=== PATIENT | male | born 1940 | race Caucasian/White ===

== ENCOUNTER 2016-07-23 23:52 | Emergency (ER) | payer BC, MEDICARE ==
[2016-07-24] MEDS ORDERED: IPRATROPIUM-ALBUTEROL 3 ML NEB INHALATION STA (00:27)
[2016-07-24] MEDS ORDERED: methylPREDNISolone SOD SUCCI 125 MG/2 ML VIAL IV STA (00:27)
--- NOTE | 2016-07-24 00:29 | ED ---
General Adult HPI - General Chief complaint: Shortness of Breath Stated complaint: cough,anxiety Time Seen by Provider: 07/24/16 00:16 Source: patient, family, RN notes reviewed Mode of arrival: ambulatory Limitations: no limitations - History of Present Illness Initial comments: Patient is a pleasant 75-year-old male presenting to emergency Department with complaints of cough and difficulty in breathing. Symptoms have been present for the past 2-3 days. Cough has occasional no chest pains or fevers. No history of chronic lung problems. No leg pain or leg swelling. No chest pain. - Related Data Home Medications Medication Instructions Recorded Confirmed Atenolol 25 mg PO BID 11/03/15 11/03/15 Cetirizine HCl [Zyrtec] 10 mg PO HS 11/03/15 11/03/15 Clopidogrel [Plavix] 75 mg PO HS 11/03/15 11/03/15 Gemfibrozil [Lopid] 600 mg PO DAILY 11/03/15 11/03/15 Lisinopril [Zestril] 20 mg PO DAILY 11/03/15 11/03/15 Multivitamins, Thera [Multivitamin] 1 tab PO DAILY 11/03/15 11/03/15 Rosuvastatin [Crestor] 10 mg PO HS 11/03/15 11/03/15 metFORMIN HCL [Glucophage] 500 mg PO HS 11/03/15 11/03/15 Previous Rx's Medication Instructions Recorded ALPRAZolam [Xanax] 0.5 mg PO Q8HR PRN #10 tablet 07/24/16 Albuterol Inhaler [Ventolin Hfa 2 puff INHALATION Q4HR PRN #1 07/24/16 Inhaler] inhaler predniSONE 20 mg PO BID #8 tab 07/24/16 Allergies Allergy/AdvReac Type Severity Reaction Status Date / Time No Known Allergies Allergy Verified 07/23/16 23:57 Review of Systems ROS Statement: Those systems with pertinent positive or pertinent negative responses have been documented in the HPI. ROS Other: All systems not noted in ROS Statement are negative. Constitutional: Denies: fever Eyes: Denies: eye pain ENT: Denies: ear pain Respiratory: Reports: cough, dyspnea Cardiovascular: Denies: chest pain Endocrine: Denies: fatigue Gastrointestinal: Denies: abdominal pain Genitourinary: Denies: dysuria Musculoskeletal: Denies: back pain Skin: Denies: rash Neurological: Denies: weakness Past Medical History Past Medical History: Diabetes Mellitus, Hyperlipidemia, Hypertension History of Any Multi-Drug Resistant Organisms: None Reported Additional Past Surgical History / Comment(s): carotid artery Past Psychological History: No Psychological Hx Reported Smoking Status: Former smoker Past Alcohol Use History: None Reported Past Drug Use History: None Reported - Past Family History Father Family Medical History: Cancer Additional Family Medical History / Comment(s): lung cancer Mother Family Medical History: Myocardial Infarction ([place]) Additional Family Medical History / Comment(s): in her 80s General Exam Limitations: no limitations General appearance: alert, in no apparent distress Head exam: Present: atraumatic Eye exam: Present: normal appearance, PERRL ENT exam: Present: normal oropharynx Neck exam: Present: normal inspection Respiratory exam: Present: wheezes Cardiovascular Exam: Present: regular rate, normal rhythm GI/Abdominal exam: Present: soft. Absent: tenderness Extremities exam: Present: normal inspection. Absent: pedal edema, calf tenderness Neurological exam: Present: alert Psychiatric exam: Present: normal affect, normal mood Skin exam: Absent: rash Course Vital Signs 07/23/16 07/24/16 07/24/16 23:56 00:42 00:50 Temperature 98.9 F Pulse Rate 67 60 61 Respiratory 24 Rate Blood Pressure 170/88 O2 Sat by Pulse 93 L Oximetry EKG Findings - EKG Comments: EKG Findings:: Normal sinus rhythm at 62. Normal intervals. Normal axis. Normal QRS. Normal ST-T. Medical Decision Making - Medical Decision Making Patient reevaluated and significantly improved. Lungs are clear. Patient states he feels much better following nebulizer treatment. 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 Patient does see Dr. Hawkins for this and will follow-up with him again. - Lab Data Result diagrams: 07/24/16 00:23 07/24/16 00:23 Lab Results 07/24/16 07/24/16 07/24/16 Range/Units 00:23 00:23 00:23 WBC 8.5 (3.8-10.6) k/uL RBC 4.26 L (4.30-5.90) m/uL Hgb 13.4 (13.0-17.5) gm/dL Hct 39.5 (39.0-53.0) % MCV 92.8 (80.0-100.0) fL MCH 31.5 (25.0-35.0) pg MCHC 33.9 (31.0-37.0) g/dL RDW 12.9 (11.5-15.5) % Plt Count 182 (150-450) k/uL Neutrophils % 74 % Lymphocytes % 15 % Monocytes % 8 % Eosinophils % 2 % Basophils % 0 % Neutrophils # 6.3 (1.3-7.7) k/uL Lymphocytes # 1.2 (1.0-4.8) k/uL Monocytes # 0.7 (0-1.0) k/uL Eosinophils # 0.1 (0-0.7) k/uL Basophils # 0.0 (0-0.2) k/uL PT (9.0-12.0) sec INR (<1.1) APTT (22.0-30.0) sec D-Dimer (<0.60) mg/L FEU Sodium 137 (137-145) mmol/L Potassium 4.7 (3.5-5.1) mmol/L Chloride 107 (98-107) mmol/L Carbon Dioxide 18 L (22-30) mmol/L Anion Gap 12 mmol/L BUN 36 H (9-20) mg/dL Creatinine 1.40 H (0.66-1.25) mg/dL Est GFR (MDRD) Af Amer >60 (>60 ml/min/1.73 sqM) Est GFR (MDRD) Non-Af 50 (>60 ml/min/1.73 sqM) Glucose 104 H (74-99) mg/dL Calcium 9.4 (8.4-10.2) mg/dL Total Bilirubin 0.3 (0.2-1.3) mg/dL AST 30 (17-59) U/L ALT 44 (21-72) U/L Alkaline Phosphatase 63 (38-126) U/L Total Creatine Kinase 306 H (55-170) U/L CK-MB (CK-2) 6.2 H* (0.0-2.4) ng/mL CK-MB (CK-2) Rel Index 2.0 Troponin I <0.012 (0.000-0.034) ng/mL NT-Pro-B Natriuret Pep pg/mL Total Protein 6.4 (6.3-8.2) g/dL Albumin 3.7 (3.5-5.0) g/dL 07/24/16 07/24/16 Range/Units 00:23 00:23 WBC (3.8-10.6) k/uL RBC (4.30-5.90) m/uL Hgb (13.0-17.5) gm/dL Hct (39.0-53.0) % MCV (80.0-100.0) fL MCH (25.0-35.0) pg MCHC (31.0-37.0) g/dL RDW (11.5-15.5) % Plt Count (150-450) k/uL Neutrophils % % Lymphocytes % % Monocytes % % Eosinophils % % Basophils % % Neutrophils # (1.3-7.7) k/uL Lymphocytes # (1.0-4.8) k/uL Monocytes # (0-1.0) k/uL Eosinophils # (0-0.7) k/uL Basophils # (0-0.2) k/uL PT 10.8 (9.0-12.0) sec INR 1.1 (<1.1) APTT 25.1 (22.0-30.0) sec D-Dimer 0.65 H (<0.60) mg/L FEU Sodium (137-145) mmol/L Potassium (3.5-5.1) mmol/L Chloride (98-107) mmol/L Carbon Dioxide (22-30) mmol/L Anion Gap mmol/L BUN (9-20) mg/dL Creatinine (0.66-1.25) mg/dL Est GFR (MDRD) Af Amer (>60 ml/min/1.73 sqM) Est GFR (MDRD) Non-Af (>60 ml/min/1.73 sqM) Glucose (74-99) mg/dL Calcium (8.4-10.2) mg/dL Total Bilirubin (0.2-1.3) mg/dL AST (17-59) U/L ALT (21-72) U/L Alkaline Phosphatase (38-126) U/L Total Creatine Kinase (55-170) U/L CK-MB (CK-2) (0.0-2.4) ng/mL CK-MB (CK-2) Rel Index Troponin I (0.000-0.034) ng/mL NT-Pro-B Natriuret Pep 122 pg/mL Total Protein (6.3-8.2) g/dL Albumin (3.5-5.0) g/dL - Radiology Data Radiology results: report reviewed (Computed tomography scan shows no pulmonary embolism.. Bronchial thickening concerning for bronchitis. 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 Hawkins this week regarding aorta. Please follow-up with Dr. Morris this week. Have both Drs. review portal from today. Have both Drs. review computed tomography scan results. Return for difficulty breathing, fevers, worsening symptoms or other concerns. Prescriptions: ALPRAZolam [Xanax] 0.5 mg PO Q8HR PRN #10 tablet PRN Reason: Anxiety Albuterol Inhaler [Ventolin Hfa Inhaler] 2 puff INHALATION Q4HR PRN #1 inhaler PRN Reason: Dyspnea predniSONE 20 mg PO BID #8 tab Referrals: Hugh Morris MD [Primary Care Provider] - 1-2 days
[2016-07-24 00:54] LABS: Basophils % (A) 0 %; CH 32.5; CHCM 35.2; Eosinophils # (A) 0.1 k/uL (0-0.7); Eosinophils % (A) 2 %; HCT 39.5 % (39.0-53.0); HDW 2.74; HGB 13.4 gm/dL (13.0-17.5); Luc # (Auto) 0.18; Luc % (Auto) 2; Lymphocytes # (A) 1.2 k/uL (1.0-4.8); Lymphocytes % (A) 15 %; MCH 31.5 pg (25.0-35.0); MCHC 33.9 g/dL (31.0-37.0); MCV 92.8 fL (80.0-100.0); Mean Platelet Volume 7.7; Monocytes # (A) 0.7 k/uL (0-1.0); Monocytes % (A) 8 %; Neutrophils # (A) 6.3 k/uL (1.3-7.7); Neutrophils % (A) 74 %; RBC 4.26 m/uL (4.30-5.90); RDW 12.9 % (11.5-15.5); WBC 8.5 k/uL (3.8-10.6); WBC (Perox) 8.13
[2016-07-24 01:01] LABS: ALT 44 U/L (21-72); AST 30 U/L (17-59); Alkaline Phosphatase 63 U/L (38-126); Anion Gap 12 mmol/L; Blood Urea Nitrogen 36 mg/dL (9-20); Calcium 9.4 mg/dL (8.4-10.2); Carbon Dioxide 18 mmol/L (22-30); Chloride 107 mmol/L (98-107); Glucose 104 mg/dL (74-99); Non-African American GFR(MDRD) 50 (>60 ml/min/1.73 sqM); Potassium 4.7 mmol/L (3.5-5.1); Sodium 137 mmol/L (137-145); Total Bilirubin 0.3 mg/dL (0.2-1.3); Total Protein 6.4 g/dL (6.3-8.2)
[2016-07-24 01:05] LABS: INR 1.1 (<1.1); Partial Thromboplastin Time 25.1 sec (22.0-30.0); Prothrombin Time 10.8 sec (9.0-12.0)
[2016-07-24] MEDS ORDERED: RX INFO: IV CONTRAST WAS GIVEN 1 EACH MISC MISCELLANE PRN (01:10)
[2016-07-24] MEDS ORDERED: SODIUM CHLORIDE 0.9% 500 ML IV STA (01:10)
[2016-07-24 01:11] LABS: Creatine Kinase 306 U/L (55-170)
[2016-07-24 01:24] LABS: Troponin I <0.012 ng/mL (0.000-0.034)
[2016-07-24 01:26] LABS: Creatine Kinase MB 6.2 ng/mL (0.0-2.4)
[2016-07-24 02:51] VITALS: BP 156/74; PULSE 73; RESP 18; TEMP 98.8
--- NOTE | 2016-07-24 14:18 | CT ---
EXAM: CT Angiography Chest With Intravenous Contrast. CLINICAL HISTORY: Elevated d-dimer, evaluate for pulmonary embolus TECHNIQUE: Axial computed tomographic angiography images of the chest with intravenous contrast using pulmonary embolism protocol. CTDI is 3.20, 29. 40, 8.40 mGy and DLP is 371.90 mGy-cm MIP reconstructed images were created and reviewed. COMPARISON: CXR 07/24/2016, CT abdomen and pelvis 11/03/2015 FINDINGS: Pulmonary arteries: No pulmonary embolus. 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 Calcification of the thoracic aorta and coronary arteries. No thoracic aortic dissection or aneurysm. Lungs: Bilateral peribronchial thickening is concerning for bronchitis. No mass or consolidation. Pleural space: Unremarkable. No significant effusion. No pneumothorax. Heart: See above. Bones/joints: No acute fracture. No dislocation. Soft tissues: Unremarkable. Lymph nodes: Unremarkable. No enlarged lymph nodes. Gallbladder and bile ducts: The gallbladder surgically absent. Kidneys and ureters: Bilateral fluid attenuating renal lesions likely represent cysts. IMPRESSION: 1. No pulmonary embolus. 2. Bilateral peribronchial thickening is concerning for bronchitis. 3. 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 [employer] 07/24/16 02:15 Verify Receipt Verified receipt with AIDAN Gray who will give to Dr. Gonzales on 07/24 02:15 (-05:00)
--- NOTE | 2016-07-24 14:18 | XR ---
EXAM: XR Chest, 2 Views. CLINICAL HISTORY: Reason: difficulty breathing TECHNIQUE: Frontal and lateral views of the chest. COMPARISON: 05/07/2015 FINDINGS: Lungs: Bilateral pulmonary hyperinflation. No focal consolidation. Pleural space: Unremarkable. No pneumothorax. Heart: Unremarkable. No cardiomegaly. Mediastinum: Unremarkable. Bones/joints: Degenerative changes of the osseous structures. No acute osseous abnormality. IMPRESSION: No acute cardio pulmonary process.
== END 2016-07-24 02:49 | disposition home or self-care (01) ==
LOC: EC 23:52
DX: J20.9 Acute bronchitis, unspecified (principal); I10 Essential (primary) hypertension; E78.5 Hyperlipidemia, unspecified; E11.9 Type 2 diabetes mellitus without complications; Z87.891 Personal history of nicotine dependence; Z79.02 Long term (current) use of antithrombotics/antiplatelets; Z79.84 Long term (current) use of oral hypoglycemic drugs; Z79.899 Other long term (current) drug therapy; Z80.1 Family history of malignant neoplasm of trachea, bronchus and lung
CPT/HCPCS: 99285; 96374; 96361; 36415; 94640; 93005; 85379; 83880; 80053; 82550; 82553; 84484; 85025; 85610; 85730; 71020; 71275; J2930; Q9967

== ENCOUNTER → 2016-09-22 | Outpatient (CLI) | payer MEDICARE ==
[2016-09-22 10:46] LABS: CHCM 33.5; HDW 2.95; HGB 14.2 gm/dL (13.0-17.5); MCH 31.1 pg (25.0-35.0); MCHC 32.4 g/dL (31.0-37.0); MCV 96.2 fL (80.0-100.0); Mean Platelet Volume 6.8; RBC 4.57 m/uL (4.30-5.90)
[2016-09-22 11:10] LABS: ALT 27 U/L (21-72); AST 22 U/L (17-59); Alkaline Phosphatase 79 U/L (38-126); Anion Gap 8 mmol/L; Blood Urea Nitrogen 17 mg/dL (9-20); Carbon Dioxide 26 mmol/L (22-30); Chloride 108 mmol/L (98-107); Cholesterol 157 mg/dL (<200); Glucose 107 mg/dL (74-99); HDL Cholesterol 30 mg/dL (40-60); Non-African American GFR(MDRD) >60 (>60 ml/min/1.73 sqM); Potassium 4.7 mmol/L (3.5-5.1); Sodium 142 mmol/L (137-145); Total Bilirubin 0.7 mg/dL (0.2-1.3); Total Protein 6.6 g/dL (6.3-8.2); Triglycerides 414 mg/dL (<150)
[2016-09-22 20:52] LABS: Hemoglobin A1C 6.1 % (4.2-6.1)
== END ==
LOC: LABWHC1 10:29
PROVIDERS: ATTEND Internal Medicine
DX: E11.9 Type 2 diabetes mellitus without complications (principal); I10 Essential (primary) hypertension; E78.5 Hyperlipidemia, unspecified
CPT/HCPCS: 36415; 80053; 80061; 83036; 84443; 85027

== ENCOUNTER → 2017-01-28 | Outpatient (CLI) | payer MEDICARE ==
[2017-01-28 11:17] LABS: CH 32.3; CHCM 34.2; HCT 44.4 % (39.0-53.0); HDW 2.72; HGB 14.7 gm/dL (13.0-17.5); MCH 31.4 pg (25.0-35.0); MCV 95.1 fL (80.0-100.0); Mean Platelet Volume 7.4; RBC 4.67 m/uL (4.30-5.90); RDW 13.8 % (11.5-15.5); WBC 6.7 k/uL (3.8-10.6)
[2017-01-28 11:49] LABS: ALT 25 U/L (21-72); AST 20 U/L (17-59); Alkaline Phosphatase 69 U/L (38-126); Anion Gap 11 mmol/L; Blood Urea Nitrogen 25 mg/dL (9-20); Calcium 10.1 mg/dL (8.4-10.2); Carbon Dioxide 23 mmol/L (22-30); Chloride 109 mmol/L (98-107); Cholesterol 174 mg/dL (<200); Glucose 114 mg/dL (74-99); HDL Cholesterol 32 mg/dL (40-60); Non-African American GFR(MDRD) >60 (>60 ml/min/1.73 sqM); Potassium 4.7 mmol/L (3.5-5.1); Sodium 143 mmol/L (137-145); Total Bilirubin 0.4 mg/dL (0.2-1.3)
[2017-01-28 12:28] LABS: Total Protein 6.4 g/dL (6.3-8.2)
[2017-01-28 12:50] LABS: Hemoglobin A1C 6.3 % (4.2-6.1)
== END | disposition home or self-care (01) ==
LOC: LABWHC1 10:47
PROVIDERS: ATTEND Internal Medicine
DX: E78.5 Hyperlipidemia, unspecified (principal); I10 Essential (primary) hypertension; E11.9 Type 2 diabetes mellitus without complications; Z12.5 Encounter for screening for malignant neoplasm of prostate
CPT/HCPCS: 80061; 80053; 83036; 84443; 85027; 36415; G0103

== ENCOUNTER 2017-04-30 19:36 | Emergency (ER) | payer MEDICARE ==
--- NOTE | 2017-04-30 20:14 | ED ---
General Adult HPI - General Chief complaint: Extremity Problem,Nontraumatic Stated complaint: Numbness/left arm Time Seen by Provider: 04/30/17 19:49 Source: patient Mode of arrival: ambulatory Limitations: no limitations - History of Present Illness Initial comments: This 76-year-old white male presents with daughter is with a complaint of a left arm abnormality. He states that he has an occasional pinching or tingling type of sensation. He states that it starts in his shoulder and goes down his entire left arm. He adamantly denies any left arm pain. It has been intermittent for the last 1 day. He denies any actual injury. He denies any previous similar incidents. He states that it only lasts several seconds when it does occur. He denies any chest pain, shortness breath, or palpitations. He denies any known previous cardiac problems. He had a stress test approximately one year and 3 months ago and this was negative. 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 There is no leg pain or swelling. There is no abdominal pain. He does relate that he's had increased anxiety recently and this seems to cause him to be anxious. No other complaints or modifying factors. - Related Data Home Medications Medication Instructions Recorded Confirmed Atenolol 25 mg PO BID 11/03/15 04/30/17 Cetirizine HCl [Zyrtec] 10 mg PO HS 11/03/15 04/30/17 Clopidogrel [Plavix] 75 mg PO HS 11/03/15 04/30/17 Gemfibrozil [Lopid] 600 mg PO DAILY 11/03/15 04/30/17 Lisinopril [Zestril] 20 mg PO DAILY 11/03/15 04/30/17 Multivitamins, Thera [Multivitamin 1 tab PO DAILY 11/03/15 04/30/17 (formulary)] Rosuvastatin [Crestor] 10 mg PO HS 11/03/15 04/30/17 metFORMIN HCL [Glucophage] 500 mg PO HS 11/03/15 04/30/17 ALPRAZolam [Xanax] 0.25 mg PO Q8HR PRN 04/30/17 04/30/17 Allergies Allergy/AdvReac Type Severity Reaction Status Date / Time No Known Allergies Allergy Verified 04/30/17 20:09 Review of Systems ROS Statement: Those systems with pertinent positive or pertinent negative responses have been documented in the HPI. ROS Other: All systems not noted in ROS Statement are negative. Past Medical History Past Medical History: Diabetes Mellitus, Hyperlipidemia, Hypertension History of Any Multi-Drug Resistant Organisms: None Reported Past Surgical History: Cholecystectomy Additional Past Surgical History / Comment(s): carotid artery Past Psychological History: No Psychological Hx Reported Smoking Status: Former smoker Past Alcohol Use History: None Reported Past Drug Use History: None Reported - Past Family History Father Family Medical History: Cancer Additional Family Medical History / Comment(s): lung cancer Mother Family Medical History: Myocardial Infarction ([place]) Additional Family Medical History / Comment(s): in her 80s General Exam - General Exam Comments Initial Comments: GENERAL: The patient is well nourished and well hydrated. VITAL SIGNS: Heart rate, blood pressure, respiratory rate reviewed as recorded in nurse's notes. EYES: Pupils are round and reactive. Extraocular movements are intact. No conjunctival / lid redness or swelling. ENT: No external evidence of injury, swelling, or ecchymosis. Airway is patent. Throat is clear. NECK: Nontender. No swelling or evidence of injury. No subcutaneous emphysema. Trachea is midline. No thyroid mass. HEART: Regular rate and rhythm. Good peripheral pulses. LUNGS/CHEST: Breath sounds clear and equal bilaterally. No rales, rhonchi, or wheezes. No ecchymosis, subcutaneous emphysema, or tenderness. ABDOMEN: Abdomen soft without tenderness. No palpable masses or organomegaly. No peritoneal signs. No abdominal wall swelling or ecchymosis. EXTREMITIES: No extremity tenderness. Normal muscle tone and function. No thoracolumbar tenderness. NEUROLOGIC: Sensation is grossly intact. Cranial nerve exam reveals face is symmetrical, tongue is midline, speech is clear. There is no subjective numbness upon evaluation of his left arm. SKIN: No abrasions or ecchymosis is noted. No induration or masses noted. PSYCHIATRIC: Alert and oriented. Appropriate behavior and judgment. Seems slightly anxious at times. Limitations: no limitations Course Vital Signs 04/30/17 04/30/17 19:38 21:00 Temperature 98.5 F Pulse Rate 59 L 54 L Respiratory 20 18 Rate Blood Pressure 185/74 143/64 O2 Sat by Pulse 95 96 Oximetry Medical Decision Making - Medical Decision Making The patient was seen and examined. All diagnostics were reviewed. The patient was placed on the cardiac tech and this does show sinus bradycardia. He receives oxygen. The EKG shows a sinus bradycardia with a heart rate of 53. There is no acute ST-T wave changes identified. The RI interval is 188, QS duration is 96, and the QTc interval is 373. He had a computed tomography scan of the brain which did not show any acute abnormalities. The laboratory is reviewed. He does have a slight elevation of his calcium for an unknown reason. This appears to be gradually trending upwards. His CK-MB is minimally elevated but the CPK and troponin are normal. He is in no distress initially and in no distress on recheck. The exact cause of his current symptoms are not definitively determined but it is felt as though he is stable for discharge and outpatient follow-up closely. He and his daughters understand and agree and he leaves in no distress. - Lab Data Result diagrams: 04/30/17 19:57 04/30/17 19:57 Lab Results 04/30/17 04/30/17 04/30/17 Range/Units 19:57 19:57 19:57 WBC 7.3 (3.8-10.6) k/uL RBC 5.00 (4.30-5.90) m/uL Hgb 15.6 (13.0-17.5) gm/dL Hct 46.2 (39.0-53.0) % MCV 92.4 (80.0-100.0) fL MCH 31.3 (25.0-35.0) pg MCHC 33.9 (31.0-37.0) g/dL RDW 13.9 (11.5-15.5) % Plt Count 242 (150-450) k/uL Neutrophils % 64 % Lymphocytes % 23 % Monocytes % 6 % Eosinophils % 6 % Basophils % 1 % Neutrophils # 4.6 (1.3-7.7) k/uL Lymphocytes # 1.7 (1.0-4.8) k/uL Monocytes # 0.4 (0-1.0) k/uL Eosinophils # 0.5 (0-0.7) k/uL Basophils # 0.1 (0-0.2) k/uL PT (9.0-12.0) sec INR (<1.2) APTT (22.0-30.0) sec Sodium 140 (137-145) mmol/L Potassium 4.6 (3.5-5.1) mmol/L Chloride 104 (98-107) mmol/L Carbon Dioxide 26 (22-30) mmol/L Anion Gap 10 mmol/L BUN 25 H (9-20) mg/dL Creatinine 1.24 (0.66-1.25) mg/dL Est GFR (MDRD) Af Amer >60 (>60 ml/min/1.73 sqM) Est GFR (MDRD) Non-Af 57 (>60 ml/min/1.73 sqM) Glucose 130 H (74-99) mg/dL Calcium 10.8 H (8.4-10.2) mg/dL Magnesium 2.0 (1.6-2.3) mg/dL Total Bilirubin 0.4 (0.2-1.3) mg/dL AST 25 (17-59) U/L ALT 37 (21-72) U/L Alkaline Phosphatase 74 (38-126) U/L Total Creatine Kinase 120 (55-170) U/L CK-MB (CK-2) 3.0 H* (0.0-2.4) ng/mL CK-MB (CK-2) Rel Index 2.5 Troponin I <0.012 (0.000-0.034) ng/mL Total Protein 7.3 (6.3-8.2) g/dL Albumin 4.5 (3.5-5.0) g/dL 04/30/17 Range/Units 19:57 WBC (3.8-10.6) k/uL RBC (4.30-5.90) m/uL Hgb (13.0-17.5) gm/dL Hct (39.0-53.0) % MCV (80.0-100.0) fL MCH (25.0-35.0) pg MCHC (31.0-37.0) g/dL RDW (11.5-15.5) % Plt Count (150-450) k/uL Neutrophils % % Lymphocytes % % Monocytes % % Eosinophils % % Basophils % % Neutrophils # (1.3-7.7) k/uL Lymphocytes # (1.0-4.8) k/uL Monocytes # (0-1.0) k/uL Eosinophils # (0-0.7) k/uL Basophils # (0-0.2) k/uL PT 10.9 (9.0-12.0) sec INR 1.1 (<1.2) APTT 22.0 (22.0-30.0) sec Sodium (137-145) mmol/L Potassium (3.5-5.1) mmol/L Chloride (98-107) mmol/L Carbon Dioxide (22-30) mmol/L Anion Gap mmol/L BUN (9-20) mg/dL Creatinine (0.66-1.25) mg/dL Est GFR (MDRD) Af Amer (>60 ml/min/1.73 sqM) Est GFR (MDRD) Non-Af (>60 ml/min/1.73 sqM) Glucose (74-99) mg/dL Calcium (8.4-10.2) mg/dL Magnesium (1.6-2.3) mg/dL Total Bilirubin (0.2-1.3) mg/dL AST (17-59) U/L ALT (21-72) U/L Alkaline Phosphatase (38-126) U/L Total Creatine Kinase (55-170) U/L CK-MB (CK-2) (0.0-2.4) ng/mL CK-MB (CK-2) Rel Index Troponin I (0.000-0.034) ng/mL Total Protein (6.3-8.2) g/dL Albumin (3.5-5.0) g/dL Disposition Clinical Impression: Paresthesia of arm, Hypertension, Anxiety, Hypercalcemia Disposition: HOME SELF-CARE Condition: Good Instructions: Paresthesia (ED), Hypertension (ED), Hypercalcemia (ED) Referrals: Hugh Morris MD [Primary Care Provider] - 1-2 days Time of Disposition: 21:37
[2017-04-30 20:40] LABS: Basophils # (A) 0.1 k/uL (0-0.2); Basophils % (A) 1 %; CH 30.9; CHCM 33.6; Eosinophils # (A) 0.5 k/uL (0-0.7); Eosinophils % (A) 6 %; HCT 46.2 % (39.0-53.0); HGB 15.6 gm/dL (13.0-17.5); Luc # (Auto) 0.07; Luc % (Auto) 1; Lymphocytes # (A) 1.7 k/uL (1.0-4.8); Lymphocytes % (A) 23 %; MCH 31.3 pg (25.0-35.0); MCHC 33.9 g/dL (31.0-37.0); MCV 92.4 fL (80.0-100.0); Mean Platelet Volume 7.5; Monocytes # (A) 0.4 k/uL (0-1.0); Monocytes % (A) 6 %; Neutrophils # (A) 4.6 k/uL (1.3-7.7); Neutrophils % (A) 64 %; RDW 13.9 % (11.5-15.5); WBC 7.3 k/uL (3.8-10.6)
[2017-04-30 20:52] LABS: INR 1.1 (<1.2); Prothrombin Time 10.9 sec (9.0-12.0)
--- NOTE | 2017-04-30 20:52 | CT ---
EXAMINATION TYPE: CT brain wo con DATE OF EXAM: 04/30/2017 COMPARISON: 05/07/2015 HISTORY: Patient complains of intermittent left shoulder numbness. CT DLP: 799.3 mGycm Automated exposure control for dose reduction was used. FINDINGS: There is mild cerebral cortical atrophy. There is no mass effect nor midline shift. There is no sign of intracranial hemorrhage. The calvarium is intact. IMPRESSION: MILD ATROPHY. OTHERWISE NEGATIVE CT SCAN OF THE BRAIN. NO CHANGE.
[2017-04-30 20:53] LABS: ALT 37 U/L (21-72); AST 25 U/L (17-59); Alkaline Phosphatase 74 U/L (38-126); Anion Gap 10 mmol/L; Blood Urea Nitrogen 25 mg/dL (9-20); Calcium 10.8 mg/dL (8.4-10.2); Carbon Dioxide 26 mmol/L (22-30); Chloride 104 mmol/L (98-107); Glucose 130 mg/dL (74-99); Non-African American GFR(MDRD) 57 (>60 ml/min/1.73 sqM); Potassium 4.6 mmol/L (3.5-5.1); Sodium 140 mmol/L (137-145); Total Bilirubin 0.4 mg/dL (0.2-1.3); Total Protein 7.3 g/dL (6.3-8.2)
[2017-04-30 20:59] LABS: Creatine Kinase 120 U/L (55-170)
[2017-04-30 21:13] LABS: Troponin I <0.012 ng/mL (0.000-0.034)
[2017-04-30 22:08] VITALS: BP 154/67; PULSE 52; RESP 20; TEMP 97.8
== END 2017-04-30 21:50 | disposition home or self-care (01) ==
LOC: EC 19:36
DX: R20.2 Paresthesia of skin (principal); I10 Essential (primary) hypertension; F41.9 Anxiety disorder, unspecified; E83.52 Hypercalcemia; R00.1 Bradycardia, unspecified; E11.9 Type 2 diabetes mellitus without complications; E78.5 Hyperlipidemia, unspecified; Z87.891 Personal history of nicotine dependence; Z79.02 Long term (current) use of antithrombotics/antiplatelets; Z79.84 Long term (current) use of oral hypoglycemic drugs; Z79.899 Other long term (current) drug therapy
CPT/HCPCS: 36415; 70450; 80053; 82550; 82553; 83735; 84484; 85025; 85610; 85730; 93005; 99284

== ENCOUNTER → 2017-09-21 | Outpatient (CLI) | payer MEDICARE ==
[2017-09-21 10:54] LABS: HCT 44.1 % (39.0-53.0); HGB 14.9 gm/dL (13.0-17.5); MCH 30.9 pg (25.0-35.0); MCHC 33.8 g/dL (31.0-37.0); MCV 91.5 fL (80.0-100.0); Platelet Count 221 k/uL (150-450); RBC 4.83 m/uL (4.30-5.90); RDW 12.7 % (11.5-15.5); WBC 10.6 k/uL (3.8-10.6)
[2017-09-21 11:10] LABS: Albumin 4.4 g/dL (3.5-5.0); Calcium 10.5 mg/dL (8.4-10.2); Potassium 5.4 mmol/L (3.5-5.1); Total Bilirubin 0.8 mg/dL (0.2-1.3); Total Protein 6.8 g/dL (6.3-8.2)
[2017-09-21 18:38] LABS: Hemoglobin A1C 6.4 % (4.0-6.0)
== END | disposition home or self-care (01) ==
LOC: LABWHC1 10:01
PROVIDERS: ATTEND Internal Medicine
DX: E78.5 Hyperlipidemia, unspecified (principal); I10 Essential (primary) hypertension; E11.9 Type 2 diabetes mellitus without complications
CPT/HCPCS: 36415; 80053; 80061; 83036; 84443; 85027

== ENCOUNTER → 2018-02-08 | Outpatient (CLI) | payer MEDICARE ==
[2018-02-08 11:34] LABS: HCT 42.2 % (39.0-53.0); HGB 13.8 gm/dL (13.0-17.5); MCH 30.5 pg (25.0-35.0); MCHC 32.7 g/dL (31.0-37.0); MCV 93.1 fL (80.0-100.0); Mean Platelet Volume 7.1; Platelet Count 194 k/uL (150-450); RBC 4.53 m/uL (4.30-5.90); RDW 13.4 % (11.5-15.5); WBC 6.3 k/uL (3.8-10.6)
[2018-02-08 11:39] LABS: Albumin 3.8 g/dL (3.5-5.0); Calcium 9.8 mg/dL (8.4-10.2); Potassium 4.5 mmol/L (3.5-5.1); Total Bilirubin 0.5 mg/dL (0.2-1.3); Total Protein 6.2 g/dL (6.3-8.2)
[2018-02-08 12:09] LABS: PSA Annual Screen 0.79 ng/mL (0.00-4.00)
[2018-02-08 18:36] LABS: Hemoglobin A1C 6.4 % (4.0-6.0)
== END | disposition home or self-care (01) ==
LOC: LABWHC1 10:54
PROVIDERS: ATTEND Internal Medicine
DX: I10 Essential (primary) hypertension (principal); E78.5 Hyperlipidemia, unspecified; E11.9 Type 2 diabetes mellitus without complications
CPT/HCPCS: 80061; 80053; 84443; 85027; 83036; 36415; G0103

== ENCOUNTER → 2018-06-13 | Outpatient (CLI) | payer MEDICARE ==
[2018-06-13 10:33] LABS: HCT 44.3 % (39.0-53.0); HGB 14.8 gm/dL (13.0-17.5); MCH 30.9 pg (25.0-35.0); MCHC 33.4 g/dL (31.0-37.0); MCV 92.6 fL (80.0-100.0); Mean Platelet Volume 6.7; Platelet Count 274 k/uL (150-450); RBC 4.78 m/uL (4.30-5.90); RDW 13.3 % (11.5-15.5); WBC 9.7 k/uL (3.8-10.6)
[2018-06-13 17:42] LABS: Albumin 4.3 g/dL (3.80-4.90); Albumin/Globulin Ratio 2.53 (1.20-2.10); Anion Gap 8.5 mmol/L (4.00-12.00); Calcium 9.6 mg/dL (8.7-10.3); Carbon Dioxide 26.5 mmol/L (21.6-31.8); Globulin 1.7 g/dL (1.6-3.3); Potassium 4.5 mmol/L (3.5-5.5); Total Bilirubin 0.3 mg/dL (0.2-1.2)
[2018-06-13 21:19] LABS: Hemoglobin A1C 6.4 % (4.0-6.0)
== END | disposition home or self-care (01) ==
LOC: LABWHC1 10:11
PROVIDERS: ATTEND Internal Medicine
DX: E78.5 Hyperlipidemia, unspecified (principal); I10 Essential (primary) hypertension; E11.9 Type 2 diabetes mellitus without complications; I25.10 Atherosclerotic heart disease of native coronary artery without angina pectoris
CPT/HCPCS: 36415; 80053; 80061; 83036; 84443; 85027

== ENCOUNTER → 2018-09-13 | Outpatient (CLI) | payer MEDICARE ==
[2018-09-13 11:04] LABS: HGB 13.9 gm/dL (13.0-17.5); MCH 29.9 pg (25.0-35.0); MCHC 31.6 g/dL (31.0-37.0); MCV 94.6 fL (80.0-100.0); Mean Platelet Volume 6.5; Platelet Count 323 k/uL (150-450); RBC 4.65 m/uL (4.30-5.90); WBC 5.4 k/uL (3.8-10.6)
[2018-09-13 16:50] LABS: Albumin 4.3 g/dL (3.80-4.90); Albumin/Globulin Ratio 2.69 (1.60-3.17); Anion Gap 6.5 mmol/L (4.00-12.00); Carbon Dioxide 25.5 mmol/L (21.6-31.8); Globulin 1.6 g/dL (1.6-3.3); LDL Cholesterol,Calculated 81.2 mg/dL (0.0-131.0); Potassium 4.4 mmol/L (3.5-5.5); Total Bilirubin 0.4 mg/dL (0.2-1.2); Total Protein 5.9 g/dL (6.2-8.2); VLDL Calculation 51.8 mg/dL (5.00-40.00)
[2018-09-13 20:45] LABS: Hemoglobin A1C 6.5 % (4.0-6.0)
== END | disposition home or self-care (01) ==
LOC: LABWHC1 10:00
PROVIDERS: ATTEND Internal Medicine
DX: E11.9 Type 2 diabetes mellitus without complications (principal); I10 Essential (primary) hypertension; E78.5 Hyperlipidemia, unspecified
CPT/HCPCS: 36415; 80053; 80061; 83036; 84443; 85027

== ENCOUNTER → 2018-09-29 | Outpatient (CLI) | payer MEDICARE ==
--- NOTE | 2018-09-29 19:56 | ECHOF ---
Referral Reason:I77.71 Dissection of carotid artery MEASUREMENTS -------- HEIGHT: 162.6 cm WEIGHT: 73.5 kg BP: IVSd: 1.4 cm (0.6 - 1.1) LVIDd: 3.7 cm (3.9 - 5.3) LVPWd: 1.5 cm (0.6 - 1.1) IVSs: 1.6 cm LVIDs: 2.8 cm LVPWs: 1.4 cm LA Diam: 0.0 cm (2.7 - 3.8) RVIDd: 2.5 cm (< 3.3) LAESV Index (A-L): 29.29 ml/m Ao Diam: 3.4 cm (2.0 - 3.7) LA Diam: 3.6 cm (2.7 - 3.8) AV Cusp: 1.6 cm (1.5 - 2.6) EPSS: 0.5 cm MV E Francisco: 0.70 m/s MV DecT: 199 ms MV A Francisco: 0.73 m/s MV E/A Ratio: 0.95 RAP: 5.00 mmHg RVSP: 11.25 mmHg MV EF SLOPE: 131.65 mm/s (70 - 150) MV EXCURSION: 19.44 mm (> 18.000) FINDINGS -------- Sinus rhythm. This was a technically good study. The left ventricular size is normal. There is mild concentric left ventricular hypertrophy. Overa ll left ventricular systolic function is normal with, an EF between 55 - 60 %. The right ventricle is normal in size. The left atrium is mildly dilated. LA is midly dilated 29-33ml/m2. The right atrial size is normal. Interatrial and interventricular septum intact. The aortic valve is trileaflet, and appears structurally normal. No aortic stenosis or regurgitation. Mild mitral annular calcification present. Mild mitral regurgitation is present. Mild tricuspid regurgitation present. There is no evidence of pulmonary hypertension. The right v entricular systolic pressure, as measured by Doppler, is 11.25mmHg. There is no pulmonic regurgitation present. The aortic root size is normal. Normal inferior vena cava with normal inspiratory collapse consistent with estimated right atrial pre ssure of 5 mmHg. There is no pericardial effusion. CONCLUSIONS -------- 1. The left ventricular size is normal. 2. There is mild concentric left ventricular hypertrophy. 3. Overall left ventricular systolic function is normal with, an EF between 55 - 60 %. 4. The right ventricle is normal in size. 5. The left atrium is mildly dilated. 6. LA is midly dilated 29-33ml/m2. 7. The right atrial size is normal. 8. Interatrial and interventricular septum intact. 9. The aortic valve is trileaflet, and appears structurally normal. No aortic stenosis or regurgitati on. 10. Mild mitral annular calcification present. 11. Mild mitral regurgitation is present. 12. Mild tricuspid regurgitation present. 13. There is no evidence of pulmonary hypertension. 14. The right ventricular systolic pressure, as measured by Doppler, is 11.25mmHg. 15. There is no pulmonic regurgitation present. 16. The aortic root size is normal. 17. Normal inferior vena cava with normal inspiratory collapse consistent with estimated right atrial pressure of 5 mmHg. 18. There is no pericardial effusion. CURB BUILDER: Sofi Lancaster RDCS
== END ==
LOC: RADECHMAIN 13:41
PROVIDERS: ATTEND Internal Medicine
DX: I08.1 Rheumatic disorders of both mitral and tricuspid valves (principal)
CPT/HCPCS: 93306

== ENCOUNTER 2018-10-11 23:11 | Inpatient (IN) | payer MEDICARE ==
[2018-10-12 00:23] LABS: Basophils % (A) 0 %; Eosinophils # (A) 0.4 k/uL (0-0.7); Eosinophils % (A) 3 %; HCT 41.9 % (39.0-53.0); HGB 13.6 gm/dL (13.0-17.5); Lymphocytes # (A) 1.3 k/uL (1.0-4.8); Lymphocytes % (A) 11 %; MCH 29.9 pg (25.0-35.0); MCHC 32.5 g/dL (31.0-37.0); MCV 92.1 fL (80.0-100.0); Mean Platelet Volume 6.8; Monocytes # (A) 0.7 k/uL (0-1.0); Monocytes % (A) 6 %; Neutrophils # (A) 9.4 k/uL (1.3-7.7); Neutrophils % (A) 78 %; Platelet Count 280 k/uL (150-450); RBC 4.55 m/uL (4.30-5.90); RDW 13.2 % (11.5-15.5)
[2018-10-12 00:33] LABS: Albumin 4.1 g/dL (3.5-5.0); Calcium 10.4 mg/dL (8.4-10.2); Potassium 4.6 mmol/L (3.5-5.1); Total Bilirubin 0.5 mg/dL (0.2-1.3); Total Protein 6.4 g/dL (6.3-8.2)
--- NOTE | 2018-10-12 00:45 | XR ---
EXAM: XR Abdomen, 1 View CLINICAL HISTORY: ITS.REASON XR Reason: abdominal pain TECHNIQUE: Frontal supine view of the abdomen/pelvis. COMPARISON: No relevant prior studies available. FINDINGS: Gastrointestinal tract: Unremarkable. No dilation. Bones/joints: Unremarkable. IMPRESSION: Normal abdominal x-ray.
[2018-10-12] MEDS ORDERED: SODIUM CHLORIDE 0.9% 1,000 ML IV STA (01:21)
[2018-10-12 01:51] LABS: Appearance,Urine Clear (Clear); Bilirubin,Urine Negative (Negative); Blood,Urine Negative (Negative); Color,Urine Light Yellow; Glucose,Urine (UA) Negative (Negative); Ketones,Urine Negative (Negative); Leukocyte Esterase,Urine Negative (Negative); Nitrite,Urine Negative (Negative); Protein,Urine Negative (Negative); Specific Gravity,Urine 1.007 (1.001-1.035); Urobilinogen,Urine <2.0 mg/dL (<2.0)
--- NOTE | 2018-10-12 02:15 | ED ---
General Adult HPI - General Source: patient, RN notes reviewed, old records reviewed Mode of arrival: ambulatory Limitations: no limitations <Micyk Yeung - Last Filed: 10/12/18 04:08> <Chloe Leavitt - Last Filed: 10/13/18 06:17> - General Chief complaint: Abdominal Pain Stated complaint: Lower abd and side pain Time Seen by Provider: 10/12/18 01:00 - History of Present Illness Initial comments: 77-year-old male patient past medical history of type 2 diabetes, hypertension, hyperlipidemia presents to ED with left lower quadrant pain for approximately 16 hours. Patient states that the pain feels a gas that has waxed and waned throughout the day. Patient reports that he did take some Gas-X which mo derately improved the pain. Patient denies any chest pain or shortness of breath. Patient has a nausea vomiting diarrhea. Patient denies any other complaints at this time. Systemic: Pt denies fatigue, myalgia, fever/chills, rash. Pt denies weakness, night sweats, weight loss. Neuro: Pt denies headache, visual disturbances, syncope or pre-syncope. HEENT: Pt denies ocular discharge or irritation, otalgia, rhinorrhea, pharyngitis or notable lymphadenopathy. Cardiopulmonary: Pt denies chest pain, SOB, heart palpitations, dyspnea on exertion. Abdominal/GI: Pt denies n/v/d. : Pt denies dysuria, burning w/ urination, frequency/urgency. Denies new onset urinary or bowel incontinence. MSK: Pt denies myalgia, loss of strength or function in extremities. Neuro: Pt denies new onset weakness, paresthesias. (Micky Yeung) - Related Data Home Medications Medication Instructions Recorded Confirmed Atenolol 25 mg PO BID 11/03/15 10/12/18 Cetirizine HCl [Zyrtec] 10 mg PO HS 11/03/15 10/12/18 Clopidogrel [Plavix] 75 mg PO HS 11/03/15 10/12/18 Lisinopril [Zestril] 20 mg PO DAILY 11/03/15 10/12/18 Multivitamins, Thera [Multivitamin 1 tab PO DAILY 11/03/15 10/12/18 (formulary)] Rosuvastatin [Crestor] 10 mg PO DAILY 11/03/15 10/12/18 metFORMIN HCL [Glucophage] 500 mg PO HS 11/03/15 10/12/18 Fenofibrate Nanocrystallized 145 mg PO HS 10/12/18 10/12/18 [Fenofibrate] Levothyroxine Sodium [Synthroid] 25 mcg PO DAILY 10/12/18 10/12/18 Allergies Allergy/AdvReac Type Severity Reaction Status Date / Time amoxicillin Allergy Rash/Hives Verified 10/12/18 07:59 Penicillins Allergy Rash/Hives Verified 10/12/18 07:59 Review of Systems ROS Other: All systems not noted in ROS Statement are negative. <Micky Yeung - Last Filed: 10/12/18 04:08> ROS Other: All systems not noted in ROS Statement are negative. <Chloe Leavitt - Last Filed: 10/13/18 06:17> ROS Statement: Those systems with pertinent positive or pertinent negative responses have been documented in the HPI. Past Medical History Past Medical History: Diabetes Mellitus, Hyperlipidemia, Hypertension History of Any Multi-Drug Resistant Organisms: None Reported Past Surgical History: Cholecystectomy Additional Past Surgical History / Comment(s): carotid artery Past Psychological History: No Psychological Hx Reported Smoking Status: Former smoker Past Alcohol Use History: None Reported Past Drug Use History: None Reported - Past Family History Father Family Medical History: Cancer Additional Family Medical History / Comment(s): lung cancer Mother Family Medical History: Myocardial Infarction ([place]) Additional Family Medical History / Comment(s): in her 80s <Micky Yeung - Last Filed: 10/12/18 04:08> General Exam Limitations: no limitations <Micky Yeung - Last Filed: 10/12/18 04:08> - General Exam Comments Initial Comments: Constitutional: NAD, AOX3, Pt has pleasant affect. HEENT: NC/AT, trachea midline, neck supple, no lymphadenopathy. Posterior pharynx non erythematous, without exudates. External ears appear normal, without discharge. Mucous membranes moist. Eyes PERRLA, EOM intact. There is no scleral icterus. No pallor noted. Cardiopulmonary: RRR, no murmurs, rubs or gallops, no JVD noted. Lungs CTAB in anterior and posterior [place]. No peripheral edema. Abdominal exam: Abdomen soft and non-distended. Abdomen mildly tender to palpation left lower quadrant. No guarding or rigidity no rebound tenderness. No ecchymoses. Bowel sounds active in LLQ. No hepatosplenomegaly. Neuro: CN II-XII grossly intact. No nuchal rigidity. MSK: No posterior calf tenderness bilaterally, homans sign negative bilaterally. Posterior tibialis and radial pulse +2 bilaterally. Sensation intact in upper and lower extremities. Full active ROM in upper and lower extremities, 5/5 stregnth. (Micky Yeung) Course Vital Signs 10/11/18 10/12/18 10/12/18 23:46 02:48 05:46 Temperature 98.5 F 98.0 F 98.2 F Pulse Rate 58 L 61 61 Respiratory 20 19 19 Rate Blood Pressure 139/54 123/78 122/68 O2 Sat by Pulse 97 98 96 Oximetry 10/12/18 08:15 Temperature Pulse Rate 60 Respiratory 18 Rate Blood Pressure 115/63 O2 Sat by Pulse 96 Oximetry Medical Decision Making - Lab Data Result diagrams: 10/12/18 00:11 10/12/18 00:11 <Micky Yeung - Last Filed: 10/12/18 04:08> - Lab Data Result diagrams: 10/12/18 00:11 10/12/18 00:11 <Chloe Leavitt - Last Filed: 10/13/18 06:17> - Medical Decision Making 77-year-old male patient past medical history of type 2 diabetes, hypertension, hyperlipidemia presents to ED with left lower quadrant pain for approximately 16 hours. Patient states that the pain feels a gas that has waxed and waned throughout the day. Patient reports that he did take some Gas-X which moderately improved the pain. Patient denies any chest pain or shortness of breath. Patient has a nausea vomiting diarrhea. Patient denies any other complaints at this time. Patient vital signs stable, afebrile. Abdomen soft and non-distended. Abdomen mildly tender to palpation left lower quadrant. No guarding or rigidity no rebound tenderness. No ecchymoses. Laboratory investigations revealed mild leukocytosis of 12.0. CMP revealed mildly elevated creatinine 1.37, lactic acid within normal limits. Glucose mildly elevated. U A negative. CT abdomen and pelvis display acute diverticulitis of the descending colon, no evidence for perforation or abscess. Patient admitted with surgery consult. Patient placed on rocephin and flagyl. Case discussed with Dr. Leavitt. (Micky Yeung) I was available for consultation in the emergency department. The history and physical exam were done by the midlevel provider. I was consulted for this patient's care. I reviewed the case with the midlevel provider, I agree with the plan for admission for IV antibiotics and further monitoring. (Chloe Leavitt) - Lab Data Lab Results 10/12/18 10/12/18 10/12/18 Range/Units 00:11 00:11 01:11 WBC 12.0 H (3.8-10.6) k/uL RBC 4.55 (4.30-5.90) m/uL Hgb 13.6 (13.0-17.5) gm/dL Hct 41.9 (39.0-53.0) % MCV 92.1 (80.0-100.0) fL MCH 29.9 (25.0-35.0) pg MCHC 32.5 (31.0-37.0) g/dL RDW 13.2 (11.5-15.5) % Plt Count 280 (150-450) k/uL Neutrophils % 78 % Lymphocytes % 11 % Monocytes % 6 % Eosinophils % 3 % Basophils % 0 % Neutrophils # 9.4 H (1.3-7.7) k/uL Lymphocytes # 1.3 (1.0-4.8) k/uL Monocytes # 0.7 (0-1.0) k/uL Eosinophils # 0.4 (0-0.7) k/uL Basophils # 0.0 (0-0.2) k/uL Sodium 138 (137-145) mmol/L Potassium 4.6 (3.5-5.1) mmol/L Chloride 106 (98-107) mmol/L Carbon Dioxide 27 (22-30) mmol/L Anion Gap 5 mmol/L BUN 20 (9-20) mg/dL Creatinine 1.37 H (0.66-1.25) mg/dL Est GFR (CKD-EPI)AfAm 58 (>60 ml/min/1.73 sqM) Est GFR (CKD-EPI)NonAf 50 (>60 ml/min/1.73 sqM) Glucose 173 H (74-99) mg/dL Plasma Lactic Acid Randy 1.0 (0.7-2.0) mmol/L Calcium 10.4 H (8.4-10.2) mg/dL Total Bilirubin 0.5 (0.2-1.3) mg/dL AST 23 (17-59) U/L ALT 30 (21-72) U/L Alkaline Phosphatase 43 (38-126) U/L Total Protein 6.4 (6.3-8.2) g/dL Albumin 4.1 (3.5-5.0) g/dL Amylase 56 (30-110) U/L Lipase 193 (23-300) U/L Urine Color Urine Appearance (Clear) Urine pH (5.0-8.0) Ur Specific [place] (1.001-1.035) Urine Protein (Negative) Urine Glucose (UA) (Negative) Urine Ketones (Negative) Urine Blood (Negative) Urine Nitrite (Negative) Urine Bilirubin (Negative) Urine Urobilinogen (<2.0) mg/dL Ur Leukocyte Esterase (Negative) 10/12/18 Range/Units 01:40 WBC (3.8-10.6) k/uL RBC (4.30-5.90) m/uL Hgb (13.0-17.5) gm/dL Hct (39.0-53.0) % MCV (80.0-100.0) fL MCH (25.0-35.0) pg MCHC (31.0-37.0) g/dL RDW (11.5-15.5) % Plt Count (150-450) k/uL Neutrophils % % Lymphocytes % % Monocytes % % Eosinophils % % Basophils % % Neutrophils # (1.3-7.7) k/uL Lymphocytes # (1.0-4.8) k/uL Monocytes # (0-1.0) k/uL Eosinophils # (0-0.7) k/uL Basophils # (0-0.2) k/uL Sodium (137-145) mmol/L Potassium (3.5-5.1) mmol/L Chloride (98-107) mmol/L Carbon Dioxide (22-30) mmol/L Anion Gap mmol/L BUN (9-20) mg/dL Creatinine (0.66-1.25) mg/dL Est GFR (CKD-EPI)AfAm (>60 ml/min/1.73 sqM) Est GFR (CKD-EPI)NonAf (>60 ml/min/1.73 sqM) Glucose (74-99) mg/dL Plasma Lactic Acid Randy (0.7-2.0) mmol/L Calcium (8.4-10.2) mg/dL Total Bilirubin (0.2-1.3) mg/dL AST (17-59) U/L ALT (21-72) U/L Alkaline Phosphatase (38-126) U/L Total Protein (6.3-8.2) g/dL Albumin (3.5-5.0) g/dL Amylase (30-110) U/L Lipase (23-300) U/L Urine Color Light Yellow Urine Appearance Clear (Clear) Urine pH 7.0 (5.0-8.0) Ur Specific [place] 1.007 (1.001-1.035) Urine Protein Negative (Negative) Urine Glucose (UA) Negative (Negative) Urine Ketones Negative (Negative) Urine Blood Negative (Negative) Urine Nitrite Negative (Negative) Urine Bilirubin Negative (Negative) Urine Urobilinogen <2.0 (<2.0) mg/dL Ur Leukocyte Esterase Negative (Negative) Disposition Is patient prescribed a controlled substance at d/c from ED?: No <Micky Yeung - Last Filed: 10/12/18 04:08> <Chloe Leavitt - Last Filed: 10/13/18 06:17> Clinical Impression: Acute diverticulitis Disposition: ADMITTED IP TO THIS HOSP Condition: Serious
--- NOTE | 2018-10-12 02:34 | CT ---
EXAM: CT Abdomen and Pelvis With Intravenous Contrast CLINICAL HISTORY: ITS.REASON CT Reason: Pain TECHNIQUE: Axial computed tomography images of the abdomen and pelvis with intravenous contrast. This CT exam was performed using one or more of the following dose reduction techniques: automated exposure control, adjustment of the mA and/or kV according to patient size, and/or use of iterative reconstruction technique. COMPARISON: No relevant prior studies available. FINDINGS: Lung bases: Unremarkable. No mass. No consolidation. ABDOMEN: Liver: Unremarkable. No mass. Gallbladder and bile ducts: No abnormal ductal dilation or stones. Pancreas: Unremarkable. No mass. No ductal dilation. Spleen: Unremarkable. No splenomegaly. Adrenals: Unremarkable. No mass. Kidneys and ureters: Unremarkable. No solid mass. No hydronephrosis. Stomach and bowel: Acute diverticulitis at the descending colon. PELVIS: Appendix: No findings to suggest acute appendicitis. Bladder: Unremarkable. No mass. Reproductive: Unremarkable as visualized. ABDOMEN and PELVIS: Intraperitoneal space: Unremarkable. No free air. No significant fluid collection. Bones/joints: No acute fracture. No dislocation. Soft tissues: Unremarkable. Vasculature: No abdominal aortic aneurysm. Lymph nodes: Unremarkable. No enlarged lymph nodes. IMPRESSION: Acute diverticulitis at the descending colon. No evidence for perforation.
[2018-10-12] MEDS ORDERED: metroNIDAZOLE-NS PMX 500 MG in SALINE 1 100ML.BAG IVPB STA (02:46)
[2018-10-12] MEDS ORDERED: NALOXONE 0.4 MG/ML 1 ML VIAL IV PRN (02:57)
[2018-10-12] MEDS: SODIUM CHLORIDE 0.9% 1,000 ML IV SCH ×2 (03:25→20:12)
[2018-10-12] MEDS: MORPHINE SULFATE 4 MG/ML SYRINGE IV PRN ×3 (03:49→20:13)
[2018-10-12] MEDS: metroNIDAZOLE-NS PMX 500 MG in SALINE 1 100ML.BAG IVPB SCH ×2 (10:34→20:12)
[2018-10-12 12:19] LABS: Glucose,Whole Blood 90 mg/dL (75-99)
--- NOTE | 2018-10-12 12:23 | P.GSCN ---
History of Present Illness Consult date: 10/12/18 Reason for Consult: Abdominal pain History of present illness: The patient is a 77 show man who began having bloating yesterday. He took some Gas-X with no significant relief. He got progressively more distended. He then began having abdominal pain. He was brought into the emergency department and worked up and found to have diverticulitis. Antibiotics were started last night. He's feeling better this morning. No previous history of diverticulitis. No blood in the stool or dark tarry stool. He had some nausea vomiting and diarrhea yesterday. None today. He's thirsty. No family history of GI malignancy or inflammatory bowel disease. The patient has never had a colonoscopy although is done Hemoccult tests. Review of Systems All systems: negative Past Medical History Past Medical History: Diabetes Mellitus, Hyperlipidemia, Hypertension Additional Past Medical History / Comment(s): AAA monitored by Dr. Tipton History of Any Multi-Drug Resistant Organisms: None Reported Past Surgical History: Cholecystectomy Additional Past Surgical History / Comment(s): carotid artery stent, now occluded 100% Past Anesthesia/Blood Transfusion Reactions: No Reported Reaction Past Psychological History: No Psychological Hx Reported Smoking Status: Former smoker Past Alcohol Use History: None Reported Past Drug Use History: None Reported - Past Family History Father Family Medical History: Cancer Additional Family Medical History / Comment(s): lung cancer Mother Family Medical History: Myocardial Infarction ([place]) Additional Family Medical History / Comment(s): in her 80s Medications and Allergies Home Medications Medication Instructions Recorded Confirmed Type Atenolol 25 mg PO BID 11/03/15 10/12/18 History Cetirizine HCl [Zyrtec] 10 mg PO HS 11/03/15 10/12/18 History Clopidogrel [Plavix] 75 mg PO HS 11/03/15 10/12/18 History Lisinopril [Zestril] 20 mg PO DAILY 11/03/15 10/12/18 History Multivitamins, Thera [Multivitamin 1 tab PO DAILY 11/03/15 10/12/18 History (formulary)] Rosuvastatin [Crestor] 10 mg PO DAILY 11/03/15 10/12/18 History metFORMIN HCL [Glucophage] 500 mg PO HS 11/03/15 10/12/18 History Fenofibrate Nanocrystallized 145 mg PO HS 10/12/18 10/12/18 History [Fenofibrate] Levothyroxine Sodium [Synthroid] 25 mcg PO DAILY 10/12/18 10/12/18 History Allergies Allergy/AdvReac Type Severity Reaction Status Date / Time amoxicillin Allergy Rash/Hives Verified 10/12/18 07:59 Penicillins Allergy Rash/Hives Verified 10/12/18 07:59 Surgical - Exam Osteopathic Statement: *. No significant issues noted on an osteopathic structural exam other than those noted in the History and Physical/Consult. Vital Signs Temp Pulse Resp BP Pulse Ox 98.5 F 58 L 20 139/54 97 10/11/18 23:46 10/11/18 23:46 10/11/18 23:46 10/11/18 23:46 10/11/18 23:46 - General well developed, well nourished, no distress - Eyes normal ocular movement - Neck trachea midline - Respiratory normal respiratory effort, clear to auscultation - Cardiovascular Rhythm: regular - Abdomen Abdomen: soft, tender (Mild left lower quadrant tenderness), bowel sounds, guarding, rigid, rebound, distended Results - Labs 10/12/18 00:11 10/12/18 00:11 Abnormal Lab Results - Last 24 Hours (Table) 10/12/18 10/12/18 Range/Units 00:11 00:11 WBC 12.0 H (3.8-10.6) k/uL Neutrophils # 9.4 H (1.3-7.7) k/uL Creatinine 1.37 H (0.66-1.25) mg/dL Glucose 173 H (74-99) mg/dL Calcium 10.4 H (8.4-10.2) mg/dL Diabetes panel 10/12/18 Range/Units 00:11 Sodium 138 (137-145) mmol/L Potassium 4.6 (3.5-5.1) mmol/L Chloride 106 (98-107) mmol/L Carbon Dioxide 27 (22-30) mmol/L BUN 20 (9-20) mg/dL Creatinine 1.37 H (0.66-1.25) mg/dL Glucose 173 H (74-99) mg/dL Calcium 10.4 H (8.4-10.2) mg/dL AST 23 (17-59) U/L ALT 30 (21-72) U/L Alkaline Phosphatase 43 (38-126) U/L Total Protein 6.4 (6.3-8.2) g/dL Albumin 4.1 (3.5-5.0) g/dL Calcium panel 10/12/18 Range/Units 00:11 Calcium 10.4 H (8.4-10.2) mg/dL Albumin 4.1 (3.5-5.0) g/dL Pituitary panel 10/12/18 Range/Units 00:11 Sodium 138 (137-145) mmol/L Potassium 4.6 (3.5-5.1) mmol/L Chloride 106 (98-107) mmol/L Carbon Dioxide 27 (22-30) mmol/L BUN 20 (9-20) mg/dL Creatinine 1.37 H (0.66-1.25) mg/dL Glucose 173 H (74-99) mg/dL Calcium 10.4 H (8.4-10.2) mg/dL Adrenal panel 10/12/18 Range/Units 00:11 Sodium 138 (137-145) mmol/L Potassium 4.6 (3.5-5.1) mmol/L Chloride 106 (98-107) mmol/L Carbon Dioxide 27 (22-30) mmol/L BUN 20 (9-20) mg/dL Creatinine 1.37 H (0.66-1.25) mg/dL Glucose 173 H (74-99) mg/dL Calcium 10.4 H (8.4-10.2) mg/dL Total Bilirubin 0.5 (0.2-1.3) mg/dL AST 23 (17-59) U/L ALT 30 (21-72) U/L Alkaline Phosphatase 43 (38-126) U/L Total Protein 6.4 (6.3-8.2) g/dL Albumin 4.1 (3.5-5.0) g/dL - Imaging CT scan - abdomen: report reviewed, image reviewed Assessment and Plan (1) Acute diverticulitis Current Visit: Yes Status: Acute Code(s): K57.92 - DVTRCLI OF INTEST, PART UNSP, W/O PERF OR ABSCESS W/O BLEED SNOMED Code(s): 639677574 Plan: He's feeling better today so start him on some clear liquids. Continue IV a ntibiotics. Serial exams. Currently nonsurgical. I would recommend outpatient colonoscopy in 6-8 weeks. Further recommendations to follow.
[2018-10-12] MEDS: INSULIN ASPART (NovoLOG) 100 UNIT/ML VIAL SQ SCH ×3 (12:32→21:32)
[2018-10-12] MEDS: ATENOLOL 25 MG TAB PO SCH ×2 (12:33→20:12)
[2018-10-12] MEDS: LEVOTHYROXINE 25 MCG TAB PO SCH (12:33)
--- NOTE | 2018-10-12 13:37 | P.HPIM ---
History of Present Illness H&P Date: 10/12/18 Chief Complaint: Abdominal pain x 1 days HPI: Patient is 77-year-old male presenting to the ER at [facility] yesterday with chief complaints of abdominal pain there be mostly left- sided started in the morning and as the day progressed the pain continued to get worse. Described the pain to be crampy with intensity of almost 10 out of 10 with some relief with burping the patient denies having any nausea no vomiting no diarrhea or any cost patient denies having any fever rigors and chills with these symptoms patient was evaluated by the ER physician on arrival to the ER the patient has been afebrile however he did have elevated white count of 12,000, subsequently a CT of abdominal pelvis was completed we did shows evidenc e of acute diverticulitis at the descending colon without evidence for perforation patient did have penicillin ALLERGY he was started on Rocephin 1 g daily in addition to the IV Flagyl and has been admitted hospital surgical consultation with Dr. Segundo was obtained, as of this morning the patient ab dominal pain is currently controlled patient be complaining of a dry mouth. The patient also have a history of type 2 diabetes mellitus for the patient currently taking metformin denies having any problem with a sugar control of symptoms related to it The patient had did have a history of hyperlipidemia for the patient is currently on a combination of Crestor and fenofibrate, the patient has been tolerating and no symptoms related to it Patient did have history of hypertension for which the patient is a combination of lisinopril and atenolol for blood pressure is currently stable no chest pain headache or shortness of breath. 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 Eyes: No complaint ENT: No complaint Respiratory: No complaint Cardiovascular: No complaint Gastrointestinal: As per history of present illness Genitourinary: No complaint Musculoskeletal: No complaint Integumentary: No complaint Endocrine : No complaint Psycologial : No complaint Neurological: No complaint. Past Medical History Past Medical History: Diabetes Mellitus, Hyperlipidemia, Hypertension Additional Past Medical History / Comment(s): AAA monitored by Dr. Tipton History of Any Multi-Drug Resistant Organisms: None Reported Past Surgical History: Cholecystectomy Additional Past Surgical History / Comment(s): carotid artery stent, now occluded 100% Past Anesthesia/Blood Transfusion Reactions: No Reported Reaction Past Psychological History: No Psychological Hx Reported Smoking Status: Former smoker Past Alcohol Use History: None Reported Past Drug Use History: None Reported - Past Family History Father Family Medical History: Cancer Additional Family Medical History / Comment(s): lung cancer Mother Family Medical History: Myocardial Infarction ([place]) Additional Family Medical History / Comment(s): in her 80s Medications and Allergies Home Medications Medication Instructions Recorded Confirmed Type Atenolol 25 mg PO BID 11/03/15 10/12/18 History Cetirizine HCl [Zyrtec] 10 mg PO HS 11/03/15 10/12/18 History Clopidogrel [Plavix] 75 mg PO HS 11/03/15 10/12/18 History Lisinopril [Zestril] 20 mg PO DAILY 11/03/15 10/12/18 History Multivitamins, Thera [Multivitamin 1 tab PO DAILY 11/03/15 10/12/18 History (formulary)] Rosuvastatin [Crestor] 10 mg PO DAILY 11/03/15 10/12/18 History metFORMIN HCL [Glucophage] 500 mg PO HS 11/03/15 10/12/18 History Fenofibrate Nanocrystallized 145 mg PO HS 10/12/18 10/12/18 History [Fenofibrate] Levothyroxine Sodium [Synthroid] 25 mcg PO DAILY 10/12/18 10/12/18 History Allergies Allergy/AdvReac Type Severity Reaction Status Date / Time amoxicillin Allergy Rash/Hives Verified 10/12/18 07:59 Penicillins Allergy Rash/Hives Verified 10/12/18 07:59 Physical Exam Vitals: Vital Signs Temp Pulse Pulse Resp BP BP Pulse Ox 10/12/18 08:49 98.2 F 61 16 110/63 94 L 10/12/18 08:15 60 18 115/63 96 10/12/18 05:46 98.2 F 61 19 122/68 96 10/12/18 02:48 98.0 F 61 19 123/78 98 10/11/18 23:46 98.5 F 58 L 20 139/54 97 Intake and Output 10/11/18 10/12/18 10/12/18 22:59 06:59 14:59 Other: Weight 72.575 kg General: The patient is awake and alert, in no distress. Skin: no rashes and no masses palpable. Eye: Pupils are equal, round, there is normal conjunctiva bilaterally. Ears, nose, mouth and throat: There are moist mucous membranes and no oral lesions. Neck: The neck is supple, there is no thyromegaly. Cardiovascular: S1-S2 regular rate and rhythm. No murmur. Respiratory: Unlabored breathing clear to auscultation bilaterally Gastrointestinal: Soft, non-distended, mildly tender left lower quadrant area no guarding or rigidity. Neurological: There are no obvious motor or sensory deficits. Coordination appears grossly intact. Speech is normal. Psychiatric: Patient is awake and alert and oriented 3, appropriate mood & affect, normal judgment. Results CBC & Chem 7: 10/12/18 00:11 10/12/18 00:11 Labs: Abnormal Lab Results - Last 24 Hours (Table) 10/12/18 10/12/18 Range/Units 00:11 00:11 WBC 12.0 H (3.8-10.6) k/uL Neutrophils # 9.4 H (1.3-7.7) k/uL Creatinine 1.37 H (0.66-1.25) mg/dL Glucose 173 H (74-99) mg/dL Calcium 10.4 H (8.4-10.2) mg/dL Thrombosis Risk Factor Assmnt - DVT/VTE Prophylaxis DVT/VTE Prophylaxis: Pharmacologic Prophylaxis ordered - Choose All That Apply Each Risk Factor Represents 3 Points: Age 75 years or older Thrombosis Risk Factor Assessment Total Risk Factor Score: 3 Thrombosis Risk Factor Assessment Level: Moderate Risk Assessment and Plan Assessment: 1-patient presented to hospital with acute left-sided abdominal pain in this patient who did have evidence of leukocytosis tenderness on clinical examination with a CT suggestive of uncomplicated descending colon diverticulitis without evidence of any perforation the likely organism that need to cover will be enteric gram-negative both aerobes and anaerobes, patient to have a penicillin ALLERGY that would limit the number of antibiotic that could be safe to use, however seems to have tolerated Rocephin without any problem, will increase the dose of Rocephin at 2 g daily and continue with IV Flagyl 500 mg every 8 hours, bowel rest and ice chips pending surgical evaluation 2-patient with type 2 diabetes mellitus in view the patient being nothing by mouth we will hold on metformin, Accu-Cheks and sliding scale insulin coverage, once the patient is resumed metformin may be restarted 3-hyperlipidemia--- will hold on Crestor and fenofibrate, till his oral activity resumes 4- hypertension the patient will continue on lisinopril 20 mg daily and atenolol 25 mg twice a day AND monitor his blood pressure closely 5- hyperthyroidism the patient to continue on Synthroid at 25 g daily 6-DVT and GI prophylaxis Time with Patient: Greater than 30
[2018-10-12] MEDS: ENOXAPARIN 40 MG/0.4 ML SYRINGE SQ SCH (15:04)
[2018-10-12 17:06] LABS: Glucose,Whole Blood 89 mg/dL (75-99)
[2018-10-12] MEDS: LORATADINE 10 MG TAB PO SCH (20:12)
[2018-10-12] MEDS: FENOFIBRATE 160 MG TAB PO SCH (20:12)
[2018-10-12] MEDS: CLOPIDOGREL 75 MG TAB PO SCH (20:12)
[2018-10-12 21:30] LABS: Glucose,Whole Blood 96 mg/dL (75-99)
[2018-10-13] MEDS: metroNIDAZOLE-NS PMX 500 MG in SALINE 1 100ML.BAG IVPB SCH ×3 (03:28→19:19)
[2018-10-13] MEDS: LEVOTHYROXINE 25 MCG TAB PO SCH (06:00)
[2018-10-13 06:56] LABS: Glucose,Whole Blood 90 mg/dL (75-99)
[2018-10-13] MEDS: INSULIN ASPART (NovoLOG) 100 UNIT/ML VIAL SQ SCH ×4 (07:33→20:47)
[2018-10-13] MEDS: ENOXAPARIN 40 MG/0.4 ML SYRINGE SQ SCH (07:46)
[2018-10-13] MEDS: ATENOLOL 25 MG TAB PO SCH ×2 (07:46→19:19)
[2018-10-13] MEDS: LISINOPRIL 20 MG TAB PO SCH (07:46)
[2018-10-13] MEDS: MULTIVITAMINS, THERA 1 EACH TAB PO SCH (07:46)
[2018-10-13 08:31] LABS: Basophils % (A) 0 %; Eosinophils # (A) 0.3 k/uL (0-0.7); Eosinophils % (A) 6 %; HCT 39.2 % (39.0-53.0); HGB 12.4 gm/dL (13.0-17.5); Lymphocytes # (A) 1.2 k/uL (1.0-4.8); Lymphocytes % (A) 20 %; MCHC 31.7 g/dL (31.0-37.0); MCV 94.6 fL (80.0-100.0); Mean Platelet Volume 6.8; Monocytes # (A) 0.4 k/uL (0-1.0); Monocytes % (A) 7 %; Neutrophils % (A) 65 %; Platelet Count 245 k/uL (150-450); RBC 4.15 m/uL (4.30-5.90); WBC 6.1 k/uL (3.8-10.6)
[2018-10-13] MEDS: MORPHINE SULFATE 4 MG/ML SYRINGE IV PRN (08:44)
[2018-10-13 08:46] LABS: Albumin 3.4 g/dL (3.5-5.0); Calcium 9.2 mg/dL (8.4-10.2); Potassium 4.2 mmol/L (3.5-5.1); Total Bilirubin 0.6 mg/dL (0.2-1.3); Total Protein 5.6 g/dL (6.3-8.2)
[2018-10-13] MEDS: SODIUM CHLORIDE 0.9% 1,000 ML IV SCH (10:13)
--- NOTE | 2018-10-13 10:31 | P.PN ---
Subjective Progress Note Date: 10/13/18 Principal diagnosis: Acute diverticulitis Bassem he'll is a 77-year-old male who was admitted to [facility] on 10/12/2018 due to abdominal pain and computed tomography scan of the abdomen and pelvis showing evidence of acute diverticulitis. H&P dictated yesterday by Dr. Madhuri Walker who was covering for me on 10/12/2018 Patient was seen and examined on 10/13/2018, he is alert and oriented 3 in no apparent distress, he is still complaining of left lower quadrant abdominal pain, otherwise he denies any complaints. There is no fever or chills no headache or dizziness no chest pain no shortness of breath no cough no nausea or vomiting no diarrhea, no burning with urination no frequency or urgency and no hematuria. Patient is maintained on full liquid diet, he has not had a bowel movement since admission, he is passing some gas. Objective - Vital Signs Vital signs: Vital Signs Temp 97.9 F 10/13/18 05:12 Pulse 60 10/13/18 05:12 Resp 18 10/13/18 05:12 BP 116/70 10/13/18 05:12 Pulse Ox 96 10/13/18 05:12 Intake & Output 10/12/18 10/13/18 10/13/18 18:59 06:59 18:59 Intake Total 630 Balance 630 Intake: IV 630 Sodium Chloride 0.9% 1, 480 000 ml @ 60 mls/hr IV . [id number] HUONG Rx#:[id number] cefTRIAXone 1 gm In 50 Sodium Chloride 0.9% 50 ml @ 100 mls/hr IVPB Q24HR HUONG Rx#:[id number] metroNIDAZOLE-NS PMX 500 100 mg In Saline 1 100ml.bag @ 100 mls/hr IVPB Q8H HUONG Rx#:[id number] Other: Voiding Method Toilet - Exam In general patient is alert and oriented 3 in no apparent distress HEENT head normocephalic and atraumatic Neck is supple no JVD no goiter no lymphadenopathy Chest exam reveals a few scattered crackles no wheezing Cardiac exam reveals regular heart sounds no gallops no murmurs Abdomen is soft with mild to moderate tenderness mostly in the left lower quadrant no organomegaly was normal bowel sounds Extremity exam reveals no edema no cyanosis or clubbing Neurological examination reveals no gross focal deficit - Labs CBC & Chem 7: 10/13/18 07:59 10/13/18 07:59 Labs: Abnormal Lab Results - Last 24 Hours (Table) 10/13/18 10/13/18 Range/Units 07:59 07:59 RBC 4.15 L (4.30-5.90) m/uL Hgb 12.4 L (13.0-17.5) gm/dL Chloride 111 H (98-107) mmol/L Total Protein 5.6 L (6.3-8.2) g/dL Albumin 3.4 L (3.5-5.0) g/dL Assessment and Plan Plan: #1 acute diverticulitis, no evidence of abscess or microperforation continue current IV antibiotic Rocephin and Flagyl #2 underlying history of [id number] diabetes mellitus, patient is off his oral diabetic medications, continue was inserted into sliding scale #3 underlying history of hypertension well-controlled continue current medications #4 underlying history of hyperlipidemia continue current management #5 underlying history of hypothyroidism continue Synthroid 25 g daily #6 for DVT prophylaxis patient is maintained on Lovenox for GI prophylaxis Will add proton X Medication and labs were reviewed continue with current management will recheck labs in a.m.
[2018-10-13 11:54] LABS: Glucose,Whole Blood 94 mg/dL (75-99)
--- NOTE | 2018-10-13 13:42 | P.PN ---
Subjective Progress Note Date: 10/13/18 Principal diagnosis: Diverticulitis The patient is seen on rounds. Tolerating a clear liquid diet. Passing some flatus. No bowel movement. Having some occasional left lower quadrant discomfort but it is improving compared to admission Objective - Vital Signs Vital signs: Vital Signs Temp 97.9 F 10/13/18 05:12 Pulse 60 10/13/18 05:12 Resp 18 10/13/18 05:12 BP 116/70 10/13/18 05:12 Pulse Ox 96 10/13/18 05:12 Intake & Output 10/12/18 10/13/18 10/13/18 18:59 06:59 18:59 Intake Total 630 Balance 630 Intake: IV 630 Sodium Chloride 0.9% 1, 480 000 ml @ 60 mls/hr IV . [id number] HUONG Rx#:[id number] cefTRIAXone 1 gm In 50 Sodium Chloride 0.9% 50 ml @ 100 mls/hr IVPB Q24HR HUONG Rx#:[id number] metroNIDAZOLE-NS PMX 500 100 mg In Saline 1 100ml.bag @ 100 mls/hr IVPB Q8H HUONG Rx#:[id number] Other: Voiding Method Toilet # Voids 1 - Constitutional General appearance: Present: cooperative, no acute distress - Gastrointestinal General gastrointestinal: Present: normal bowel sounds, soft, tenderness (Minimal left lower quadrant) - Labs CBC & Chem 7: 10/13/18 07:59 10/13/18 07:59 Labs: Abnormal Lab Results - Last 24 Hours (Table) 10/13/18 10/13/18 Range/Units 07:59 07:59 RBC 4.15 L (4.30-5.90) m/uL Hgb 12.4 L (13.0-17.5) gm/dL Chloride 111 H (98-107) mmol/L Total Protein 5.6 L (6.3-8.2) g/dL Albumin 3.4 L (3.5-5.0) g/dL Assessment and Plan (1) Acute diverticulitis Current Visit: Yes Status: Acute Code(s): K57.92 - DVTRCLI OF INTEST, PART UNSP, W/O PERF OR ABSCESS W/O BLEED SNOMED Code(s): 308768943 Plan: We'll slowly advance his diet. His progressing well. Outpatient colonoscopy in 6-8 weeks
[2018-10-13 16:55] LABS: Glucose,Whole Blood 80 mg/dL (75-99)
[2018-10-13] MEDS: CLOPIDOGREL 75 MG TAB PO SCH (19:19)
[2018-10-13] MEDS: LORATADINE 10 MG TAB PO SCH (19:19)
[2018-10-13] MEDS: FENOFIBRATE 160 MG TAB PO SCH (19:19)
[2018-10-13 20:21] LABS: Glucose,Whole Blood 129 mg/dL (75-99)
[2018-10-14] MEDS: metroNIDAZOLE-NS PMX 500 MG in SALINE 1 100ML.BAG IVPB SCH ×3 (03:41→19:18)
[2018-10-14] MEDS: SODIUM CHLORIDE 0.9% 1,000 ML IV SCH ×2 (04:59→22:33)
[2018-10-14] MEDS: LEVOTHYROXINE 25 MCG TAB PO SCH (06:09)
[2018-10-14] MEDS: MORPHINE SULFATE 4 MG/ML SYRINGE IV PRN ×2 (06:12→19:24)
[2018-10-14 07:05] LABS: Glucose,Whole Blood 92 mg/dL (75-99)
[2018-10-14] MEDS: INSULIN ASPART (NovoLOG) 100 UNIT/ML VIAL SQ SCH ×4 (07:11→21:01)
[2018-10-14] MEDS: ENOXAPARIN 40 MG/0.4 ML SYRINGE SQ SCH (07:13)
[2018-10-14] MEDS: LISINOPRIL 20 MG TAB PO SCH (07:13)
[2018-10-14] MEDS: ATENOLOL 25 MG TAB PO SCH ×2 (07:13→21:01)
[2018-10-14] MEDS: MULTIVITAMINS, THERA 1 EACH TAB PO SCH (07:13)
[2018-10-14 10:19] LABS: Basophils % (A) 1 %; Eosinophils # (A) 0.4 k/uL (0-0.7); Eosinophils % (A) 6 %; HCT 37.5 % (39.0-53.0); HGB 12.6 gm/dL (13.0-17.5); Lymphocytes # (A) 1.4 k/uL (1.0-4.8); Lymphocytes % (A) 21 %; MCH 31.3 pg (25.0-35.0); MCHC 33.6 g/dL (31.0-37.0); Mean Platelet Volume 7.1; Monocytes # (A) 0.5 k/uL (0-1.0); Monocytes % (A) 7 %; Neutrophils # (A) 4.1 k/uL (1.3-7.7); Neutrophils % (A) 64 %; Platelet Count 233 k/uL (150-450); RBC 4.03 m/uL (4.30-5.90); RDW 13.6 % (11.5-15.5); WBC 6.4 k/uL (3.8-10.6)
[2018-10-14 10:37] LABS: Albumin 3.4 g/dL (3.5-5.0); Calcium 9.3 mg/dL (8.4-10.2); Total Bilirubin 0.3 mg/dL (0.2-1.3); Total Protein 5.5 g/dL (6.3-8.2)
--- NOTE | 2018-10-14 10:58 | P.PN ---
Subjective Progress Note Date: 10/14/18 Acute diverticulitis Bassem he'll is a 77-year-old male who was admitted to [facility] on 10/12/2018 due to abdominal pain and computed tomography scan of the abdomen and pelvis showing evidence of acute diverticulitis. H&P dictated yesterday by Dr. Madhuri Walker who was covering for me on 10/12/2018 Patient was seen and examined on 10/13/2018, he is alert and oriented 3 in no apparent distress, he is still complaining of left lower quadrant abdominal pain, otherwise he denies any complaints. There is no fever or chills no headache or dizziness no chest pain no shortness of breath no cough no nausea or vomiting no diarrhea, no burning with urination no frequency or urgency and no hematuria. Patient is maintained on full liquid diet, he has not had a bowel movement since admission, he is passing some gas. On 10/14/2018 patient is alert and oriented 3. Patient does report improvement with abdominal pain. Patient has been having bowel movements slightly loose but with solid material. Diet to be advanced to regular diet with lunch per surgical services. Patient is still having mild discomfort upon palpation. Patient denies chest pain or shortness of breath. Patient denies nausea vomiting or diarrhea. Patient denies any urinary burning or frequency. Objective - Vital Signs Vital signs: Vital Signs Temp 98.3 F 10/14/18 05:15 Pulse 56 L 10/14/18 05:15 Resp 16 10/14/18 07:27 BP 160/75 10/14/18 05:15 Pulse Ox 97 10/14/18 05:15 Intake & Output 10/13/18 10/14/18 10/14/18 18:59 06:59 18:59 Intake Total 500 Balance 500 Intake: Oral 500 Other: Voiding Method Toilet Toilet # Voids 1 1 - Exam In general patient is alert and oriented 3 in no apparent distress HEENT head normocephalic and atraumatic Neck is supple no JVD no goiter no lymphadenopathy Chest exam reveals a few scattered crackles no wheezing Cardiac exam reveals regular heart sounds no gallops no murmurs Abdomen is soft with mild to moderate tenderness mostly in the left lower quadrant no organomegaly was normal bowel sounds Extremity exam reveals no edema no cyanosis or clubbing Neurological examination reveals no gross focal deficit - Labs CBC & Chem 7: 10/14/18 09:35 10/14/18 09:35 Labs: Abnormal Lab Results - Last 24 Hours (Table) 10/13/18 10/14/18 10/14/18 Range/Units 20:15 09:35 09:35 RBC 4.03 L (4.30-5.90) m/uL Hgb 12.6 L (13.0-17.5) gm/dL Hct 37.5 L (39.0-53.0) % Chloride 108 H (98-107) mmol/L Glucose 134 H (74-99) mg/dL POC Glucose (mg/dL) 129 H (75-99) mg/dL Alkaline Phosphatase 36 L (38-126) U/L Total Protein 5.5 L (6.3-8.2) g/dL Albumin 3.4 L (3.5-5.0) g/dL Assessment and Plan Assessment: #1 acute diverticulitis, no evidence of abscess or microperforation continue current IV antibiotic Rocephin and Flagyl. Surgical services are following. Diet to be advanced with lunch to regular diet #2 underlying history of [id number] diabetes mellitus, patient is off his oral diabetic medications, continue was inserted into sliding scale #3 underlying history of hypertension well-controlled continue current medications #4 underlying history of hyperlipidemia continue current management #5 underlying history of hypothyroidism continue Synthroid 25 g daily DVT prophylaxis patient is maintained on Lovenox for GI prophylaxis Protonix I performed an examination of the patient and discussed their management with the Nurse Practitioner. I have reviewed the Nurse Practitioner's notes and agree with the documented findings and plan of care
[2018-10-14 12:39] LABS: Glucose,Whole Blood 95 mg/dL (75-99)
--- NOTE | 2018-10-14 13:09 | P.PN ---
Subjective Progress Note Date: 10/14/18 Principal diagnosis: Diverticulitis The patient is doing well. Tolerating a diet without nausea or vomiting. Pain is improving Objective - Vital Signs Vital signs: Vital Signs Temp 98.3 F 10/14/18 05:15 Pulse 56 L 10/14/18 05:15 Resp 16 10/14/18 07:27 BP 160/75 10/14/18 05:15 Pulse Ox 97 10/14/18 05:15 Intake & Output 10/13/18 10/14/18 10/14/18 18:59 06:59 18:59 Intake Total 500 Balance 500 Intake: Oral 500 Other: Voiding Method Toilet Toilet # Voids 1 1 - Constitutional General appearance: Present: cooperative, no acute distress - Labs CBC & Chem 7: 10/14/18 09:35 10/14/18 09:35 Labs: Abnormal Lab Results - Last 24 Hours (Table) 10/13/18 10/14/18 10/14/18 Range/Units 20:15 09:35 09:35 RBC 4.03 L (4.30-5.90) m/uL Hgb 12.6 L (13.0-17.5) gm/dL Hct 37.5 L (39.0-53.0) % Chloride 108 H (98-107) mmol/L Glucose 134 H (74-99) mg/dL POC Glucose (mg/dL) 129 H (75-99) mg/dL Alkaline Phosphatase 36 L (38-126) U/L Total Protein 5.5 L (6.3-8.2) g/dL Albumin 3.4 L (3.5-5.0) g/dL Assessment and Plan (1) Acute diverticulitis Current Visit: Yes Status: Acute Code(s): K57.92 - DVTRCLI OF INTEST, PART UNSP, W/O PERF OR ABSCESS W/O BLEED SNOMED Code(s): 880507759 Plan: Surgically stable for discharge. Follow-up in the office in 1 month
[2018-10-14 17:18] LABS: Glucose,Whole Blood 112 mg/dL (75-99)
[2018-10-14 20:42] LABS: Glucose,Whole Blood 173 mg/dL (75-99)
[2018-10-14] MEDS: LORATADINE 10 MG TAB PO SCH (21:01)
[2018-10-14] MEDS: FENOFIBRATE 160 MG TAB PO SCH (21:01)
[2018-10-14] MEDS: CLOPIDOGREL 75 MG TAB PO SCH (21:01)
[2018-10-15] MEDS: LEVOTHYROXINE 25 MCG TAB PO SCH (06:08)
[2018-10-15 06:19] VITALS: RESP 20; TEMP 98
[2018-10-15 07:17] LABS: Glucose,Whole Blood 96 mg/dL (75-99)
[2018-10-15] MEDS ORDERED: PANTOPRAZOLE 40 MG TABLET PO SCH (07:30)
[2018-10-15] MEDS: INSULIN ASPART (NovoLOG) 100 UNIT/ML VIAL SQ SCH (08:15)
[2018-10-15] MEDS: metroNIDAZOLE-NS PMX 500 MG in SALINE 1 100ML.BAG IVPB SCH ×2 (08:15→10:51)
[2018-10-15] MEDS: MULTIVITAMINS, THERA 1 EACH TAB PO SCH (08:19)
[2018-10-15] MEDS: LISINOPRIL 20 MG TAB PO SCH (08:19)
[2018-10-15] MEDS: ATENOLOL 25 MG TAB PO SCH (08:19)
[2018-10-15] MEDS: ENOXAPARIN 40 MG/0.4 ML SYRINGE SQ SCH (08:19)
[2018-10-15 09:47] LABS: Basophils % (A) 0 %; Eosinophils # (A) 0.4 k/uL (0-0.7); Eosinophils % (A) 6 %; HCT 37.8 % (39.0-53.0); HGB 12.1 gm/dL (13.0-17.5); Lymphocytes # (A) 0.9 k/uL (1.0-4.8); Lymphocytes % (A) 15 %; MCH 29.7 pg (25.0-35.0); MCV 92.8 fL (80.0-100.0); Mean Platelet Volume 6.8; Monocytes # (A) 0.4 k/uL (0-1.0); Monocytes % (A) 6 %; Neutrophils # (A) 4.1 k/uL (1.3-7.7); Neutrophils % (A) 70 %; Platelet Count 245 k/uL (150-450); RBC 4.07 m/uL (4.30-5.90); RDW 13.1 % (11.5-15.5); WBC 5.9 k/uL (3.8-10.6)
[2018-10-15 09:55] LABS: Albumin 3.2 g/dL (3.5-5.0); Calcium 9.1 mg/dL (8.4-10.2); Potassium 3.7 mmol/L (3.5-5.1); Total Bilirubin 0.2 mg/dL (0.2-1.3); Total Protein 5.3 g/dL (6.3-8.2)
--- NOTE | 2018-10-15 10:54 | P.DS ---
Providers Date of admission: 10/12/18 03:20 Expected date of discharge: 10/15/18 Attending physician: Hugh Morris Consults: 10/12/18 04:07 Consult Physician Stat Consulting Provider: Raissa Segundo Consult Reason/Comments: acute diverticulitis, uncomplicated Do you want consulting provider notified?: Yes Primary care physician: Hugh Morris [facility] Course: Discharge diagnosis #1 acute diverticulitis, no evidence of abscess or microperforation continue current IV antibiotic Rocephin and Flagyl. Surgical services are following. Diet to be advanced with lunch to regular diet. Patient has been tolerating regular diet. Patient will be DC'd on Ceftin and Flagyl for 7 more days. Patient has been cleared for discharge from surgical services #2 underlying history of [id number] diabetes mellitus, patient is off his oral diabetic medications, continue was inserted into sliding scale. Metformin will be resumed #3 underlying history of hypertension well-controlled continue current medications #4 underlying history of hyperlipidemia continue current management #5 underlying history of hypothyroidism continue Synthroid 25 g daily Hospital course Acute diverticulitis Bassem he'll is a 77-year-old male who was admitted to [facility] on 10/12/2018 due to abdominal pain and computed tomography scan of the abdomen and pelvis showing evidence of acute diverticulitis. H&P dictated yesterday by Dr. Madhuri Walker who was covering for me on 10/12/2018 Patient was seen and examined on 10/13/2018, he is alert and oriented 3 in no apparent distress, he is still complaining of left lower quadrant abdominal pain, otherwise he denies any complaints. There is no fever or chills no headache or dizziness no chest pain no shortness of breath no cough no nausea or vomiting no diarrhea, no burning with urination no frequency or urgency and no hematuria. Patient is maintained on full liquid diet, he has not had a bowel movement since admission, he is passing some gas. On 10/14/2018 patient is alert and oriented 3. Patient does report improvement with abdominal pain. Patient has been having bowel movements slightly loose but with solid material. Diet to be advanced to regular diet with lunch per surgical services. Patient is still having mild discomfort upon palpation. Patient denies chest pain or shortness of breath. Patient denies nausea vomiting or diarrhea. Patient denies any urinary burning or frequency. On 10/15/2018 patient is alert and oriented 3. Patient reports improvement with abdominal pain. Patient has been having bowel movements. Denies blood. Patient has been afebrile. white Blood cell remains within normal limits. Patient denies nausea vomiting or diarrhea. Patient states he feels ready to go home. Patient will be DC'd on Ceftin and Flagyl for 7 more days. Patient to follow-up with PCP and surgical services for further evaluation. At this time patient denies chest pain or shortness breath. Patient denies nausea vomiting or diarrhea. Patient denies any urinary burning or frequency. I performed an examination of the patient and discussed their management with the Nurse Practitioner. I have reviewed the Nurse Practitioner's notes and agree with the documented findings and plan of care Patient Condition at Discharge: Stable Plan - Discharge Summary Discharge Rx Participant: No New Discharge Prescriptions: New Cefuroxime Axetil [Ceftin] 500 mg PO BID 7 Days #14 tab metroNIDAZOLE [Flagyl] 500 mg PO Q8HR 7 Days #21 tab Pantoprazole [Protonix] 40 mg PO AC-BRKFST 30 Days #30 tablet.dr Continue metFORMIN HCL [Glucophage] 500 mg PO HS Rosuvastatin [Crestor] 10 mg PO DAILY Multivitamins, Thera [Multivitamin (formulary)] 1 tab PO DAILY Lisinopril [Zestril] 20 mg PO DAILY Clopidogrel [Plavix] 75 mg PO HS Cetirizine HCl [Zyrtec] 10 mg PO HS Atenolol 25 mg PO BID Levothyroxine Sodium [Synthroid] 25 mcg PO DAILY Fenofibrate Nanocrystallized [Fenofibrate] 145 mg PO HS Discharge Medication List Atenolol 25 mg PO BID 11/03/15 [History] Cetirizine HCl [Zyrtec] 10 mg PO HS 11/03/15 [History] Clopidogrel [Plavix] 75 mg PO HS 11/03/15 [History] Lisinopril [Zestril] 20 mg PO DAILY 11/03/15 [History] Multivitamins, Thera [Multivitamin (formulary)] 1 tab PO DAILY 11/03/15 [History] Rosuvastatin [Crestor] 10 mg PO DAILY 11/03/15 [History] metFORMIN HCL [Glucophage] 500 mg PO HS 11/03/15 [History] Fenofibrate Nanocrystallized [Fenofibrate] 145 mg PO HS 10/12/18 [History] Levothyroxine Sodium [Synthroid] 25 mcg PO DAILY 10/12/18 [History] Cefuroxime Axetil [Ceftin] 500 mg PO BID 7 Days #14 tab 10/15/18 [Rx] Pantoprazole [Protonix] 40 mg PO AC-BRKFST 30 Days #30 tablet. 10/15/18 [Rx] metroNIDAZOLE [Flagyl] 500 mg PO Q8HR 7 Days #21 tab 10/15/18 [Rx] Follow up Appointment(s)/Referral(s): Raissa Segundo DO [Doctor of Osteopathic Medicine] - 4 Weeks Hugh Morris MD [Primary Care Provider] - 1-2 days Patient Instructions/Handouts: Diverticulitis (DC), Low Fiber Diet (DC) Activity/Diet/Wound Care/Special Instructions: follow a low fiber diet activity as tolerated Discharge Disposition: HOME SELF-CARE
[2018-10-15 11:52] VITALS: BP 163/83; PULSE 57
[2018-10-15 12:22] LABS: Glucose,Whole Blood 162 mg/dL (75-99)
== END 2018-10-15 12:39 | disposition home or self-care (01) | DRG 392 ==
LOC: EC 23:11 → 4SSUR 10-12 03:20 → 4MS4W 10-12 06:51
PROVIDERS: ADMIT Internal Medicine; ATTEND Internal Medicine
DX: K57.32 Diverticulitis of large intestine without perforation or abscess without bleeding (principal); T82.858A Stenosis of other vascular prosthetic devices, implants and grafts, initial encounter; E03.9 Hypothyroidism, unspecified; E11.9 Type 2 diabetes mellitus without complications; E78.5 Hyperlipidemia, unspecified; I10 Essential (primary) hypertension; Z79.02 Long term (current) use of antithrombotics/antiplatelets; Z79.82 Long term (current) use of aspirin; Z79.84 Long term (current) use of oral hypoglycemic drugs; Z79.890 Hormone replacement therapy; Z79.899 Other long term (current) drug therapy; Z80.1 Family history of malignant neoplasm of trachea, bronchus and lung; Z82.49 Family history of ischemic heart disease and other diseases of the circulatory system; Z87.891 Personal history of nicotine dependence; Z88.0 Allergy status to penicillin; I65.29 Occlusion and stenosis of unspecified carotid artery; Z90.49 Acquired absence of other specified parts of digestive tract; I71.4 Abdominal aortic aneurysm, without rupture
CPT/HCPCS: 36415; 74018; 74177; 80053; 81003; 82150; 83605; 83690; 85025; 96361; 96365; 96366; 96375; 96376; 99285

== ENCOUNTER → 2019-01-17 | Outpatient (CLI) | payer MEDICARE ==
[2019-01-17 11:00] LABS: HGB 14.4 gm/dL (13.0-17.5); MCH 30.9 pg (25.0-35.0); MCHC 32.8 g/dL (31.0-37.0); MCV 94.3 fL (80.0-100.0); Mean Platelet Volume 6.7; Platelet Count 250 k/uL (150-450); RBC 4.67 m/uL (4.30-5.90); RDW 13.2 % (11.5-15.5); WBC 6.7 k/uL (3.8-10.6)
[2019-01-17 16:45] LABS: African American GFR (CKD) 55.8 (60.0-200.0); Albumin 4.3 g/dL (3.80-4.90); Albumin/Globulin Ratio 2.69 (1.60-3.17); Anion Gap 10.4 mmol/L (4.00-12.00); BUN/Creat Ratio 20.71 Ratio (12.00-20.00); Carbon Dioxide 25.6 mmol/L (21.6-31.8); Globulin 1.6 g/dL (1.6-3.3); LDL Cholesterol,Calculated 82.8 mg/dL (0.0-131.0); Potassium 4.6 mmol/L (3.5-5.5); Total Bilirubin 0.4 mg/dL (0.2-1.2); Total Protein 5.9 g/dL (6.2-8.2); VLDL Calculation 44.2 mg/dL (5.00-40.00)
[2019-01-17 18:28] LABS: Hemoglobin A1C 6.2 % (4.0-6.0)
== END | disposition home or self-care (01) ==
LOC: LABWHC1 10:10
PROVIDERS: ATTEND Internal Medicine
DX: I10 Essential (primary) hypertension (principal); E11.9 Type 2 diabetes mellitus without complications; E03.9 Hypothyroidism, unspecified; E78.5 Hyperlipidemia, unspecified
CPT/HCPCS: 36415; 80053; 80061; 83036; 84443; 85027

== ENCOUNTER 2019-02-19 15:38 | Emergency (ER) | payer MEDICARE ==
[2019-02-19 16:19] VITALS: RESP 18
[2019-02-19] MEDS ORDERED: SODIUM CHLORIDE 0.9% 500 ML 500 ML IV STA ×2 (16:23→16:52)
[2019-02-19 16:31] LABS: Basophils % (A) 0 %; Eosinophils # (A) 0.4 k/uL (0-0.7); Eosinophils % (A) 5 %; HCT 40.2 % (39.0-53.0); HGB 13.8 gm/dL (13.0-17.5); Lymphocytes # (A) 1.3 k/uL (1.0-4.8); Lymphocytes % (A) 17 %; MCH 31.1 pg (25.0-35.0); MCHC 34.3 g/dL (31.0-37.0); MCV 90.5 fL (80.0-100.0); Mean Platelet Volume 6.8; Monocytes # (A) 0.4 k/uL (0-1.0); Monocytes % (A) 6 %; Neutrophils # (A) 5.3 k/uL (1.3-7.7); Neutrophils % (A) 69 %; Platelet Count 305 k/uL (150-450); RBC 4.44 m/uL (4.30-5.90); RDW 12.9 % (11.5-15.5); WBC 7.7 k/uL (3.8-10.6)
[2019-02-19 16:39] LABS: Partial Thromboplastin Time 25.7 sec (22.0-30.0); Prothrombin Time 10.4 sec (9.0-12.0)
[2019-02-19 16:41] LABS: Albumin 3.9 g/dL (3.5-5.0); Calcium 9.8 mg/dL (8.4-10.2); Potassium 4.3 mmol/L (3.5-5.1); Total Bilirubin 0.8 mg/dL (0.2-1.3); Total Protein 6.2 g/dL (6.3-8.2)
[2019-02-19 16:43] LABS: Creatine Kinase 85 U/L (55-170)
--- NOTE | 2019-02-19 16:49 | CT ---
EXAMINATION TYPE: CT brain wo con for TPA DATE OF EXAM: 02/19/2019 COMPARISON: 04/30/2017 HISTORY: Facial droop. Weakness. CT DLP: mGycm Automated exposure control for dose reduction was used. FINDINGS: Ventricles have normal size. There is no mass effect nor midline shift. There is no sign of intracran ial hemorrhage. Calvarium is intact. There is mild cerebral atrophy. IMPRESSION: MILD ATROPHY. NO ACUTE INTRACRANIAL ABNORMALITY. NO CHANGE.
--- NOTE | 2019-02-19 16:52 | ED ---
General Adult HPI - General Chief complaint: Neuro Symptoms/Deficit Stated complaint: poss cardiac issue Time Seen by Provider: 02/19/19 15:59 Source: patient, family Mode of arrival: wheelchair Limitations: no limitations - History of Present Illness Initial comments: Dictation was produced using [employer] dictation software. please excuse any grammatical, word or spelling errors. Chief Complaint: 78-year-old male past medical history of transient ischemic attack, diabetes, dyslipidemia hypertension and chronic right carotid occlusion presents with left lower extremity weakness and left facial droop. History of Present Illness: 78-year-old male who presents today with 2 of his daughters. He presents today with acute onset left lower extremity weakness and left facial droop. Patient's symptoms started at approximately 2:30 PM today. Patient was at home when he noticed this. One hour later he called one of his daughters who was concerned enough to bring him to the emergency department. Patient states his symptoms are slightly improving. He does have a history of occlusion to the right carotid artery. Patient has been otherwise feeling ataxic. He has been dragging his feet when he walks.. Denies any other focal neurologic deficits. The ROS documented in this emergency department record has been reviewed and confirmed by me. Those systems with pertinent positive or negative responses have been documented in the HPI. All other systems are other negative and/or noncontributory. PHYSICAL EXAM: General Impression: Alert and oriented x3, not in acute distress HEENT: Normocephalic atraumatic, extra-ocular movements intact, pupils equal and reactive to light bilaterally, mucous membranes moist. Cardiovascular: Heart regular rate and rhythm, S1&S2 audible, no murmurs, rubs or gallops Chest: Lungs clear to auscultation bilaterally, no rhonchi, no wheeze, no rales Abdomen: Bowel sounds present, abdomen soft, non-tender, non-distended, no organomegaly Musculoskeletal: Pulses present and equal in all extremities, no peripheral edema Motor: no focal deficits noted Neurological: Left lower facial droop, no limb weakness or sensory deficits gait ataxic Skin: Intact with no visualized rashes ED course: 78-year-old male with known history of carotid artery occlusion. Vital signs upon arrival shows heart rate of 52, rest of vital signs within acceptable limits. Patient's onset of symptoms was approximately 2:30 PM. Click or presentation is concerning for acute cerebrovascular accident. His initial NIH is 1 to 2. Code stroke was activated. Discussed patient case with Dr. Ch. Patient not a TPA candidate at this time given low NIH score. CT and CT angios was obtained. Dr. Ch reviewed these films and felt like his symptoms were due to occlusion of the right carotid. He recommends patient given aspirin, Plavix and to maintain his blood pressure around 160 mg systolic. So recommends fluid administration.Laboratory evaluation obtained. CBC, coag panel, metabolic panel was obtained. Patient is slight elevation in his renal markers. Troponin negative. Urinalysis negative. Rapid urine drug screen is negative. Patient given aspirin and Plavix and intravenous fluids.. Given patient's case he will be transferred to [facility] per family request and given that we do not have neurology over the weekend. Discussed patient case with Dr. Arriaga from [facility] who accepted the patient. Patient will be given fluids en route to transfer. Family and patient are agreeable to transfer. Patient reevaluated at bedside with no progression of symptoms. EKG interpretation: Ventricular rate 50, sinus bradycardia,. 186, QS 96, QTC 377. No NC prolongation, no QTC prolongation, no ST or T-wave changes noted. EKG compared to 04/22/2017 showing no changes. Overall, this EKG is unremarkable - Related Data Home Medications Medication Instructions Recorded Confirmed Atenolol 25 mg PO BID 11/03/15 02/19/19 Cetirizine HCl [Zyrtec] 10 mg PO DAILY 11/03/15 02/19/19 Clopidogrel [Plavix] 75 mg PO DAILY 11/03/15 02/19/19 Lisinopril [Zestril] 20 mg PO DAILY 11/03/15 02/19/19 Multivitamins, Thera [Multivitamin 1 tab PO DAILY 11/03/15 02/19/19 (formulary)] Rosuvastatin [Crestor] 10 mg PO HS 11/03/15 02/19/19 metFORMIN HCL [Glucophage] 500 mg PO DAILY 11/03/15 02/19/19 Fenofibrate Nanocrystallized 145 mg PO DAILY 10/12/18 02/19/19 [Fenofibrate] Levothyroxine Sodium [Synthroid] 25 mcg PO DAILY 10/12/18 02/19/19 ALPRAZolam [Xanax] 0.5 mg PO Q8H PRN 02/19/19 02/19/19 Aspirin 325 mg PO ONCE PRN 02/19/19 02/19/19 Previous Rx's Medication Instructions Recorded Pantoprazole [Protonix] 40 mg PO AC-[id number] 30 Days #30 10/15/18 tablet. Allergies Allergy/AdvReac Type Severity Reaction Status Date / Time amoxicillin Allergy Rash/Hives Verified 02/19/19 16:10 Penicillins Allergy Rash/Hives Verified 02/19/19 16:10 Review of Systems ROS Statement: Those systems with pertinent positive or pertinent negative responses have been documented in the HPI. ROS Other: All systems not noted in ROS Statement are negative. Past Medical History Past Medical History: CVA/TIA, Diabetes Mellitus, Hyperlipidemia, Hypertension Additional Past Medical History / Comment(s): AAA monitored by Dr. Tipton History of Any Multi-Drug Resistant Organisms: None Reported Past Surgical History: Cholecystectomy Additional Past Surgical History / Comment(s): carotid artery stent, now occluded 100% Past Anesthesia/Blood Transfusion Reactions: No Reported Reaction Past Psychological History: No Psychological Hx Reported Smoking Status: Former smoker Past Alcohol Use History: None Reported Past Drug Use History: None Reported - Past Family History Father Family Medical History: Cancer Additional Family Medical History / Comment(s): lung cancer Mother Family Medical History: Myocardial Infarction (OR) Additional Family Medical History / Comment(s): in her 80s General Exam Limitations: no limitations Course Vital Signs 02/19/19 02/19/19 02/19/19 15:50 16:05 16:20 Temperature 98.6 F Pulse Rate 51 L 48 L 48 L Respiratory 20 18 18 Rate Blood Pressure 168/72 163/73 146/63 O2 Sat by Pulse 97 97 96 Oximetry 02/19/19 02/19/19 02/19/19 16:35 16:50 17:20 Temperature Pulse Rate 52 L 45 L 51 L Respiratory 18 18 18 Rate Blood Pressure 147/64 148/66 150/66 O2 Sat by Pulse 97 99 97 Oximetry 02/19/19 02/19/19 02/19/19 17:50 18:20 18:50 Temperature Pulse Rate 46 L 45 L 47 L Respiratory 18 18 18 Rate Blood Pressure 162/69 171/75 161/73 O2 Sat by Pulse 96 99 98 Oximetry Medical Decision Making - Lab Data Result diagrams: 02/19/19 16:05 02/19/19 16:05 Lab Results 02/19/19 02/19/19 02/19/19 Range/Units 16:05 16:05 16:05 WBC 7.7 (3.8-10.6) k/uL RBC 4.44 (4.30-5.90) m/uL Hgb 13.8 (13.0-17.5) gm/dL Hct 40.2 (39.0-53.0) % MCV 90.5 (80.0-100.0) fL MCH 31.1 (25.0-35.0) pg MCHC 34.3 (31.0-37.0) g/dL RDW 12.9 (11.5-15.5) % Plt Count 305 (150-450) k/uL Neutrophils % 69 % Lymphocytes % 17 % Monocytes % 6 % Eosinophils % 5 % Basophils % 0 % Neutrophils # 5.3 (1.3-7.7) k/uL Lymphocytes # 1.3 (1.0-4.8) k/uL Monocytes # 0.4 (0-1.0) k/uL Eosinophils # 0.4 (0-0.7) k/uL Basophils # 0.0 (0-0.2) k/uL PT (9.0-12.0) sec INR (<1.2) APTT (22.0-30.0) sec Sodium 136 L (137-145) mmol/L Potassium 4.3 (3.5-5.1) mmol/L Chloride 103 (98-107) mmol/L Carbon Dioxide 24 (22-30) mmol/L Anion Gap 9 mmol/L BUN 22 H (9-20) mg/dL Creatinine 1.44 H (0.66-1.25) mg/dL Est GFR (CKD-EPI)AfAm 54 (>60 ml/min/1.73 sqM) Est GFR (CKD-EPI)NonAf 47 (>60 ml/min/1.73 sqM) Glucose 102 H (74-99) mg/dL Calcium 9.8 (8.4-10.2) mg/dL Total Bilirubin 0.8 (0.2-1.3) mg/dL AST 25 (17-59) U/L ALT 19 L (21-72) U/L Alkaline Phosphatase 52 (38-126) U/L Total Creatine Kinase 85 (55-170) U/L CK-MB (CK-2) 1.7 (0.0-2.4) ng/mL CK-MB (CK-2) Rel Index 2.0 Troponin I <0.012 (0.000-0.034) ng/mL Total Protein 6.2 L (6.3-8.2) g/dL Albumin 3.9 (3.5-5.0) g/dL Urine Color Urine Appearance (Clear) Urine pH (5.0-8.0) Ur Specific [place] (1.001-1.035) Urine Protein (Negative) Urine Glucose (UA) (Negative) Urine Ketones (Negative) Urine Blood (Negative) Urine Nitrite (Negative) Urine Bilirubin (Negative) Urine Urobilinogen (<2.0) mg/dL Ur Leukocyte Esterase (Negative) Urine Opiates Screen (NotDetected) Ur Oxycodone Screen (NotDetected) Urine Methadone Screen (NotDetected) Ur Propoxyphene Screen (NotDetected) Ur Barbiturates Screen (NotDetected) U Tricyclic Antidepress (NotDetected) Ur Phencyclidine Scrn (NotDetected) Ur Amphetamines Screen (NotDetected) U Methamphetamines Scrn (NotDetected) U Benzodiazepines Scrn (NotDetected) Urine Cocaine Screen (NotDetected) U Marijuana (THC) Screen (NotDetected) 02/19/19 02/19/19 Range/Units 16:05 18:18 WBC (3.8-10.6) k/uL RBC (4.30-5.90) m/uL Hgb (13.0-17.5) gm/dL Hct (39.0-53.0) % MCV (80.0-100.0) fL MCH (25.0-35.0) pg MCHC (31.0-37.0) g/dL RDW (11.5-15.5) % Plt Count (150-450) k/uL Neutrophils % % Lymphocytes % % Monocytes % % Eosinophils % % Basophils % % Neutrophils # (1.3-7.7) k/uL Lymphocytes # (1.0-4.8) k/uL Monocytes # (0-1.0) k/uL Eosinophils # (0-0.7) k/uL Basophils # (0-0.2) k/uL PT 10.4 (9.0-12.0) sec INR 1.0 (<1.2) APTT 25.7 (22.0-30.0) sec Sodium (137-145) mmol/L Potassium (3.5-5.1) mmol/L Chloride (98-107) mmol/L Carbon Dioxide (22-30) mmol/L Anion Gap mmol/L BUN (9-20) mg/dL Creatinine (0.66-1.25) mg/dL Est GFR (CKD-EPI)AfAm (>60 ml/min/1.73 sqM) Est GFR (CKD-EPI)NonAf (>60 ml/min/1.73 sqM) Glucose (74-99) mg/dL Calcium (8.4-10.2) mg/dL Total Bilirubin (0.2-1.3) mg/dL AST (17-59) U/L ALT (21-72) U/L Alkaline Phosphatase (38-126) U/L Total Creatine Kinase (55-170) U/L CK-MB (CK-2) (0.0-2.4) ng/mL CK-MB (CK-2) Rel Index Troponin I (0.000-0.034) ng/mL Total Protein (6.3-8.2) g/dL Albumin (3.5-5.0) g/dL Urine Color Yellow Urine Appearance Clear (Clear) Urine pH 6.0 (5.0-8.0) Ur Specific [place] 1.015 (1.001-1.035) Urine Protein Negative (Negative) Urine Glucose (UA) Negative (Negative) Urine Ketones Negative (Negative) Urine Blood Negative (Negative) Urine Nitrite Negative (Negative) Urine Bilirubin Negative (Negative) Urine Urobilinogen <2.0 (<2.0) mg/dL Ur Leukocyte Esterase Negative (Negative) Urine Opiates Screen Not Detected (NotDetected) Ur Oxycodone Screen Not Detected (NotDetected) Urine Methadone Screen Not Detected (NotDetected) Ur Propoxyphene Screen Not Detected (NotDetected) Ur Barbiturates Screen Not Detected (NotDetected) U Tricyclic Antidepress Not Detected (NotDetected) Ur Phencyclidine Scrn Not Detected (NotDetected) Ur Amphetamines Screen Not Detected (NotDetected) U Methamphetamines Scrn Not Detected (NotDetected) U Benzodiazepines Scrn Not Detected (NotDetected) Urine Cocaine Screen Not Detected (NotDetected) U Marijuana (THC) Screen Not Detected (NotDetected) Critical Care Time Critical Care Time: Yes Total Critical Care Time: 31 Disposition Clinical Impression: Cerebrovascular accident (CVA) Disposition: OTHER INSTITUTION NOT DEFINED Condition: Fair Referrals: Hugh Morris MD [Primary Care Provider] - 1-2 days Time of Disposition: 19:24 - Out of Hospital Transfer - Req. Specs Out of Hospital Transfer - Requested Specifics: Other Emergency Center ([facility])
--- NOTE | 2019-02-19 16:54 | CT ---
EXAMINATION TYPE: CT angio head neck DATE OF EXAM: 02/19/2019 HISTORY: Facial droop. Weakness. COMPARISON: CT angiogram brain 06/01/2013. CT DLP: mGycm. Automated Exposure Control for Dose Reduction was Utilized. TECHNIQUE: CTA scan of the neck is performed with IV Contrast, patient injected with 65 mL of Isovue 370, axial images are obtained, coronal and sagittal reformatted images are reviewed. Three-D recons tructed images are created on an independent workstation and reviewed. FINDINGS: Thoracic aorta is atheromatous. There is no sign of aneurysm or dissection at the aortic arch. There is normal branching pattern of the great vessels on the aortic arch. There is bilateral arterial flow in the vertebral arteries which are fairly symmetric. There is arterial flow in the left side common internal and external carotid artery. There is mild plaque at the left carotid artery bifurcation wi th lumen narrowing less than 10%. There is thrombosis of the right carotid artery at its origin. There is arterial flow in the anterior middle and posterior cerebral arteries bilaterally. There is d iminutive right middle cerebral artery which appears to fill mostly through the anterior communicatin g artery. There is patency of the vertebrobasilar artery system. I see no evidence of intracranial an eurysm or neovascularity. There is normal contrast opacification of the venous sinuses. IMPRESSION: There is thrombosis of the right carotid artery at its origin. There is diminutive right middle cereb ral artery with decreased flow through the anterior communicating artery. This is also present on old exam. No intracranial aneurysm or dissection.
[2019-02-19 16:55] LABS: Creatine Kinase MB 1.7 ng/mL (0.0-2.4); Troponin I <0.012 ng/mL (0.000-0.034)
--- NOTE | 2019-02-19 17:55 | XR ---
EXAMINATION TYPE: XR chest 1V portable DATE OF EXAM: 02/19/2019 COMPARISON: 07/24/2016 HISTORY: Altered mental status. Chest pain. TECHNIQUE: Single frontal view of the chest is obtained. FINDINGS: There is no heart failure nor confluent pneumonic infiltrate. Costophrenic angles are lanre r. There are chest leads. IMPRESSION: No active cardiopulmonary disease. Normal heart. No change.
[2019-02-19] MEDS ORDERED: ASPIRIN 325 MG TAB PO STA (17:58)
[2019-02-19 18:28] LABS: Appearance,Urine Clear (Clear); Bilirubin,Urine Negative (Negative); Blood,Urine Negative (Negative); Color,Urine Yellow; Glucose,Urine (UA) Negative (Negative); Ketones,Urine Negative (Negative); Leukocyte Esterase,Urine Negative (Negative); Nitrite,Urine Negative (Negative); Protein,Urine Negative (Negative); Specific Gravity,Urine 1.015 (1.001-1.035); Urobilinogen,Urine <2.0 mg/dL (<2.0)
[2019-02-19 18:38] LABS: Amphetamine Screen,Urine Not Detected (NotDetected); Barbiturate Screen,Urine Not Detected (NotDetected); Benzodiazepines Screen,Urine Not Detected (NotDetected); Cocaine Screen,Urine Not Detected (NotDetected); Methadone Screen, Urine Not Detected (NotDetected); Opiate Screen,Urine Not Detected (NotDetected); Oxycodone Screen, Urine Not Detected (NotDetected); Phencyclidine Screen,Urine Not Detected (NotDetected); Tricyclic Antidepressant,Urine Not Detected (NotDetected); Urn Cannabinoid Scrn Not Detected (NotDetected)
[2019-02-19] MEDS ORDERED: CLOPIDOGREL 75 MG TAB PO STA (19:21)
[2019-02-19 21:56] VITALS: BP 123/74; PULSE 46; TEMP 97.9
== END 2019-02-19 21:55 | disposition other institution (70) ==
LOC: EC 15:38
DX: I63.9 Cerebral infarction, unspecified (principal); I65.21 Occlusion and stenosis of right carotid artery; I71.4 Abdominal aortic aneurysm, without rupture; E11.9 Type 2 diabetes mellitus without complications; E78.5 Hyperlipidemia, unspecified; I10 Essential (primary) hypertension; Z79.02 Long term (current) use of antithrombotics/antiplatelets; Z79.84 Long term (current) use of oral hypoglycemic drugs; Z79.890 Hormone replacement therapy; Z79.82 Long term (current) use of aspirin; Z79.899 Other long term (current) drug therapy; Z88.0 Allergy status to penicillin; Z87.891 Personal history of nicotine dependence; Z82.49 Family history of ischemic heart disease and other diseases of the circulatory system; Z86.73 Personal history of transient ischemic attack (TIA), and cerebral infarction without residual deficits
CPT/HCPCS: 36415; 93005; 80053; 82550; 82553; 84484; 85025; 85610; 85730; 81003; 80306; 71045; 70496; 70450; 70498; 99291; 96360; Q9967

== ENCOUNTER → 2019-04-10 | Outpatient (CLI) | payer MEDICARE ==
--- NOTE | 2019-04-10 19:06 | MR ---
EXAMINATION TYPE: MR brain wo con DATE OF EXAM: 04/10/2019 COMPARISON: 02/19/2019 HISTORY: Stroke / Vertigo TECHNIQUE: Multiplanar, multisequence images of the brain and brainstem is performed without. FINDINGS: Diffusion weighted images demonstrate no evidence of a recent infarct or other diffusion ab normality. There is no extra-axial fluid collection. Scattered areas of T2/FLAIR hyperintensity are seen in the subcortical and periventricular white matter, all subcentimeter. More confluent areas in the periatrial white matter are seen bilaterally. Overall mild burden nonspecific white matter change , most commonly on the basis of chronic microangiopathy. The ventricular system and cisternal spaces are medically prominent compatible with age-related volume loss. Midline structures demonstrate normal morphology. The craniocervical junction appears within normal limits. The dural venous sinuses appear patent. The visualized sinuses demonstrate mild mucosal thick ening in the sphenoid sinuses and ethmoid sinuses. Remaining paranasal sinuses and mastoid air cells are well aerated Are clear and the globes are intact. There is known thrombosis of the right internal carotid artery seen in its horizontal and cavernous a s well as supraclinoid portions. IMPRESSION: 1. No acute infarct, midline shift or mass effect. No subacute infarct seen. 2. Redemonstration of known thrombosis of the right internal carotid artery seen in the horizontal, c avernous, and super clinoid portions. 3. Mild burden nonspecific white matter change, most commonly on the basis of chronic microangiopathy and age-related volume loss. 4. Mild paranasal sinus disease.
== END | disposition home or self-care (01) ==
LOC: RADMRIMAIN 16:50
DX: Z09 Encounter for follow-up examination after completed treatment for conditions other than malignant neoplasm (principal); J01.90 Acute sinusitis, unspecified; I73.9 Peripheral vascular disease, unspecified; G31.1 Senile degeneration of brain, not elsewhere classified; Z86.73 Personal history of transient ischemic attack (TIA), and cerebral infarction without residual deficits
CPT/HCPCS: 70551

== ENCOUNTER → 2019-05-18 | Outpatient (CLI) | payer MEDICARE ==
[2019-05-18 11:31] LABS: HCT 42.6 % (39.0-53.0); HGB 13.9 gm/dL (13.0-17.5); MCH 30.4 pg (25.0-35.0); MCHC 32.7 g/dL (31.0-37.0); MCV 92.8 fL (80.0-100.0); Mean Platelet Volume 7.2; Platelet Count 217 k/uL (150-450); RBC 4.59 m/uL (4.30-5.90); RDW 13.2 % (11.5-15.5); WBC 6.1 k/uL (3.8-10.6)
[2019-05-18 17:24] LABS: African American GFR (CKD) 67.2 (60.0-200.0); Albumin 4.2 g/dL (3.80-4.90); Anion Gap 7.2 mmol/L (4.00-12.00); BUN/Creat Ratio 16.67 Ratio (12.00-20.00); Calcium 9.5 mg/dL (8.7-10.3); Carbon Dioxide 25.8 mmol/L (21.6-31.8); Chol/HDL Ratio 2.97; Globulin 1.4 g/dL (1.6-3.3); Potassium 4.2 mmol/L (3.5-5.5); Total Bilirubin 0.4 mg/dL (0.2-1.2); Total Protein 5.6 g/dL (6.2-8.2)
[2019-05-18 21:14] LABS: Hemoglobin A1C 5.7 % (4.0-6.0)
== END | disposition home or self-care (01) ==
LOC: LABWHC1 10:00
PROVIDERS: ATTEND Internal Medicine
DX: E11.22 Type 2 diabetes mellitus with diabetic chronic kidney disease (principal); I13.10 Hypertensive heart and chronic kidney disease without heart failure, with stage 1 through stage 4 chronic kidney disease, or unspecified chronic kidney disease; N18.9 Chronic kidney disease, unspecified; E78.5 Hyperlipidemia, unspecified
CPT/HCPCS: 36415; 80053; 80061; 83036; 84443; 85027

== ENCOUNTER → 2019-11-09 | Outpatient (CLI) | payer MEDICARE ==
[2019-11-09 11:02] LABS: HCT 42.6 % (39.0-53.0); HGB 14.4 gm/dL (13.0-17.5); MCH 32.7 pg (25.0-35.0); MCHC 33.7 g/dL (31.0-37.0); MCV 96.8 fL (80.0-100.0); Mean Platelet Volume 7.5; Platelet Count 242 k/uL (150-450); RBC 4.39 m/uL (4.30-5.90); RDW 12.5 % (11.5-15.5); WBC 6.8 k/uL (3.8-10.6)
[2019-11-09 17:50] LABS: African American GFR (CKD) 60.6 (60.0-200.0); Albumin 4.2 g/dL (3.80-4.90); Albumin/Globulin Ratio 2.47 (1.60-3.17); Anion Gap 6.3 mmol/L (4.00-12.00); BUN/Creat Ratio 18.46 Ratio (12.00-20.00); Calcium 10.1 mg/dL (8.7-10.3); Carbon Dioxide 26.7 mmol/L (21.6-31.8); Chol/HDL Ratio 2.86; Globulin 1.7 g/dL (1.6-3.3); Non-African American GFR(CKD) 52.3 (60.0-200.0); Potassium 4.3 mmol/L (3.5-5.5); Total Bilirubin 0.4 mg/dL (0.3-1.2); Total Protein 5.9 g/dL (6.2-8.2)
[2019-11-09 19:02] LABS: Hemoglobin A1C 5.9 % (4.0-6.0)
== END | disposition home or self-care (01) ==
LOC: LABWHC1 09:35
PROVIDERS: ATTEND Internal Medicine
DX: E11.9 Type 2 diabetes mellitus without complications (principal); I10 Essential (primary) hypertension; E78.5 Hyperlipidemia, unspecified; Z86.73 Personal history of transient ischemic attack (TIA), and cerebral infarction without residual deficits
CPT/HCPCS: 36415; 80053; 80061; 83036; 84443; 85027

== ENCOUNTER → 2020-02-29 | Outpatient (CLI) | payer MEDICARE ==
[2020-02-29 11:45] LABS: HCT 42.1 % (39.0-53.0); HGB 13.6 gm/dL (13.0-17.5); MCH 30.6 pg (25.0-35.0); MCHC 32.2 g/dL (31.0-37.0); MCV 94.9 fL (80.0-100.0); Mean Platelet Volume 7.4; Platelet Count 229 k/uL (150-450); RBC 4.44 m/uL (4.30-5.90); RDW 12.3 % (11.5-15.5); WBC 7.5 k/uL (3.8-10.6)
[2020-02-29 15:33] LABS: African American GFR (CKD) 60.6 (60.0-200.0); Albumin 4.2 g/dL (3.80-4.90); Anion Gap 7.5 mmol/L (4.00-12.00); BUN/Creat Ratio 25.38 Ratio (12.00-20.00); Calcium 10.1 mg/dL (8.7-10.3); Carbon Dioxide 24.5 mmol/L (21.6-31.8); Chol/HDL Ratio 3.15; Globulin 1.4 g/dL (1.6-3.3); LDL Cholesterol,Calculated 47.4 mg/dL (0.0-131.0); Non-African American GFR(CKD) 52.3 (60.0-200.0); Potassium 4.6 mmol/L (3.5-5.5); Total Bilirubin 0.4 mg/dL (0.2-1.2); Total Protein 5.6 g/dL (6.2-8.2); VLDL Calculation 25.6 mg/dL (5.00-40.00)
[2020-02-29 15:40] LABS: Prostate Specific Antigen 0.6 ng/mL (0.0-6.5)
[2020-02-29 17:14] LABS: Hemoglobin A1C 6.3 % (4.0-6.0)
== END | disposition home or self-care (01) ==
LOC: LABWHC1 10:00
PROVIDERS: ATTEND Internal Medicine
DX: I10 Essential (primary) hypertension (principal); E11.9 Type 2 diabetes mellitus without complications; E55.9 Vitamin D deficiency, unspecified; E78.5 Hyperlipidemia, unspecified; Z12.5 Encounter for screening for malignant neoplasm of prostate; Z86.73 Personal history of transient ischemic attack (TIA), and cerebral infarction without residual deficits
CPT/HCPCS: 36415; 80053; 80061; 82306; 83036; 84153; 84443; 85027

== ENCOUNTER → 2020-07-07 | Outpatient (CLI) | payer MEDICARE ==
[2020-07-07 15:21] LABS: HCT 45.5 % (39.6-50.0); HGB 14.9 g/dL (13.0-17.0); MCH 31.4 pg (27.0-32.0); MCHC 32.7 g/dL (32.0-37.0); MCV 95.8 fL (80.0-97.0); Mean Platelet Volume 10.5 fL (9.5-12.2); Platelet Count 203 X 10*3/uL (140-440); RBC 4.75 X 10*6/uL (4.40-5.60); RDW 11.9 % (11.5-14.5); WBC 6.91 X 10*3/uL (4.50-10.00)
[2020-07-07 17:31] LABS: Hemoglobin A1C 6.2 % (4.0-6.0)
[2020-07-07 22:20] LABS: African American GFR (CKD) 66.7 (60.0-200.0); Albumin 4.8 g/dL (3.80-4.90); Albumin/Globulin Ratio 3.43 (1.60-3.17); BUN/Creat Ratio 18.33 Ratio (12.00-20.00); Calcium 10.4 mg/dL (8.7-10.3); Chol/HDL Ratio 3.43; Globulin 1.4 g/dL (1.6-3.3); LDL Cholesterol,Calculated 39.8 mg/dL (0.0-131.0); Non-African American GFR(CKD) 57.6 (60.0-200.0); Potassium 4.5 mmol/L (3.5-5.5); Total Bilirubin 0.7 mg/dL (0.2-1.2); Total Protein 6.2 g/dL (6.2-8.2); VLDL Calculation 45.2 mg/dL (5.00-40.00)
== END | disposition home or self-care (01) ==
LOC: LABWHC1 09:26
PROVIDERS: ATTEND Psychiatry & Neurology Neurology
DX: E78.5 Hyperlipidemia, unspecified (principal); I10 Essential (primary) hypertension; E11.9 Type 2 diabetes mellitus without complications; E03.9 Hypothyroidism, unspecified
CPT/HCPCS: 36415; 80053; 80061; 83036; 84443; 85027

== ENCOUNTER → 2020-11-03 | Outpatient (CLI) | payer MEDICARE ==
[2020-11-03 15:12] LABS: HCT 44.9 % (39.6-50.0); HGB 14.7 g/dL (13.0-17.0); MCH 31.1 pg (27.0-32.0); MCHC 32.7 g/dL (32.0-37.0); MCV 95.1 fL (80.0-97.0); Mean Platelet Volume 10.3 fL (9.5-12.2); Platelet Count 208 X 10*3/uL (140-440); RBC 4.72 X 10*6/uL (4.40-5.60); RDW 12.1 % (11.5-14.5); WBC 7.75 X 10*3/uL (4.50-10.00)
[2020-11-03 17:23] LABS: Hemoglobin A1C 6.7 % (4.0-6.0)
[2020-11-04 06:20] LABS: African American GFR (CKD) 82.6 (60.0-200.0); Albumin/Globulin Ratio 2.35 (1.60-3.17); Anion Gap 12.4 mmol/L (4.00-12.00); Calcium 9.8 mg/dL (8.7-10.3); Carbon Dioxide 23.6 mmol/L (21.6-31.8); Chol/HDL Ratio 3.83; Globulin 1.7 g/dL (1.6-3.3); LDL Cholesterol,Calculated 28.2 mg/dL (0.0-131.0); Non-African American GFR(CKD) 71.3 (60.0-200.0); Potassium 4.3 mmol/L (3.5-5.5); Total Bilirubin 0.5 mg/dL (0.3-1.2); Total Protein 5.7 g/dL (6.2-8.2); VLDL Calculation 53.8 mg/dL (5.00-40.00)
== END | disposition home or self-care (01) ==
LOC: LABWHC1 08:56
PROVIDERS: ATTEND Internal Medicine
DX: E11.9 Type 2 diabetes mellitus without complications (principal); E03.9 Hypothyroidism, unspecified; E78.5 Hyperlipidemia, unspecified
CPT/HCPCS: 36415; 80053; 80061; 83036; 84443; 85027

== ENCOUNTER → 2021-03-09 | Outpatient (CLI) | payer MEDICARE ==
[2021-03-09 15:14] LABS: HGB 15.2 g/dL (13.0-17.0); MCH 31.6 pg (27.0-32.0); MCV 95.6 fL (80.0-97.0); Platelet Count 246 X 10*3/uL (140-440); RBC 4.81 X 10*6/uL (4.40-5.60); WBC 8.12 X 10*3/uL (4.50-10.00)
[2021-03-09 23:04] LABS: Chol/HDL Ratio 3.26 Ratio; LDL Cholesterol,Calculated 30.4 mg/dL (0.0-131.0); VLDL Calculation 46.6 mg/dL (5.00-40.00)
[2021-03-10 00:03] LABS: African American GFR (CKD) 78.8 (60.0-200.0); Albumin 4.2 g/dL (3.8-4.9); Albumin/Globulin Ratio 2.26 (1.60-3.17); Anion Gap 11.9 mmol/L (4.00-12.00); BUN/Creat Ratio 16.15 Ratio (12.00-20.00); Blood Urea Nitrogen 16.8 mg/dL (9.0-27.0); Carbon Dioxide 23.1 mmol/L (21.6-31.8); Globulin 1.9 g/dL (1.6-3.3); PSA Annual Screen 0.7 ng/mL (0.000-4.000); Total Bilirubin 0.4 mg/dL (0.30-1.20)
== END | disposition home or self-care (01) ==
LOC: LABWHC1 09:36
PROVIDERS: ATTEND Internal Medicine
DX: E03.9 Hypothyroidism, unspecified (principal); E11.9 Type 2 diabetes mellitus without complications; I10 Essential (primary) hypertension; E78.5 Hyperlipidemia, unspecified; N40.0 Benign prostatic hyperplasia without lower urinary tract symptoms
CPT/HCPCS: 80061; 80053; 84443; 85027; 83036; 36415; G0103

== ENCOUNTER → 2021-07-14 | Outpatient (CLI) | payer MEDICARE ==
[2021-07-14 14:32] LABS: HCT 44.6 % (39.6-50.0); HGB 14.8 g/dL (13.0-17.0); MCH 31.5 pg (27.0-32.0); MCHC 33.2 g/dL (32.0-37.0); MCV 94.9 fL (80.0-97.0); Mean Platelet Volume 9.7 fL (9.5-12.2); NRBC Per 100 WBC 0 /100 WBCS (0.0-0.0); Platelet Count 254 X 10*3/uL (140-440); WBC 9.17 X 10*3/uL (4.50-10.00)
[2021-07-14 14:49] LABS: ALT 48 U/L (10-49); AST 37 U/L (14-35); African American GFR (CKD) 54.5 (60.0-200.0); Albumin/Globulin Ratio 1.85 (1.60-3.17); Alkaline Phosphatase 68 U/L (41-126); Blood Urea Nitrogen 18.9 mg/dL (9.0-27.0); Calcium 9.8 mg/dL (8.7-10.3); Carbon Dioxide 20.4 mmol/L (20.0-27.5); Chloride 106 mmol/L (96-109); Chol/HDL Ratio 3.04 Ratio; Globulin 2.2 g/dL (1.6-3.3); Glucose 135 mg/dL (70-110); LDL Cholesterol,Calculated 13.4 mg/dL (0.0-131.0); Potassium 4.4 mmol/L (3.5-5.5); Sodium 140 mmol/L (135-145); Total Protein 6.2 g/dL (6.2-8.2)
== END | disposition home or self-care (01) ==
LOC: LABWHC1 09:14
PROVIDERS: ATTEND Internal Medicine
DX: I10 Essential (primary) hypertension (principal); E78.5 Hyperlipidemia, unspecified; E03.9 Hypothyroidism, unspecified; E11.9 Type 2 diabetes mellitus without complications
CPT/HCPCS: 36415; 80053; 80061; 83036; 84443; 85027

== ENCOUNTER → 2021-07-26 | Outpatient (CLI) | payer MEDICARE ==
--- NOTE | 2021-07-26 21:38 | CT ---
EXAMINATION TYPE: CT abdomen pelvis wo con DATE OF EXAM: 07/26/2021 COMPARISON: CT dated 10/12/2018 HISTORY: Generalized abdominal pain CT DLP: 531 mGycm Automated exposure control for dose reduction was used. TECHNIQUE: Helical acquisition of images was performed from the lung bases through the pelvis. No IV contrast administration. FINDINGS: No definite hepatic focal lesion by this unenhanced CT scan. Previous cholecystectomy. Unremarkable u nenhanced CT appearance of the spleen, pancreas and adrenals. Multiple variable sized bilateral renal cysts measuring up to 5.1 cm at the lower pole of the left ki dney. 6 mm hyperdense focus is seen at the midportion of the right kidney, suboptimally assessed by t he CT scan and could represent a hemorrhagic cyst however other lesion can't be excluded, for correla tion with ultrasound results. This was not well appreciated on the previous CT scan. No hydroureter or hydronephrosis. Extensive arterial atherosclerotic calcification with apparent comp lete occlusion of the left common iliac artery. Complete occlusion of the inferior aspect of the abdo erasmo aorta was appreciated on the previous CT scan. Grossly unremarkable urinary bladder, prostate a nd seminal vesicles. Unremarkable stomach, duodenum and small bowel. Colonic diverticulosis most evident involving the sig moid colon. Small bilateral fat-containing inguinal hernias. Small fat-containing umbilical hernia. N o suspicious lymphadenopathy or sizable ascites. Right linear basal pulmonary atelectasis. Degenerati ve changes of the lower thoracic and lumbar spine. IMPRESSION: 1. No definite acute abnormality or suspicious lesion seen in the abdomen or the pelvis by this nonen hanced CT scan. 2. Indeterminate 6 mm hyperdense focus in the right kidney as described above, for correlation with u ltrasound results. 3. Apparent chronic occlusion of the inferior aspect of the abdominal or pelvic and left common iliac artery, suboptimally assessed. Other incidental findings as detailed above.
== END | disposition home or self-care (01) ==
LOC: RADCTMAIN 13:29
PROVIDERS: ATTEND Internal Medicine
DX: R10.84 Generalized abdominal pain (principal)
CPT/HCPCS: 74176

== ENCOUNTER → 2021-11-17 | Outpatient (CLI) | payer MEDICARE ==
[2021-11-17 14:27] LABS: HCT 47.2 % (39.6-50.0); HGB 15.2 g/dL (13.0-17.0); MCH 30.8 pg (27.0-32.0); MCHC 32.2 g/dL (32.0-37.0); MCV 95.5 fL (80.0-97.0); Mean Platelet Volume 10.2 fL (9.5-12.2); NRBC Per 100 WBC 0 /100 WBCS (0.0-0.0); Platelet Count 219 X 10*3/uL (140-440); RBC 4.94 X 10*6/uL (4.40-5.60); RDW 12.1 % (11.5-14.5); WBC 6.85 X 10*3/uL (4.50-10.00)
[2021-11-17 14:45] LABS: ALT 34 U/L (10-49); AST 31 U/L (14-35); Albumin 4.3 g/dL (3.8-4.9); Albumin/Globulin Ratio 1.72 (1.60-3.17); Alkaline Phosphatase 68 U/L (41-126); Blood Urea Nitrogen 17.8 mg/dL (9.0-27.0); Calcium 10.3 mg/dL (8.7-10.3); Carbon Dioxide 22.7 mmol/L (20.0-27.5); Chloride 105 mmol/L (96-109); Chol/HDL Ratio 3.32 Ratio; Globulin 2.5 g/dL (1.6-3.3); Glucose 112 mg/dL (70-110); LDL Cholesterol,Calculated 34.7 mg/dL (0.0-131.0); Non-African American GFR(CKD) 70.8 (60.0-200.0); Potassium 4.6 mmol/L (3.5-5.5); Sodium 140 mmol/L (135-145); Total Protein 6.8 g/dL (6.2-8.2)
== END | disposition home or self-care (01) ==
LOC: LABWHC1 09:18
PROVIDERS: ATTEND Internal Medicine
DX: I10 Essential (primary) hypertension (principal); E03.9 Hypothyroidism, unspecified; E78.5 Hyperlipidemia, unspecified; E11.9 Type 2 diabetes mellitus without complications
CPT/HCPCS: 36415; 80053; 80061; 83036; 84443; 85027

== ENCOUNTER → 2022-05-18 | Outpatient (CLI) | payer MEDICARE ==
[2022-05-18 12:07] LABS: HCT 41.4 % (39.6-50.0); HGB 14.1 g/dL (13.0-17.0); MCH 31.3 pg (27.0-32.0); MCHC 34.1 g/dL (32.0-37.0); MCV 91.8 fL (80.0-97.0); Mean Platelet Volume 9.6 fL (9.5-12.2); NRBC Per 100 WBC 0 /100 WBCS (0.0-0.0); Platelet Count 248 X 10*3/uL (140-440); RBC 4.51 X 10*6/uL (4.40-5.60); RDW 12.3 % (11.5-14.5); WBC 10.82 X 10*3/uL (4.50-10.00)
[2022-05-18 12:31] LABS: ALT 22 U/L (10-49); AST 21 U/L (14-35); African American GFR (CKD) 71.5 (60.0-200.0); Alkaline Phosphatase 85 U/L (41-126); BUN/Creat Ratio 15.71 Ratio (12.00-20.00); Blood Urea Nitrogen 17.6 mg/dL (9.0-27.0); Carbon Dioxide 25.5 mmol/L (20.0-27.5); Chloride 103 mmol/L (96-109); Chol/HDL Ratio 2.83 Ratio; Globulin 2.1 g/dL (1.6-3.3); Glucose 122 mg/dL (70-110); LDL Cholesterol,Calculated 37.7 mg/dL (0.0-131.0); Non-African American GFR(CKD) 61.7 (60.0-200.0); Potassium 4.7 mmol/L (3.5-5.5); Sodium 139 mmol/L (135-145); Total Protein 6.2 g/dL (6.2-8.2)
== END | disposition home or self-care (01) ==
LOC: LABWHC1 08:13
PROVIDERS: ATTEND Internal Medicine
DX: Z12.5 Encounter for screening for malignant neoplasm of prostate (principal); E11.9 Type 2 diabetes mellitus without complications; I10 Essential (primary) hypertension; E78.5 Hyperlipidemia, unspecified; E03.9 Hypothyroidism, unspecified
CPT/HCPCS: 80061; 80053; 84443; 85027; 83036; 36415; G0103

== ENCOUNTER → 2022-08-24 | Outpatient (CLI) | payer MEDICARE ==
[2022-08-24 18:43] LABS: HCT 42.3 % (39.6-50.0); HGB 13.3 g/dL (13.0-17.0); MCH 29.5 pg (27.0-32.0); MCHC 31.4 g/dL (32.0-37.0); MCV 93.8 fL (80.0-97.0); Mean Platelet Volume 9.6 fL (9.5-12.2); NRBC Per 100 WBC 0 /100 WBCS (0.0-0.0); Platelet Count 281 X 10*3/uL (140-440); RBC 4.51 X 10*6/uL (4.40-5.60); RDW 12.8 % (11.5-14.5)
[2022-08-24 19:02] LABS: African American GFR (CKD) 89.5 (60.0-200.0); BUN/Creat Ratio 20.54 Ratio (12.00-20.00); Blood Urea Nitrogen 19.1 mg/dL (9.0-27.0); Calcium 10.1 mg/dL (8.7-10.3); Carbon Dioxide 28.7 mmol/L (20.0-27.5); Chloride 103 mmol/L (96-109); Glucose 135 mg/dL (70-110); Non-African American GFR(CKD) 77.3 (60.0-200.0); Potassium 4.5 mmol/L (3.5-5.5); Sodium 141 mmol/L (135-145); Total Protein 6.3 g/dL (6.2-8.2)
[2022-08-24 19:03] LABS: ALT 26 U/L (10-49); AST 26 U/L (14-35); Albumin/Globulin Ratio 1.69 (1.60-3.17); Alkaline Phosphatase 89 U/L (41-126); Globulin 2.4 g/dL (1.6-3.3); LDL Cholesterol,Calculated 33.2 mg/dL (0.0-131.0)
== END | disposition home or self-care (01) ==
LOC: LABWHC1 08:18
PROVIDERS: ATTEND Internal Medicine
DX: Z12.5 Encounter for screening for malignant neoplasm of prostate (principal); I10 Essential (primary) hypertension; E11.9 Type 2 diabetes mellitus without complications; E78.5 Hyperlipidemia, unspecified; E03.9 Hypothyroidism, unspecified
CPT/HCPCS: 80061; 80053; 84443; 85027; 83036; 36415; G0103

== ENCOUNTER 2022-08-27 01:48 | Observation (INO) | payer MEDICARE ==
[2022-08-27] MEDS ORDERED: SODIUM CHLORIDE 0.9% 1,000 ML IV STA (02:20)
[2022-08-27] MEDS ORDERED: KETOROLAC 15 MG/ML 1 ML VIAL IVP STA (02:20)
--- NOTE | 2022-08-27 02:54 | ED ---
General Adult HPI - General Chief complaint: Abdominal Pain Stated complaint: light headed Time Seen by Provider: 08/27/22 02:10 Source: patient, family, RN notes reviewed, old records reviewed Mode of arrival: ambulatory Limitations: no limitations - History of Present Illness Initial comments: Patient is an 81-year-old male who presents emergency Department complaining of lightheadedness, right groin pain. Patient has a history of carotid stenting, prior CVA with no physical deficits, diabetes, hypertension, a chronically occluded abdominal aorta that has been monitored in an outpatient setting who presents emergency Department complaining of the symptoms. Patient describes lightheadedness as a head heavy feeling that resolves when lying down or sitting down. Worsen standing up. It is intermittent. No known provocative factors other than occasional standing. States he has been doing this for weeks to months. Patient is also coming in with right groin pain which is more acute. Last week was having some lower back pain. States that now it seems to be more affecting his right inguinal crease. States it is worse with movement of his right hip. Denies any nausea, vomiting, constipation, diarrhea. Denies any anterior abdominal pain. Denies any chest pain, shortness of breath, fevers, chills, cough. Denies any urinary complaints. Has progressively began having more debility over the last 6-7 months, walking with a cane and then occasionally a walker. Over the last week with this pain, has been having issues standing up from received a physician. Denies any leg numbness or saddle anesthesias. Denies any urinary or bowel incontinence or retention. Denies any paresthesias or paralysis of the lower extremities. Presents for further evaluation at this time. Denies any testicular pain or swelling. No known history of a hernia. It is not on blood thinners.Currently is asymptomatic in terms of his lightheadedness. - Related Data Home Medications Medication Instructions Recorded Confirmed Cetirizine HCl [Zyrtec] 10 mg PO DAILY 11/03/15 02/19/19 Clopidogrel [Plavix] 75 mg PO DAILY 11/03/15 02/19/19 Multivitamins, Thera [Multivitamin 1 tab PO DAILY 11/03/15 02/19/19 (formulary)] Rosuvastatin [Crestor] 10 mg PO HS 11/03/15 02/19/19 atenoloL 25 mg PO BID 11/03/15 02/19/19 lisinopriL [Zestril] 20 mg PO DAILY 11/03/15 02/19/19 metFORMIN HCL [Glucophage] 500 mg PO DAILY 11/03/15 02/19/19 Fenofibrate Nanocrystallized 145 mg PO DAILY 10/12/18 02/19/19 [Fenofibrate] Levothyroxine Sodium [Synthroid] 25 mcg PO DAILY 10/12/18 02/19/19 ALPRAZolam [Xanax] 0.5 mg PO Q8H PRN 02/19/19 02/19/19 Aspirin 325 mg PO ONCE PRN 02/19/19 02/19/19 Previous Rx's Medication Instructions Recorded Pantoprazole [Protonix] 40 mg PO AC-BRKFST 30 Days #30 10/15/18 tablet. Allergies Allergy/AdvReac Type Severity Reaction Status Date / Time amoxicillin Allergy Rash/Hives Verified 08/27/22 01:58 Penicillins Allergy Rash/Hives Verified 08/27/22 01:58 Review of Systems ROS Statement: Those systems with pertinent positive or pertinent negative responses have been documented in the HPI. Review of Systems: CONST: Denies fever EYES: Denies blurry vision ENT: Denies nasal congestion C/V: Denies Chest pain RESP: Denies shortness of breath GI: Denies abdominal pain : Denies dysuria SKIN: Denies rash. MSK: Endorses right groin pain NEURO: Denies headache ROS Other: All systems not noted in ROS Statement are negative. Past Medical History Past Medical History: CVA/TIA, Diabetes Mellitus, Hyperlipidemia, Hypertension Additional Past Medical History / Comment(s): AAA monitored by Dr. Tipton History of Any Multi-Drug Resistant Organisms: None Reported Past Surgical History: Cholecystectomy Additional Past Surgical History / Comment(s): carotid artery stent, now occluded 100% Past Anesthesia/Blood Transfusion Reactions: No Reported Reaction Past Psychological History: No Psychological Hx Reported Smoking Status: Never smoker Past Alcohol Use History: None Reported Past Drug Use History: None Reported - Past Family History Father Family Medical History: Cancer Additional Family Medical History / Comment(s): lung cancer Mother Family Medical History: Myocardial Infarction ([place]) Additional Family Medical History / Comment(s): in her 80s General Exam - General Exam Comments Initial Comments: General: Appears in no acute distress. HEAD: Normal with no signs of head trauma. EYES: PERRLA, EOMI, conjunctiva normal, no discharge. Pupils 3 mm equal bilaterally. ENT: Hearing grossly intact, normal oropharynx. RESPIRATORY: Clear breath sounds bilaterally. No wheezes, rales, or rhonchi. C/V: Regular rate and rhythm. S1 and S2 auscultated, no edema, peripheral pulses 2+ and intact throughout ABD: Abd is soft, nontender, nondistended. No guarding. No CVA tenderness to percussion. No flank pain. : Normal testicular exam. Normal penile exam. No obvious abnormality. Patient's tenderness appears to be in the right inguinal crease. No obvious deformities or masses appreciated. EXT: Normal range of motion, no obvious deformity. Normal range of motion of all 4 extremities. No midline lumbar, thoracic, cervical spine pain. SKIN: No rashes or lesions observed on exposed skin. NEURO: Alert and oriented x 4. Cranial nerves II-XII intact. No focal sensory or strength deficits. GCS of 15. NIH of 0. Ambulates with a cane/walker at baseline. Limitations: no limitations Course Vital Signs 08/27/22 08/27/22 08/27/22 01:58 02:39 03:07 Temperature 97.7 F Pulse Rate 85 65 66 Respiratory 18 18 16 Rate Blood Pressure 169/64 152/67 164/68 O2 Sat by Pulse 98 96 96 Oximetry 08/27/22 08/27/22 04:16 04:59 Temperature Pulse Rate 57 L 75 Respiratory 16 16 Rate Blood Pressure 141/71 151/71 O2 Sat by Pulse 96 95 Oximetry Medical Decision Making - Medical Decision Making Was pt. sent in by a medical professional or institution (, PA, MOBILE PARAMEDICAL EXAMINER, urgent care, hospital, or shelter...) When possible be specific @ -No Did you speak to anyone other than the patient for history (EMS, parent, family, police, friend...)? What history was obtained from this source @ -Patient's daughter who is at bedside, and provides additional recent hist ory. Including recent laboratory study results. Did you review nursing and triage notes (agree or disagree)? Why? @ -I reviewed and agree with nursing and triage notes Were old charts reviewed (outside hosp., previous admission, EMS record, old EKG, old radiological studies, urgent care reports/EKG's, shelter records)? Report findings @ -Old charts including EKG from February 2019 reviewed. Differential Diagnosis (chest pain, altered mental status, abdominal pain women, abdominal pain men, vaginal bleeding, weakness, fever, dyspnea, syncope, headache, dizziness, GI bleed, back pain, seizure, CVA, palpatations, mental health, musculoskeletal)? @ -Infection, chronic weakness, right hip arthritis, kidney stones, UTI, dehydration, muscle strain, muscle sprain. Worsening debility. This list is not all inclusive. EKG interpreted by me (3pts min.). @ -As above X-rays interpreted by me (1pt min.). @ -Chest x-ray reveals an obvious left-sided pulmonary mass, concern for cancer. Hip and pelvis x-ray shows no obvious acute process. CT interpreted by me (1pt min.). @ -CT lumbar spine revealed degenerative changes but no obvious acute traumatic injury. No significant change from prior imaging per radiology. CT angiogram of the aorta I discussed at length with the radiologist, which shows the chronic thrombosis of his abdominal aorta with what appears to be collateral flow providing blood flow distally. He the radiologist Dr. Graf States it is an incomplete study as the images were chopped early. Recommended repeat study if there is significant concern for any acute process with the abdominal aorta. The CT imaging also redemonstrated the large mass in the left pulmonary hilum with mediastinal and bronchial adenopathy, concerning for primary malignancy. U/S interpreted by me (1pt. min.). @ -None done What testing was considered but not performed or refused? (CT, X-rays, U/S, labs)? Why? @ -None What meds were considered but not given or refused? Why? @ -None Did you discuss the management of the patient with other professionals (professionals i.e. Dr., PA, MOBILE PARAMEDICAL EXAMINER, lab, RT, psych nurse, public health social worker, deck molder, teacher, loss prevention officer, piano case maker)? Give summary @ -No Was smoking cessation discussed for >3mins.? @ -No Was critical care preformed (if so, how long)? @ -No Were there social determinants of health that impacted care today? How? (Homelessness, low income, unemployed, alcoholism, drug addiction, transportation, low edu. Level, literacy, decrease access to med. care, [facility], rehab)? @ -No Was there de-escalation of care discussed even if they declined (Discuss DNR or withdrawal of care, Hospice)? DNR status @ -No What co-morbidities impacted this encounter? (DM, HTN, Smoking, COPD, CAD, Canc er, CVA, ARF, Chemo, Hep., AIDS, mental health diagnosis, sleep apnea, morbid obesity)? @ -None Was patient admitted / discharged? Hospital course, mention meds given and route, prescriptions, significant lab abnormalities, going to OR and other pertinent info. @ -Based on patient's presentation and physical exam, he appears to be experiencing worsening debility, seems to be somewhat of a chronic issue but over the last week has noticed worsening lower back pain that has now progressed into more worse right inguinal crease pain. No trauma. Abdomen lightheadedness. Differential is broad, however we will evaluate the patient for cardiac etiology versus possible infection versus possible musculoskeletal. Patient's family was in agreement this plan. He will receive a 1 L fluid bolus. We will obtain orthostatic vital signs in addition to labs and imaging. Vital signs within acceptable limits. He'll also receive a dose of Toradol for his right groin pain. Patient's laboratory studies are remarkable for a undetectable troponin. Urine is still pending. Negative for covid, flu, RSV. No other acute findings at this time on labs. We'll for redemonstration of the chronic occlusion of the intra-abdominal aorta. Patient has distal collateral flow. No explaination for his groin pain. However, patient does have what appears to be a new mass in the left lung concerning for malignancy. Patient was a previous smoker. Patient is resting comfortably at this time. I discussed the results with him and informed him of the concern for malignancy in his lung. We also discussed the findings and his aorta and he states that that sounds typical for him. Due to his increased ability, the fact that he lives alone, as well as a skin malignancy did recommend that we we admit him for his primary care physician to see him as well as pulmonology for possible biopsy of the mass. He was in agreement with this plan. PT and OT can evaluate him here. Discussed his groin pain is likely related to muscle strain. I spoke with the admitting physician, Dr. Morris who accepted the patient. Pulmonology was consulted. Undiagnosed new problem with uncertain prognosis? @ -No Drug Therapy requiring intensive monitoring for toxicity (Heparin, Nitro, Insulin, Cardizem)? @ -No Were any procedures done? @ -No Diagnosis/symptom? @ -Pulmonary mass, concern for malignancy Acute, or Chronic, or Acute on Chronic? @ -Acute Uncomplicated (without systemic symptoms) or Complicated (systemic symptoms)? @ -Complicated Side effects of treatment? @ -none Exacerbation, Progression, or Severe Exacerbation] @ -no Poses a threat to life or bodily function? @ -yes Diagnosis/symptom? @ -Worsening debility Acute, or Chronic, or Acute on Chronic? @ -Acute on chronic Uncomplicated (without systemic symptoms) or Complicated (systemic symptoms)? @ -Uncomplicated Side effects of treatment? @ -none Exacerbation, Progression, or Severe Exacerbation] @ -no Poses a threat to life or bodily function? @ -no Diagnosis/symptom? @ -Muscle strain Acute, or Chronic, or Acute on Chronic? @ -Acute Uncomplicated (without systemic symptoms) or Complicated (systemic symptoms)? @ -Uncomplicated Side effects of treatment? @ -none Exacerbation, Progression, or Severe Exacerbation] @ -no Poses a threat to life or bodily function? @ -no Diagnosis/symptom? @ -Vascular disease, chronically occluded abdominal aorta Acute, or Chronic, or Acute on Chronic? @ -Chronic Uncomplicated (without systemic symptoms) or Complicated (systemic symptoms)? @ -Uncomplicated Side effects of treatment? @ -none Exacerbation, Progression, or Severe Exacerbation] @ -no Poses a threat to life or bodily function? @ -Potentially - Lab Data Result diagrams: 08/27/22 02:35 08/27/22 02:35 Lab Results 08/27/22 08/27/22 08/27/22 Range/Units 02:35 02:35 02:35 WBC 10.1 (3.8-10.6) k/uL RBC 4.53 (4.30-5.90) m/uL Hgb 14.1 (13.0-17.5) gm/dL Hct 40.8 (39.0-53.0) % MCV 90.0 (80.0-100.0) fL MCH 31.2 (25.0-35.0) pg MCHC 34.7 (31.0-37.0) g/dL RDW 13.6 (11.5-15.5) % Plt Count 325 (150-450) k/uL MPV 7.6 Neutrophils % 62 % Lymphocytes % 21 % Monocytes % 7 % Eosinophils % 6 % Basophils % 1 % Neutrophils # 6.2 (1.3-7.7) k/uL Lymphocytes # 2.1 (1.0-4.8) k/uL Monocytes # 0.7 (0-1.0) k/uL Eosinophils # 0.6 (0-0.7) k/uL Basophils # 0.1 (0-0.2) k/uL PT 10.0 (9.0-12.0) sec INR 0.9 (<1.2) APTT 22.7 (22.0-30.0) sec Sodium 138 (137-145) mmol/L Potassium 4.6 (3.5-5.1) mmol/L Chloride 103 (98-107) mmol/L Carbon Dioxide 26 (22-30) mmol/L Anion Gap 9 mmol/L BUN 28 H (9-20) mg/dL Creatinine 0.92 (0.66-1.25) mg/dL Est GFR (CKD-EPI)AfAm >90 (>60 ml/min/1.73 sqM) Est GFR (CKD-EPI)NonAf 78 (>60 ml/min/1.73 sqM) Glucose 105 H (74-99) mg/dL Calcium 10.2 (8.4-10.2) mg/dL Total Bilirubin 0.3 (0.2-1.3) mg/dL AST 40 (17-59) U/L ALT 37 (4-49) U/L Alkaline Phosphatase 90 (38-126) U/L Troponin I (0.000-0.034) ng/mL Total Protein 6.5 (6.3-8.2) g/dL Albumin 3.8 (3.5-5.0) g/dL Lipase 296 (23-300) U/L Influenza Type A (PCR) (Not Detectd) Influenza Type B (PCR) (Not Detectd) RSV (PCR) (Not Detectd) SARS-CoV-2 (PCR) (Not Detectd) 08/27/22 08/27/22 Range/Units 02:35 02:35 WBC (3.8-10.6) k/uL RBC (4.30-5.90) m/uL Hgb (13.0-17.5) gm/dL Hct (39.0-53.0) % MCV (80.0-100.0) fL MCH (25.0-35.0) pg MCHC (31.0-37.0) g/dL RDW (11.5-15.5) % Plt Count (150-450) k/uL MPV Neutrophils % % Lymphocytes % % Monocytes % % Eosinophils % % Basophils % % Neutrophils # (1.3-7.7) k/uL Lymphocytes # (1.0-4.8) k/uL Monocytes # (0-1.0) k/uL Eosinophils # (0-0.7) k/uL Basophils # (0-0.2) k/uL PT (9.0-12.0) sec INR (<1.2) APTT (22.0-30.0) sec Sodium (137-145) mmol/L Potassium (3.5-5.1) mmol/L Chloride (98-107) mmol/L Carbon Dioxide (22-30) mmol/L Anion Gap mmol/L BUN (9-20) mg/dL Creatinine (0.66-1.25) mg/dL Est GFR (CKD-EPI)AfAm (>60 ml/min/1.73 sqM) Est GFR (CKD-EPI)NonAf (>60 ml/min/1.73 sqM) Glucose (74-99) mg/dL Calcium (8.4-10.2) mg/dL Total Bilirubin (0.2-1.3) mg/dL AST (17-59) U/L ALT (4-49) U/L Alkaline Phosphatase (38-126) U/L Troponin I <0.012 (0.000-0.034) ng/mL Total Protein (6.3-8.2) g/dL Albumin (3.5-5.0) g/dL Lipase (23-300) U/L Influenza Type A (PCR) Not Detected (Not Detectd) Influenza Type B (PCR) Not Detected (Not Detectd) RSV (PCR) Not Detected (Not Detectd) SARS-CoV-2 (PCR) Not Detected (Not Detectd) - EKG Data -: EKG Interpreted by Oh EKG Comments: 12-lead Electrocardiogram Interpretation Note EKG was reviewed and interpreted by myself. 12-lead ECG performed at 0232 is interpreted by me as revealing normal sinus rhythm at a rate of 66 beats per minute. [place] is normal. MT Intervals 200 ms, QRS duration is 97 ms, QTc is 393 ms.. There were no ST or T wave abnormalities to suggest myocardial ischemia or injury. R wave progression across the precordium was satisfactory. By my interpretation this EKG is non-diagnostic for acute ischemia. When compared with EKG from February 2019, no significant change. Disposition Clinical Impression: Muscle strain, Debility, Pulmonary mass, Vascular disease, Abdominal aorta thrombosis Disposition: ADMITTED IP TO THIS HOSP Condition: Stable Referrals: Hugh Morris MD [Primary Care Provider] - 1-2 days Time of Disposition: 04:55
[2022-08-27 03:07] LABS: ALT 37 U/L (4-49); AST 40 U/L (17-59); African American GFR (CKD) >90 (>60 ml/min/1.73 sqM); Albumin 3.8 g/dL (3.5-5.0); Alkaline Phosphatase 90 U/L (38-126); Anion Gap 9 mmol/L; Blood Urea Nitrogen 28 mg/dL (9-20); Calcium 10.2 mg/dL (8.4-10.2); Carbon Dioxide 26 mmol/L (22-30); Chloride 103 mmol/L (98-107); Glucose 105 mg/dL (74-99); INR 0.9 (<1.2); Lipase 296 U/L (23-300); Non-African American GFR(CKD) 78 (>60 ml/min/1.73 sqM); Partial Thromboplastin Time 22.7 sec (22.0-30.0); Potassium 4.6 mmol/L (3.5-5.1); Sodium 138 mmol/L (137-145); Total Bilirubin 0.3 mg/dL (0.2-1.3); Total Protein 6.5 g/dL (6.3-8.2)
[2022-08-27 03:14] LABS: Basophils # (A) 0.1 k/uL (0-0.2); Basophils % (A) 1 %; Eosinophils # (A) 0.6 k/uL (0-0.7); Eosinophils % (A) 6 %; HCT 40.8 % (39.0-53.0); HGB 14.1 gm/dL (13.0-17.5); Lymphocytes # (A) 2.1 k/uL (1.0-4.8); Lymphocytes % (A) 21 %; MCH 31.2 pg (25.0-35.0); MCHC 34.7 g/dL (31.0-37.0); Mean Platelet Volume 7.6; Monocytes # (A) 0.7 k/uL (0-1.0); Monocytes % (A) 7 %; Neutrophils # (A) 6.2 k/uL (1.3-7.7); Neutrophils % (A) 62 %; Platelet Count 325 k/uL (150-450); RBC 4.53 m/uL (4.30-5.90); RDW 13.6 % (11.5-15.5); WBC 10.1 k/uL (3.8-10.6)
--- NOTE | 2022-08-27 03:45 | XR ---
EXAMINATION TYPE: XR chest 2V DATE OF EXAM: 08/27/2022 COMPARISON: 02/19/2019 HISTORY: Right lower quadrant pain TECHNIQUE: 2 views FINDINGS: There is a 5.5 cm masslike density in the left lung above the left perihilum. The other saul g frederick are clear. No pleural effusion. Heart size is normal. There are chest leads. Bony thorax is intact. IMPRESSION: Large left upper lobe mass appears new compared to old exam. Follow-up recommended.
--- NOTE | 2022-08-27 03:46 | XR ---
EXAMINATION TYPE: XR Hip RT and AP Pelvis DATE OF EXAM: 08/27/2022 COMPARISON: 10/12/2018 HISTORY: Right lower quadrant pain TECHNIQUE: 3 views FINDINGS: The pelvic ring is intact. The proximal right femur and hip joints appear intact acetabulum appears intact. There is mild acetabular spurring. Sacroiliac joints are intact IMPRESSION: No acute abnormality of the pelvis and right hip. No significant change
--- NOTE | 2022-08-27 03:52 | CT ---
EXAMINATION TYPE: CT lumbar spine wo con DATE OF EXAM: 08/27/2022 COMPARISON: 07/26/2021 HISTORY: RLQ pain and light headed. CT DLP: 300 mGycm Automated exposure control for dose reduction was used. Images obtained from T12 to S1 vertebra with no contrast. The lumbar vertebra have normal alignment. There is multilevel degenerative spur formation of the end plates. No compression fracture. There is vacuum disc at L4-5. Abdominal aorta is atheromatous. There is mild hypertrophic multilevel facet arthropathy and no compression fracture. There is posterior mi ld disc herniation at L2-3 and L3-4 with mild impingement on the spinal canal. There is disc bulging and facet arthropathy at L4-5 with some relative spinal stenosis. Sacroiliac joints appear intact. IMPRESSION: Spondylotic changes. Mild spinal stenosis at L4-5. No fracture seen. No significant change compared t o old exam.
--- NOTE | 2022-08-27 04:44 | CT ---
EXAMINATION TYPE: CT angio abdomen pelvis DATE OF EXAM: 08/27/2022 COMPARISON: 08/27/2022 HISTORY: 07/26/2021 CT DLP: 970.2 mGycm Automated exposure control for dose reduction was used. CONTRAST: Performed with IV Contrast, patient injected with 100 mL of Isovue 370. Images obtained from the diaphragm to the floor the pelvis with and without the IV contrast. There ar e Three-D postprocessed images. Images through the chest show a large lobulated mass at the left pulmonary hilum which is noncalcifie d measuring 6.7 cm. There is enlarged subcarinal lymph node measuring 3.3 cm and left frontal enlarge d lymph nodes measuring up to 3.6 cm. There is some encasement of the left pulmonary artery. Abdominal aorta is atheromatous. The ascending aorta measures 3.5 cm. There is variable plaque format ion in the abdominal aorta. There is large thrombus in the abdominal aorta below the origin of the re nal arteries. There is essentially complete occlusion. There is 2 cm segment without definite luminal opacification. There is opacification of the lower pelvic aorta with contrast. There is extensive pl aque formation at the aortic bifurcation and thrombosis of the left common iliac artery. There is igor w in the right common and internal and external iliac arteries. There is large inferior mesenteric ar terra. There is arterial fullness celiac artery and superior mesenteric artery and both renal arteries. Exam does not include the anterior abdominal wall and collateral blood flow is not evaluated. IMPRESSION: There is thrombosis of the lower abdominal aorta below the origins of the renal arteries. There is fi lling of the lower abdominal aorta and the right iliac arteries with contrast. There is thrombosis of the [place] left iliac artery. There appears to be some collateral vessels filling the left femoral a rtery at the left groin and the lower aorta may be filling in a retrograde fashion from collaterals. Recommend repeat exam with whole body reconstructed images to include the abdominal wall and evaluate collaterals. 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 Exam was discussed with attending staff at 4:40 AM.
[2022-08-27] MEDS ORDERED: ACETAMINOPHEN TAB 325 MG TAB PO PRN (05:02)
[2022-08-27] MEDS ORDERED: NALOXONE 0.4 MG/ML 1 ML VIAL IV PRN (05:02)
[2022-08-27] MEDS ORDERED: IBUPROFEN 400 MG TAB PO PRN (05:02)
[2022-08-27 07:02] LABS: Appearance,Urine Clear (Clear); Bilirubin,Urine Negative (Negative); Blood,Urine Negative (Negative); Color,Urine Yellow; Glucose,Urine (UA) Negative (Negative); Ketones,Urine Negative (Negative); Leukocyte Esterase,Urine Negative (Negative); Mucus,Urine Rare /hpf; Nitrite,Urine Negative (Negative); PH, Urine 6.5 (5.0-8.0); Protein,Urine 1+ (Negative); RBC,Urine 1 /hpf (0-5); Squamous Epithelial Cell,Urine <1 /hpf (0-4); Urobilinogen,Urine <2.0 mg/dL (<2.0); WBC,Urine <1 /hpf (0-5)
--- NOTE | 2022-08-27 08:11 | P.HPIM ---
History of Present Illness H&P Date: 08/27/22 Bassem Sotelo, is an 81 year old male who presented to [facility] emergency room with a chief complaint of generalized weakness, lightheadedness, and right groin pain. He was evaluated in the emergency room vital examination on presentation revealed a temperature of 97.7 pulse 85 respiration 18 blood pressure 169/64 pulse ox 98% on room air Laboratory data revealed a white blood count of 10.1 hemoglobin 14.1 platelet count 325 sodium 138 potassium 4.6 chloride 103 CO2 26 BUN 28 creatinine 0.92 Testing in the emergency room revealed chest x-ray done in the emergency room revealed large left upper lobe mass, new as compared to old exam, pelvis x-ray and the right hip x-ray revealed no acute abnormality, CT of the lumbar spine without contrast revealed spondylotic changes and mild spinal stenosis at L4-5, no fracture and no significant change compared to old exam. EKG done in the emergency room revealed sinus rhythm no acute ischemic changes. CT angiogram of the abdomen and pelvis revealed thrombosis of the lower abdominal aorta below the origins of the renal arteries, Patient was admitted to medical floor for further evaluation and treatment Past medical history is significant for history of carotid stenosis with history of carotid stenting, history of stroke, history of hypertension, history of chronically occluded abdominal aorta, history of hyperlipidemia, history of [id number]-rwaijknle diabetes mellitus. Past Medical History Past Medical History: CVA/TIA, Diabetes Mellitus, Hyperlipidemia, Hypertension Additional Past Medical History / Comment(s): AAA monitored by Dr. Tipton History of Any Multi-Drug Resistant Organisms: None Reported Past Surgical History: Cholecystectomy Additional Past Surgical History / Comment(s): carotid artery stent, now occluded 100% Past Anesthesia/Blood Transfusion Reactions: No Reported Reaction Smoking Status: Former smoker - Past Family History Father Family Medical History: Cancer Additional Family Medical History / Comment(s): lung cancer Mother Family Medical History: Myocardial Infarction ([place]) Additional Family Medical History / Comment(s): in her 80s Medications and Allergies Home Medications Medication Instructions Recorded Confirmed Type Multivitamins, Thera [Multivitamin 1 tab PO DAILY 11/03/15 08/27/22 History (formulary)] atenoloL 25 mg PO DAILY 11/03/15 08/27/22 History metFORMIN HCL [Glucophage] 500 mg PO DAILY 11/03/15 08/27/22 History Levothyroxine Sodium [Synthroid] 25 mcg PO DAILY 10/12/18 08/27/22 History Ezetimibe [Zetia] 10 mg PO DAILY 08/27/22 08/27/22 History Losartan Potassium [Cozaar] 50 mg PO DAILY 08/27/22 08/27/22 History Rosuvastatin [Crestor] 20 mg PO DAILY 08/27/22 08/27/22 History Allergies Allergy/AdvReac Type Severity Reaction Status Date / Time amoxicillin Allergy Rash/Hives Verified 08/27/22 01:58 Penicillins Allergy Rash/Hives Verified 08/27/22 07:04 Physical Exam Vitals: Vital Signs Temp Pulse Pulse Resp BP BP Pulse Ox 08/27/22 05:52 97.8 F 71 16 173/78 95 08/27/22 05:42 97.7 F 63 16 153/73 95 08/27/22 04:59 75 16 151/71 95 08/27/22 04:16 57 L 16 141/71 96 08/27/22 03:07 66 16 164/68 96 08/27/22 02:39 65 18 152/67 96 08/27/22 01:58 97.7 F 85 18 169/64 98 Intake and Output 08/26/22 08/27/22 08/27/22 22:59 06:59 14:59 Other: Weight 72.575 kg In general patient is alert and oriented x 3 in no distress HEENT head normocephalic and atraumatic Neck is supple no JVD no goiter no lymphadenopathy no carotid bruit Chest examination is clear to auscultation no crackles no wheezing Cardiac exam reveals regular heart sounds S1 and S2 no gallops no murmurs Abdomen is soft nontender no organomegaly with normal bowel sounds Extremity exam reveals no edema no cyanosis or clubbing Neurological examination reveals no gross focal deficits Results CBC & Chem 7: 08/27/22 02:35 08/27/22 02:35 Labs: Abnormal Lab Results - Last 24 Hours (Table) 08/27/22 08/27/22 Range/Units 02:35 06:50 BUN 28 H (9-20) mg/dL Glucose 105 H (74-99) mg/dL Ur Specific [place] 1.050 H (1.001-1.035) Urine Protein 1+ H (Negative) Urine Mucus Rare H (None) /hpf Assessment and Plan Plan: New large left upper lobe mass Lightheadedness with history of carotid stenosis and carotid stenting Right groin pain cause is unclear, patient has significant vascular pathology Will consult vascular surgery Underlying history of hypertension Underlying history of hyperlipidemia Underlying history of [id number] diabetes mellitus Underlying history of chronically occluded abdominal aorta Underlying history of degenerative disc disease with chronic back pain At this time patient is admitted to medical floor Home medications reviewed and reordered Pulmonary consultation requested for evaluation of large left upper lobe mass Vascular surgery consultation requested For DVT prophylaxis subcu Lovenox For GI prophylaxis oral Protonix Will follow closely
[2022-08-27] MEDS ORDERED: LOSARTAN 50 MG TAB PO SCH (09:00)
[2022-08-27] MEDS ORDERED: EZETIMIBE 10 MG TAB PO SCH (09:00)
[2022-08-27] MEDS ORDERED: HEPARIN SODIUM,PORCINE/PF 5,000 UNIT/0.5 ML SYRINGE SQ SCH (09:00)
[2022-08-27] MEDS ORDERED: MULTIVITAMINS, THERA 1 EACH TAB PO SCH (09:00)
[2022-08-27] MEDS ORDERED: ATORVASTATIN 40 MG TAB PO SCH (09:00)
[2022-08-27] MEDS ORDERED: metFORMIN 500 MG TAB PO SCH (09:00)
[2022-08-27] MEDS ORDERED: atenoloL 25 MG TAB PO SCH (09:00)
--- NOTE | 2022-08-27 09:11 | US ---
EXAMINATION TYPE: US carotid duplex BILAT DATE OF EXAM: 08/27/2022 COMPARISON: CTa 2019 CLINICAL HISTORY: lightheadness. Lightheadedness. Prior smoker. Hypertension, hyperlipidemia. Patient states he had a stent placed in a vessel within his neck and that side is "completely blocked". Anat watters history from patient. CTa 2019 states there is thrombosis of the right carotid artery at its orig in. TECHNIQUE: Carotid duplex ultrasound examination. Indirect Doppler criteria was utilized. 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 Echoes seen througho ut the right CCA, ICA, and ECA. Some color doppler shows speckles of flow but unable to show any lanre r arterial spectral waveform within CCA or ICA. Flow seen within right vertebral. Elevated velocity within left ICA and left ECA. Plaque seen within left bulb. IMPRESSION: 1. No definite flow right carotid system. Correlate with CTA. Criteria for Assigning % of Stenosis / Diameter reduction (Estimation based on the indirect measurements of the internal carotid artery velocities (ICA PSV). 1. Normal (no stenosis)=ICA PSV < 125 cm/s: ratio < 2.0: ICA EDV<40 cm/s. 2. Less than 50% stenosis=ICA PSV < 125 cm/s: ratio < 2.0: ICA EDV<40 cm/s. 3. 50 to 69% stenosis=ICA PSV of 125 to 230 cm/s: ration 2.0 ? 4.0: ICA EDV 40-100 cm/s. 4. Greater than 70% stenosis to near occlusion= ICA PSV > 230 cm/s: ratio > 4.0: ICA EDV > 100 cm/s. 5. Near occlusion= ICA PSV velocities may be low or undetectable: variable ratio and ICA EDV. 6. Total occlusion=unable to detect flow.
[2022-08-27 09:18] VITALS: TEMP 97.5
[2022-08-27] MEDS ORDERED: RX INFO: IV CONTRAST WAS GIVEN 1 EACH MISC MISCELLANE PRN (11:23)
--- NOTE | 2022-08-27 13:20 | CT ---
EXAMINATION TYPE: CT chest w con DATE OF EXAM: 08/27/2022 COMPARISON: CTA chest July 24, 2016. Chest x-ray earlier today. HISTORY: LUNG MASS. Recent abnormal x-ray. CT DLP: 425 mGycm. Automated Exposure Control for Dose Reduction was Utilized. TECHNIQUE: CT scan of the thorax is performed following with IV Contrast, patient injected with 100 mL of Isovue 370. FINDINGS: LUNGS: Confirmation of suspicious left upper lobe mass inferior aspect measuring 5.9 x 5.7 cm axial i mage 19 x 5.9 cm craniocaudal dimension sagittal image 98. There is inferior lobulated mass extension into the left hilum. There is some mediastinal invasion surrounding portion of the left pulmonary ar terra and left upper lobe bronchus. There is mild bibasilar linear scarring and/or atelectasis. No ple ural effusion or pneumothorax seen bilaterally. Mediastinum: There is abnormal heterogeneous subcarinal lymph node measuring 5.0 x 2.8 cm axial image 31. This is causing mass effect on the adjacent posterior esophagus. Abnormal left hilar adenopathy along the inferior margin of the left upper lobe mass or neoplasm is noted. No cardiomegaly or perica rdial effusion. Suspicious but subcentimeter lymph nodes in the AP window are present. OTHER: No adrenal masses. Multiple Simple appearing thin-walled cysts throughout both kidneys with re nal excretion is present. Multiple cholecystectomy clips are noted. IMPRESSION: Confirmation of large left upper lobe mass consistent with neoplasm invading the mediasti num with abnormal left hilar and subcarinal adenopathy. Consider bronchoscopy follow up for tissue di agnosis. Consider PET/CT follow-up for staging purposes. Small cell carcinoma would be favored.
--- NOTE | 2022-08-27 13:53 | P.CNPUL ---
History of Present Illness Consult date: 08/27/22 Reason for consult: lung mass History of present illness: This is a 81-year-old male patient was found to have a left upper lobe mass. The patient is known to have diabetes, hypertension, hyperlipidemia and he is an ex-smoker. He also has had previous history of CVA/TIA. The patient is known to have complete occlusion of the right carotid artery. The patient came into the hospital because of generalized weakness and lightheadedness and he was also having some groin pain suspecting an underlying urine tract infection. The patient was afebrile. The patient was motivated is stable and the pulse ox was 98% on room air oxygen. No headaches. No altered mental status. In the emergency department, the patient underwent blood work that showed edematous count 10.4 with a hemoglobin of 14 and a platelet count of 325. BUN was at 28 w ith a creatinine of 0.9. Subsequently, the patient a chest x-ray showed a left upper lobe mass, suprahilar that warranted further investigation. A CAT scan of the chest has not been done. Meanwhile, the patient underwent a pelvic x-ray and a right hip x-ray that showed no acute abnormalities. Computed tomography scan of the lumbar spine without contrast showed a thrombosis of the lower abdominal wart the below the origins of the renal artery. Also, there is some chronic spondylitic changes, mild spinal stenosis at the level of L4-L5 without evidence of any fractures. The patient also had a CAT scan of the abdomen and pelvis using the CT antigram protocol and there was thrombosis of the lower abdominal wart the below the origins of the renal artery. There was also feeling of the lower abdominal aorta and the right iliac arteries with contrast. There was a thrombus of the [place] left iliac artery. A large left lung mass was also spotted in the CAT scan images. The patient denies having any recurrent pneumonias. No history of any use of inhalers or oxygen. His baseline performance and functional status has not been the best due to age and comorbidities. No reported testicular pain or swelling. No reported abdominal pain. Denies having any urinary incontinence. No history of tics urgency. No hematuria. No anterior abdominal pain. No chest pain. No cough or sputum production. He was having some lightheadedness and dizziness at the time of admission which is essentially subsided. Lightheadedness resolved when laying down or sitting down. This is an ongoing problem this been going on for the past few months. Review of Systems Constitutional: Reports fatigue, Reports weakness Eyes: denies as per HPI, denies blurred vision, denies bulging eye, denies decreased vision, denies diplopia, denies discharge, denies dry eye, denies irritation, denies itching, denies pain, denies photophobia, denies loss of peripheral vision, denies loss of vision, denies tunnel vision/blind spots Ears: deny: decreased hearing, ear discharge, earache, tinnitus Ears, nose, mouth and throat: Reports as per HPI Breasts: absent: as per HPI, gynecomastia Cardiovascular: Reports as per HPI Respiratory: Reports as per HPI Gastrointestinal: Reports as per HPI (Joint pain) Genitourinary: Reports as per HPI (Groin pain on the right) Musculoskeletal: Reports as per HPI Musculoskeletal: absent: ankle pain, ankle stiffness, ankle swelling Integumentary: Reports as per HPI Neurological: Reports as per HPI Psychiatric: Reports as per HPI Endocrine: Reports as per HPI, Reports fatigue Hematologic/Lymphatic: Reports as per HPI Past Medical History Past Medical History: CVA/TIA, Diabetes Mellitus, Hyperlipidemia, Hypertension Additional Past Medical History / Comment(s): AAA monitored by Dr. Tipton, carotid artery disease History of Any Multi-Drug Resistant Organisms: None Reported Past Surgical History: Cholecystectomy Additional Past Surgical History / Comment(s): carotid artery stent, now occluded 100% Past Anesthesia/Blood Transfusion Reactions: No Reported Reaction Smoking Status: Former smoker - Past Family History Father Family Medical History: Cancer Additional Family Medical History / Comment(s): lung cancer Mother Family Medical History: Myocardial Infarction ([place]) Additional Family Medical History / Comment(s): in her 80s Medications and Allergies Home Medications Medication Instructions Recorded Confirmed Type Multivitamins, Thera [Multivitamin 1 tab PO DAILY 11/03/15 08/27/22 History (formulary)] atenoloL 25 mg PO DAILY 11/03/15 08/27/22 History metFORMIN HCL [Glucophage] 500 mg PO DAILY 11/03/15 08/27/22 History Levothyroxine Sodium [Synthroid] 25 mcg PO DAILY 10/12/18 08/27/22 History Ezetimibe [Zetia] 10 mg PO DAILY 08/27/22 08/27/22 History Losartan Potassium [Cozaar] 50 mg PO DAILY 08/27/22 08/27/22 History Rosuvastatin [Crestor] 20 mg PO DAILY 08/27/22 08/27/22 History Allergies Allergy/AdvReac Type Severity Reaction Status Date / Time amoxicillin Allergy Rash/Hives Verified 08/27/22 01:58 Penicillins Allergy Rash/Hives Verified 08/27/22 07:04 Physical Exam Vitals: Vital Signs Temp Pulse Pulse Resp BP BP Pulse Ox 08/27/22 07:45 97.5 F L 66 19 152/63 94 L 08/27/22 05:52 97.8 F 71 16 173/78 95 08/27/22 05:42 97.7 F 63 16 153/73 95 08/27/22 04:59 75 16 151/71 95 08/27/22 04:16 57 L 16 141/71 96 08/27/22 03:07 66 16 164/68 96 08/27/22 02:39 65 18 152/67 96 08/27/22 01:58 97.7 F 85 18 169/64 98 Intake and Output 08/26/22 08/27/22 08/27/22 22:59 06:59 14:59 Intake Total 118 Balance 118 Intake: Oral 118 Other: Weight 72.575 kg The patient appeared well nourished and normally developed. Vital signs as documented. Head exam is unremarkable. No scleral icterus or corneal arcus noted. Neck is without jugular venous distension, thyromegaly, or carotid bruits. Carotid upstrokes are brisk bilaterally. Lungs are clear to auscultation and percussion. Cardiac exam reveals the PMI to be normally sized and situated. Rhythm is regular. First and second heart sounds normal. No murmurs, rubs or gallops. Abdominal exam reveals normal bowel sounds, no masses, no organomegaly and no aortic enlargement. Extremities are nonedematous and both femoral and pedal pulses are diminished at the present.. Examination of the skin revealed no evidence of significant rashes, suspicious appearing nevi or other concerning lesions.Neurologically, the patient is awake and alert and the patient does not have any focal neurological deficit. Cranial nerves are essentially intact. Results - Laboratory Findings CBC and BMP: 08/27/22 02:35 08/27/22 02:35 PT/INR, D-dimer PT 10.0 sec (9.0-12.0) 08/27/22 02:35 INR 0.9 (<1.2) 08/27/22 02:35 Abnormal lab findings: Abnormal Labs 08/27/22 08/27/22 02:35 06:50 BUN 28 H Glucose 105 H Ur Specific [place] 1.050 H Urine Protein 1+ H Urine Mucus Rare H - Diagnostic Findings Chest x-ray: image reviewed Assessment and Plan Plan: Left suprahilar mass with invasion of the mediastinum and subcarinal lymphadenopathy. This is most likely a locally advanced versus metastatic primary bronchogenic carcinoma that needs to be further investigated. 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 Right groin pain cause is unclear, patient has significant vascular pathology Will consult vascular surgery. CTA of the abdomen and pelvis was noted. 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 There is also filling of the lower abdominal wart in the right iliac artery with contrast. There is also thrombosis of the left iliac artery. Underlying history of hypertension Underlying history of hyperlipidemia Underlying history of qos-yswrdqj-gndjsqvey diabetes mellitus Underlying history of chronically occluded abdominal aorta Underlying history of degenerative disc disease with chronic back pain Plan CAT scan of the chest with contrast CAT scan of the brain no contrast to rule out metastases Evaluate the right groin pain by medicine I should be able to do a bronchoscopy on this patient for tissue diagnosis probably within next 24-48 hours once the medical condition stabilizes. His overall respiratory status is stable for now.
[2022-08-27 14:46] VITALS: BP 157/70; PULSE 63; RESP 18
--- NOTE | 2022-08-27 19:20 | P.GSCN ---
History of Present Illness Consult date: 08/27/22 History of present illness: Bassem is an 81-year-old male with a known past medical history of aortic occlusion, right carotid occlusion, diabetes, hypertension, hyperlipidemia and former tobacco abuse. He was having some issues with generalized weakness ligh theadedness and some mild groin pain possibly musculoskeletal but when looking at the the my chart, the family was concerned for possible urinary tract infection and brought him to the hospital. Workup and evaluation redemonstrated distal aortic occlusion with reconstitution of the vessels. The patient currently denies any lower extremity symptomatic concern. No clubbing or cyanosis. No claudication-type symptoms. He also had evidence of a large left lung mass. Past Medical History Past Medical History: CVA/TIA, Diabetes Mellitus, Hyperlipidemia, Hypertension Additional Past Medical History / Comment(s): AAA monitored by Dr. Tipton, carotid artery disease History of Any Multi-Drug Resistant Organisms: None Reported Past Surgical History: Cholecystectomy Additional Past Surgical History / Comment(s): carotid artery stent, now occlu ded 100% Past Anesthesia/Blood Transfusion Reactions: No Reported Reaction Smoking Status: Former smoker - Past Family History Father Family Medical History: Cancer Additional Family Medical History / Comment(s): lung cancer Mother Family Medical History: Myocardial Infarction ([place]) Additional Family Medical History / Comment(s): in her 80s Medications and Allergies Home Medications Medication Instructions Recorded Confirmed Type Multivitamins, Thera [Multivitamin 1 tab PO DAILY 11/03/15 08/27/22 History (formulary)] atenoloL 25 mg PO DAILY 11/03/15 08/27/22 History metFORMIN HCL [Glucophage] 500 mg PO DAILY 11/03/15 08/27/22 History Levothyroxine Sodium [Synthroid] 25 mcg PO DAILY 10/12/18 08/27/22 History Ezetimibe [Zetia] 10 mg PO DAILY 08/27/22 08/27/22 History Losartan Potassium [Cozaar] 50 mg PO DAILY 08/27/22 08/27/22 History Rosuvastatin [Crestor] 20 mg PO DAILY 08/27/22 08/27/22 History Allergies Allergy/AdvReac Type Severity Reaction Status Date / Time amoxicillin Allergy Rash/Hives Verified 08/27/22 01:58 Penicillins Allergy Rash/Hives Verified 08/27/22 07:04 Surgical - Exam Vital Signs Temp Pulse Resp BP Pulse Ox 97.7 F 85 18 169/64 98 08/27/22 01:58 08/27/22 01:58 08/27/22 01:58 08/27/22 01:58 08/27/22 01:58 Gen. a pleasant cooperative male in no acute distress. HEENT appears normocephalic. Atraumatic. Heart appears regular. Lungs are diminished but clear. Abdomen is soft, nontender nondistended. Extremities without any evidence of severe edema Results - Labs 08/27/22 02:35 08/27/22 02:35 Abnormal Lab Results - Last 24 Hours (Table) 08/27/22 08/27/22 Range/Units 02:35 06:50 BUN 28 H (9-20) mg/dL Glucose 105 H (74-99) mg/dL Ur Specific [place] 1.050 H (1.001-1.035) Urine Protein 1+ H (Negative) Urine Mucus Rare H (None) /hpf Diabetes panel 08/27/22 Range/Units 02:35 Sodium 138 (137-145) mmol/L Potassium 4.6 (3.5-5.1) mmol/L Chloride 103 (98-107) mmol/L Carbon Dioxide 26 (22-30) mmol/L BUN 28 H (9-20) mg/dL Creatinine 0.92 (0.66-1.25) mg/dL Glucose 105 H (74-99) mg/dL Calcium 10.2 (8.4-10.2) mg/dL AST 40 (17-59) U/L ALT 37 (4-49) U/L Alkaline Phosphatase 90 (38-126) U/L Total Protein 6.5 (6.3-8.2) g/dL Albumin 3.8 (3.5-5.0) g/dL Calcium panel 08/27/22 Range/Units 02:35 Calcium 10.2 (8.4-10.2) mg/dL Albumin 3.8 (3.5-5.0) g/dL Pituitary panel 08/27/22 Range/Units 02:35 Sodium 138 (137-145) mmol/L Potassium 4.6 (3.5-5.1) mmol/L Chloride 103 (98-107) mmol/L Carbon Dioxide 26 (22-30) mmol/L BUN 28 H (9-20) mg/dL Creatinine 0.92 (0.66-1.25) mg/dL Glucose 105 H (74-99) mg/dL Calcium 10.2 (8.4-10.2) mg/dL Adrenal panel 08/27/22 Range/Units 02:35 Sodium 138 (137-145) mmol/L Potassium 4.6 (3.5-5.1) mmol/L Chloride 103 (98-107) mmol/L Carbon Dioxide 26 (22-30) mmol/L BUN 28 H (9-20) mg/dL Creatinine 0.92 (0.66-1.25) mg/dL Glucose 105 H (74-99) mg/dL Calcium 10.2 (8.4-10.2) mg/dL Total Bilirubin 0.3 (0.2-1.3) mg/dL AST 40 (17-59) U/L ALT 37 (4-49) U/L Alkaline Phosphatase 90 (38-126) U/L Total Protein 6.5 (6.3-8.2) g/dL Albumin 3.8 (3.5-5.0) g/dL Assessment and Plan Assessment: Aortoiliac occlusion with reconstitution Right carotid artery occlusion Generalized weakness Newly diagnosed left lung mass Plan: At this point after in depth chart review and full discussion with the family, it does appear that the findings in question have been known. This is followed as an outpatient routinely as well. From my standpoint there is no evidence of ischemic changes and unlikely that there is any arterial insufficiency causing the issues at this time. From my standpoint the patient can be discharged. This was conveyed to the primary physician.
[2022-08-28] MEDS ORDERED: LEVOTHYROXINE 25 MCG TAB PO SCH (06:30)
[2022-08-28] MEDS ORDERED: PANTOPRAZOLE 40 MG TABLET PO SCH (07:30)
--- NOTE | 2022-08-29 12:39 | P.DS ---
Providers Date of admission: 08/27/22 05:03 Expected date of discharge: 08/27/22 Attending physician: Hugh Morris Consults: 08/27/22 05:02 Consult Physician Routine Consulting Provider: Praneeth Bryan Consult Reason/Comments: pulmonary mass, concern for malignancy Do you want consulting provider notified?: Yes 08/27/22 07:39 Consult Physician Routine Consulting Provider: Estephania Jaimes Consult Reason/Comments: abdominal aorta thrombosis, groin pain Do you want consulting provider notified?: Yes Primary care physician: Hugh Morris [facility] Course: Discharge diagnosis New large left upper lobe mass Lightheadedness with history of carotid stenosis and carotid stenting Right groin pain cause is unclear, patient has significant vascular pathology Will consult vascular surgery Underlying history of hypertension Underlying history of hyperlipidemia Underlying history of [id number] diabetes mellitus Underlying history of chronically occluded abdominal aorta Underlying history of degenerative disc disease with chronic back pain Hospital course Bassem Sotelo, is an 81 year old male who presented to [facility] emergency room with a chief complaint of generalized weakness, lightheadedness, and right groin pain. He was evaluated in the emergency room vital examination on presentation revealed a temperature of 97.7 pulse 85 respiration 18 blood pressure 169/64 pulse ox 98% on room air Laboratory data revealed a white blood count of 10.1 hemoglobin 14.1 platelet count 325 sodium 138 potassium 4.6 chloride 103 CO2 26 BUN 28 creatinine 0.92 Testing in the emergency room revealed chest x-ray done in the emergency room revealed large left upper lobe mass, new as compared to old exam, pelvis x-ray and the right hip x-ray revealed no acute abnormality, CT of the lumbar spine without contrast revealed spondylotic changes and mild spinal stenosis at L4-5, no fracture and no significant change compared to old exam. EKG done in the emergency room revealed sinus rhythm no acute ischemic changes. CT angiogram of the abdomen and pelvis revealed thrombosis of the lower abdominal aorta below the origins of the renal arteries, Patient was admitted to medical floor for further evaluation and treatment Past medical history is significant for history of carotid stenosis with history of carotid stenting, history of stroke, history of hypertension, history of chronically occluded abdominal aorta, history of hyperlipidemia, history of [id number] diabetes mellitus. On 08/27/2022 according to the nursing record patient left AGAINST MEDICAL ADVICE. 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 Patient Condition at Discharge: Undetermined Plan - Discharge Summary Discharge Rx Participant: Yes New Discharge Prescriptions: No Action metFORMIN HCL [Glucophage] 500 mg PO DAILY Multivitamins, Thera [Multivitamin (formulary)] 1 tab PO DAILY atenoloL 25 mg PO DAILY Levothyroxine Sodium [Synthroid] 25 mcg PO DAILY Losartan Potassium [Cozaar] 50 mg PO HS Rosuvastatin [Crestor] 20 mg PO DAILY Ezetimibe [Zetia] 10 mg PO HS Discharge Medication List Multivitamins, Thera [Multivitamin (formulary)] 1 tab PO DAILY 11/03/15 [History] atenoloL 25 mg PO DAILY 11/03/15 [History] metFORMIN HCL [Glucophage] 500 mg PO DAILY 11/03/15 [History] Levothyroxine Sodium [Synthroid] 25 mcg PO DAILY 10/12/18 [History] Ezetimibe [Zetia] 10 mg PO HS 08/27/22 [History] Losartan Potassium [Cozaar] 50 mg PO HS 08/27/22 [History] Rosuvastatin [Crestor] 20 mg PO DAILY 08/27/22 [History] Follow up Appointment(s)/Referral(s): [facility], [NON-STAFF] - As Needed ([facility] will call you to schedule your in home nursing and physical therapy visits. ) Hugh Morris MD [Primary Care Provider] - 1-2 days Discharge Disposition: Left Against Medical Advice
== END 2022-08-27 19:58 | disposition left against medical advice (07) ==
LOC: EC 01:48 → 4SSUR 05:03 → INTOOBSV 05:03 → 4SSUR 05:33 → UNDODISIN 19:58
PROVIDERS: ADMIT Internal Medicine; ATTEND Internal Medicine
DX: I74.09 Other arterial embolism and thrombosis of abdominal aorta (principal); R10.31 Right lower quadrant pain; E11.9 Type 2 diabetes mellitus without complications; I10 Essential (primary) hypertension; E78.5 Hyperlipidemia, unspecified; R91.8 Other nonspecific abnormal finding of lung field; M48.061 Spinal stenosis, lumbar region without neurogenic claudication; I70.0 Atherosclerosis of aorta; I65.21 Occlusion and stenosis of right carotid artery; M51.26 Other intervertebral disc displacement, lumbar region; Z86.73 Personal history of transient ischemic attack (TIA), and cerebral infarction without residual deficits; Z79.899 Other long term (current) drug therapy; Z79.82 Long term (current) use of aspirin; Z88.0 Allergy status to penicillin; Z90.49 Acquired absence of other specified parts of digestive tract; Z80.1 Family history of malignant neoplasm of trachea, bronchus and lung; Z82.49 Family history of ischemic heart disease and other diseases of the circulatory system; Z20.822 Contact with and (suspected) exposure to COVID-19; Z87.891 Personal history of nicotine dependence; Z53.29 Procedure and treatment not carried out because of patient's decision for other reasons
CPT/HCPCS: 96372; 96361; 96374; 99285; 36415; 93005; 97162; 97166; 80053; 83690; 84484; 85025; 85610; 85730; 81001; 87636; 73502; 71046; 93880; 72131; 71260; 74174; G0378; J1885; Q9967; J1644

== ENCOUNTER 2022-08-30 11:52 | Day surgery (SDC) | payer MEDICARE ==
[2022-08-29 11:05] VITALS: BMI 28.8
[~2022-08-30 11:52] MED LIST: LACTATED RINGERS 1,000 ML IV SCH
[2022-08-30 12:37] LABS: Glucose,Whole Blood 106 mg/dL (70-110)
[2022-08-30] MEDS ORDERED: LIDOCAINE 4% LTA KIT (4 ML) TOPICAL ONE (12:48)
[2022-08-30] MEDS ORDERED: PHENYLEPHRINE-0.9% NACL SYG 1,000 MCG/10 ML SYRINGE ONE (12:48)
[2022-08-30] MEDS ORDERED: NEOSTIGMINE 1 MG/ML 10 ML VIAL ONE (12:48)
[2022-08-30] MEDS ORDERED: GLYCOPYRROLATE 0.2 MG/ML 2 ML VIAL ONE (12:48)
[2022-08-30] MEDS ORDERED: ePHEDrine 50 MG/ML 1 ML VIAL ONE (12:48)
[2022-08-30] MEDS ORDERED: fentaNYL (PF) 50 MCG/ML 2 ML AMP ONE (12:48)
[2022-08-30] MEDS ORDERED: ROCURONIUM 10 MG/ML (5 ML VIAL) IV ONE (12:48)
[2022-08-30] MEDS ORDERED: LIDOCAINE 2% INJ 20 MG/ML (2 ML VIAL) ONE (12:48)
[2022-08-30] MEDS ORDERED: SUCCINYLCHOLINE CHLORIDE 200 MG/10 ML VIAL IV ONE (12:48)
[2022-08-30] MEDS ORDERED: PROPOFOL 10 MG/ML 20 ML VIAL IV ONE (12:48)
[2022-08-30 14:03] VITALS: TEMP 97.4
[2022-08-30 14:40] VITALS: RESP 16
[2022-08-30 14:52] VITALS: BP 112/64; PULSE 74
--- NOTE | 2022-08-30 15:09 | P.PCN ---
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 Subcarinal lymphadenopathy measuring at least 3 cm in size Procedure(s) Performed: Flexible bronchoscopy and airway inspection Endobronchial ultrasound and transbronchial needle aspirate of subcarinal lymph node Transbronchial biopsy of endobronchial irregularities in the apical segment of the left upper lobe Bronchial alveolar lavage of the left upper lobe Anesthesia: SUZETTEA Surgeon: Jose C Cortés Estimated Blood Loss (ml): 0 Pathology: other Condition: stable Disposition: same day Operative Findings: After obtaining the consent, the patient was taken out of the endoscopy suite and the patient was intubated and placed on a mechanical ventilator by anesthesia. The flexible bronchoscope was advanced through the orotracheal tube and airways infection was done. The middle of the distal trachea were within normal limits. The tony was sharp in the midline. Examination of the right side included the right mainstem bronchus, right upper lobe bronchus along with RB1 and RB 2 and RB 3 segments, bronchus intermedius and right middle lobe bronchus along with RB 4 and RB 5 and then the right lower lobe bronchus with RB 6 to RB 12 segments and all of his airways are patent and within normal limits and there was no evidence of any endobronchial lesions. Examination of the left side included left mainstem bronchus. The secondary tony between the left upper and left lower lobe bronchus was somewhat irregular and distorted. Left lower lobe bronchus was narrowed and so was the left upper lobe bronchus. The various segments of the lingula were extensively compressed. There was no evidence of endobronchial tumor. Similarly, the apical posterior and anterior segments of the left upper lobe were compressed and there was some minimal irregularities in the apical segment indicating possibility of endobro nchial tumor. Examination left lower lobe bronchus LB 6 to LB 12 were within normal limits. At this point, endobronchial ultrasound was done. The rectal examination of the NaSal lymph nodes revealed a 3 cm subcarinal lymph node, station 7. Using a 22- gauge aspiration needle, transbronchial needle aspirate of subcarinal lymph node was done. A total of 4 passes were obtained without any major bleeding. The endobronchial ultrasound was removed. Following that, the flexible bronchoscope was inserted and the bronchoscope was a directed to the left upper lobe apical segment. Few endobronchial biopsies were obtained from the apical segment of the left upper lobe. There was some endobronchial bleeding encountered and this is a covered with cold saline infusion. Adequate hemostasis was achieved. A bronchial lavage of the left upper lobe was done. A total of 80 mL of fluid was infused and 20 mL was aspirated from the left upper lobe apical segment. The aspirate was somewhat bloody. At the completion of the procedure, a therapeutic airway suctioning was done. Bronchoscope was removed. Patient was extubated and transferred to recovery in stable condition.
== END 2022-08-30 15:25 | disposition home or self-care (01) ==
LOC: ORWHC2ENDO 11:52
PROVIDERS: ATTEND Internal Medicine Critical Care Medicine
DX: C34.92 Malignant neoplasm of unspecified part of left bronchus or lung (principal); R59.0 Localized enlarged lymph nodes; E11.9 Type 2 diabetes mellitus without complications; E03.9 Hypothyroidism, unspecified; I10 Essential (primary) hypertension; E78.5 Hyperlipidemia, unspecified; Z88.0 Allergy status to penicillin; Z95.5 Presence of coronary angioplasty implant and graft; Z79.84 Long term (current) use of oral hypoglycemic drugs
CPT/HCPCS: 31628; 31629; 31654; 87798 ×3; 87496; 87498; 87529; 88108; 88305; 88173; 88342; 87252; 87502; 87634; 88341; 87070; 87205; 87116; 87102; 87206; 31625; 31633; 31624; 31652; J0330; J2710; J3010; J2370; J2704; J2001

== ENCOUNTER → 2022-09-10 | Outpatient (CLI) | payer MEDICARE ==
--- NOTE | 2022-09-10 20:38 | MR ---
EXAMINATION TYPE: MR brain wo/w con DATE OF EXAM: 09/10/2022 6:23 PM COMPARISON: NONE HISTORY: Prior 2019, small cell lung CA CONTRAST: Patient received 7ml mL intravenous Gadavist gadolinium contrast. Multiplanar and multispin-echo imaging of the brain was performed . Pre and post contrast enhanced i mages are obtained. The ventricles, basal cisterns and sulci overlying the cerebral convexities are mildly enlarged. There is evidence of mild periventricular white matter ischemic demyelination. Remote deep white matter insults are also noted. No acute edema is seen on diffusion weighted imaging. There is no evidence for midline shift or mass effect. Acute intracranial hemorrhage or extra-axial collection is not evident. No enhancing lesions are seen. The paranasal sinuses and mastoid air cells are well-aerated. IMPRESSION: Age-related atrophic and chronic small vessel ischemic change. No acute intracranial process at this time. No enhancing lesions are seen.
== END | disposition home or self-care (01) ==
LOC: RADMRIMAIN 17:17
PROVIDERS: ATTEND Internal Medicine Critical Care Medicine
DX: C34.90 Malignant neoplasm of unspecified part of unspecified bronchus or lung (principal); G31.1 Senile degeneration of brain, not elsewhere classified; I67.82 Cerebral ischemia
CPT/HCPCS: 70553

== ENCOUNTER → 2022-12-20 | Outpatient (CLI) | payer MEDICARE ==
[2022-12-20 20:14] LABS: HCT 33.7 % (39.6-50.0); HGB 10.6 d/dL (12.0-15.0); MCH 31.6 pg (27.0-32.0); MCHC 31.5 d/dL (32.0-37.0); MCV 100.6 FL (80.0-97.0); Mean Platelet Volume 9.9 FL (9.5-12.2); NRBC Per 100 WBC 0 X 10*3/uL (0.00-0.01); Platelet Count 225 X 10*3/uL (140-440); RBC 3.35 X 10*6/uL (4.40-5.60); RDW 15.6 % (11.5-14.5); WBC 13.48 X 10*3/uL (4.50-10.00)
[2022-12-20 20:41] LABS: ALT 26 U/L (10-49); AST 20 U/L (14-35); Albumin 3.8 d/dL (3.8-4.9); Albumin/Globulin Ratio 2.11 Ratio (1.60-3.17); Alkaline Phosphatase 73 U/L (41-126); Blood Urea Nitrogen 25.3 mg/dL (9.0-27.0); Calcium 9.8 mg/dL (8.7-10.3); Carbon Dioxide 22.2 mmol/L (21.6-31.8); Chloride 107 mmol/L (96-109); Chol/HDL Ratio 2.94 Ratio; Globulin 1.8 d/dL (1.6-3.3); Glucose 142 mg/dL (70-110); LDL Cholesterol,Calculated 27.1 mg/dL (0.0-131.0); Potassium 5.1 mmol/L (3.5-5.5); Sodium 140 mmol/L (135-145); Total Bilirubin 0.2 mg/dL (0.3-1.2); Total Protein 5.6 d/dL (6.2-8.2)
== END | disposition home or self-care (01) ==
LOC: LABWHC1 15:43
PROVIDERS: ATTEND Internal Medicine
DX: I10 Essential (primary) hypertension (principal); E11.9 Type 2 diabetes mellitus without complications; E78.5 Hyperlipidemia, unspecified; I73.9 Peripheral vascular disease, unspecified
CPT/HCPCS: 36415; 80053; 80061; 83036; 84443; 85027

== ENCOUNTER 2023-04-16 16:14 | Inpatient (IN) | payer MEDICARE ==
--- NOTE | 2023-04-16 16:24 | ED ---
General Adult HPI - General Source: patient, family, RN notes reviewed Mode of arrival: ambulatory Limitations: no limitations <Mono Carl - Last Filed: 04/16/23 16:23> <Gordon Gillette - Last Filed: 04/23/23 10:28> - General Stated complaint: cancer pt-weakness Time Seen by Provider: 04/16/23 16:23 - History of Present Illness Initial comments: 82-year-old male presents emergency department with chief complaint dyspnea. Patient does have known lung cancer had radiation last few weeks. Patient or any completed chemotherapy is on immunotherapy. Patient oncologist is Dr. Whatley. . Patient has had recent congestion. Patient noted have increasing leg swelling since yesterday, increasing dyspnea with exertion patient was sent over here to rule out possible PE. (Mono Carl) 82-year-old male with past medical history significant for lung cancer recently completed chemo and radiation now on immunotherapy presenting to the ED with a chief complaint of dyspnea. Per patient and family, treated for pneumonia approximately 3 weeks ago. Since then, he notes ongoing progressively worsening shortness of breath. Patient denies any chest pain. Denies abdominal pain. Denies nausea vomiting diarrhea. No changes in bowel or bladder habits. No other complaints. (Gordon Gillette) - Related Data Home Medications Medication Instructions Recorded Confirmed Multivitamins, Thera [Multivitamin 1 tab PO HS 11/03/15 04/16/23 (formulary)] atenoloL 25 mg PO DAILY 11/03/15 04/16/23 metFORMIN HCL [Glucophage] 500 mg PO DAILY 11/03/15 04/16/23 Levothyroxine Sodium [Synthroid] 25 mcg PO DAILY 10/12/18 04/16/23 Ezetimibe [Zetia] 10 mg PO HS 08/27/22 04/16/23 Losartan Potassium [Cozaar] 50 mg PO HS 08/27/22 04/16/23 Aspirin [Adult Low Dose Aspirin EC] 81 mg PO DAILY 08/30/22 04/16/23 Albuterol Sulfate [Albuterol 2 puff PO RT-Q6H PRN 04/16/23 04/16/23 Sulfate Hfa] Ascorbic Acid/Multivit-Min 1,000 mg PO DAILY 04/16/23 04/16/23 [Emergen-C 1,000 mg Packet] Loratadine [Claritin] 10 mg PO DAILY 04/16/23 04/16/23 Magnesium Oxide [Mag-Ox] 400 mg PO DAILY PRN 04/16/23 04/16/23 lidocaine HCL [lidocaine HCL 10 - 15 ml MM ACHS PRN 04/16/23 04/16/23 Viscous] Previous Rx's Medication Instructions Recorded Ipratropium-Albuterol Nebulize 3 ml INHALATION Q4H PRN 30 Days 04/23/23 [Duoneb 0.5 mg-3 mg/3 ml Soln] #120 ml predniSONE 10 mg PO DIRECTED 12 Days #30 04/23/23 tab Allergies Allergy/AdvReac Type Severity Reaction Status Date / Time amoxicillin Allergy Rash/Hives Verified 04/16/23 20:04 levofloxacin [From Levaquin] Allergy Rash/Hives Verified 04/16/23 20:04 Penicillins Allergy Rash/Hives Verified 04/16/23 20:04 Review of Systems ROS Other: All systems not noted in ROS Statement are negative. <Mono Carl - Last Filed: 04/16/23 16:23> ROS Other: All systems not noted in ROS Statement are negative. <Gordon Gillette - Last Filed: 04/23/23 10:28> ROS Statement: Those systems with pertinent positive or pertinent negative responses have been documented in the HPI. Past Medical History Past Medical History: CVA/TIA, Diabetes Mellitus, Hyperlipidemia, Hypertension Additional Past Medical History / Comment(s): AAA monitored by Dr. Tipton, carotid artery disease, history of kidney stones. History of Any Multi-Drug Resistant Organisms: None Reported Past Surgical History: Cholecystectomy Additional Past Surgical History / Comment(s): carotid artery stent, now occluded 100% Past Anesthesia/Blood Transfusion Reactions: No Reported Reaction Smoking Status: Former smoker - Past Family History Father Family Medical History: Cancer Additional Family Medical History / Comment(s): lung cancer Mother Family Medical History: Myocardial Infarction ([place]) Additional Family Medical History / Comment(s): in her 80s <Mono Carl - Last Filed: 04/16/23 16:23> General Exam <Mono Carl - Last Filed: 04/16/23 16:23> General appearance: alert, in no apparent distress Eye exam: Present: normal appearance Neck exam: Present: normal inspection Respiratory exam: Present: wheezes (Inspiratory and expiratory wheezing bi laterally) Cardiovascular Exam: Present: regular rate, normal rhythm GI/Abdominal exam: Present: soft Neurological exam: Present: alert, oriented X3 Skin exam: Present: warm, dry <Gordon Gillette - Last Filed: 04/23/23 10:28> - General Exam Comments Initial Comments: Visual Physical Exam Vital signs reviewed General: Well-appearing, nontoxic, no acute distress. Head: Normocephalic, atraumatic Eyes: PERRLA, EOMI ENT: Airway patent Chest: Nonlabored breathing Skin: No visual rash, normal skin tone Neuro: Alert and oriented 3 Musculoskeletal: No gross abnormalities (Mono Carl) Course Vital Signs 04/16/23 04/16/23 04/16/23 16:20 18:26 21:29 Temperature 98.3 F Pulse Rate 80 73 78 Respiratory 18 20 20 Rate Blood Pressure 118/80 114/58 101/54 O2 Sat by Pulse 92 L 94 L 95 Oximetry 04/16/23 04/16/23 04/16/23 22:10 22:23 23:43 Temperature Pulse Rate 84 88 86 Respiratory 20 Rate Blood Pressure 110/47 O2 Sat by Pulse 93 L Oximetry 04/17/23 04/17/23 04/17/23 01:20 02:50 03:00 Temperature Pulse Rate 80 87 91 Respiratory 20 18 Rate Blood Pressure 96/51 119/93 O2 Sat by Pulse 90 L 93 L Oximetry 04/17/23 04/17/23 04/17/23 03:12 05:00 07:52 Temperature Pulse Rate 93 97 Respiratory 18 18 Rate Blood Pressure O2 Sat by Pulse 91 L Oximetry 04/17/23 04/17/23 04/17/23 08:00 08:33 11:59 Temperature Pulse Rate 98 102 H 71 Respiratory 18 18 18 Rate Blood Pressure 124/72 O2 Sat by Pulse 93 L Oximetry 04/17/23 12:23 Temperature Pulse Rate 64 Respiratory 16 Rate Blood Pressure 116/68 O2 Sat by Pulse 96 Oximetry Medical Decision Making <Mono Carl - Last Filed: 04/16/23 16:23> - Lab Data Result diagrams: 04/22/23 05:40 04/22/23 05:40 <Cabatu,Gordon - Last Filed: 04/23/23 10:28> - Medical Decision Making discussed with mobile crisis unit/[facility] who evaluated the patient (Mono Carl) Was pt. sent in by a medical professional or institution ([facility], [employer], urgent care, hospital, or shelter...) When possible be specific @ -No Did you speak to anyone other than the patient for history (EMS, parent, family, police, friend...)? What history was obtained from this source @ -No Did you review nursing and triage notes (agree or disagree)? Why? @ -I reviewed and agree with nursing and triage notes Were old charts reviewed (outside hosp., previous admission, EMS record, old EKG, old radiological studies, urgent care reports/EKG's, shelter records)? Report findings @ -No old charts were reviewed Differential Diagnosis (chest pain, altered mental status, abdominal pain women, abdominal pain men, vaginal bleeding, weakness, fever, dyspnea, syncope, headache, dizziness, GI bleed, back pain, seizure, CVA, palpatations, mental he alth, musculoskeletal)? @ -Differential Dyspnea: Coronary syndrome, arrhythmia, tamponade, asthma, COPD, pulmonary embolism, pneumonia, pneumothorax, pulmonary effusion, anaphylaxis, diabetic ketoacidosis, flailed chest, pulmonary contusion, diaphragmatic rupture, anemia, neurom uscular, this is not meant to be an all-inclusive list. EKG interpreted by me (3pts min.). @ -As above X-rays interpreted by me (1pt min.). @ -None done CT interpreted by me (1pt min.). @ -CTA of the chest interpreted by me no evidence of PE or other acute finding. U/S interpreted by me (1pt. min.). @ -None done What testing was considered but not performed or refused? (CT, X-rays, U/S, labs)? Why? @ -None What meds were considered but not given or refused? Why? @ -None Did you discuss the management of the patient with other professionals (zachery garcia i.e. [facility] Blunt, [employer] WORK[employer], lab, RT, psych nurse, high school social studies tutor, air crew supervisor, teacher, ground nuclear weapons assembly officer, vocational case manager)? Give summary @ -No Was smoking cessation discussed for >3mins.? @ -No Was critical care preformed (if so, how long)? @ -No Were there social determinants of health that impacted care today? How? (Homelessness, low income, unemployed, alcoholism, drug addiction, transportatio n, low edu. Level, literacy, decrease access to med. care, fdc, rehab)? @ -No Was there de-escalation of care discussed even if they declined (Discuss DNR or withdrawal of care, Hospice)? DNR status @ -No What co-morbidities impacted this encounter? (DM, HTN, Smoking, COPD, CAD, Cancer, CVA, ARF, Chemo, Hep., AIDS, mental health diagnosis, sleep apnea, morbid obesity)? @ -Lung cancer Was patient admitted / discharged? Hospital course, mention meds given and route, prescriptions, significant lab abnormalities, going to OR and other pertinent info. @ -Admission 82-year-old male past medical history of lung cancer presents to the ED with dyspnea. Reports dyspnea started 3 weeks ago after upper respiratory infection. Exam is significant for wheezing on exam. Patient did have some improvement of this after breathing treatment.Laboratory studies significant for an elevated d- dimer 1.12, chemistry panel largely unremarkable. Troponin 0.012, BNP 206, Cep hid (-). The patient does feel improvement after breathing treatment, patient is saturating at 96-97% on 2 L of oxygen. Patient typically does not wear oxygen. Therefore, patient will be placed in labs with consults to pulmonology and oncology. Discussed plan of care with patient and family who are in agreement. Undiagnosed new problem with uncertain prognosis? @ -No Drug Therapy requiring intensive monitoring for toxicity (Heparin, Nitro, Insulin, Cardizem)? @ -No Were any procedures done? @ -No Diagnosis/symptom? @ -Dyspnea Acute, or Chronic, or Acute on Chronic? @ -Acute Uncomplicated (without systemic symptoms) or Complicated (systemic symptoms)? @ -Complicated Side effects of treatment? @ -No Exacerbation, Progression, or Severe Exacerbation? @ -No Poses a threat to life or bodily function? How? (Chest pain, [place], [place], pneumonia, PE, COPD, DKA, ARF, appy, cholecystitis, CVA, Diverticulitis, Homicidal, Suicidal, threat to staff... and all critical care pts) @ -Yes, severe respiratory distress (Gordon Gillette) - Lab Data Lab Results 04/16/23 04/16/23 04/16/23 Range/Units 16:32 16:32 16:32 WBC 6.5 (3.8-10.6) k/uL RBC 4.03 L (4.30-5.90) m/uL Hgb 12.8 L (13.0-17.5) gm/dL Hct 37.0 L (39.0-53.0) % MCV 91.8 (80.0-100.0) fL MCH 31.8 (25.0-35.0) pg MCHC 34.6 (31.0-37.0) g/dL RDW 14.0 (11.5-15.5) % Plt Count 170 (150-450) k/uL MPV 6.9 Neutrophils % % Neutrophils % (Manual) 63 % Lymphocytes % % Lymphocytes % (Manual) 7 % Monocytes % % Monocytes % (Manual) 15 % Eosinophils % % Eosinophils % (Manual) 15 % Basophils % % Neutrophils # (1.3-7.7) k/uL Neutrophils # (Manual) 4.10 (1.3-7.7) k/uL Lymphocytes # (1.0-4.8) k/uL Lymphocytes # (Manual) 0.46 L (1.0-4.8) k/uL Monocytes # (0-1.0) k/uL Monocytes # (Manual) 0.98 (0-1.0) k/uL Eosinophils # (0-0.7) k/uL Eosinophils # (Manual) 0.98 H (0-0.7) k/uL Basophils # (0-0.2) k/uL Nucleated RBCs 0 (0-0) /100 WBC Manual Slide Review Performed PT 11.0 (10.0-12.5) sec INR 1.0 (<1.2) APTT 24.9 (22.0-30.0) sec D-Dimer 1.12 H (<0.60) mg/L FEU Sodium 132 L (137-145) mmol/L Potassium 4.8 (3.5-5.1) mmol/L Chloride 99 (98-107) mmol/L Carbon Dioxide 23 (22-30) mmol/L Anion Gap 10 mmol/L BUN 29 H (9-20) mg/dL Creatinine 1.06 (0.66-1.25) mg/dL Est GFR (CKD-EPI) (>=60) Est GFR (CKD-EPI)AfAm 76 (>60 ml/min/1.73 sqM) Est GFR (CKD-EPI)NonAf 66 (>60 ml/min/1.73 sqM) BUN/Creatinine Ratio (12.00-20.00) Ratio Glucose 88 (74-99) mg/dL POC Glucose (mg/dL) (70-110) mg/dL POC Glu Ui Lead Developer ID Plasma Lactic Acid Randy (0.7-2.0) mmol/L Calcium 10.0 (8.4-10.2) mg/dL Magnesium 1.9 (1.6-2.3) mg/dL Total Bilirubin 0.6 (0.2-1.3) mg/dL AST 34 (17-59) U/L ALT 25 (4-49) U/L Alkaline Phosphatase 80 (38-126) U/L Troponin I (0.000-0.034) ng/mL NT-Pro-B Natriuret Pep 206 pg/mL Total Protein 6.1 L (6.3-8.2) g/dL Albumin 3.5 (3.5-5.0) g/dL Globulin (1.6-3.3) g/dL Albumin/Globulin Ratio (1.60-3.17) Ratio Procalcitonin (0.02-0.09) ng/mL Influenza Type A (PCR) (Not Detectd) Influenza Type B (PCR) (Not Detectd) RSV (PCR) (Not Detectd) SARS-CoV-2 (PCR) (Not Detectd) 04/16/23 04/16/23 04/16/23 Range/Units 16:32 16:32 16:32 WBC (3.8-10.6) k/uL RBC (4.30-5.90) m/uL Hgb (13.0-17.5) gm/dL Hct (39.0-53.0) % MCV (80.0-100.0) fL MCH (25.0-35.0) pg MCHC (31.0-37.0) g/dL RDW (11.5-15.5) % Plt Count (150-450) k/uL MPV Neutrophils % % Neutrophils % (Manual) % Lymphocytes % % Lymphocytes % (Manual) % Monocytes % % Monocytes % (Manual) % Eosinophils % % Eosinophils % (Manual) % Basophils % % Neutrophils # (1.3-7.7) k/uL Neutrophils # (Manual) (1.3-7.7) k/uL Lymphocytes # (1.0-4.8) k/uL Lymphocytes # (Manual) (1.0-4.8) k/uL Monocytes # (0-1.0) k/uL Monocytes # (Manual) (0-1.0) k/uL Eosinophils # (0-0.7) k/uL Eosinophils # (Manual) (0-0.7) k/uL Basophils # (0-0.2) k/uL Nucleated RBCs (0-0) /100 WBC Manual Slide Review PT (10.0-12.5) sec INR (<1.2) APTT (22.0-30.0) sec D-Dimer (<0.60) mg/L FEU Sodium (137-145) mmol/L Potassium (3.5-5.1) mmol/L Chloride (98-107) mmol/L Carbon Dioxide (22-30) mmol/L Anion Gap mmol/L BUN (9-20) mg/dL Creatinine (0.66-1.25) mg/dL Est GFR (CKD-EPI) (>=60) Est GFR (CKD-EPI)AfAm (>60 ml/min/1.73 sqM) Est GFR (CKD-EPI)NonAf (>60 ml/min/1.73 sqM) BUN/Creatinine Ratio (12.00-20.00) Ratio Glucose (74-99) mg/dL POC Glucose (mg/dL) (70-110) mg/dL POC Glu Ui Lead Developer ID Plasma Lactic Acid Randy 0.8 (0.7-2.0) mmol/L Calcium (8.4-10.2) mg/dL Magnesium (1.6-2.3) mg/dL Total Bilirubin (0.2-1.3) mg/dL AST (17-59) U/L ALT (4-49) U/L Alkaline Phosphatase (38-126) U/L Troponin I <0.012 (0.000-0.034) ng/mL NT-Pro-B Natriuret Pep pg/mL Total Protein (6.3-8.2) g/dL Albumin (3.5-5.0) g/dL Globulin (1.6-3.3) g/dL Albumin/Globulin Ratio (1.60-3.17) Ratio Procalcitonin (0.02-0.09) ng/mL Influenza Type A (PCR) Not Detected (Not Detectd) Influenza Type B (PCR) Not Detected (Not Detectd) RSV (PCR) Not Detected (Not Detectd) SARS-CoV-2 (PCR) Not Detected (Not Detectd) 04/17/23 04/17/23 04/17/23 Range/Units 08:33 16:54 20:27 WBC (3.8-10.6) k/uL RBC (4.30-5.90) m/uL Hgb (13.0-17.5) gm/dL Hct (39.0-53.0) % MCV (80.0-100.0) fL MCH (25.0-35.0) pg MCHC (31.0-37.0) g/dL RDW (11.5-15.5) % Plt Count (150-450) k/uL MPV Neutrophils % % Neutrophils % (Manual) % Lymphocytes % % Lymphocytes % (Manual) % Monocytes % % Monocytes % (Manual) % Eosinophils % % Eosinophils % (Manual) % Basophils % % Neutrophils # (1.3-7.7) k/uL Neutrophils # (Manual) (1.3-7.7) k/uL Lymphocytes # (1.0-4.8) k/uL Lymphocytes # (Manual) (1.0-4.8) k/uL Monocytes # (0-1.0) k/uL Monocytes # (Manual) (0-1.0) k/uL Eosinophils # (0-0.7) k/uL Eosinophils # (Manual) (0-0.7) k/uL Basophils # (0-0.2) k/uL Nucleated RBCs (0-0) /100 WBC Manual Slide Review PT (10.0-12.5) sec INR (<1.2) APTT (22.0-30.0) sec D-Dimer (<0.60) mg/L FEU Sodium (137-145) mmol/L Potassium (3.5-5.1) mmol/L Chloride (98-107) mmol/L Carbon Dioxide (22-30) mmol/L Anion Gap mmol/L BUN (9-20) mg/dL Creatinine (0.66-1.25) mg/dL Est GFR (CKD-EPI) (>=60) Est GFR (CKD-EPI)AfAm (>60 ml/min/1.73 sqM) Est GFR (CKD-EPI)NonAf (>60 ml/min/1.73 sqM) BUN/Creatinine Ratio (12.00-20.00) Ratio Glucose (74-99) mg/dL POC Glucose (mg/dL) 194 H 325 H (70-110) mg/dL POC Glu Ui Lead Developer ID Chuyita Gallagher Dana Plasma Lactic Acid Randy (0.7-2.0) mmol/L Calcium (8.4-10.2) mg/dL Magnesium (1.6-2.3) mg/dL Total Bilirubin (0.2-1.3) mg/dL AST (17-59) U/L ALT (4-49) U/L Alkaline Phosphatase (38-126) U/L Troponin I (0.000-0.034) ng/mL NT-Pro-B Natriuret Pep pg/mL Total Protein (6.3-8.2) g/dL Albumin (3.5-5.0) g/dL Globulin (1.6-3.3) g/dL Albumin/Globulin Ratio (1.60-3.17) Ratio Procalcitonin 0.14 H (0.02-0.09) ng/mL Influenza Type A (PCR) (Not Detectd) Influenza Type B (PCR) (Not Detectd) RSV (PCR) (Not Detectd) SARS-CoV-2 (PCR) (Not Detectd) 04/18/23 04/18/23 04/18/23 Range/Units 06:40 07:06 11:08 WBC 10.3 (3.8-10.6) k/uL RBC 3.51 L (4.30-5.90) m/uL Hgb 11.2 L (13.0-17.5) gm/dL Hct 33.1 L (39.0-53.0) % MCV 94.4 (80.0-100.0) fL MCH 31.9 (25.0-35.0) pg MCHC 33.8 (31.0-37.0) g/dL RDW 14.1 (11.5-15.5) % Plt Count 170 (150-450) k/uL MPV 7.5 Neutrophils % 91 % Neutrophils % (Manual) % Lymphocytes % 4 % Lymphocytes % (Manual) % Monocytes % 4 % Monocytes % (Manual) % Eosinophils % 0 % Eosinophils % (Manual) % Basophils % 0 % Neutrophils # 9.3 H (1.3-7.7) k/uL Neutrophils # (Manual) (1.3-7.7) k/uL Lymphocytes # 0.4 L (1.0-4.8) k/uL Lymphocytes # (Manual) (1.0-4.8) k/uL Monocytes # 0.4 (0-1.0) k/uL Monocytes # (Manual) (0-1.0) k/uL Eosinophils # 0.0 (0-0.7) k/uL Eosinophils # (Manual) (0-0.7) k/uL Basophils # 0.0 (0-0.2) k/uL Nucleated RBCs (0-0) /100 WBC Manual Slide Review PT (10.0-12.5) sec INR (<1.2) APTT (22.0-30.0) sec D-Dimer (<0.60) mg/L FEU Sodium 138 (137-145) mmol/L Potassium 4.7 (3.5-5.1) mmol/L Chloride 108 (98-107) mmol/L Carbon Dioxide 19.3 L (22-30) mmol/L Anion Gap 10.70 mmol/L BUN 28.7 H (9-20) mg/dL Creatinine 1.1 (0.66-1.25) mg/dL Est GFR (CKD-EPI) 67 (>=60) Est GFR (CKD-EPI)AfAm (>60 ml/min/1.73 sqM) Est GFR (CKD-EPI)NonAf (>60 ml/min/1.73 sqM) BUN/Creatinine Ratio 26.09 H (12.00-20.00) Ratio Glucose 203 H (74-99) mg/dL POC Glucose (mg/dL) 206 H (70-110) mg/dL POC Glu Ui Lead Developer ID Marjorie Gonzales Plasma Lactic Acid Randy (0.7-2.0) mmol/L Calcium 9.5 (8.4-10.2) mg/dL Magnesium (1.6-2.3) mg/dL Total Bilirubin <0.2 L (0.2-1.3) mg/dL AST 21 (17-59) U/L ALT 21 (4-49) U/L Alkaline Phosphatase 73 (38-126) U/L Troponin I (0.000-0.034) ng/mL NT-Pro-B Natriuret Pep pg/mL Total Protein 5.1 L (6.3-8.2) g/dL Albumin 3.3 L (3.5-5.0) g/dL Globulin 1.8 (1.6-3.3) g/dL Albumin/Globulin Ratio 1.83 (1.60-3.17) Ratio Procalcitonin (0.02-0.09) ng/mL Influenza Type A (PCR) (Not Detectd) Influenza Type B (PCR) (Not Detectd) RSV (PCR) (Not Detectd) SARS-CoV-2 (PCR) (Not Detectd) 04/18/23 Range/Units 12:15 WBC (3.8-10.6) k/uL RBC (4.30-5.90) m/uL Hgb (13.0-17.5) gm/dL Hct (39.0-53.0) % MCV (80.0-100.0) fL MCH (25.0-35.0) pg MCHC (31.0-37.0) g/dL RDW (11.5-15.5) % Plt Count (150-450) k/uL MPV Neutrophils % % Neutrophils % (Manual) % Lymphocytes % % Lymphocytes % (Manual) % Monocytes % % Monocytes % (Manual) % Eosinophils % % Eosinophils % (Manual) % Basophils % % Neutrophils # (1.3-7.7) k/uL Neutrophils # (Manual) (1.3-7.7) k/uL Lymphocytes # (1.0-4.8) k/uL Lymphocytes # (Manual) (1.0-4.8) k/uL Monocytes # (0-1.0) k/uL Monocytes # (Manual) (0-1.0) k/uL Eosinophils # (0-0.7) k/uL Eosinophils # (Manual) (0-0.7) k/uL Basophils # (0-0.2) k/uL Nucleated RBCs (0-0) /100 WBC Manual Slide Review PT (10.0-12.5) sec INR (<1.2) APTT (22.0-30.0) sec D-Dimer (<0.60) mg/L FEU Sodium (137-145) mmol/L Potassium (3.5-5.1) mmol/L Chloride (98-107) mmol/L Carbon Dioxide (22-30) mmol/L Anion Gap mmol/L BUN (9-20) mg/dL Creatinine (0.66-1.25) mg/dL Est GFR (CKD-EPI) (>=60) Est GFR (CKD-EPI)AfAm (>60 ml/min/1.73 sqM) Est GFR (CKD-EPI)NonAf (>60 ml/min/1.73 sqM) BUN/Creatinine Ratio (12.00-20.00) Ratio Glucose (74-99) mg/dL POC Glucose (mg/dL) 350 H (70-110) mg/dL POC Glu Ui Lead Developer ID Marjorie Gonzales Plasma Lactic Acid Randy (0.7-2.0) mmol/L Calcium (8.4-10.2) mg/dL Magnesium (1.6-2.3) mg/dL Total Bilirubin (0.2-1.3) mg/dL AST (17-59) U/L ALT (4-49) U/L Alkaline Phosphatase (38-126) U/L Troponin I (0.000-0.034) ng/mL NT-Pro-B Natriuret Pep pg/mL Total Protein (6.3-8.2) g/dL Albumin (3.5-5.0) g/dL Globulin (1.6-3.3) g/dL Albumin/Globulin Ratio (1.60-3.17) Ratio Procalcitonin (0.02-0.09) ng/mL Influenza Type A (PCR) (Not Detectd) Influenza Type B (PCR) (Not Detectd) RSV (PCR) (Not Detectd) SARS-CoV-2 (PCR) (Not Detectd) - EKG Data EKG Comments: EKG shows a sinus rhythm at [address] or T-wave changes. PA 126, QRS 99, QT/QTc 357/388. (Gordon Gillette) Disposition <Mono Carl - Last Filed: 04/16/23 16:23> <Gordon Gillette - Last Filed: 04/23/23 10:28> Clinical Impression: Weakness Disposition: ADMITTED IP TO THIS HOSP Condition: Stable
[2023-04-16 16:53] LABS: HGB 12.8 gm/dL (13.0-17.5); MCH 31.8 pg (25.0-35.0); MCHC 34.6 g/dL (31.0-37.0); MCV 91.8 fL (80.0-100.0); Mean Platelet Volume 6.9; Platelet Count 170 k/uL (150-450); RBC 4.03 m/uL (4.30-5.90); WBC 6.5 k/uL (3.8-10.6)
[2023-04-16 17:08] LABS: ALT 25 U/L (4-49); AST 34 U/L (17-59); African American GFR (CKD) 76 (>60 ml/min/1.73 sqM); Albumin 3.5 g/dL (3.5-5.0); Alkaline Phosphatase 80 U/L (38-126); Anion Gap 10 mmol/L; Blood Urea Nitrogen 29 mg/dL (9-20); Carbon Dioxide 23 mmol/L (22-30); Chloride 99 mmol/L (98-107); Glucose 88 mg/dL (74-99); Magnesium 1.9 mg/dL (1.6-2.3); Non-African American GFR(CKD) 66 (>60 ml/min/1.73 sqM); Potassium 4.8 mmol/L (3.5-5.1); Sodium 132 mmol/L (137-145); Total Bilirubin 0.6 mg/dL (0.2-1.3); Total Protein 6.1 g/dL (6.3-8.2)
[2023-04-16 17:10] LABS: Partial Thromboplastin Time 24.9 sec (22.0-30.0)
[2023-04-16 17:16] LABS: NT-Pro-B-Type Natriuretic Pept 206 pg/mL
[2023-04-16 18:07] LABS: Eosinophils # (M) 0.98 k/uL (0-0.7); Lymphocytes # (M) 0.46 k/uL (1.0-4.8); Monocytes # (M) 0.98 k/uL (0-1.0); Neutrophils % (M) 63 %; Nucleated Red Blood Cells 0 /100 WBC (0-0); Total Cells Counted 100
--- NOTE | 2023-04-16 21:23 | CT ---
EXAMINATION TYPE: CT chest angio for PE CT DLP: 334.7 mGycm, Automated exposure control for dose reduction was used. DATE OF EXAM: 04/16/2023 7:02 PM COMPARISON: CT chest abdomen pelvis 08/27/2022 CLINICAL INDICATION:Male, 82 years old with history of Shortness breath, elevated d-dimer,lung CA; SO b TECHNIQUE/CONTRAST: CTA scan of the thorax is performed with IV Contrast, patient injected with 80cc mL of Isovue 370, IA P images are created and reviewed these are created on a separate workstation.. FINDINGS: Pulmonary Artery: There is no evidence for a filling defect within the pulmonary vasculature to sugge st acute pulmonary embolism. The pulmonary artery is of normal size. There is some narrowing of the left upper lobe pulmonary artery due to previous mass which has improved. Lungs/Pleura and mediastinum: Left upper lobe mass has significantly decreased in size with smaller r esidual 25 x 22 mm density now seen seen on image 41 series 406. Decreased soft tissue thickening ext ending into the left mediastinum, with mild residual. Previous mediastinal adenopathy has decreased, with nonenlarged nodes now seen and no definite new or enlarging nodes. No pleural effusion or pneumo thorax is seen. Mild emphysematous changes. No definite acute lung infiltrate. Airway: Large airways are patent. Heart: Heart size appears within normal limits. Small pericardial effusion. Vasculature: Mild/moderate mixed atherosclerotic disease of the aorta and branches, without evidence of aneurysm or dissection. Mild narrowing of branch vessels along the arch. Musculoskeletal: Moderate degenerative disc disease throughout the spine. No clearly acute bony abnor mality. Soft Tissues: Unremarkable. Lower neck: No significant findings. Upper Abdomen: No acute abnormality. Partially seen relatively hypodense renal nodules, most likely c ysts. Cholecystectomy clips. 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 IMPRESSION: 1. No evidence of acute pulmonary embolus. 2. Significant decrease in size of the previously large left upper lobe lung mass, with small residu al. 3. Significantly decreased soft tissue extension to the left hilum and mediastinum, and decreased me diastinal lymph nodes compared to prior. 4. Other stable chronic and likely incidental findings as above.
[2023-04-16] MEDS ORDERED: IPRATROPIUM-ALBUTEROL 3 ML NEB INHALATION STA (21:34)
[2023-04-16] MEDS ORDERED: SODIUM CHLORIDE 0.9% 1,000 ML IV STA (21:48)
--- NOTE | 2023-04-16 22:15 | US ---
EXAMINATION TYPE: US venous doppler duplex LE BI DATE OF EXAM: 04/16/2023 6:22 PM COMPARISON: NONE CLINICAL INDICATION: Male, 82 years old with history of r/o dvt; SOB. Hx of cancer. No hx of DVT. Chava es an aspirin dailyl SIDE PERFORMED: Bilateral TECHNIQUE: The lower extremity deep venous system is examined utilizing real time linear array sonog marta with graded compression, doppler sonography and color-flow sonography. VESSELS IMAGED: Common Femoral Vein Deep Femoral Vein Greater Saphenous Vein * Femoral Vein Popliteal Vein Small Saphenous Vein * Proximal Calf Veins (* superficial vessels) Right Leg: no evidence for DVT Left Leg: no evidence for DVT IMPRESSION: No evidence of DVT in the bilateral lower extremities.
[2023-04-16] MEDS ORDERED: IPRATROPIUM-ALBUTEROL 3 ML NEB INHALATION PRN (22:52)
[2023-04-16] MEDS ORDERED: methylPREDNISolone SOD SUCCI 125 MG/2 ML VIAL IM ONE (22:53)
[2023-04-16] MEDS ORDERED: methylPREDNISolone SOD SUCCI 125 MG/2 ML VIAL IV STA (22:55)
[2023-04-16] MEDS ORDERED: HYDROmorphone 1 MG/ML 1 ML SYRINGE IVP PRN (22:56)
[2023-04-16] MEDS ORDERED: ONDANSETRON 4 MG/2 ML VIAL IVP PRN (22:56)
[2023-04-16] MEDS ORDERED: NALOXONE 0.4 MG/ML 1 ML VIAL IV PRN (22:56)
[2023-04-16] MEDS ORDERED: HYDROmorphone 0.5 MG/0.5 ML SYRINGE IVP PRN (22:56)
[2023-04-16] MEDS: SODIUM CHLORIDE 0.9% 1,000 ML IV SCH (23:39)
[2023-04-17] MEDS: IPRATROPIUM-ALBUTEROL 3 ML NEB INHALATION SCH ×6 (03:16→23:16)
--- NOTE | 2023-04-17 08:19 | P.CNPUL ---
History of Present Illness Consult date: 04/17/23 Reason for consult: dyspnea History of present illness: A pleasant 82-year-old male patient diagnosed having a limited stage small cell lung cancer back in August 2022. At that time, the patient presented to me with a left lung mass and mediastinal lymphadenopathy. Biopsy of the lung mass in the mediastinal lymph nodes confirmed the diagnosis of small cell lung cancer. He was referred to radiation oncology and medical oncology. He completed systemic chemotherapy with carbo muckleshoot and W[employer] DRAW[employer] MACHINE [employer]ATOR-16 and he was started on immunotherapy. He also completed a 10 day course of radiation therapy. The patient states that he was doing well during his chemotherapy treatment. During his radiation therapy, he started having shortness of breath, cough, chest congestion and shortness of breath and wheezing. He was started on an inhaler he was given a course of Levaquin by the radiation oncologist. He developed an ALLERGIC reaction. This was discontinued. The patient was given hydrocortisone cream to his skin rash. He was given a course of Z-Jacob. He was getting progressively more weak, diminished appetite, some weight loss, and it was noted that he was having episodes of confusion and altered mentation and for that reason he was brought into the hospital for further investigation. The workup for now included a Doppler of the lower extremity that showed no evidence of any DVT. CT angiogram of the chest showed no evidence of any consolidation with air space disease. No evidence of any pulmonary embolism. Left lung was seen in t he mediastinal lymph nodes were also seen and there were essentially shrinking and responding to the treatment. The patient is bronchospastic and wheezy. His hypoxic and currently is on 2 L of oxygen by nasal cannula. Hemodynamically stable.The white cell count at 6.5 with a hemoglobin of 12.8 and a platelet count of 170. D-dimer is at 1.1 with a normal coagulation profile. Electrolytes are all within normal limits. The viral screen was also negative including influenza A, influenza B, RSV and Covid 19. Review of Systems Constitutional: Reports daytime sleepiness, Reports fatigue, Reports poor appetite, Reports weakness, Reports weight loss Eyes: denies as per HPI, denies blurred vision, denies bulging eye, denies decre ased vision, denies diplopia, denies discharge, denies dry eye, denies irritation, denies itching, denies pain, denies photophobia, denies loss of peripheral vision, denies loss of vision, denies tunnel vision/blind spots Ears: bilateral: decreased hearing, deny: ear discharge, earache, tinnitus Ears, nose, mouth and throat: Reports as per HPI Breasts: absent: as per HPI, gynecomastia Cardiovascular: Reports decreased exercise tolerance, Reports dyspnea on exertion Respiratory: Reports cough, Reports dyspnea Gastrointestinal: Reports as per HPI, Reports loss of appetite Genitourinary: Reports as per HPI Musculoskeletal: Reports muscle weakness Musculoskeletal: bilateral: ankle swelling, absent: ankle pain, ankle stiffness Integumentary: Reports as per HPI Psychiatric: Reports as per HPI Endocrine: Reports as per HPI Hematologic/Lymphatic: Reports as per HPI Past Medical History Past Medical History: Cancer (small cell lung cancer), CVA/TIA, Diabetes Mellitus, Hyperlipidemia, Hypertension Additional Past Medical History / Comment(s): AAA monitored by Dr. Tipton, carotid artery disease, history of kidney stones. History of Any Multi-Drug Resistant Organisms: None Reported Past Surgical History: Cholecystectomy Additional Past Surgical History / Comment(s): carotid artery stent, now occluded 100% Past Anesthesia/Blood Transfusion Reactions: No Reported Reaction Smoking Status: Former smoker - Past Family History Father Family Medical History: Cancer Additional Family Medical History / Comment(s): lung cancer Mother Family Medical History: Myocardial Infarction ([place]) Additional Family Medical History / Comment(s): in her 80s Medications and Allergies Home Medications Medication Instructions Recorded Confirmed Type Multivitamins, Thera [Multivitamin 1 tab PO HS 11/03/15 04/16/23 History (formulary)] atenoloL 25 mg PO DAILY 11/03/15 04/16/23 History metFORMIN HCL [Glucophage] 500 mg PO DAILY 11/03/15 04/16/23 History Levothyroxine Sodium [Synthroid] 25 mcg PO DAILY 10/12/18 04/16/23 History Ezetimibe [Zetia] 10 mg PO HS 08/27/22 04/16/23 History Losartan Potassium [Cozaar] 50 mg PO HS 08/27/22 04/16/23 History Rosuvastatin [Crestor] 20 mg PO HS 08/27/22 04/16/23 History Aspirin [Adult Low Dose Aspirin EC] 81 mg PO DAILY 08/30/22 04/16/23 History Albuterol Sulfate [Albuterol 2 puff PO RT-Q6H PRN 04/16/23 04/16/23 History Sulfate Hfa] Ascorbic Acid/Multivit-Min 1,000 mg PO DAILY 04/16/23 04/16/23 History [Emergen-C 1,000 mg Packet] Loratadine [Claritin] 10 mg PO DAILY 04/16/23 04/16/23 History Magnesium Oxide [Mag-Ox] 400 mg PO DAILY PRN 04/16/23 04/16/23 History lidocaine HCL [Lidocaine HCl 10 - 15 ml MM ACHS PRN 04/16/23 04/16/23 History Viscous] Allergies Allergy/AdvReac Type Severity Reaction Status Date / Time amoxicillin Allergy Rash/Hives Verified 04/16/23 20:04 levofloxacin [From Levaquin] Allergy Rash/Hives Verified 04/16/23 20:04 Penicillins Allergy Rash/Hives Verified 04/16/23 20:04 Physical Exam Vitals: Vital Signs Temp Pulse Resp BP Pulse Ox 04/17/23 08:00 98 18 04/17/23 07:52 97 18 04/17/23 05:00 18 91 L 04/17/23 03:12 93 04/17/23 03:00 91 04/17/23 02:50 87 18 119/93 93 L 04/17/23 01:20 80 20 96/51 90 L 04/16/23 23:43 86 20 110/47 93 L 04/16/23 22:23 88 04/16/23 22:10 84 04/16/23 21:29 78 20 101/54 95 04/16/23 18:26 73 20 114/58 94 L 04/16/23 16:20 98.3 F 80 18 118/80 92 L Intake and Output 04/16/23 04/17/23 04/17/23 22:59 06:59 14:59 Other: Weight 72.575 kg Results - Laboratory Findings CBC and BMP: 04/16/23 16:32 04/16/23 16:32 PT/INR, D-dimer PT 11.0 sec (10.0-12.5) 04/16/23 16:32 INR 1.0 (<1.2) 04/16/23 16:32 D-Dimer 1.12 mg/L FEU (<0.60) H 04/16/23 16:32 Abnormal lab findings: Abnormal Labs 04/16/23 04/16/23 04/16/23 16:32 16:32 16:32 RBC 4.03 L Hgb 12.8 L Hct 37.0 L Lymphocytes # (Manual) 0.46 L Eosinophils # (Manual) 0.98 H D-Dimer 1.12 H Sodium 132 L BUN 29 H Total Protein 6.1 L - Diagnostic Findings Chest x-ray: image reviewed CT scan - chest: image reviewed Assessment and Plan Plan: Limited stage small cell lung cancer, treated with combined chemoradiation therapy. The patient was treated with a combination of carboplatinum and [employer] D[employer]-16 and he was started on immunotherapy. He also completed a ten-day course of radiation therapy to his chest Acute exacerbation of COPD. Consider possibility of a radiation induced pneumonitis. Reviewed CAT scan of the chest. There is interval shrinking of the tumor and the mediastinal lymphadenopathy. No clear indication for consolidation or airspace disease. Patient was treated for symptoms of bronchitis on outpatient basis with Levaquin to which she had an ALLERGIC reaction. Subsequently was given Zithromax. Altered mentation, currently under investigation. MRI of the brain at the time of diagnosis was negative. We'll proceed with another CAT scan of the brain today Generalized weakness secondary to above Diminished appetite secondary to above Hypertension Hyperlipidemia History of abdominal aortic aneurysm History of carotid artery disease History of kidney stones Previous history of CVA Plan We'll titrate FiO2 to maintain a saturation above 90%, currently on 2 L Going to start the patient on combination of budesonide and Pulmicort neb twice a day Continue albuterol and ipratropium bromide the treatments 4 times a day Start the patient IV Solu-Medrol 60 mg every 6 hours Check a pro-calcitonin level Start The patient with antibiotics and the patient will be started on IV cefepime 2 g every 12 hours Lovenox 40 mg for DVT prophylaxis The patient will be admitted to the hospital. He will likely need a maintenance respiratory medication possibly a nebulizer at time of discharge. We will add multivitamin. The rest of the labs are essentially within normal limits. No significant leukocytosis. We'll continue to follow.
[2023-04-17] MEDS ORDERED: MAGNESIUM OXIDE 400 MG TAB PO PRN (08:20)
[2023-04-17] MEDS: ASPIRIN 81 MG PO SCH (08:39)
[2023-04-17] MEDS: LEVOTHYROXINE 25 MCG TAB PO SCH ×2 (08:39→08:41)
[2023-04-17] MEDS: atenoloL 25 MG TAB PO SCH (08:39)
[2023-04-17] MEDS: MULTIVITAMINS, THERA 1 EACH TAB PO SCH (08:39)
[2023-04-17] MEDS: metFORMIN 500 MG TAB PO SCH (08:40)
[2023-04-17] MEDS: CEFEPIME 2 GM in SODIUM CHLORIDE 0.9% 100 ML IVPB SCH ×2 (08:40→20:39)
[2023-04-17] MEDS ORDERED: ENOXAPARIN 30 MG/0.3 ML SYRINGE SQ SCH (09:00)
--- NOTE | 2023-04-17 10:10 | P.HPIM ---
History of Present Illness H&P Date: 04/17/23 Chief Complaint: SOB, weakness This is an 82-year-old male patient who presented to the ER with concerns of increased shortness of breath and increased weakness with altered mental status changes. 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 Per patient's daughter bedside patient completed radiation therapy but did develop severe weakness following treatment that has been increasing over the past week. Additional medical history includes CVA, diabetes mellitus, hyperlipidemia and hypertension. Venou s Doppler completed showing no evidence for DVT. CTA completed showing no evidence for acute pulmonary embolism. Significant decrease in size of the previous large left upper lobe lung mass with small residual significantly decreased soft tissue extension into the left ilium his thiamine decreased mediastinal lymph nodes compared to prior. At This time patient has been admitted. Pulmonary, oncology and neurology services consulted. Head CT has been ordered. Patient has been started on IV Solu-Medrol and IV antibiotic Maxipime. White blood cell 6.5, hemoglobin 12.8, platelet count 170, creatinine 1.06 and bun 29. Patient was negative for influenza are seen COVID-19. Vital signs temp 98.3, heart rate 80, respiratory rate 18, blood pressure 118/80 with a pulse ox of 94% on 2 L. Review of Systems Please refer to HPI otherwise unremarkable Past Medical History Past Medical History: Cancer (small cell lung cancer), CVA/TIA, Diabetes Mellitus, Hyperlipidemia, Hypertension Additional Past Medical History / Comment(s): AAA monitored by Dr. Tipton, carotid artery disease, history of kidney stones. History of Any Multi-Drug Resistant Organisms: None Reported Past Surgical History: Cholecystectomy Additional Past Surgical History / Comment(s): carotid artery stent, now occluded 100% Past Anesthesia/Blood Transfusion Reactions: No Reported Reaction Smoking Status: Former smoker - Past Family History Father Family Medical History: Cancer Additional Family Medical History / Comment(s): lung cancer Mother Family Medical History: Myocardial Infarction ([place]) Additional Family Medical History / Comment(s): in her 80s Medications and Allergies Home Medications Medication Instructions Recorded Confirmed Type RX: Multivitamins, Thera 1 tab PO HS 11/03/15 04/16/23 History [Multivitamin (formulary)] RX: atenoloL 25 mg PO DAILY 11/03/15 04/16/23 History RX: metFORMIN HCL [Glucophage] 500 mg PO DAILY 11/03/15 04/16/23 History RX: Levothyroxine Sodium 25 mcg PO DAILY 10/12/18 04/16/23 History [Synthroid] Ezetimibe [Zetia] 10 mg PO HS 08/27/22 04/16/23 History Losartan Potassium [Cozaar] 50 mg PO HS 08/27/22 04/16/23 History Rosuvastatin [Crestor] 20 mg PO HS 08/27/22 04/16/23 History Aspirin [Adult Low Dose Aspirin EC] 81 mg PO DAILY 08/30/22 04/16/23 History Albuterol Sulfate [Albuterol 2 puff PO RT-Q6H PRN 04/16/23 04/16/23 History Sulfate Hfa] Ascorbic Acid/Multivit-Min 1,000 mg PO DAILY 04/16/23 04/16/23 History [Emergen-C 1,000 mg Packet] Loratadine [Claritin] 10 mg PO DAILY 04/16/23 04/16/23 History Magnesium Oxide [Mag-Ox] 400 mg PO DAILY PRN 04/16/23 04/16/23 History lidocaine HCL [Lidocaine HCl 10 - 15 ml MM ACHS PRN 04/16/23 04/16/23 History Viscous] Allergies Allergy/AdvReac Type Severity Reaction Status Date / Time amoxicillin Allergy Rash/Hives Verified 04/16/23 20:04 levofloxacin [From Levaquin] Allergy Rash/Hives Verified 04/16/23 20:04 Penicillins Allergy Rash/Hives Verified 04/16/23 20:04 Physical Exam Vitals: Vital Signs Temp Pulse Resp BP Pulse Ox 04/17/23 08:33 102 H 18 124/72 93 L 04/17/23 08:00 98 18 04/17/23 07:52 97 18 04/17/23 05:00 18 91 L 04/17/23 03:12 93 04/17/23 03:00 91 04/17/23 02:50 87 18 119/93 93 L 04/17/23 01:20 80 20 96/51 90 L 04/16/23 23:43 86 20 110/47 93 L 04/16/23 22:23 88 04/16/23 22:10 84 04/16/23 21:29 78 20 101/54 95 04/16/23 18:26 73 20 114/58 94 L 04/16/23 16:20 98.3 F 80 18 118/80 92 L Intake and Output 04/16/23 04/17/23 04/17/23 22:59 06:59 14:59 Other: Weight 72.575 kg Head normocephalic Neck supple Lungs diminished lung sounds bilaterally with expiratory wheezing Heart regular rate and rhythm S1-S2, no rub or gallop Abdomen is soft nontender nondistended positive bowel sounds no hepatosplenomeg abilio Extremities no edema Neuro alert and orientated to 3 Results CBC & Chem 7: 04/16/23 16:32 04/16/23 16:32 Labs: Abnormal Lab Results - Last 24 Hours (Table) 04/16/23 04/16/23 04/16/23 Range/Units 16:32 16:32 16:32 RBC 4.03 L (4.30-5.90) m/uL Hgb 12.8 L (13.0-17.5) gm/dL Hct 37.0 L (39.0-53.0) % Lymphocytes # (Manual) 0.46 L (1.0-4.8) k/uL Eosinophils # (Manual) 0.98 H (0-0.7) k/uL D-Dimer 1.12 H (<0.60) mg/L FEU Sodium 132 L (137-145) mmol/L BUN 29 H (9-20) mg/dL Total Protein 6.1 L (6.3-8.2) g/dL Assessment and Plan Assessment: Increased shortness of breath secondary to acute exacerbation of COPD and small cell lung cancer Limited stage small cell lung cancer. Diagnosed August 2022 patient was treated with chemo and radiation therapy Acute exacerbation of COPD Altered mental status changes. Elevated d-dimer. CTA and venous Doppler negative for PE and DVT Generalized weakness History of CVA History of kidney stones History of coronary artery disease History of abdominal aortic aneurysm History of hyperlipidemia DVT prophylaxis Lovenox. GI prophylaxis Protonix Pulmonary, oncology and neurology services consulted Head CT ordered Repeat labs ordered PT OT and social work services consulted Time with Patient: Greater than 30 (Greater than 60% of the total time spent in counseling and coordination of care)
--- NOTE | 2023-04-17 13:16 | CT ---
EXAMINATION TYPE: CT brain wo con DATE OF EXAM: 04/17/2023 COMPARISON: 02/19/2019 HISTORY: AMS CT DLP: 1130.4 mGycm Automated exposure control for dose reduction was used. FINDINGS: There is mild to moderate generalized degenerative change. Faint low-attenuation in the white matter is nonspecific but most typical of remote white matter ischemia. No midline shift or mass effect. Sta ble intracranial atherosclerotic changes. Calvarium is intact. Mild sphenoidal sinusitis sinusitis. Orbits are symmetric. IMPRESSION: DEGENERATIVE AND NONSPECIFIC WHITE MATTER FINDINGS MOST TYPICAL OF REMOTE MICROVASCULAR ISCHEMIA. COR RELATE WITH MRI CLINICALLY WARRANTED.
[2023-04-17] MEDS: methylPREDNISolone SOD SUCCI 125 MG/2 ML VIAL IV SCH ×3 (15:34→23:19)
[2023-04-17] MEDS: SODIUM CHLORIDE 0.9% 1,000 ML IV SCH (15:57)
[2023-04-17 17:03] LABS: Glucose,Whole Blood 194 mg/dL (70-110)
--- NOTE | 2023-04-17 17:16 | P.CONS ---
History of Present Illness - Reason for Consult Consult date: 04/17/23 SCLC on treatment Requesting physician: Gordon Gillette - Chief Complaint SOB, AMS - History of Present Illness This reveals a pleasant 82-year-old male patient of Dr. All Whatley with a PMH of CVA, diabetes mellitus, HTN, hyperlipidemia, diagnosed with small cell lung cancer August 30, 2022. He has a presented to the hospital with abdominal pain, on workup was found to have mediastinal lymphadenopathy, this revealed a 5 x 7 cm left upper lobe mass with left hilar adenopathy. Patient was initially treated with chemotherapy. He completed 5 cycles of carboplatin and etoposide, to centric immunotherapy was added after cycle 3, he has completed a total of 8 cycles of May 04. Radiation was recommended and started in March, he just finished.within the last week or so. Patient was seen by rad on with complaints of progressive shortness of breath, wheezing, patient was started on Levaquin unfortunately, he had an allergy to the same, this was changed Azo through myosin and he was given inhalers and his respiratory status did improve somewhat. Over the last 24 hours though, patient just didn't feel right, family reports that he was becoming confused and "staring off into space". He also had a "rash on his legs" and his weakness just continued to worsen. Patient reports today that he is still feeling very weak, a little less confused, family confir ms the same. CT of the brain without contrast impression nonspecific white matter findings most typical of remote microvascular ischemia. CTA of the chest no evidence of PE. Narrowing of the left upper lobe pulmonary artery from previous mass has improved. Significant decrease in the size, residual 25 x 22 mm densities seen. Decreased soft tissue thickening extending into the left m ediastinum, mild residual. Previous mediastinal lymphadenopathy has decreased. Dopplers of the bilateral lower extremities are negative for DVT. CBC within normal defined limits, slightly elevated creatinine, negative influenza, Covid, RSV. Vital signs of remains stable. Review of Systems 10 point review of systems is negative except as stated in HPI Past Medical History Past Medical History: Cancer (small cell lung cancer), CVA/TIA, Diabetes Mellitus, Hyperlipidemia, Hypertension Additional Past Medical History / Comment(s): AAA monitored by Dr. Tipton, carotid artery disease, history of kidney stones. History of Any Multi-Drug Resistant Organisms: None Reported Past Surgical History: Cholecystectomy Additional Past Surgical History / Comment(s): carotid artery stent, now occluded 100% Past Anesthesia/Blood Transfusion Reactions: No Reported Reaction Smoking Status: Former smoker - Past Family History Father Family Medical History: Cancer Additional Family Medical History / Comment(s): lung cancer Mother Family Medical History: Myocardial Infarction ([place]) Additional Family Medical History / Comment(s): in her 80s Medications and Allergies Home Medications Medication Instructions Recorded Confirmed Type Multivitamins, Thera [Multivitamin 1 tab PO HS 11/03/15 04/16/23 History (formulary)] atenoloL 25 mg PO DAILY 11/03/15 04/16/23 History metFORMIN HCL [Glucophage] 500 mg PO DAILY 11/03/15 04/16/23 History Levothyroxine Sodium [Synthroid] 25 mcg PO DAILY 10/12/18 04/16/23 History Ezetimibe [Zetia] 10 mg PO HS 08/27/22 04/16/23 History Losartan Potassium [Cozaar] 50 mg PO HS 08/27/22 04/16/23 History Rosuvastatin [Crestor] 20 mg PO HS 08/27/22 04/16/23 History Aspirin [Adult Low Dose Aspirin EC] 81 mg PO DAILY 08/30/22 04/16/23 History Albuterol Sulfate [Albuterol 2 puff PO RT-Q6H PRN 04/16/23 04/16/23 History Sulfate Hfa] Ascorbic Acid/Multivit-Min 1,000 mg PO DAILY 04/16/23 04/16/23 History [Emergen-C 1,000 mg Packet] Loratadine [Claritin] 10 mg PO DAILY 04/16/23 04/16/23 History Magnesium Oxide [Mag-Ox] 400 mg PO DAILY PRN 04/16/23 04/16/23 History lidocaine HCL [Lidocaine HCl 10 - 15 ml MM ACHS PRN 04/16/23 04/16/23 History Viscous] Allergies Allergy/AdvReac Type Severity Reaction Status Date / Time amoxicillin Allergy Rash/Hives Verified 04/16/23 20:04 levofloxacin [From Levaquin] Allergy Rash/Hives Verified 04/16/23 20:04 Penicillins Allergy Rash/Hives Verified 04/16/23 20:04 Physical Exam Vitals: Vital Signs Temp Pulse Resp BP Pulse Ox 04/17/23 08:33 102 H 18 124/72 93 L 04/17/23 08:00 98 18 04/17/23 07:52 97 18 04/17/23 05:00 18 91 L 04/17/23 03:12 93 04/17/23 03:00 91 04/17/23 02:50 87 18 119/93 93 L 04/17/23 01:20 80 20 96/51 90 L 04/16/23 23:43 86 20 110/47 93 L 04/16/23 22:23 88 04/16/23 22:10 84 04/16/23 21:29 78 20 101/54 95 04/16/23 18:26 73 20 114/58 94 L 04/16/23 16:20 98.3 F 80 18 118/80 92 L Intake and Output 04/16/23 04/17/23 04/17/23 22:59 06:59 14:59 Other: Weight 72.575 kg - Constitutional General appearance: average body habitus, cooperative, no acute distress - EENT Dry mucous membranes, no thrush Eyes: anicteric sclerae, EOMI ENT: hearing grossly normal - Neck Neck: no lymphadenopathy - Respiratory Right lower lobe bronchi - Cardiovascular Rhythm: regular Heart sounds: normal: S1, S2 Abnormal Heart Sounds: no systolic murmur, no diastolic murmur, no rub, no S3 Gallop, no S4 Gallop, no click, no other leg Peripheral Edema: right: Trace, left: None - Gastrointestinal General gastrointestinal: no absent bowel sounds, no decreased bowel sounds, no distended, no hepatomegaly, no hyperactive bowel sounds, normal bowel sounds, no organomegaly, no rigid, no scaphoid, soft, no splenomegaly, no tenderness, no umbilical hernia, no ventral hernia - Integumentary Bilateral lower extremity petechiae - Neurologic Neurologic: CNII-XII intact (Grossly) - Musculoskeletal Musculoskeletal: generalized weakness - Psychiatric Patient is a bit drowsy during our conversation Psychiatric: A&O x's 3, appropriate affect, intact judgment & insight Results CBC & Chem 7: 04/16/23 16:32 04/16/23 16:32 Labs: Abnormal Lab Results - Last 24 Hours (Table) 04/16/23 04/16/23 04/16/23 Range/Units 16:32 16:32 16:32 RBC 4.03 L (4.30-5.90) m/uL Hgb 12.8 L (13.0-17.5) gm/dL Hct 37.0 L (39.0-53.0) % Lymphocytes # (Manual) 0.46 L (1.0-4.8) k/uL Eosinophils # (Manual) 0.98 H (0-0.7) k/uL D-Dimer 1.12 H (<0.60) mg/L FEU Sodium 132 L (137-145) mmol/L BUN 29 H (9-20) mg/dL Total Protein 6.1 L (6.3-8.2) g/dL CT scan - chest: report reviewed CT Scan - head: report reviewed Venous US: report reviewed Assessment and Plan (1) Weakness Current Visit: Yes Status: Acute Priority: High Code(s): R53.1 - WEAKNESS SNOMED Code(s): 06833124 (2) Small cell lung cancer Current Visit: Yes Status: Acute Priority: High Code(s): C34.90 - MALIGNANT NEOPLASM OF UNSP PART OF UNSP BRONCHUS OR LUNG SNOMED Code(s): 435951605 Plan: Small cell lung cancer -Patient is done very well on treatment so far. CTA of the chest reporting positive treatment results, no evidence of PE. Narrowing of the left upper lobe pulmonary artery from previous mass has improved. Significant decrease in the size, residual 25 x 22 mm densities seen. Decreased soft tissue thickening extending into the left mediastinum, mild residual. Previous mediastinal lymphadenopathy has decreased. -Not suspecting that patient's current condition is a direct result of immunotherapy. Suspect might be related to recent upper respiratory infection. Pulmonary has been consulted. Pending their assessment and recommendations Weakness -Infection work up pending -Neurology consulted -CT of the brain without contrast impression nonspecific white matter findings most typical of remote microvascular ischemia-these results were not available when patient was seen. Will review with them tomorrow. -Patient is feeling slightly better since admit. We'll follow up with patient Dr. bustamanteests: I seen and examined patient, performed H&P, developed impression and plan of care. Discussed with dictator. Agree with documentation, dictated as a scribe.
[2023-04-17] MEDS: BUDESONIDE 0.5 MG/2 ML NEBU INHALATION SCH (19:26)
[2023-04-17] MEDS: FORMOTEROL FUMARATE 20 MCG/2 ML NEBU INHALATION SCH (19:26)
[2023-04-17 20:29] LABS: Glucose,Whole Blood 325 mg/dL (70-110)
[2023-04-17] MEDS: EZETIMIBE 10 MG TAB PO SCH (20:39)
[2023-04-18] MEDS: SODIUM CHLORIDE 0.9% 1,000 ML IV SCH ×2 (01:53→20:57)
[2023-04-18] MEDS: IPRATROPIUM-ALBUTEROL 3 ML NEB INHALATION SCH ×5 (03:50→18:37)
[2023-04-18] MEDS: methylPREDNISolone SOD SUCCI 125 MG/2 ML VIAL IV SCH ×4 (05:46→23:17)
[2023-04-18] MEDS: LEVOTHYROXINE 25 MCG TAB PO SCH (05:46)
[2023-04-18 07:09] LABS: Glucose,Whole Blood 206 mg/dL (70-110)
[2023-04-18] MEDS ORDERED: DEXTROSE 50% SYRINGE 50 ML IVP PRN ×2 (08:28)
[2023-04-18] MEDS: CEFEPIME 2 GM in SODIUM CHLORIDE 0.9% 100 ML IVPB SCH ×2 (08:32→20:56)
[2023-04-18] MEDS: BUDESONIDE 0.5 MG/2 ML NEBU INHALATION SCH ×2 (09:05→18:37)
[2023-04-18] MEDS: FORMOTEROL FUMARATE 20 MCG/2 ML NEBU INHALATION SCH ×2 (09:05→18:37)
[2023-04-18] MEDS ORDERED: MULTIVITAMINS, THERA 1 EACH TAB PO ONE (10:15)
[2023-04-18] MEDS: atenoloL 25 MG TAB PO SCH (10:20)
[2023-04-18] MEDS: ASPIRIN 81 MG PO SCH (10:20)
[2023-04-18] MEDS: ENOXAPARIN 40 MG/0.4 ML SYRINGE SQ SCH (10:20)
[2023-04-18] MEDS: PANTOPRAZOLE 40 MG TABLET PO SCH (10:20)
[2023-04-18] MEDS: metFORMIN 500 MG TAB PO SCH (10:21)
[2023-04-18 11:42] LABS: Basophils % (A) 0 %; Eosinophils % (A) 0 %; HCT 33.1 % (39.0-53.0); HGB 11.2 gm/dL (13.0-17.5); Lymphocytes # (A) 0.4 k/uL (1.0-4.8); Lymphocytes % (A) 4 %; MCH 31.9 pg (25.0-35.0); MCHC 33.8 g/dL (31.0-37.0); MCV 94.4 fL (80.0-100.0); Mean Platelet Volume 7.5; Monocytes # (A) 0.4 k/uL (0-1.0); Monocytes % (A) 4 %; Neutrophils # (A) 9.3 k/uL (1.3-7.7); Neutrophils % (A) 91 %; Platelet Count 170 k/uL (150-450); RBC 3.51 m/uL (4.30-5.90); RDW 14.1 % (11.5-15.5); WBC 10.3 k/uL (3.8-10.6)
[2023-04-18 12:18] LABS: Glucose,Whole Blood 350 mg/dL (70-110)
[2023-04-18] MEDS: INSULIN ASPART (NovoLOG) 100 UNIT/ML VIAL SQ SCH ×3 (13:07→21:08)
[2023-04-18 13:54] LABS: ALT 21 U/L (10-49); AST 21 U/L (14-35); Albumin 3.3 g/dL (3.8-4.9); Albumin/Globulin Ratio 1.83 Ratio (1.60-3.17); Alkaline Phosphatase 73 U/L (41-126); BUN/Creat Ratio 26.09 Ratio (12.00-20.00); Blood Urea Nitrogen 28.7 mg/dL (9.0-27.0); Calcium 9.5 mg/dL (8.7-10.3); Carbon Dioxide 19.3 mmol/L (21.6-31.8); Chloride 108 mmol/L (96-109); Globulin 1.8 g/dL (1.6-3.3); Glucose 203 mg/dL (70-110); Potassium 4.7 mmol/L (3.5-5.5); Sodium 138 mmol/L (135-145); Total Bilirubin <0.2 mg/dL (0.3-1.2); Total Protein 5.1 g/dL (6.2-8.2)
--- NOTE | 2023-04-18 15:34 | P.PN ---
Subjective Progress Note Date: 04/18/23 A pleasant 82-year-old male patient diagnosed having a limited stage small cell lung cancer back in August 2022. At that time, the patient presented to me with a left lung mass and mediastinal lymphadenopathy. Biopsy of the lung mass in the mediastinal lymph nodes confirmed the diagnosis of small cell lung cancer. He was referred to radiation oncology and medical oncology. He completed systemic chemotherapy with carbo takotna and BATTERY PLATE REMOVER-16 and he was started on immunotherapy. He also completed a 10 day course of radiation therapy. The patient states that he was doing well during his chemotherapy treatment. During his radiation therapy, he started having shortness of breath, cough, chest congestion and shortness of breath and wheezing. He was started on an inhaler he was given a course of Levaquin by the radiation oncologist. He developed an ALLERGIC reaction. This was discontinued. The patient was given hydrocortisone cream to his skin rash. He was given a course of Z-Jacob. He was getting progressively more weak, diminished appetite, some weight loss, and it was noted that he was having episodes of confusion and altered mentation and for that reason he was brought into the hospital for further investigation. The workup for now included a Doppler of the lower extremity that showed no evidence of any DVT. CT angiogram of the chest showed no evidence of any consolidation with air space disease. No evidence of any pulmonary embolism. Left lung was seen in the mediastinal lymph nodes were also seen and there were essentially shrinking and responding to the treatment. The patient is bronchospastic and wheezy. His hypoxic and currently is on 2 L of oxygen by nasal cannula. Hemodynamically stable.The white cell count at 6.5 with a hemoglobin of 12.8 and a platelet cou nt of 170. D-dimer is at 1.1 with a normal coagulation profile. Electrolytes are all within normal limits. The viral screen was also negative including influenza A, influenza B, RSV and Covid 19. On today's evaluation of 04/18/2023, the patient is feeling slightly improved compared to yesterday. He is 1 cm IV fluids. The patient is also being treated with empiric antibiotics with IV cefepime. The patient is on DuoNeb about treatments [id number] and the patient is on IV Solu-Medrol. CAT scan of the brain was done and it showed no evidence of any [facility] metastases. There is some chronic ischemic white matter changes.No acute abnormalities. The patient also had a pro-calcitonin level that came back mildly elevated at 0.14. Meanwhile, the sodium level is at 138, potassium levels at 4.7, BUN is at 28 with a creatinine of 1.1. The patient will be significant of 10.3 with a hemog lobin of 11.2. Currently is on 2 L of oxygen by nasal cannula with pulse ox of 95%. Tolerating his diet. No altered mentation. Objective - Vital Signs Vital signs: Vital Signs Temp 97.6 F 04/18/23 14:06 Pulse 89 04/18/23 14:06 Resp 18 04/18/23 14:06 BP 115/62 04/18/23 14:06 Pulse Ox 95 04/18/23 14:06 FiO2 Intake & Output 04/17/23 04/18/23 04/18/23 18:59 06:59 18:59 Intake Total 150 1500 520 Balance 150 1500 520 Intake: Intake, IV Titration 150 1000 Amount Cefepime 2 gm In Sodium 100 Chloride 0.9% 100 ml @ 25 mls/hr IVPB Q12HR [facility] Rx #:[id number] Sodium Chloride 0.9% 1, 150 900 000 ml @ 75 mls/hr IV . [id number] [facility] Rx#:[id number] Oral 500 520 Other: Voiding Method Urinal Urinal # Voids 2 - Exam - Constitutional General appearance: average body habitus, cooperative, no acute distress, currently on 2 L of oxygen by nasal cannula - EENT Dry mucous membranes, no thrush Eyes: anicteric sclerae, EOMI ENT: hearing grossly normal - Neck Neck: no lymphadenopathy - Respiratory Diminished breath on the bilaterally and scattered Wheezes bilaterally - Cardiovascular Rhythm: regular Heart sounds: normal: S1, S2 Abnormal Heart Sounds: no systolic murmur, no diastolic murmur, no rub, no S3 Gallop, no S4 Gallop, no click, no other leg Peripheral Edema: right: Trace, left: None - Gastrointestinal General gastrointestinal: no absent bowel sounds, no decreased bowel sounds, no distended, no hepatomegaly, no hyperactive bowel sounds, normal bowel sounds, no organomegaly, no rigid, no scaphoid, soft, no splenomegaly, no tenderness, no umbilical hernia, no ventral hernia - Integumentary Bilateral lower extremity petechiae - Neurologic Neurologic: CNII-XII intact (Grossly) - Musculoskeletal Musculoskeletal: generalized weakness - Psychiatric Patient is a bit drowsy during our conversation Psychiatric: A&O x's 3, appropriate affect, intact judgment & insight - Labs CBC & Chem 7: 04/18/23 11:08 04/18/23 06:40 Labs: Abnormal Lab Results - Last 24 Hours (Table) 04/17/23 04/17/23 04/18/23 Range/Units 16:54 20:27 06:40 RBC (4.30-5.90) m/uL Hgb (13.0-17.5) gm/dL Hct (39.0-53.0) % Neutrophils # (1.3-7.7) k/uL Lymphocytes # (1.0-4.8) k/uL Carbon Dioxide 19.3 L (21.6-31.8) mmol/L BUN 28.7 H (9.0-27.0) mg/dL BUN/Creatinine Ratio 26.09 H (12.00-20.00) Ratio Glucose 203 H (70-110) mg/dL POC Glucose (mg/dL) 194 H 325 H (70-110) mg/dL Total Bilirubin <0.2 L (0.3-1.2) mg/dL Total Protein 5.1 L (6.2-8.2) g/dL Albumin 3.3 L (3.8-4.9) g/dL 04/18/23 04/18/23 04/18/23 Range/Units 07:06 11:08 12:15 RBC 3.51 L (4.30-5.90) m/uL Hgb 11.2 L (13.0-17.5) gm/dL Hct 33.1 L (39.0-53.0) % Neutrophils # 9.3 H (1.3-7.7) k/uL Lymphocytes # 0.4 L (1.0-4.8) k/uL Carbon Dioxide (21.6-31.8) mmol/L BUN (9.0-27.0) mg/dL BUN/Creatinine Ratio (12.00-20.00) Ratio Glucose (70-110) mg/dL POC Glucose (mg/dL) 206 H 350 H (70-110) mg/dL Total Bilirubin (0.3-1.2) mg/dL Total Protein (6.2-8.2) g/dL Albumin (3.8-4.9) g/dL Assessment and Plan Plan: Limited stage small cell lung cancer, treated with combined chemoradiation therapy. The patient was treated with a combination of carboplatinum and BATTERY PLATE REMOVER-16 and he was started on immunotherapy. He also completed a ten-day course of radiation therapy to his chest Acute exacerbation of COPD. Consider possibility of a radiation induced pneumonitis. Reviewed CAT scan of the chest. There is interval shrinking of the tumor and the mediastinal lymphadenopathy. No clear indication for consolidation or airspace disease. Patient was treated for symptoms of bronchitis on outpatient basis with Levaquin to which she had an ALLERGIC reaction. Subsequently was given Zithromax. Altered mentation, currently under investigation. MRI of the brain at the time of diagnosis was negative. Computed tomography scan of the brain showed no acute abnormalities. This was done during the current admission. Generalized weakness secondary to above Diminished appetite secondary to above Hypertension Hyperlipidemia History of abdominal aortic aneurysm History of carotid artery disease History of kidney stones Previous history of CVA Plan Clinically slightly improved compared to yesterday LEVEL IS MILDLY ELEVATED Continue oxygen 2 L Continue combination of budesonide and Pulmicort neb twice a day Continue albuterol and ipratropium bromide the treatments 4 times a day Continue the patient IV Solu-Medrol 60 mg every 6 hours Continue IV cefepime 2 g every 12 hours Lovenox 40 mg for DVT prophylaxis The patient will be admitted to the hospital. He will likely need a maintenance respiratory medication possibly a nebulizer at time of discharge. We will add multivitamin. The rest of the labs are essentially within normal limits. No significant leukocytosis. We'll continue to follow.
[2023-04-18 16:51] LABS: Glucose,Whole Blood 166 mg/dL (70-110)
--- NOTE | 2023-04-18 17:29 | P.PN ---
Subjective Progress Note Date: 04/18/23 Bassem Sotelo, is an 82-year-old male patient who presented to the ER with concerns of increased shortness of breath and increased weakness with altered mental status changes. 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 Per patient's daughter bedside patient completed radiation therapy but did develop severe weakness following treatment that has been increasing over the past week. Additional medical history includes CVA, diabetes mellitus, hyperlipidemia and hypertension. Venous Doppler completed showing no evidence for DVT. CTA completed showing no evidence for acute pulmonary embolism. Significant decrease in size of the previous large left upper lobe lung mass with small residual significantly decreased soft tissue extension into the left ilium his thiamine decreased mediastinal lymph nodes compared to prior. At This time patient has been admitted. Pulmonary, oncology and neurology services consulted. Head CT has been ordered. Patient has been started on IV Solu- Medrol and IV antibiotic Maxipime. White blood cell 6.5, hemoglobin 12.8, platelet count 170, creatinine 1.06 and bun 29. Patient was negative for influenza are seen COVID-19. Vital signs temp 98.3, heart rate 80, respiratory rate 18, blood pressure 118/80 with a pulse ox of 94% on 2 L. On 04/18/2023 patient was seen and examined on the medical floor he is alert and oriented 3 in no apparent distress his mental status is back to normal he is still complaining of cough and shortness of breath otherwise he denies any complaints there is no fever or chills no headache or dizziness no chest pain no nausea or vomiting no abdominal pain no diarrhea and no urinary symptoms. Patient remains on IV antibiotics and IV steroids pulmonary following. Objective - Vital Signs Vital signs: Vital Signs Temp 97.4 F L 04/18/23 08:00 Pulse 92 04/18/23 09:49 Resp 22 04/18/23 09:49 BP 104/54 04/18/23 09:49 Pulse Ox 94 L 04/18/23 09:49 FiO2 Intake & Output 04/17/23 04/18/23 04/18/23 18:59 06:59 18:59 Intake Total 150 1500 280 Balance 150 1500 280 Intake: Intake, IV Titration 150 1000 Amount Cefepime 2 gm In Sodium 100 Chloride 0.9% 100 ml @ 25 mls/hr IVPB Q12HR [facility] Rx #:[id number] Sodium Chloride 0.9% 1, 150 900 000 ml @ 75 mls/hr IV . [id number] [facility] Rx#:[id number] Oral 500 280 Other: Voiding Method Urinal # Voids 2 - Exam Head normocephalic Neck supple Lungs diminished lung sounds bilaterally with expiratory wheezing Heart regular rate and rhythm S1-S2, no rub or gallop Abdomen is soft nontender nondistended positive bowel sounds no hepatosplenomegaly Extremities no edema Neuro alert and orientated to 3 - Labs CBC & Chem 7: 04/18/23 11:08 04/18/23 06:40 Labs: Abnormal Lab Results - Last 24 Hours (Table) 04/17/23 04/17/23 04/17/23 Range/Units 08:33 16:54 20:27 POC Glucose (mg/dL) 194 H 325 H (70-110) mg/dL Procalcitonin 0.14 H (0.02-0.09) ng/mL 04/18/23 Range/Units 07:06 POC Glucose (mg/dL) 206 H (70-110) mg/dL Procalcitonin (0.02-0.09) ng/mL Assessment and Plan Assessment: Increased shortness of breath secondary to acute exacerbation of COPD and small cell lung cancer Limited stage small cell lung cancer. Diagnosed August 2022 patient was treated with chemo and radiation therapy Acute exacerbation of COPD Altered mental status changes. Elevated d-dimer. CTA and venous Doppler negative for PE and DVT Generalized weakness History of CVA History of kidney stones History of coronary artery disease History of abdominal aortic aneurysm History of hyperlipidemia DVT prophylaxis Lovenox. GI prophylaxis Protonix Pulmonary, oncology and neurology services consulted Head CT ordered Repeat labs ordered PT OT and social work services consulted
[2023-04-18 17:49] LABS: Glucose,Whole Blood 169 mg/dL (70-110)
[2023-04-18] MEDS: EZETIMIBE 10 MG TAB PO SCH (20:57)
[2023-04-18 21:11] LABS: Glucose,Whole Blood 274 mg/dL (70-110)
--- NOTE | 2023-04-18 21:17 | P.PN ---
Subjective Progress Note Date: 04/18/23 Principal diagnosis: Confusion, SOB, lung canc In f/u today it is reported by family that pt had a rough night, was awake, aggressive at times but this AM he is doing better, he ate, is having mostly normal conversations. Pt reports feeling better then on admit, no acute c/o. Objective - Vital Signs Vital signs: Vital Signs Temp 97.6 F 04/18/23 12:08 Pulse 100 04/18/23 12:18 Resp 20 04/18/23 12:08 BP 104/51 04/18/23 12:08 Pulse Ox 95 04/18/23 12:08 FiO2 Intake & Output 04/17/23 04/18/23 04/18/23 18:59 06:59 18:59 Intake Total 150 1500 280 Balance 150 1500 280 Intake: Intake, IV Titration 150 1000 Amount Cefepime 2 gm In Sodium 100 Chloride 0.9% 100 ml @ 25 mls/hr IVPB Q12HR [facility] Rx #:[id number] Sodium Chloride 0.9% 1, 150 900 000 ml @ 75 mls/hr IV . [id number] [facility] Rx#:[id number] Oral 500 280 Other: Voiding Method Urinal Urinal # Voids 2 - Constitutional General appearance: Present: average body habitus, cooperative, no acute distress - EENT Eyes: Present: anicteric sclerae, EOMI ENT: Present: hearing grossly normal - Respiratory Respiratory: bilateral: wheezing - Cardiovascular Rhythm: regular Heart sounds: normal: S1, S2 Abnormal Heart Sounds: Absent: systolic murmur, diastolic murmur, rub, S3 Gallop, S4 Gallop, click, other - Peripheral edema leg Peripheral Edema: bilateral: None - Gastrointestinal General gastrointestinal: Present: normal bowel sounds, soft - Neurologic Neurologic: Present: CNII-XII intact (grossly) - Musculoskeletal Musculoskeletal: Present: generalized weakness - Psychiatric Psychiatric: Present: A&O x's 3, appropriate affect, intact judgment & insight - Labs CBC & Chem 7: 04/18/23 11:08 04/18/23 06:40 Labs: Abnormal Lab Results - Last 24 Hours (Table) 04/17/23 04/17/23 04/17/23 Range/Units 08:33 16:54 20:27 RBC (4.30-5.90) m/uL Hgb (13.0-17.5) gm/dL Hct (39.0-53.0) % Neutrophils # (1.3-7.7) k/uL Lymphocytes # (1.0-4.8) k/uL POC Glucose (mg/dL) 194 H 325 H (70-110) mg/dL Procalcitonin 0.14 H (0.02-0.09) ng/mL 04/18/23 04/18/23 04/18/23 Range/Units 07:06 11:08 12:15 RBC 3.51 L (4.30-5.90) m/uL Hgb 11.2 L (13.0-17.5) gm/dL Hct 33.1 L (39.0-53.0) % Neutrophils # 9.3 H (1.3-7.7) k/uL Lymphocytes # 0.4 L (1.0-4.8) k/uL POC Glucose (mg/dL) 206 H 350 H (70-110) mg/dL Procalcitonin (0.02-0.09) ng/mL Assessment and Plan (1) Weakness Current Visit: Yes Status: Acute Priority: High Code(s): R53.1 - WEAKNESS SNOMED Code(s): 31671321 (2) Small cell lung cancer Current Visit: Yes Status: Acute Priority: High Code(s): C34.90 - MALIGNANT NEOPLASM OF UNSP PART OF UNSP BRONCHUS OR LUNG SNOMED Code(s): 172786700 Plan: Small cell lung cancer -Patient is done very well on treatment so far. CTA of the chest reporting positive treatment results, no evidence of PE. Narrowing of the left upper lobe pulmonary artery from previous mass has improved. Significant decrease in the size, residual 25 x 22 mm densities seen. Decreased soft tissue thickening extending into the left mediastinum, mild residual. Previous mediastinal lymphadenopathy has decreased. -Not suspecting that patient's current condition is a direct result of immunothe rapy. Suspect might be related to recent upper respiratory infection. Pulmonary has seen pt, on abx, nebulizers and steroids. Weakness -Pt cont to improve, more alert today -Infection work up in process -Neurology consulted -CT of the brain without contrast impression nonspecific white matter findings most typical of remote microvascular ischemia, reviewed results with pt and family. Will hold off on MRI of the brain right now as pt is improving. attests: I seen and examined patient, performed H&P, developed impression and plan of care. Discussed with dictator. Agree with documentation, dictated as a scribe.
[2023-04-18 23:03] LABS: Appearance,Urine Clear (Clear); Bilirubin,Urine Negative (Negative); Blood,Urine Negative (Negative); Color,Urine Light Yellow; Glucose,Urine (UA) 2+ (Negative); Ketones,Urine Negative (Negative); Leukocyte Esterase,Urine Negative (Negative); Mucus,Urine Rare /hpf; Nitrite,Urine Negative (Negative); Protein,Urine 1+ (Negative); RBC,Urine 1 /hpf (0-5); Specific Gravity,Urine 1.021 (1.001-1.035); Urobilinogen,Urine <2.0 mg/dL (<2.0); WBC,Urine <1 /hpf (0-5)
[2023-04-19] MEDS: IPRATROPIUM-ALBUTEROL 3 ML NEB INHALATION SCH ×7 (00:31→21:51)
[2023-04-19] MEDS: methylPREDNISolone SOD SUCCI 125 MG/2 ML VIAL IV SCH ×4 (05:25→23:48)
[2023-04-19] MEDS: LEVOTHYROXINE 25 MCG TAB PO SCH (05:25)
[2023-04-19] MEDS: SODIUM CHLORIDE 0.9% 1,000 ML IV SCH (05:25)
[2023-04-19 06:57] LABS: Glucose,Whole Blood 209 mg/dL (70-110)
[2023-04-19] MEDS: BUDESONIDE 0.5 MG/2 ML NEBU INHALATION SCH ×2 (08:33→21:51)
[2023-04-19] MEDS: FORMOTEROL FUMARATE 20 MCG/2 ML NEBU INHALATION SCH ×2 (08:33→21:51)
[2023-04-19] MEDS: INSULIN ASPART (NovoLOG) 100 UNIT/ML VIAL SQ SCH ×4 (08:51→20:45)
[2023-04-19] MEDS: metFORMIN 500 MG TAB PO SCH (08:51)
[2023-04-19] MEDS: ENOXAPARIN 40 MG/0.4 ML SYRINGE SQ SCH (08:51)
[2023-04-19] MEDS: PANTOPRAZOLE 40 MG TABLET PO SCH (08:51)
[2023-04-19] MEDS: atenoloL 25 MG TAB PO SCH (08:51)
[2023-04-19] MEDS: MULTIVITAMINS, THERA 1 EACH TAB PO SCH (08:51)
[2023-04-19] MEDS: ASPIRIN 81 MG PO SCH (08:51)
--- NOTE | 2023-04-19 09:28 | P.CNNES ---
History of Present Illness Consult date: 04/18/23 Requesting physician: Hugh Morris Reason for Consult: [facility] [place] History of Present Illness: Patient is a 82-year-old right-handed male came to the hospital 2 days ago, 04/16/2023 at 4:14 PM for altered mental status. Patient's 2 daughters were present, who provided with a detailed history. 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 Patient underwent LAURITA therapy from September through January 2023 and then underwent radiation from 03/18/2023 through 03/29/2023. Subsequently he has been started on immunotherapy in the last dose of immunotherapy patient received was on 03/06/2023. His next dose of i mmunotherapy was scheduled for yesterday but he has been in the hospital. Patient's family reports that he started becoming sick around 03/22/2023. He was diagnosed with a viral respiratory infection. He has been getting confused since then. Family also reports that after radiation or chemotherapy for 4 days he is usually confused, tired, lethargic, withdrawn and then slowly recuperates. After radiation was completed, he was "out of it". He was given Levaquin but developed some reaction to it. He has received Z-Jacob. Family noticed that he was eating less, lack of communication, had " man stare", and was generalized weak. He has developed significant anxiety, shortness of breath for about a week prior to arrival and his breathing was more like a panting shallow respiration.on the day of admission, patient has gone with his daughter for some errands, and he was in a motorized chair, when he just stood up to put the [place] on and he got very winded therefore she just brought him to the hospital. Vital signs arrival blood pressure 118/80, pulse 80, temperature 98.3. EKG sh ows sinus rhythm. CTA of chest showed no evidence of pulmonary embolism. Significant decrease in size of the previously large left upper lobe lung mass, with small residual. Significantly decreased soft tissue extension to the left hilum and mediastinum and decreased mediastinal lymph nodes compared to prior. CT head performed yesterday revealed degenerative and nonspecific white matter findings most typical of remote microvascular ischemia. Correlate with MRI as clinically warranted. I personally reviewed CT head, with the findings. Patient had a brain MRI on 09/10/2022, which revealed age-related changes with no acute process. Carotid Doppler from 08/27/2022 revealed no definite flow right carotid system. Correlate with CTA. Antegrade flow in both vertebral arteries. Patient had a prior CTA of head and neck on 02/19/2019, which also revealed thrombosis of the right carotid artery at its origin. There is diminutive right middle cerebral artery with decreased flow through the anterior, dictating artery. This is also present on old exam. No intracranial aneurysm or dissection. Blood test shows WBC 10.3, hemoglobin 11.2 normal platelets, normal electrolytes, BUN is 28, creatinine 1.1. Hepatic panel is normal. TSH normal 1.03 on 12/20/2022. Influenza screen, RSV and coronal virus PCR negative. Patient's family denies any history of dementia. He has diabetes for a long time and also has hypertension. He smoked about 2 packs per day for 30 years, quit 30 years ago. He also is to drink, but quit drinking 30 years ago. He had history of couple strokes in the past, one of them was in 2011 and then in 2020. He was diagnosed with carotid occlusion at that time. Patient has developed new onset anxiety, mouth breathing and shallow respiration. In the last few days he has been thinking that he is home. He was thinking TV as a window, pulling the leads, trying to get out of bed, slightly aggressive also. The breathing treatment helps. He is not having much conversation, sometimes he moans and groans. Family has noticed that he probably dreams, as he thinks that he had some conversation with someone although it has not happened. Family has noticed that sometimes he has blank stare in the last few days. He wakes up with glassy eyed. Review of Systems Constitutional: Reports chills, Reports fever (Initially, now gone), Reports weight loss Eyes: denies blurred vision, denies diplopia, denies pain Ears: left: decreased hearing, deny: earache Ears, nose, mouth and throat: Denies headache, Denies sore throat Cardiovascular: Reports shortness of breath, Denies chest pain Respiratory: Reports cough, Reports excessive sputum, Reports hemoptysis, Reports wheezing Gastrointestinal: Denies abdominal pain, Denies diarrhea, Denies nausea, Denies vomiting Genitourinary: Denies incontinence, Denies urinary frequency Musculoskeletal: Denies low back pain, Denies neck pain Musculoskeletal: left: hip pain Integumentary: Reports rash, Denies pruritus Neurological: Reports as per HPI Psychiatric: Reports anxiety, Denies depression Endocrine: Reports fatigue, Reports weight change, Denies polyphagia Hematologic/Lymphatic: Reports easy bruising, Denies easy bleeding Past Medical History Past Medical History: Cancer, CVA/TIA, Diabetes Mellitus, Hyperlipidemia, Hypertension, Thyroid Disorder Additional Past Medical History / Comment(s): AAA monitored by Dr. Jaimes, CVA , carotid artery disease, history of kidney stones, small cell left lung cancer- had chemo that ended in January 2023 and radiation that ended 2022 and is still doing immunotherapy, pancreatitis, hypothyroidism, diverticulitis History of Any Multi-Drug Resistant Organisms: None Reported Past Surgical History: Cholecystectomy Additional Past Surgical History / Comment(s): carotid artery stent-now occluded 100%, cataract removal Past Anesthesia/Blood Transfusion Reactions: No Reported Reaction Past Psychological History: No Psychological Hx Reported Smoking Status: Former smoker Past Alcohol Use History: None Reported Additional Past Alcohol Use History / Comment(s): has not drank or smoked in 30 years Past Drug Use History: None Reported - Past Family History Father Family Medical History: Cancer Additional Family Medical History / Comment(s): lung cancer Mother Family Medical History: Myocardial Infarction (CT) Additional Family Medical History / Comment(s): in her 80s Medications and Allergies Home Medications Medication Instructions Recorded Confirmed Type Multivitamins, Thera [Multivitamin 1 tab PO HS 11/03/15 04/16/23 History (formulary)] atenoloL 25 mg PO DAILY 11/03/15 04/16/23 History metFORMIN HCL [Glucophage] 500 mg PO DAILY 11/03/15 04/16/23 History Levothyroxine Sodium [Synthroid] 25 mcg PO DAILY 10/12/18 04/16/23 History Ezetimibe [Zetia] 10 mg PO HS 08/27/22 04/16/23 History Losartan Potassium [Cozaar] 50 mg PO HS 08/27/22 04/16/23 History Rosuvastatin [Crestor] 20 mg PO HS 08/27/22 04/16/23 History Aspirin [Adult Low Dose Aspirin EC] 81 mg PO DAILY 08/30/22 04/16/23 History Albuterol Sulfate [Albuterol 2 puff PO RT-Q6H PRN 04/16/23 04/16/23 History Sulfate Hfa] Ascorbic Acid/Multivit-Min 1,000 mg PO DAILY 04/16/23 04/16/23 History [Emergen-C 1,000 mg Packet] Loratadine [Claritin] 10 mg PO DAILY 04/16/23 04/16/23 History Magnesium Oxide [Mag-Ox] 400 mg PO DAILY PRN 04/16/23 04/16/23 History lidocaine HCL [Lidocaine HCl 10 - 15 ml MM ACHS PRN 04/16/23 04/16/23 History Viscous] Allergies Allergy/AdvReac Type Severity Reaction Status Date / Time amoxicillin Allergy Rash/Hives Verified 04/16/23 20:04 levofloxacin [From Levaquin] Allergy Rash/Hives Verified 04/16/23 20:04 Penicillins Allergy Rash/Hives Verified 04/16/23 20:04 Physical Examination - Vital Signs Vital Signs: Vital Signs Temp Pulse Pulse Resp BP Pulse Ox 04/18/23 19:56 98.5 F 104 H 18 132/62 94 L 04/18/23 18:54 91 04/18/23 18:47 91 04/18/23 18:46 91 04/18/23 18:38 91 04/18/23 16:46 94 L 04/18/23 16:29 96 04/18/23 16:09 92 04/18/23 14:06 97.6 F 89 18 115/62 95 04/18/23 12:56 97.7 F 98 19 107/54 98 04/18/23 12:18 100 04/18/23 12:08 97.6 F 80 20 104/51 95 04/18/23 12:06 96 04/18/23 11:00 93 106/50 04/18/23 10:17 97 105/57 04/18/23 09:49 92 22 104/54 94 L 04/18/23 09:27 102 H 04/18/23 09:15 100 04/18/23 09:06 98 96 04/18/23 08:00 97.4 F L 86 18 118/65 96 04/18/23 01:52 97.9 F 100 18 96/54 96 04/17/23 23:30 102 H 04/17/23 23:18 100 Intake and Output 04/18/23 04/18/23 04/18/23 06:59 14:59 22:59 Intake Total 1500 520 Balance 1500 520 Intake: Intake, IV Titration 1000 Amount Cefepime 2 gm In Sodium 100 Chloride 0.9% 100 ml @ 25 mls/hr IVPB Q12HR [facility] Rx #:[id number] Sodium Chloride 0.9% 1, 900 000 ml @ 75 mls/hr IV . [id number] [facility] Rx#:[id number] Oral 500 520 Other: Voiding Method Urinal # Voids 2 3 Patient is an elderly male, appears somewhat delirious but in no distress. He is using oxygen by nasal cannula. Patient is alert awake. He thinks it is season and thinks it is March but then said it was May. He said the year is but then said it was 2022. He knows that it is a fall season, and that he is in [facility] in [place]. He knows that the season started just yesterday. He thinks Mr. Chilel is the president. He knows his date of and his age. Speech and language functions are normal. Patient can name and repeat very well. No aphasia or dysarthria. Attention, concentration is slightly impaired and fund of knowledge is slightly limited. Detail cognitive function testing deferred. On cranial nerve examination, pupils are equal, round and reacting to light, visual frederick are full on confrontation, with no neglect on double simultaneous stimulation. Extraocular muscles are intact with no nystagmus. Face is symmetric, tongue protrudes to the midline. 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 His shoulder shrug normal, facial sensation normal. On muscle strength testing, there is no pronator drift and the strength is normal in arms and legs distally and proximally. Deep tendon reflexes are symmetric 1+ at the biceps, 1+ pectoralis, 2 at the knees and plantars are flat. Sensory to touch is equal with no neglect on double simultaneous stimulation. Cerebellar function showed moderate tremor for [id number] testing bilaterally although there is no ataxia. No ataxia for [id number] testing on either side. Tone and bulk of muscles normal. He has mild tremors of outstretched hands. Gait deferred.. On general examination, there is no carotid bruit or murmur, S1-S2 audible. Chest is clear on consultation. Abdomen is soft nontender. No organomegaly, bowel sounds present. Peripheral pulses are present. No peripheral edema. He has a slight rash in his maharaj which family believes is from the antibiotic. Results - Laboratory Findings CBC and BMP: 04/18/23 11:08 04/18/23 06:40 Abnormal Lab Findings: Abnormal Labs 04/16/23 04/16/23 04/16/23 16:32 16:32 16:32 RBC 4.03 L Hgb 12.8 L Hct 37.0 L Neutrophils # Lymphocytes # Lymphocytes # (Manual) 0.46 L Eosinophils # (Manual) 0.98 H D-Dimer 1.12 H Sodium 132 L Carbon Dioxide BUN 29 H BUN/Creatinine Ratio Glucose POC Glucose (mg/dL) Total Bilirubin Total Protein 6.1 L Albumin Procalcitonin 04/17/23 04/17/23 04/17/23 08:33 16:54 20:27 RBC Hgb Hct Neutrophils # Lymphocytes # Lymphocytes # (Manual) Eosinophils # (Manual) D-Dimer Sodium Carbon Dioxide BUN BUN/Creatinine Ratio Glucose POC Glucose (mg/dL) 194 H 325 H Total Bilirubin Total Protein Albumin Procalcitonin 0.14 H 04/18/23 04/18/23 04/18/23 06:40 07:06 11:08 RBC 3.51 L Hgb 11.2 L Hct 33.1 L Neutrophils # 9.3 H Lymphocytes # 0.4 L Lymphocytes # (Manual) Eosinophils # (Manual) D-Dimer Sodium Carbon Dioxide 19.3 L BUN 28.7 H BUN/Creatinine Ratio 26.09 H Glucose 203 H POC Glucose (mg/dL) 206 H Total Bilirubin <0.2 L Total Protein 5.1 L Albumin 3.3 L Procalcitonin 04/18/23 04/18/23 04/18/23 12:15 16:49 17:47 RBC Hgb Hct Neutrophils # Lymphocytes # Lymphocytes # (Manual) Eosinophils # (Manual) D-Dimer Sodium Carbon Dioxide BUN BUN/Creatinine Ratio Glucose POC Glucose (mg/dL) 350 H 166 H 169 H Total Bilirubin Total Protein Albumin Procalcitonin 04/18/23 20:58 RBC Hgb Hct Neutrophils # Lymphocytes # Lymphocytes # (Manual) Eosinophils # (Manual) D-Dimer Sodium Carbon Dioxide BUN BUN/Creatinine Ratio Glucose POC Glucose (mg/dL) 274 H Total Bilirubin Total Protein Albumin Procalcitonin Assessment and Plan Assessment: * Altered mental status, likely due to delirium/metabolic encephalopathy. This is probably multifactorial due to reasons mentioned below, including medicatio ns including immunotherapy, corticosteroids and opiates. * Acute exacerbation of COPD * Possible radiation pneumonitis * Small cell lung cancer, limited stage, treated with combined chemo radiation therapy. Patient currently on immunotherapy * Hypertension * Hyperlipidemia * Diabetes, with last A1c 7.2 on 12/20/2022. * Chronic right ICA occlusion * Previous history of CVA * X tobacco use Plan: * Check EEG to evaluate for encephalopathy, rule out any seizure activity * B12, folate, ammonia level. * TSH is normal. * Patient has chronic right ICA occlusion. Continue aspirin and Zetia. Patient's lipids are well controlled with cholesterol 121 and LDL 27 on 720 07/05/2022 * Medical management as per IM, and pulmonary medicine. * Discussed with patient's family in detail. * Neurology will follow clinically. Thank you for the consult. Time with Patient: Greater than 30
[2023-04-19] MEDS: CEFEPIME 2 GM in SODIUM CHLORIDE 0.9% 100 ML IVPB SCH ×2 (09:50→20:45)
--- NOTE | 2023-04-19 10:19 | P.PN ---
Subjective Progress Note Date: 04/19/23 Bassem Sotelo, is an 82-year-old male patient who presented to the ER with concerns of increased shortness of breath and increased weakness with altered mental status changes. 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 Per patient's daughter bedside patient completed radiation therapy but did develop severe weakness following treatment that has been increasing over the past week. Additional medical history includes CVA, diabetes mellitus, hyperlipidemia and hypertension. Venous Doppler completed showing no evidence for DVT. CTA completed showing no evidence for acute pulmonary embolism. Significant decrease in size of the previous large left upper lobe lung mass with small residual significantly decreased soft tissue extension into the left ilium his thiamine decreased mediastinal lymph nodes compared to prior. At This time patient has been admitted. Pulmonary, oncology and neurology services consulted. Head CT has been ordered. Patient has been started on IV Solu- Medrol and IV antibiotic Maxipime. White blood cell 6.5, hemoglobin 12.8, platelet count 170, creatinine 1.06 and bun 29. Patient was negative for influenza are seen COVID-19. Vital signs temp 98.3, heart rate 80, respiratory rate 18, blood pressure 118/80 with a pulse ox of 94% on 2 L. On 04/18/2023 patient was seen and examined on the medical floor he is alert and oriented 3 in no apparent distress his mental status is back to normal he is still complaining of cough and shortness of breath otherwise he denies any complaints there is no fever or chills no headache or dizziness no chest pain no nausea or vomiting no abdominal pain no diarrhea and no urinary symptoms. Patient remains on IV antibiotics and IV steroids pulmonary following. On 04/19/2023 patient is alert and oriented 3. Mental status has significantly improved patient remains with wheezing though patient maintained on IV antibiotics and IV steroids. Pulmonary, oncology and neurology services are following. Per neurology EEG to be ordered. Patient denies chest pain or shortness of breath. Patient denies nausea vomiting or diarrhea. Patient denies any urinary burning or frequency Objective - Vital Signs Vital signs: Vital Signs Temp 97.6 F 04/19/23 08:55 Pulse 84 04/19/23 09:00 Resp 18 04/19/23 08:55 BP 116/55 04/19/23 08:55 Pulse Ox 95 04/19/23 08:55 FiO2 Intake & Output 04/18/23 04/19/23 04/19/23 18:59 06:59 18:59 Intake Total 520 1500 Balance 520 1500 Intake: Intake, IV Titration 1000 Amount Cefepime 2 gm In Sodium 100 Chloride 0.9% 100 ml @ 25 mls/hr IVPB Q12HR [facility] Rx #:[id number] Sodium Chloride 0.9% 1, 900 000 ml @ 75 mls/hr IV . [id number] [facility] Rx#:[id number] Oral 520 500 Other: Voiding Method Urinal Urinal # Voids 3 3 - Exam Head normocephalic Neck supple Lungs diminished lung sounds bilaterally with expiratory wheezing Heart regular rate and rhythm S1-S2, no rub or gallop Abdomen is soft nontender nondistended positive bowel sounds no hepatosplenomegaly Extremities no edema Neuro alert and orientated to 3 - Labs CBC & Chem 7: 04/18/23 11:08 04/18/23 06:40 Labs: Abnormal Lab Results - Last 24 Hours (Table) 04/18/23 04/18/23 04/18/23 Range/Units 06:40 11:08 12:15 RBC 3.51 L (4.30-5.90) m/uL Hgb 11.2 L (13.0-17.5) gm/dL Hct 33.1 L (39.0-53.0) % Neutrophils # 9.3 H (1.3-7.7) k/uL Lymphocytes # 0.4 L (1.0-4.8) k/uL Carbon Dioxide 19.3 L (21.6-31.8) mmol/L BUN 28.7 H (9.0-27.0) mg/dL BUN/Creatinine Ratio 26.09 H (12.00-20.00) Ratio Glucose 203 H (70-110) mg/dL POC Glucose (mg/dL) 350 H (70-110) mg/dL Total Bilirubin <0.2 L (0.3-1.2) mg/dL Total Protein 5.1 L (6.2-8.2) g/dL Albumin 3.3 L (3.8-4.9) g/dL Urine Protein (Negative) Urine Glucose (UA) (Negative) Urine Mucus (None) /hpf 04/18/23 04/18/23 04/18/23 Range/Units 16:49 17:47 20:58 RBC (4.30-5.90) m/uL Hgb (13.0-17.5) gm/dL Hct (39.0-53.0) % Neutrophils # (1.3-7.7) k/uL Lymphocytes # (1.0-4.8) k/uL Carbon Dioxide (21.6-31.8) mmol/L BUN (9.0-27.0) mg/dL BUN/Creatinine Ratio (12.00-20.00) Ratio Glucose (70-110) mg/dL POC Glucose (mg/dL) 166 H 169 H 274 H (70-110) mg/dL Total Bilirubin (0.3-1.2) mg/dL Total Protein (6.2-8.2) g/dL Albumin (3.8-4.9) g/dL Urine Protein (Negative) Urine Glucose (UA) (Negative) Urine Mucus (None) /hpf 04/18/23 04/19/23 Range/Units 22:20 06:55 RBC (4.30-5.90) m/uL Hgb (13.0-17.5) gm/dL Hct (39.0-53.0) % Neutrophils # (1.3-7.7) k/uL Lymphocytes # (1.0-4.8) k/uL Carbon Dioxide (21.6-31.8) mmol/L BUN (9.0-27.0) mg/dL BUN/Creatinine Ratio (12.00-20.00) Ratio Glucose (70-110) mg/dL POC Glucose (mg/dL) 209 H (70-110) mg/dL Total Bilirubin (0.3-1.2) mg/dL Total Protein (6.2-8.2) g/dL Albumin (3.8-4.9) g/dL Urine Protein 1+ H (Negative) Urine Glucose (UA) 2+ H (Negative) Urine Mucus Rare H (None) /hpf Microbiology - Last 24 Hours (Table) 04/17/23 08:58 Blood Culture - Preliminary Blood 04/17/23 08:45 Blood Culture - Preliminary Blood Assessment and Plan Assessment: Increased shortness of breath secondary to acute exacerbation of COPD and small cell lung cancer Limited stage small cell lung cancer. Diagnosed August 2022 patient was treated with chemo and radiation therapy Acute exacerbation of COPD Altered mental status changes. Elevated d-dimer. CTA and venous Doppler negative for PE and DVT Generalized weakness History of CVA History of kidney stones History of coronary artery disease History of abdominal aortic aneurysm History of hyperlipidemia DVT prophylaxis Lovenox. GI prophylaxis Protonix Pulmonary, oncology and neurology services consulted Repeat labs ordered PT OT and social work services consulted
[2023-04-19 11:31] LABS: ALT 23 U/L (10-49); AST 19 U/L (14-35); Albumin 3.4 g/dL (3.8-4.9); Albumin/Globulin Ratio 1.89 Ratio (1.60-3.17); Alkaline Phosphatase 69 U/L (41-126); BUN/Creat Ratio 23.46 Ratio (12.00-20.00); Blood Urea Nitrogen 30.5 mg/dL (9.0-27.0); Calcium 9.1 mg/dL (8.7-10.3); Carbon Dioxide 18.7 mmol/L (21.6-31.8); Chloride 112 mmol/L (96-109); Globulin 1.8 g/dL (1.6-3.3); Glucose 215 mg/dL (70-110); Potassium 4.5 mmol/L (3.5-5.5); Sodium 142 mmol/L (135-145); Total Bilirubin <0.2 mg/dL (0.3-1.2); Total Protein 5.2 g/dL (6.2-8.2)
[2023-04-19 12:14] LABS: Glucose,Whole Blood 232 mg/dL (70-110)
--- NOTE | 2023-04-19 13:38 | P.PN ---
Subjective Progress Note Date: 04/19/23 A pleasant 82-year-old male patient diagnosed having a limited stage small cell lung cancer back in August 2022. At that time, the patient presented to me with a left lung mass and mediastinal lymphadenopathy. Biopsy of the lung mass in the mediastinal lymph nodes confirmed the diagnosis of small cell lung cancer. He was referred to radiation oncology and medical oncology. He completed systemic chemotherapy with carbo [place] and HYDRANT SETTER-16 and he was started on immunotherapy. He also completed a 10 day course of radiation therapy. The patient states that he was doing well during his chemotherapy treatment. During his radiation therapy, he started having shortness of breath, cough, chest congestion and shortness of breath and wheezing. He was started on an inhaler he was given a course of Levaquin by the radiation oncologist. He developed an ALLERGIC reaction. This was discontinued. The patient was given hydrocortisone cream to his skin rash. He was given a course of Z-Jacob. He was getting progressively more weak, diminished appetite, some weight loss, and it was noted that he was having episodes of confusion and altered mentation and for that reason he was brought into the hospital for further investigation. The workup for now included a Doppler of the lower extremity that showed no evidence of any DVT. CT angiogram of the chest showed no evidence of any consolidation with air space disease. No evidence of any pulmonary embolism. Left lung was seen in the mediastinal lymph nodes were also seen and there were essentially shrinking and responding to the treatment. The patient is bronchospastic and wheezy. His hypoxic and currently is on 2 L of oxygen by nasal cannula. Hemodynamically stable.The white cell count at 6.5 with a hemoglobin of 12.8 and a platelet cou nt of 170. D-dimer is at 1.1 with a normal coagulation profile. Electrolytes are all within normal limits. The viral screen was also negative including influenza A, influenza B, RSV and Covid 19. On today's evaluation of 04/18/2023, the patient is feeling slightly improved compared to yesterday. He is 1 cm IV fluids. The patient is also being treated with empiric antibiotics with IV cefepime. The patient is on DuoNeb about treatments [id number] and the patient is on IV Solu-Medrol. CAT scan of the brain was done and it showed no evidence of any MACHINE MAINTENANCE REPAIRER metastases. There is some chronic ischemic white matter changes.No acute abnormalities. The patient also had a pro-calcitonin level that came back mildly elevated at 0.14. Meanwhile, the sodium level is at 138, potassium levels at 4.7, BUN is at 28 with a creatinine of 1.1. The patient will be significant of 10.3 with a hemog lobin of 11.2. Currently is on 2 L of oxygen by nasal cannula with pulse ox of 95%. Tolerating his diet. No altered mentation. On 04/09/2023 the patient is doing limited improvement in his overall respiratory status. Continues to have a congestive cough. Continues to bronchospastic and wheezy. His shortness of breath is oxygen dependent. Attempts were made to wean down the oxygen was not successful the patient became hypoxic. Currently is on 3 L of oxygen by nasal cannula. He is on DuoNeb about treatments [id number]. He is also on accommodation Perforomist and Pulmicort updraft twice a day and IV Solu-Medrol 60 mg every 6 hours. He remains on IV fluids at 75 mL an hour. He is on IV cefepime. The blood work shows a sodium level of 42, BUN is at 30 with a creatinine of 1.3. The white cell count is at 10.3 with a hemoglobin of 11.2. The pro-calcitonin level is at 0.14. Mental status is improved although the patient is still having some drowsiness and is thinking the patient is slow in answering questions. According to the family, he seems to much more appropriate compared to his admission. No focal neurological deficit at this point in time. Objective - Vital Signs Vital signs: Vital Signs Temp 97.6 F 04/19/23 08:55 Pulse 84 04/19/23 09:00 Resp 18 04/19/23 08:55 BP 116/55 04/19/23 08:55 Pulse Ox 95 04/19/23 08:55 FiO2 Intake & Output 04/18/23 04/19/23 04/19/23 18:59 06:59 18:59 Intake Total 520 1500 Balance 520 1500 Intake: Intake, IV Titration 1000 Amount Cefepime 2 gm In Sodium 100 Chloride 0.9% 100 ml @ 25 mls/hr IVPB Q12HR [facility] Rx #:[id number] Sodium Chloride 0.9% 1, 900 000 ml @ 75 mls/hr IV . [id number] [facility] Rx#:[id number] Oral 520 500 Other: Voiding Method Urinal Urinal Urinal # Voids 3 3 - Exam - Constitutional General appearance: average body habitus, cooperative, no acute distress, currently on 2 L of oxygen by nasal cannula - EENT Dry mucous membranes, no thrush Eyes: anicteric sclerae, EOMI ENT: hearing grossly normal - Neck Neck: no lymphadenopathy - Respiratory Diminished breath on the bilaterally and scattered Wheezes bilaterally - Cardiovascular Rhythm: regular Heart sounds: normal: S1, S2 Abnormal Heart Sounds: no systolic murmur, no diastolic murmur, no rub, no S3 Gallop, no S4 Gallop, no click, no other leg Peripheral Edema: right: Trace, left: None - Gastrointestinal General gastrointestinal: no absent bowel sounds, no decreased bowel sounds, no distended, no hepatomegaly, no hyperactive bowel sounds, normal bowel sounds, no organomegaly, no rigid, no scaphoid, soft, no splenomegaly, no tenderness, no umbilical hernia, no ventral hernia - Integumentary Bilateral lower extremity petechiae - Neurologic Neurologic: CNII-XII intact (Grossly) - Musculoskeletal Musculoskeletal: generalized weakness - Psychiatric Patient is a bit drowsy during our conversation Psychiatric: A&O x's 3, appropriate affect, intact judgment & insight - Labs CBC & Chem 7: 04/18/23 11:08 04/19/23 07:02 Labs: Abnormal Lab Results - Last 24 Hours (Table) 04/18/23 04/18/23 04/18/23 Range/Units 06:40 11:08 12:15 RBC 3.51 L (4.30-5.90) m/uL Hgb 11.2 L (13.0-17.5) gm/dL Hct 33.1 L (39.0-53.0) % Neutrophils # 9.3 H (1.3-7.7) k/uL Lymphocytes # 0.4 L (1.0-4.8) k/uL Carbon Dioxide 19.3 L (21.6-31.8) mmol/L BUN 28.7 H (9.0-27.0) mg/dL BUN/Creatinine Ratio 26.09 H (12.00-20.00) Ratio Glucose 203 H (70-110) mg/dL POC Glucose (mg/dL) 350 H (70-110) mg/dL Total Bilirubin <0.2 L (0.3-1.2) mg/dL Total Protein 5.1 L (6.2-8.2) g/dL Albumin 3.3 L (3.8-4.9) g/dL Urine Protein (Negative) Urine Glucose (UA) (Negative) Urine Mucus (None) /hpf 04/18/23 04/18/23 04/18/23 Range/Units 16:49 17:47 20:58 RBC (4.30-5.90) m/uL Hgb (13.0-17.5) gm/dL Hct (39.0-53.0) % Neutrophils # (1.3-7.7) k/uL Lymphocytes # (1.0-4.8) k/uL Carbon Dioxide (21.6-31.8) mmol/L BUN (9.0-27.0) mg/dL BUN/Creatinine Ratio (12.00-20.00) Ratio Glucose (70-110) mg/dL POC Glucose (mg/dL) 166 H 169 H 274 H (70-110) mg/dL Total Bilirubin (0.3-1.2) mg/dL Total Protein (6.2-8.2) g/dL Albumin (3.8-4.9) g/dL Urine Protein (Negative) Urine Glucose (UA) (Negative) Urine Mucus (None) /hpf 04/18/23 04/19/23 Range/Units 22:20 06:55 RBC (4.30-5.90) m/uL Hgb (13.0-17.5) gm/dL Hct (39.0-53.0) % Neutrophils # (1.3-7.7) k/uL Lymphocytes # (1.0-4.8) k/uL Carbon Dioxide (21.6-31.8) mmol/L BUN (9.0-27.0) mg/dL BUN/Creatinine Ratio (12.00-20.00) Ratio Glucose (70-110) mg/dL POC Glucose (mg/dL) 209 H (70-110) mg/dL Total Bilirubin (0.3-1.2) mg/dL Total Protein (6.2-8.2) g/dL Albumin (3.8-4.9) g/dL Urine Protein 1+ H (Negative) Urine Glucose (UA) 2+ H (Negative) Urine Mucus Rare H (None) /hpf Microbiology - Last 24 Hours (Table) 04/17/23 08:58 Blood Culture - Preliminary Blood 04/17/23 08:45 Blood Culture - Preliminary Blood Assessment and Plan Plan: Limited stage small cell lung cancer, treated with combined chemoradiation therapy. The patient was treated with a combination of carboplatinum and HYDRANT SETTER-16 and he was started on immunotherapy. He also completed a ten-day course of radiation therapy to his chest Acute exacerbation of COPD. Consider possibility of a radiation induced pneumonitis. Reviewed CAT scan of the chest. There is interval shrinking of the tumor and the mediastinal lymphadenopathy. No clear indication for co nsolidation or airspace disease. Patient was treated for symptoms of bronchitis on outpatient basis with Levaquin to which she had an ALLERGIC reaction. Subsequently was given Zithromax. Altered mentation, currently under investigation. MRI of the brain at the time of diagnosis was negative. Computed tomography scan of the brain showed no acute abnormalities. This was done during the current admission. Generalized weakness secondary to above Diminished appetite secondary to above Hypertension Hyperlipidemia History of abdominal aortic aneurysm History of carotid artery disease History of kidney stones Previous history of CVA Plan We'll continue the same treatment for now. No changes in her medication regimen. IV fluids to be switched to KVO Pro-calcitonin level is mildly elevated Continue oxygen 2 L Continue combination of budesonide and Pulmicort neb twice a day Continue albuterol and ipratropium bromide the treatments 4 times a day Continue the patient IV Solu-Medrol 60 mg every 6 hours Continue IV cefepime 2 g every 12 hours Lovenox 40 mg for DVT prophylaxis The patient will be admitted to the hospital. He will likely need a maintenance respiratory medication possibly a nebulizer at time of discharge.
[2023-04-19 15:37] LABS: Basophils # (A) 0.01 X 10*3/uL (0.00-0.10); Basophils % (A) 0.1 %; Eosinophils # (A) 0 X 10*3/uL (0.04-0.35); Eosinophils % (A) 0 %; HCT 30.8 % (39.6-50.0); HGB 9.9 g/dL (13.0-17.0); Lymphocytes # (A) 0.43 X 10*3/uL (0.90-5.00); MCH 30.5 pg (27.0-32.0); MCHC 32.1 g/dL (32.0-37.0); MCV 94.8 FL (80.0-97.0); Mean Platelet Volume 9.5 FL (9.5-12.2); Monocytes % (A) 3.7 %; NRBC Per 100 WBC 0 X 10*3/uL (0.00-0.01); Neutrophils # (A) 9.84 X 10*3/uL (1.80-7.70); Neutrophils % (A) 91.5 %; Platelet Count 174 X 10*3/uL (140-440); RBC 3.25 X 10*6/uL (4.40-5.60); RDW 13.8 % (11.5-14.5); WBC 10.75 X 10*3/uL (4.50-10.00)
[2023-04-19 17:04] LABS: Glucose,Whole Blood 150 mg/dL (70-110)
--- NOTE | 2023-04-19 17:15 | P.PN ---
Subjective Progress Note Date: 04/19/23 Principal diagnosis: shortness of breath At today's visit patient is resting comfortably in bed. Patient is reporting improvement in breathing. Family states when he initially wakes up he is confused to place and starts pulling at his lines. Patient is alert and oriented 3 and is answering questions appropriately at today's visit. Patient remains afebrile. Objective - Vital Signs Vital signs: Vital Signs Temp 98.2 F 04/19/23 12:15 Pulse 88 04/19/23 15:43 Resp 20 04/19/23 12:15 BP 115/66 04/19/23 12:15 Pulse Ox 96 04/19/23 12:15 FiO2 Intake & Output 04/18/23 04/19/23 04/19/23 18:59 06:59 18:59 Intake Total 520 1500 Balance 520 1500 Intake: Intake, IV Titration 1000 Amount Cefepime 2 gm In Sodium 100 Chloride 0.9% 100 ml @ 25 mls/hr IVPB Q12HR [facility] Rx #:[id number] Sodium Chloride 0.9% 1, 900 000 ml @ 75 mls/hr IV . [id number] [facility] Rx#:[id number] Oral 520 500 Other: Voiding Method Urinal Urinal Urinal # Voids 3 3 1 # Bowel Movements 1 - Constitutional General appearance: Present: average body habitus, no acute distress - EENT Eyes: Present: anicteric sclerae, EOMI ENT: Present: hearing grossly normal - Respiratory Details: breathing even and unlabored - Cardiovascular Details: skin warm and dry - Integumentary Integumentary: Absent: cyanotic - Musculoskeletal Musculoskeletal: Present: generalized weakness - Psychiatric Psychiatric: Present: A&O x's 3 - Labs CBC & Chem 7: 04/19/23 07:02 04/19/23 07:02 Labs: Abnormal Lab Results - Last 24 Hours (Table) 04/18/23 04/18/23 04/18/23 Range/Units 17:47 20:58 22:20 WBC (4.50-10.00) X 10*3/uL RBC (4.40-5.60) X 10*6/uL Hgb (13.0-17.0) g/dL Hct (39.6-50.0) % Neutrophils # (1.80-7.70) X 10*3/uL Lymphocytes # (0.90-5.00) X 10*3/uL Eosinophils # (0.04-0.35) X 10*3/uL Chloride (96-109) mmol/L Carbon Dioxide (21.6-31.8) mmol/L BUN (9.0-27.0) mg/dL Est GFR (CKD-EPI) (>=60) BUN/Creatinine Ratio (12.00-20.00) Ratio Glucose (70-110) mg/dL POC Glucose (mg/dL) 169 H 274 H (70-110) mg/dL Total Bilirubin (0.3-1.2) mg/dL Total Protein (6.2-8.2) g/dL Albumin (3.8-4.9) g/dL Vitamin B12 (200.0-944.0) pg/mL Urine Protein 1+ H (Negative) Urine Glucose (UA) 2+ H (Negative) Urine Mucus Rare H (None) /hpf 04/19/23 04/19/23 04/19/23 Range/Units 06:55 07:02 07:02 WBC 10.75 H (4.50-10.00) X 10*3/uL RBC 3.25 L (4.40-5.60) X 10*6/uL Hgb 9.9 L (13.0-17.0) g/dL Hct 30.8 L (39.6-50.0) % Neutrophils # 9.84 H (1.80-7.70) X 10*3/uL Lymphocytes # 0.43 L (0.90-5.00) X 10*3/uL Eosinophils # 0 L (0.04-0.35) X 10*3/uL Chloride 112 H (96-109) mmol/L Carbon Dioxide 18.7 L (21.6-31.8) mmol/L BUN 30.5 H (9.0-27.0) mg/dL Est GFR (CKD-EPI) 55 L (>=60) BUN/Creatinine Ratio 23.46 H (12.00-20.00) Ratio Glucose 215 H (70-110) mg/dL POC Glucose (mg/dL) 209 H (70-110) mg/dL Total Bilirubin <0.2 L (0.3-1.2) mg/dL Total Protein 5.2 L (6.2-8.2) g/dL Albumin 3.4 L (3.8-4.9) g/dL Vitamin B12 1381.0 H (200.0-944.0) pg/mL Urine Protein (Negative) Urine Glucose (UA) (Negative) Urine Mucus (None) /hpf 04/19/23 Range/Units 12:13 WBC (4.50-10.00) X 10*3/uL RBC (4.40-5.60) X 10*6/uL Hgb (13.0-17.0) g/dL Hct (39.6-50.0) % Neutrophils # (1.80-7.70) X 10*3/uL Lymphocytes # (0.90-5.00) X 10*3/uL Eosinophils # (0.04-0.35) X 10*3/uL Chloride (96-109) mmol/L Carbon Dioxide (21.6-31.8) mmol/L BUN (9.0-27.0) mg/dL Est GFR (CKD-EPI) (>=60) BUN/Creatinine Ratio (12.00-20.00) Ratio Glucose (70-110) mg/dL POC Glucose (mg/dL) 232 H (70-110) mg/dL Total Bilirubin (0.3-1.2) mg/dL Total Protein (6.2-8.2) g/dL Albumin (3.8-4.9) g/dL Vitamin B12 (200.0-944.0) pg/mL Urine Protein (Negative) Urine Glucose (UA) (Negative) Urine Mucus (None) /hpf Microbiology - Last 24 Hours (Table) 04/17/23 08:58 Blood Culture - Preliminary Blood 04/17/23 08:45 Blood Culture - Preliminary Blood Assessment and Plan (1) Dyspnea Current Visit: Yes Status: Acute Priority: High Code(s): R06.00 - DYSPNEA, UNSPECIFIED SNOMED Code(s): 718923733 (2) Small cell lung cancer Current Visit: Yes Status: Acute Priority: High Code(s): C34.90 - MALIGNANT NEOPLASM OF UNSP PART OF UNSP BRONCHUS OR LUNG SNOMED Code(s): 252693839 Plan: Small cell lung cancer -Patient is done very well on treatment so far. CTA of the chest reporting positive treatment results, no evidence of PE. Narrowing of the left upper lobe pulmonary artery from previous mass has improved. Significant decrease in the size, residual 25 x 22 mm densities seen. Decreased soft tissue thickening extending into the left mediastinum, mild residual. Previous mediastinal lymphadenopathy has decreased. -Not suspecting that patient's current condition is a direct result of immunotherapy. Suspect might be related to recent upper respiratory infection. Pulmonary has seen pt, on abx, nebulizers and steroids -Will schedule clinic f/u to ensure pt has adequately recovered prior to resuming treatment . Weakness -Pt cont to improve, more alert today -Blood cultures negative thus far, repeat cultures ordered -Neurology consulted -CT of the brain without contrast impression nonspecific white matter findings most typical of remote microvascular ischemia, reviewed results with pt and darron lr. Will hold off on MRI of the brain right now as pt is improving.
--- NOTE | 2023-04-19 18:01 | EEG ---
ELECTROENCEPHALOGRAM REPORT PREAMBLE: This is an 82-year-old male with altered mental status and delirium. The patient is having some blank stares, therefore, needs to rule out seizure disorder. EEG FINDINGS: This is a 21-channel digital EEG recorded with video component, utilizing 10/20 International System with referential and bipolar montages. Background consists of moderately well-developed and regulated, predominantly 6 to 7 Hz theta activity seen in bihemispheric region. Background is posterior dominant, does not seem to be clearly reactive to eye opening or closing. Photic driving response was not seen. Different stages of sleep were not seen. No focal or generalized epileptiform activity was seen. EKG channel showed no obvious arrhythmia. IMPRESSION: This is an abnormal EEG due to background slowing of [id number] degree. This is suggestive of generalized cerebral dysfunction as can be seen with toxic metabolic encephalopathy or related to diffuse structural brain abnormality. Clinical correlation is recommended. No epileptiform activity was seen. MMMERRITT / MEENAKSHIN: [id number] /
[2023-04-19 20:20] LABS: Glucose,Whole Blood 241 mg/dL (70-110)
[2023-04-19] MEDS: EZETIMIBE 10 MG TAB PO SCH (20:45)
[2023-04-20] MEDS: IPRATROPIUM-ALBUTEROL 3 ML NEB INHALATION SCH ×6 (01:14→21:00)
[2023-04-20] MEDS: SODIUM CHLORIDE 0.9% 1,000 ML IV SCH (06:07)
[2023-04-20] MEDS: methylPREDNISolone SOD SUCCI 125 MG/2 ML VIAL IV SCH ×3 (06:07→17:38)
[2023-04-20] MEDS: LEVOTHYROXINE 25 MCG TAB PO SCH (06:07)
[2023-04-20] MEDS: MULTIVITAMINS, THERA 1 EACH TAB PO SCH (08:03)
[2023-04-20] MEDS: CEFEPIME 2 GM in SODIUM CHLORIDE 0.9% 100 ML IVPB SCH ×2 (08:03→21:51)
[2023-04-20] MEDS: ASPIRIN 81 MG PO SCH (08:03)
[2023-04-20] MEDS: atenoloL 25 MG TAB PO SCH (08:03)
[2023-04-20] MEDS: metFORMIN 500 MG TAB PO SCH (08:03)
[2023-04-20] MEDS: ENOXAPARIN 40 MG/0.4 ML SYRINGE SQ SCH (08:03)
[2023-04-20] MEDS: INSULIN ASPART (NovoLOG) 100 UNIT/ML VIAL SQ SCH ×4 (08:03→21:50)
[2023-04-20] MEDS: PANTOPRAZOLE 40 MG TABLET PO SCH (08:03)
[2023-04-20] MEDS: BUDESONIDE 0.5 MG/2 ML NEBU INHALATION SCH ×2 (08:15→21:00)
[2023-04-20] MEDS: FORMOTEROL FUMARATE 20 MCG/2 ML NEBU INHALATION SCH ×2 (08:15→21:00)
[2023-04-20 08:39] LABS: Glucose,Whole Blood 174 mg/dL (70-110)
--- NOTE | 2023-04-20 09:02 | P.PN ---
Subjective Progress Note Date: 04/19/23 Patient was seen for a follow-up. Patient's one daughter was present today. No new concerns. Patient is sitting comfortably in the recliner. Objective - Vital Signs Vital signs: Vital Signs Temp 98.2 F 04/19/23 12:15 Pulse 88 04/19/23 15:43 Resp 20 04/19/23 12:15 BP 115/66 04/19/23 12:15 Pulse Ox 96 04/19/23 12:15 FiO2 Intake & Output 04/18/23 04/19/23 04/19/23 18:59 06:59 18:59 Intake Total 520 1500 Balance 520 1500 Intake: Intake, IV Titration 1000 Amount Cefepime 2 gm In Sodium 100 Chloride 0.9% 100 ml @ 25 mls/hr IVPB Q12HR [facility] Rx #:[id number] Sodium Chloride 0.9% 1, 900 000 ml @ 75 mls/hr IV . [id number] [facility] Rx#:[id number] Oral 520 500 Other: Voiding Method Urinal Urinal Urinal # Voids 3 3 1 # Bowel Movements 1 - Exam Patient appears slightly more calm. Otherwise unchanged. - Labs CBC & Chem 7: 04/19/23 07:02 04/19/23 07:02 Labs: Abnormal Lab Results - Last 24 Hours (Table) 04/18/23 04/18/23 04/19/23 Range/Units 20:58 22:20 06:55 WBC (4.50-10.00) X 10*3/uL RBC (4.40-5.60) X 10*6/uL Hgb (13.0-17.0) g/dL Hct (39.6-50.0) % Neutrophils # (1.80-7.70) X 10*3/uL Lymphocytes # (0.90-5.00) X 10*3/uL Eosinophils # (0.04-0.35) X 10*3/uL Chloride (96-109) mmol/L Carbon Dioxide (21.6-31.8) mmol/L BUN (9.0-27.0) mg/dL Est GFR (CKD-EPI) (>=60) BUN/Creatinine Ratio (12.00-20.00) Ratio Glucose (70-110) mg/dL POC Glucose (mg/dL) 274 H 209 H (70-110) mg/dL Hemoglobin A1c (<=6.0) % Total Bilirubin (0.3-1.2) mg/dL Total Protein (6.2-8.2) g/dL Albumin (3.8-4.9) g/dL Vitamin B12 (200.0-944.0) pg/mL Urine Protein 1+ H (Negative) Urine Glucose (UA) 2+ H (Negative) Urine Mucus Rare H (None) /hpf 04/19/23 04/19/23 04/19/23 Range/Units 07:02 07:02 07:02 WBC 10.75 H (4.50-10.00) X 10*3/uL RBC 3.25 L (4.40-5.60) X 10*6/uL Hgb 9.9 L (13.0-17.0) g/dL Hct 30.8 L (39.6-50.0) % Neutrophils # 9.84 H (1.80-7.70) X 10*3/uL Lymphocytes # 0.43 L (0.90-5.00) X 10*3/uL Eosinophils # 0 L (0.04-0.35) X 10*3/uL Chloride 112 H (96-109) mmol/L Carbon Dioxide 18.7 L (21.6-31.8) mmol/L BUN 30.5 H (9.0-27.0) mg/dL Est GFR (CKD-EPI) 55 L (>=60) BUN/Creatinine Ratio 23.46 H (12.00-20.00) Ratio Glucose 215 H (70-110) mg/dL POC Glucose (mg/dL) (70-110) mg/dL Hemoglobin A1c 6.4 H (<=6.0) % Total Bilirubin <0.2 L (0.3-1.2) mg/dL Total Protein 5.2 L (6.2-8.2) g/dL Albumin 3.4 L (3.8-4.9) g/dL Vitamin B12 1381.0 H (200.0-944.0) pg/mL Urine Protein (Negative) Urine Glucose (UA) (Negative) Urine Mucus (None) /hpf 04/19/23 04/19/23 Range/Units 12:13 17:02 WBC (4.50-10.00) X 10*3/uL RBC (4.40-5.60) X 10*6/uL Hgb (13.0-17.0) g/dL Hct (39.6-50.0) % Neutrophils # (1.80-7.70) X 10*3/uL Lymphocytes # (0.90-5.00) X 10*3/uL Eosinophils # (0.04-0.35) X 10*3/uL Chloride (96-109) mmol/L Carbon Dioxide (21.6-31.8) mmol/L BUN (9.0-27.0) mg/dL Est GFR (CKD-EPI) (>=60) BUN/Creatinine Ratio (12.00-20.00) Ratio Glucose (70-110) mg/dL POC Glucose (mg/dL) 232 H 150 H (70-110) mg/dL Hemoglobin A1c (<=6.0) % Total Bilirubin (0.3-1.2) mg/dL Total Protein (6.2-8.2) g/dL Albumin (3.8-4.9) g/dL Vitamin B12 (200.0-944.0) pg/mL Urine Protein (Negative) Urine Glucose (UA) (Negative) Urine Mucus (None) /hpf Microbiology - Last 24 Hours (Table) 04/17/23 08:58 Blood Culture - Preliminary Blood 04/17/23 08:45 Blood Culture - Preliminary Blood Assessment and Plan Assessment: * Altered mental status, likely due to delirium/metabolic encephalopathy. This is probably multifactorial due to reasons mentioned below, including medications including immunotherapy, corticosteroids and opiates. * Acute exacerbation of COPD * Possible radiation pneumonitis * Small cell lung cancer, limited stage, treated with combined chemo radiation therapy. Patient currently on immunotherapy * Hypertension * Hyperlipidemia * Diabetes, with last A1c 7.2 on 12/20/2022. * Chronic right ICA occlusion * Previous history of CVA * X tobacco use Plan: * EEG was performed, which is abnormal due to background slowing of mild to moderate degree. This is suggestive of generalized cerebral dysfunction as can be seen with toxic metabolic encephalopathy or related to diffuse structural brain abnormality. Clinical correlation is recommended. No epileptiform activity was seen. No indication for antiepileptic medication. * B12 1381, folate > 20, ammonia level < 9, UA negative. * Hemoglobin A1c 6.4, diabetes well controlled * Patient currently on cefepime for possible pneumonia/COPD exacerbation * TSH is normal. * Patient has chronic right ICA occlusion. Continue aspirin and Zetia. Patient's lipids are well controlled with cholesterol 121 and LDL 27 on 720 07/05/2022 * Medical management as per IM, and pulmonary medicine/Oncology. * Discussed with patient's family in detail. * Neurologically, no other workup indicated. We will sign off. Please reconsult if any other concerns.
[2023-04-20 09:14] LABS: HCT 31.6 % (39.6-50.0); HGB 10.4 g/dL (13.0-17.0); MCH 30.8 pg (27.0-32.0); MCHC 32.9 g/dL (32.0-37.0); MCV 93.5 FL (80.0-97.0); Mean Platelet Volume 9.4 FL (9.5-12.2); NRBC Per 100 WBC 0 X 10*3/uL (0.00-0.01); Platelet Count 181 X 10*3/uL (140-440); RBC 3.38 X 10*6/uL (4.40-5.60); RDW 13.8 % (11.5-14.5); WBC 8.66 X 10*3/uL (4.50-10.00)
[2023-04-20 09:15] LABS: Basophils # (A) 0.01 X 10*3/uL (0.00-0.10); Basophils % (A) 0.1 %; Eosinophils # (A) 0 X 10*3/uL (0.04-0.35); Eosinophils % (A) 0 %; Lymphocytes % (A) 5.8 %; Monocytes # (A) 0.38 X 10*3/uL (0.20-1.00); Monocytes % (A) 4.4 %; Neutrophils # (A) 7.67 X 10*3/uL (1.80-7.70); Neutrophils % (A) 88.5 %
[2023-04-20 09:21] LABS: ALT 30 U/L (10-49); AST 23 U/L (14-35); Albumin 3.5 g/dL (3.8-4.9); Albumin/Globulin Ratio 2.06 Ratio (1.60-3.17); Alkaline Phosphatase 62 U/L (41-126); BUN/Creat Ratio 28.27 Ratio (12.00-20.00); Blood Urea Nitrogen 31.1 mg/dL (9.0-27.0); Calcium 9.3 mg/dL (8.7-10.3); Carbon Dioxide 20.6 mmol/L (21.6-31.8); Chloride 111 mmol/L (96-109); Globulin 1.7 g/dL (1.6-3.3); Glucose 181 mg/dL (70-110); Potassium 4.5 mmol/L (3.5-5.5); Sodium 142 mmol/L (135-145); Total Bilirubin <0.2 mg/dL (0.3-1.2); Total Protein 5.2 g/dL (6.2-8.2)
--- NOTE | 2023-04-20 12:03 | P.PN ---
Subjective Progress Note Date: 04/20/23 Bassem Sotelo, is an 82-year-old male patient who presented to the ER with concerns of increased shortness of breath and increased weakness with altered mental status changes. 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 Per patient's daughter bedside patient completed radiation therapy but did develop severe weakness following treatment that has been increasing over the past week. Additional medical history includes CVA, diabetes mellitus, hyperlipidemia and hypertension. Venous Doppler completed showing no evidence for DVT. CTA completed showing no evidence for acute pulmonary embolism. Significant decrease in size of the previous large left upper lobe lung mass with small residual significantly decreased soft tissue extension into the left ilium his thiamine decreased mediastinal lymph nodes compared to prior. At This time patient has been admitted. Pulmonary, oncology and neurology services consulted. Head CT has been ordered. Patient has been started on IV Solu- Medrol and IV antibiotic Maxipime. White blood cell 6.5, hemoglobin 12.8, platelet count 170, creatinine 1.06 and bun 29. Patient was negative for influenza are seen COVID-19. Vital signs temp 98.3, heart rate 80, respiratory rate 18, blood pressure 118/80 with a pulse ox of 94% on 2 L. On 04/18/2023 patient was seen and examined on the medical floor he is alert and oriented 3 in no apparent distress his mental status is back to normal he is still complaining of cough and shortness of breath otherwise he denies any complaints there is no fever or chills no headache or dizziness no chest pain no nausea or vomiting no abdominal pain no diarrhea and no urinary symptoms. Patient remains on IV antibiotics and IV steroids pulmonary following. On 04/19/2023 patient is alert and oriented 3. Mental status has significantly improved patient remains with wheezing though patient maintained on IV antibiotics and IV steroids. Pulmonary, oncology and neurology services are following. Per neurology EEG to be ordered. Patient denies chest pain or shortness of breath. Patient denies nausea vomiting or diarrhea. Patient denies any urinary burning or frequency. On 04/20/2023 patient was seen and examined on the medical floor he is alert and oriented 3 in no apparent distress he is still complaining of cough and shortness of breath with activity otherwise he denies any complaints there is no fever or chills no headache or dizziness no chest pain no palpitation no nausea or vomiting no abdominal pain no diarrhea and no urinary symptoms Objective - Vital Signs Vital signs: Vital Signs Temp 98.1 F 04/20/23 07:51 Pulse 85 04/20/23 11:53 Resp 20 04/20/23 07:51 BP 129/63 04/20/23 07:51 Pulse Ox 96 04/20/23 08:19 FiO2 Intake & Output 04/19/23 04/20/23 04/20/23 18:59 06:59 18:59 Intake Total 590 Balance 590 Intake: Oral 590 Other: Voiding Method Urinal Urinal # Voids 1 1 # Bowel Movements 1 - Exam Head normocephalic Neck supple Lungs diminished lung sounds bilaterally with expiratory wheezing Heart regular rate and rhythm S1-S2, no rub or gallop Abdomen is soft nontender nondistended positive bowel sounds no hepatosplenomegaly Extremities no edema Neuro alert and orientated to 3 - Labs CBC & Chem 7: 04/20/23 06:02 04/20/23 06:02 Labs: Abnormal Lab Results - Last 24 Hours (Table) 04/19/23 04/19/23 04/19/23 Range/Units 07:02 07:02 12:13 WBC 10.75 H (4.50-10.00) X 10*3/uL RBC 3.25 L (4.40-5.60) X 10*6/uL Hgb 9.9 L (13.0-17.0) g/dL Hct 30.8 L (39.6-50.0) % MPV (9.5-12.2) FL Neutrophils # 9.84 H (1.80-7.70) X 10*3/uL Lymphocytes # 0.43 L (0.90-5.00) X 10*3/uL Eosinophils # 0 L (0.04-0.35) X 10*3/uL Chloride (96-109) mmol/L Carbon Dioxide (21.6-31.8) mmol/L BUN (9.0-27.0) mg/dL BUN/Creatinine Ratio (12.00-20.00) Ratio Glucose (70-110) mg/dL POC Glucose (mg/dL) 232 H (70-110) mg/dL Hemoglobin A1c 6.4 H (<=6.0) % Total Bilirubin (0.3-1.2) mg/dL Total Protein (6.2-8.2) g/dL Albumin (3.8-4.9) g/dL 04/19/23 04/19/23 04/20/23 Range/Units 17:02 20:18 06:02 WBC (4.50-10.00) X 10*3/uL RBC 3.38 L (4.40-5.60) X 10*6/uL Hgb 10.4 L (13.0-17.0) g/dL Hct 31.6 L (39.6-50.0) % MPV 9.4 L (9.5-12.2) FL Neutrophils # (1.80-7.70) X 10*3/uL Lymphocytes # 0.50 L (0.90-5.00) X 10*3/uL Eosinophils # 0 L (0.04-0.35) X 10*3/uL Chloride (96-109) mmol/L Carbon Dioxide (21.6-31.8) mmol/L BUN (9.0-27.0) mg/dL BUN/Creatinine Ratio (12.00-20.00) Ratio Glucose (70-110) mg/dL POC Glucose (mg/dL) 150 H 241 H (70-110) mg/dL Hemoglobin A1c (<=6.0) % Total Bilirubin (0.3-1.2) mg/dL Total Protein (6.2-8.2) g/dL Albumin (3.8-4.9) g/dL 04/20/23 04/20/23 Range/Units 06:02 07:58 WBC (4.50-10.00) X 10*3/uL RBC (4.40-5.60) X 10*6/uL Hgb (13.0-17.0) g/dL Hct (39.6-50.0) % MPV (9.5-12.2) FL Neutrophils # (1.80-7.70) X 10*3/uL Lymphocytes # (0.90-5.00) X 10*3/uL Eosinophils # (0.04-0.35) X 10*3/uL Chloride 111 H (96-109) mmol/L Carbon Dioxide 20.6 L (21.6-31.8) mmol/L BUN 31.1 H (9.0-27.0) mg/dL BUN/Creatinine Ratio 28.27 H (12.00-20.00) Ratio Glucose 181 H (70-110) mg/dL POC Glucose (mg/dL) 174 H (70-110) mg/dL Hemoglobin A1c (<=6.0) % Total Bilirubin <0.2 L (0.3-1.2) mg/dL Total Protein 5.2 L (6.2-8.2) g/dL Albumin 3.5 L (3.8-4.9) g/dL Microbiology - Last 24 Hours (Table) 04/17/23 08:58 Blood Culture - Preliminary Blood 04/17/23 08:45 Blood Culture - Preliminary Blood Assessment and Plan Assessment: Increased shortness of breath secondary to acute exacerbation of COPD and small cell lung cancer Limited stage small cell lung cancer. Diagnosed August 2022 patient was treated with chemo and radiation therapy Acute exacerbation of COPD Altered mental status changes. Elevated d-dimer. CTA and venous Doppler negative for PE and DVT Generalized weakness History of CVA History of kidney stones History of coronary artery disease History of abdominal aortic aneurysm History of hyperlipidemia DVT prophylaxis Lovenox. GI prophylaxis Protonix Pulmonary, oncology and neurology services consulted Repeat labs ordered PT OT and social work services consulted
[2023-04-20 12:27] LABS: Glucose,Whole Blood 172 mg/dL (70-110)
--- NOTE | 2023-04-20 14:26 | P.PN ---
Subjective Progress Note Date: 04/20/23 A pleasant 82-year-old male patient diagnosed having a limited stage small cell lung cancer back in August 2022. At that time, the patient presented to me with a left lung mass and mediastinal lymphadenopathy. Biopsy of the lung mass in the mediastinal lymph nodes confirmed the diagnosis of small cell lung cancer. He was referred to radiation oncology and medical oncology. He completed systemic chemotherapy with carbo yankton and [employer]EL[employer] SCIENTIST-16 and he was started on immunotherapy. He also completed a 10 day course of radiation therapy. The patient states that he was doing well during his chemotherapy treatment. During his radiation therapy, he started having shortness of breath, cough, chest congestion and shortness of breath and wheezing. He was started on an inhaler he was given a course of Levaquin by the radiation oncologist. He developed an ALLERGIC reaction. This was discontinued. The patient was given hydrocortisone cream to his skin rash. He was given a course of Z-Jacob. He was getting progressively more weak, diminished appetite, some weight loss, and it was noted that he was having episodes of confusion and altered mentation and for that reason he was brought into the hospital for further investigation. The workup for now included a Doppler of the lower extremity that showed no evidence of any DVT. CT angiogram of the chest showed no evidence of any consolidation with air space disease. No evidence of any pulmonary embolism. Left lung was seen in the mediastinal lymph nodes were also seen and there were essentially shrinking and responding to the treatment. The patient is bronchospastic and wheezy. His hypoxic and currently is on 2 L of oxygen by nasal cannula. Hemodynamically stable.The white cell count at 6.5 with a hemoglobin of 12.8 and a platelet cou nt of 170. D-dimer is at 1.1 with a normal coagulation profile. Electrolytes are all within normal limits. The viral screen was also negative including influenza A, influenza B, RSV and Covid 19. On today's evaluation of 04/18/2023, the patient is feeling slightly improved compared to yesterday. He is 1 cm IV fluids. The patient is also being treated with empiric antibiotics with IV cefepime. The patient is on DuoNeb about treatments [id number] and the patient is on IV Solu-Medrol. CAT scan of the brain was done and it showed no evidence of any CUSHION STUFFER metastases. There is some chronic ischemic white matter changes.No acute abnormalities. The patient also had a pro-calcitonin level that came back mildly elevated at 0.14. Meanwhile, the sodium level is at 138, potassium levels at 4.7, BUN is at 28 with a creatinine of 1.1. The patient will be significant of 10.3 with a hemog lobin of 11.2. Currently is on 2 L of oxygen by nasal cannula with pulse ox of 95%. Tolerating his diet. No altered mentation. On 04/09/2023 the patient is doing limited improvement in his overall respiratory status. Continues to have a congestive cough. Continues to bronchospastic and wheezy. His shortness of breath is oxygen dependent. Attempts were made to wean down the oxygen was not successful the patient became hypoxic. Currently is on 3 L of oxygen by nasal cannula. He is on DuoNeb about treatments [id number]. He is also on accommodation Perforomist and Pulmicort updraft twice a day and IV Solu-Medrol 60 mg every 6 hours. He remains on IV fluids at 75 mL an hour. He is on IV cefepime. The blood work shows a sodium level of 42, BUN is at 30 with a creatinine of 1.3. The white cell count is at 10.3 with a hemoglobin of 11.2. The pro-calcitonin level is at 0.14. Mental status is improved although the patient is still having some drowsiness and is thinking the patient is slow in answering questions. According to the family, he seems to much more appropriate compared to his admission. No focal neurological deficit at this point in time. On 04/20/2023, the patient is improving slowly. No new complaints. No chest pain. No pleurisy or hemoptysis. His bronchospasm wheezing. Been gradually subsiding. He remains on bronchodilators. He remains on steroids. He remains on IV cefepime. History requiring oxygen at 2 L per minute nasal cannula. The labs were reviewed. BUN is at 31 with a creatinine 1.1. Sodium level is at 142. WBC count of 8.6 with a hemoglobin of 10.4. Objective - Vital Signs Vital signs: Vital Signs Temp 98.2 F 04/20/23 12:02 Pulse 79 04/20/23 12:02 Resp 18 04/20/23 12:02 BP 132/62 04/20/23 12:02 Pulse Ox 92 L 04/20/23 12:02 FiO2 Intake & Output 04/19/23 04/20/23 04/20/23 18:59 06:59 18:59 Intake Total 590 Balance 590 Intake: Oral 590 Other: Voiding Method Urinal Urinal # Voids 1 1 # Bowel Movements 1 - Exam - Constitutional General appearance: average body habitus, cooperative, no acute distress, currently on 2 L of oxygen by nasal cannula - EENT Dry mucous membranes, no thrush Eyes: anicteric sclerae, EOMI ENT: hearing grossly normal - Neck Neck: no lymphadenopathy - Respiratory Diminished breath on the bilaterally and scattered Wheezes bilaterally - Cardiovascular Rhythm: regular Heart sounds: normal: S1, S2 Abnormal Heart Sounds: no systolic murmur, no diastolic murmur, no rub, no S3 Gallop, no S4 Gallop, no click, no other leg Peripheral Edema: right: Trace, left: None - Gastrointestinal General gastrointestinal: no absent bowel sounds, no decreased bowel sounds, no distended, no hepatomegaly, no hyperactive bowel sounds, normal bowel sounds, no organomegaly, no rigid, no scaphoid, soft, no splenomegaly, no tenderness, no umbilical hernia, no ventral hernia - Integumentary Bilateral lower extremity petechiae - Neurologic Neurologic: CNII-XII intact (Grossly) - Musculoskeletal Musculoskeletal: generalized weakness - Psychiatric Patient is a bit drowsy during our conversation Psychiatric: A&O x's 3, appropriate affect, intact judgment & insight - Labs CBC & Chem 7: 04/20/23 06:02 04/20/23 06:02 Labs: Abnormal Lab Results - Last 24 Hours (Table) 04/19/23 04/19/23 04/19/23 Range/Units 07:02 07:02 17:02 WBC 10.75 H (4.50-10.00) X 10*3/uL RBC 3.25 L (4.40-5.60) X 10*6/uL Hgb 9.9 L (13.0-17.0) g/dL Hct 30.8 L (39.6-50.0) % MPV (9.5-12.2) FL Neutrophils # 9.84 H (1.80-7.70) X 10*3/uL Lymphocytes # 0.43 L (0.90-5.00) X 10*3/uL Eosinophils # 0 L (0.04-0.35) X 10*3/uL Chloride (96-109) mmol/L Carbon Dioxide (21.6-31.8) mmol/L BUN (9.0-27.0) mg/dL BUN/Creatinine Ratio (12.00-20.00) Ratio Glucose (70-110) mg/dL POC Glucose (mg/dL) 150 H (70-110) mg/dL Hemoglobin A1c 6.4 H (<=6.0) % Total Bilirubin (0.3-1.2) mg/dL Total Protein (6.2-8.2) g/dL Albumin (3.8-4.9) g/dL 04/19/23 04/20/23 04/20/23 Range/Units 20:18 06:02 06:02 WBC (4.50-10.00) X 10*3/uL RBC 3.38 L (4.40-5.60) X 10*6/uL Hgb 10.4 L (13.0-17.0) g/dL Hct 31.6 L (39.6-50.0) % MPV 9.4 L (9.5-12.2) FL Neutrophils # (1.80-7.70) X 10*3/uL Lymphocytes # 0.50 L (0.90-5.00) X 10*3/uL Eosinophils # 0 L (0.04-0.35) X 10*3/uL Chloride 111 H (96-109) mmol/L Carbon Dioxide 20.6 L (21.6-31.8) mmol/L BUN 31.1 H (9.0-27.0) mg/dL BUN/Creatinine Ratio 28.27 H (12.00-20.00) Ratio Glucose 181 H (70-110) mg/dL POC Glucose (mg/dL) 241 H (70-110) mg/dL Hemoglobin A1c (<=6.0) % Total Bilirubin <0.2 L (0.3-1.2) mg/dL Total Protein 5.2 L (6.2-8.2) g/dL Albumin 3.5 L (3.8-4.9) g/dL 04/20/23 04/20/23 Range/Units 07:58 12:25 WBC (4.50-10.00) X 10*3/uL RBC (4.40-5.60) X 10*6/uL Hgb (13.0-17.0) g/dL Hct (39.6-50.0) % MPV (9.5-12.2) FL Neutrophils # (1.80-7.70) X 10*3/uL Lymphocytes # (0.90-5.00) X 10*3/uL Eosinophils # (0.04-0.35) X 10*3/uL Chloride (96-109) mmol/L Carbon Dioxide (21.6-31.8) mmol/L BUN (9.0-27.0) mg/dL BUN/Creatinine Ratio (12.00-20.00) Ratio Glucose (70-110) mg/dL POC Glucose (mg/dL) 174 H 172 H (70-110) mg/dL Hemoglobin A1c (<=6.0) % Total Bilirubin (0.3-1.2) mg/dL Total Protein (6.2-8.2) g/dL Albumin (3.8-4.9) g/dL Microbiology - Last 24 Hours (Table) 04/17/23 08:58 Blood Culture - Preliminary Blood 04/17/23 08:45 Blood Culture - Preliminary Blood Assessment and Plan Plan: Limited stage small cell lung cancer, treated with combined chemoradiation therapy. The patient was treated with a combination of carboplatinum and [employer]EL[employer] SCIENTIST-16 and he was started on immunotherapy. He also completed a ten-day course of radiation therapy to his chest Acute exacerbation of COPD. Consider possibility of a radiation induced pneumonitis. Reviewed CAT scan of the chest. There is interval shrinking of the tumor and the mediastinal lymphadenopathy. No clear indication for consolidation or airspace disease. Patient was treated for symptoms of bronchitis on outpatient basis with Levaquin to which she had an ALLERGIC reaction. Subsequently was given Zithromax. Altered mentation, currently under investigation. MRI of the brain at the time of diagnosis was negative. Computed tomography scan of the brain showed no acute abnormalities. This was done during the current admission. Generalized weakness secondary to above Diminished appetite secondary to above Hypertension Hyperlipidemia History of abdominal aortic aneurysm History of carotid artery disease History of kidney stones Previous history of CVA Plan Clinically improving Suggest continue same treatment We'll continue the same treatment for now. No changes in her medication regimen. IV fluids to KVO Pro-calcitonin level is mildly elevated Continue oxygen 2 L Continue combination of budesonide and Pulmicort neb twice a day Continue albuterol and ipratropium bromide the treatments 4 times a day Continue the patient IV Solu-Medrol 60 mg every 6 hours Continue IV cefepime 2 g every 12 hours Lovenox 40 mg for DVT prophylaxis The patient will be admitted to the hospital. He will likely need a maintenance respiratory medication possibly a nebulizer at time of discharge.
[2023-04-20 17:20] LABS: Glucose,Whole Blood 171 mg/dL (70-110)
[2023-04-20 20:35] LABS: Glucose,Whole Blood 252 mg/dL (70-110)
[2023-04-20] MEDS: EZETIMIBE 10 MG TAB PO SCH (21:50)
[2023-04-21] MEDS: methylPREDNISolone SOD SUCCI 125 MG/2 ML VIAL IV SCH ×3 (00:21→12:34)
[2023-04-21] MEDS: IPRATROPIUM-ALBUTEROL 3 ML NEB INHALATION SCH ×6 (00:24→19:46)
[2023-04-21] MEDS: SODIUM CHLORIDE 0.9% 1,000 ML IV SCH (06:20)
[2023-04-21] MEDS: LEVOTHYROXINE 25 MCG TAB PO SCH (06:20)
[2023-04-21 07:17] LABS: Glucose,Whole Blood 164 mg/dL (70-110)
[2023-04-21] MEDS: FORMOTEROL FUMARATE 20 MCG/2 ML NEBU INHALATION SCH ×2 (07:55→19:46)
[2023-04-21] MEDS: BUDESONIDE 0.5 MG/2 ML NEBU INHALATION SCH ×2 (07:55→19:46)
[2023-04-21] MEDS: metFORMIN 500 MG TAB PO SCH (08:13)
[2023-04-21] MEDS: MULTIVITAMINS, THERA 1 EACH TAB PO SCH (08:13)
[2023-04-21] MEDS: ASPIRIN 81 MG PO SCH (08:13)
[2023-04-21] MEDS: CEFEPIME 2 GM in SODIUM CHLORIDE 0.9% 100 ML IVPB SCH ×2 (08:13→21:05)
[2023-04-21] MEDS: atenoloL 25 MG TAB PO SCH (08:13)
[2023-04-21] MEDS: PANTOPRAZOLE 40 MG TABLET PO SCH (08:13)
[2023-04-21] MEDS: ENOXAPARIN 40 MG/0.4 ML SYRINGE SQ SCH (08:13)
[2023-04-21] MEDS: INSULIN ASPART (NovoLOG) 100 UNIT/ML VIAL SQ SCH ×4 (08:14→21:05)
--- NOTE | 2023-04-21 09:56 | P.PN ---
Subjective Progress Note Date: 04/21/23 Bassem Sotelo, is an 82-year-old male patient who presented to the ER with concerns of increased shortness of breath and increased weakness with altered mental status changes. 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 Per patient's daughter bedside patient completed radiation therapy but did develop severe weakness following treatment that has been increasing over the past week. Additional medical history includes CVA, diabetes mellitus, hyperlipidemia and hypertension. Venous Doppler completed showing no evidence for DVT. CTA completed showing no evidence for acute pulmonary embolism. Significant decrease in size of the previous large left upper lobe lung mass with small residual significantly decreased soft tissue extension into the left ilium his thiamine decreased mediastinal lymph nodes compared to prior. At This time patient has been admitted. Pulmonary, oncology and neurology services consulted. Head CT has been ordered. Patient has been started on IV Solu- Medrol and IV antibiotic Maxipime. White blood cell 6.5, hemoglobin 12.8, platelet count 170, creatinine 1.06 and bun 29. Patient was negative for influenza are seen COVID-19. Vital signs temp 98.3, heart rate 80, respiratory rate 18, blood pressure 118/80 with a pulse ox of 94% on 2 L. On 04/18/2023 patient was seen and examined on the medical floor he is alert and oriented 3 in no apparent distress his mental status is back to normal he is still complaining of cough and shortness of breath otherwise he denies any complaints there is no fever or chills no headache or dizziness no chest pain no nausea or vomiting no abdominal pain no diarrhea and no urinary symptoms. Patient remains on IV antibiotics and IV steroids pulmonary following. On 04/19/2023 patient is alert and oriented 3. Mental status has significantly improved patient remains with wheezing though patient maintained on IV antibiotics and IV steroids. Pulmonary, oncology and neurology services are following. Per neurology EEG to be ordered. Patient denies chest pain or shortness of breath. Patient denies nausea vomiting or diarrhea. Patient denies any urinary burning or frequency. On 04/20/2023 patient was seen and examined on the medical floor he is alert and oriented 3 in no apparent distress he is still complaining of cough and shortness of breath with activity otherwise he denies any complaints there is no fever or chills no headache or dizziness no chest pain no palpitation no nausea or vomiting no abdominal pain no diarrhea and no urinary symptoms On 04/21/2023 patient's alert and oriented 3. Per family patient having increased confusion at night. Patient remains on IV steroids awaiting further recommendations from pulmonary services. Patient reports improvement with cough and shortness of breath Objective - Vital Signs Vital signs: Vital Signs Temp 97.5 F L 04/21/23 07:15 Pulse 86 04/21/23 08:18 Resp 19 04/21/23 07:15 BP 135/52 04/21/23 07:15 Pulse Ox 94 L 04/21/23 08:19 FiO2 Intake & Output 04/20/23 04/21/23 04/21/23 18:59 06:59 18:59 Intake Total 220 Balance 220 Intake: Intake, IV Titration 220 Amount Cefepime 2 gm In Sodium 100 Chloride 0.9% 100 ml @ 25 mls/hr IVPB Q12HR [facility] Rx #:[id number] Sodium Chloride 0.9% 1, 120 000 ml @ 10 mls/hr IV . Q24H [facility] Rx#:[id number] Other: # Voids 1 - Exam Head normocephalic Neck supple Lungs diminished lung sounds bilaterally with expiratory wheezing Heart regular rate and rhythm S1-S2, no rub or gallop Abdomen is soft nontender nondistended positive bowel sounds no hepatosplenomegaly Extremities no edema Neuro alert and orientated to 3 - Labs CBC & Chem 7: 04/20/23 06:02 04/20/23 06:02 Labs: Abnormal Lab Results - Last 24 Hours (Table) 04/20/23 04/20/23 04/20/23 Range/Units 12:25 17:12 20:32 POC Glucose (mg/dL) 172 H 171 H 252 H (70-110) mg/dL 04/21/23 Range/Units 07:16 POC Glucose (mg/dL) 164 H (70-110) mg/dL Microbiology - Last 24 Hours (Table) 04/17/23 08:58 Blood Culture - Preliminary Blood 04/17/23 08:45 Blood Culture - Preliminary Blood Assessment and Plan Assessment: Increased shortness of breath secondary to acute exacerbation of COPD and small cell lung cancer Limited stage small cell lung cancer. Diagnosed August 2022 patient was treated with chemo and radiation therapy Acute exacerbation of COPD Altered mental status changes. Elevated d-dimer. CTA and venous Doppler negative for PE and DVT Generalized weakness History of CVA History of kidney stones History of coronary artery disease History of abdominal aortic aneurysm History of hyperlipidemia DVT prophylaxis Lovenox. GI prophylaxis Protonix Pulmonary, oncology and neurology services consulted Repeat labs ordered PT OT and social work services consulted
[2023-04-21 11:50] LABS: Glucose,Whole Blood 177 mg/dL (70-110)
--- NOTE | 2023-04-21 13:49 | P.PN ---
Subjective Progress Note Date: 04/21/23 A pleasant 82-year-old male patient diagnosed having a limited stage small cell lung cancer back in August 2022. At that time, the patient presented to me with a left lung mass and mediastinal lymphadenopathy. Biopsy of the lung mass in the mediastinal lymph nodes confirmed the diagnosis of small cell lung cancer. He was referred to radiation oncology and medical oncology. He completed systemic chemotherapy with carbo zuni and FARM CREW LEADER-16 and he was started on immunotherapy. He also completed a 10 day course of radiation therapy. The patient states that he was doing well during his chemotherapy treatment. During his radiation therapy, he started having shortness of breath, cough, chest congestion and shortness of breath and wheezing. He was started on an inhaler he was given a course of Levaquin by the radiation oncologist. He developed an ALLERGIC reaction. This was discontinued. The patient was given hydrocortisone cream to his skin rash. He was given a course of Z-Jacob. He was getting progressively more weak, diminished appetite, some weight loss, and it was noted that he was having episodes of confusion and altered mentation and for that reason he was brought into the hospital for further investigation. The workup for now included a Doppler of the lower extremity that showed no evidence of any DVT. CT angiogram of the chest showed no evidence of any consolidation with air space disease. No evidence of any pulmonary embolism. Left lung was seen in the mediastinal lymph nodes were also seen and there were essentially shrinking and responding to the treatment. The patient is bronchospastic and wheezy. His hypoxic and currently is on 2 L of oxygen by nasal cannula. Hemodynamically stable.The white cell count at 6.5 with a hemoglobin of 12.8 and a platelet cou nt of 170. D-dimer is at 1.1 with a normal coagulation profile. Electrolytes are all within normal limits. The viral screen was also negative including influenza A, influenza B, RSV and Covid 19. On today's evaluation of 04/18/2023, the patient is feeling slightly improved compared to yesterday. He is 1 cm IV fluids. The patient is also being treated with empiric antibiotics with IV cefepime. The patient is on DuoNeb about treatments [id number] and the patient is on IV Solu-Medrol. CAT scan of the brain was done and it showed no evidence of any CLOTH MERCERIZING SUPERVISOR metastases. There is some chronic ischemic white matter changes.No acute abnormalities. The patient also had a pro-calcitonin level that came back mildly elevated at 0.14. Meanwhile, the sodium level is at 138, potassium levels at 4.7, BUN is at 28 with a creatinine of 1.1. The patient will be significant of 10.3 with a hemog lobin of 11.2. Currently is on 2 L of oxygen by nasal cannula with pulse ox of 95%. Tolerating his diet. No altered mentation. On 04/09/2023 the patient is doing limited improvement in his overall respiratory status. Continues to have a congestive cough. Continues to bronchospastic and wheezy. His shortness of breath is oxygen dependent. Attempts were made to wean down the oxygen was not successful the patient became hypoxic. Currently is on 3 L of oxygen by nasal cannula. He is on DuoNeb about treatments [id number]. He is also on accommodation Perforomist and Pulmicort updraft twice a day and IV Solu-Medrol 60 mg every 6 hours. He remains on IV fluids at 75 mL an hour. He is on IV cefepime. The blood work shows a sodium level of 42, BUN is at 30 with a creatinine of 1.3. The white cell count is at 10.3 with a hemoglobin of 11.2. The pro-calcitonin level is at 0.14. Mental status is improved although the patient is still having some drowsiness and is thinking the patient is slow in answering questions. According to the family, he seems to much more appropriate compared to his admission. No focal neurological deficit at this point in time. On 04/20/2023, the patient is improving slowly. No new complaints. No chest pain. No pleurisy or hemoptysis. His bronchospasm wheezing. Been gradually subsiding. He remains on bronchodilators. He remains on steroids. He remains on IV cefepime. History requiring oxygen at 2 L per minute nasal cannula. The labs were reviewed. BUN is at 31 with a creatinine 1.1. Sodium level is at 142. WBC count of 8.6 with a hemoglobin of 10.4. On 04/21/2023, the patient is having some episodes of confusion delirium overnight. Overall, is improved and is less short of breath and less bronchospastic and wheezy. He is ambulating without a walker. No significant chest pain. Labs from yesterday were noted. No new labs are available from today. The daughter is the bedside. She is quite happy with his progress. Objective - Vital Signs Vital signs: Vital Signs Temp 97.5 F L 04/21/23 07:15 Pulse 86 04/21/23 08:18 Resp 19 04/21/23 07:15 BP 135/52 04/21/23 07:15 Pulse Ox 94 L 04/21/23 08:19 FiO2 Intake & Output 04/20/23 04/21/23 04/21/23 18:59 06:59 18:59 Intake Total 220 Balance 220 Intake: Intake, IV Titration 220 Amount Cefepime 2 gm In Sodium 100 Chloride 0.9% 100 ml @ 25 mls/hr IVPB Q12HR REPLACED BY [facility] Rx #:[id number] Sodium Chloride 0.9% 1, 120 000 ml @ 10 mls/hr IV . Q24H [facility] Rx#:[id number] Other: # Voids 1 - Exam - Constitutional General appearance: average body habitus, cooperative, no acute distress, currently on 2 L of oxygen by nasal cannula - EENT Dry mucous membranes, no thrush Eyes: anicteric sclerae, EOMI ENT: hearing grossly normal - Neck Neck: no lymphadenopathy - Respiratory Diminished breath on the bilaterally and scattered Wheezes bilaterally - Cardiovascular Rhythm: regular Heart sounds: normal: S1, S2 Abnormal Heart Sounds: no systolic murmur, no diastolic murmur, no rub, no S3 Ga llop, no S4 Gallop, no click, no other leg Peripheral Edema: right: Trace, left: None - Gastrointestinal General gastrointestinal: no absent bowel sounds, no decreased bowel sounds, no distended, no hepatomegaly, no hyperactive bowel sounds, normal bowel sounds, no organomegaly, no rigid, no scaphoid, soft, no splenomegaly, no tenderness, no umbilical hernia, no ventral hernia - Integumentary Bilateral lower extremity petechiae - Neurologic Neurologic: CNII-XII intact (Grossly) - Musculoskeletal Musculoskeletal: generalized weakness - Psychiatric Patient is a bit drowsy during our conversation Psychiatric: A&O x's 3, appropriate affect, intact judgment & insight - Labs CBC & Chem 7: 04/20/23 06:02 04/20/23 06:02 Labs: Abnormal Lab Results - Last 24 Hours (Table) 04/20/23 04/20/23 04/20/23 Range/Units 12:25 17:12 20:32 POC Glucose (mg/dL) 172 H 171 H 252 H (70-110) mg/dL 04/21/23 Range/Units 07:16 POC Glucose (mg/dL) 164 H (70-110) mg/dL Microbiology - Last 24 Hours (Table) 04/17/23 08:58 Blood Culture - Preliminary Blood 04/17/23 08:45 Blood Culture - Preliminary Blood Assessment and Plan Plan: Limited stage small cell lung cancer, treated with combined chemoradiation therapy. The patient was treated with a combination of carboplatinum and FARM CREW LEADER-16 and he was started on immunotherapy. He also completed a ten-day course of radiation therapy to his chest Acute exacerbation of COPD. Consider possibility of a radiation induced pneumonitis. Reviewed CAT scan of the chest. There is interval shrinking of the tumor and the mediastinal lymphadenopathy. No clear indication for consolidation or airspace disease. Patient was treated for symptoms of bronchitis on outpatient basis with Levaquin to which she had an ALLERGIC reaction. Subsequently was given Zithromax. Altered mentation, currently under investigation. MRI of the brain at the time of diagnosis was negative. Computed tomography scan of the brain showed no acute abnormalities. This was done during the current admission. Generalized weakness secondary to above Diminished appetite secondary to above Hypertension Hyperlipidemia History of abdominal aortic aneurysm History of carotid artery disease History of kidney stones Previous history of CVA Plan Clinically improving Episodes of nocturnal delirium and sundowning artifact We will discontinue the IV Solu-Medrol. The patient prednisone burst taper Suggest continue same treatment We'll continue the same treatment for now. No changes in her medication regimen. IV fluids to KVO Pro-calcitonin level is mildly elevated Continue oxygen 2 L Continue combination of budesonide and Pulmicort neb twice a day Continue albuterol and ipratropium bromide the treatments 4 times a day Continue IV cefepime 2 g every 12 hours Lovenox 40 mg for DVT prophylaxis The patient will be admitted to the hospital. He will likely need a maintenance respiratory medication possibly a nebulizer at time of discharge.
[2023-04-21] MEDS: predniSONE 20 MG TAB PO SCH (15:02)
[2023-04-21 17:07] LABS: Glucose,Whole Blood 205 mg/dL (70-110)
[2023-04-21 20:41] LABS: Glucose,Whole Blood 241 mg/dL (70-110)
[2023-04-21] MEDS: EZETIMIBE 10 MG TAB PO SCH (21:05)
[2023-04-22] MEDS: IPRATROPIUM-ALBUTEROL 3 ML NEB INHALATION SCH ×6 (00:14→20:27)
[2023-04-22] MEDS: SODIUM CHLORIDE 0.9% 1,000 ML IV SCH (06:22)
[2023-04-22] MEDS: LEVOTHYROXINE 25 MCG TAB PO SCH (06:22)
[2023-04-22] MEDS: predniSONE 20 MG TAB PO SCH (07:30)
[2023-04-22] MEDS: PANTOPRAZOLE 40 MG TABLET PO SCH (07:30)
[2023-04-22] MEDS: atenoloL 25 MG TAB PO SCH (07:31)
[2023-04-22] MEDS: metFORMIN 500 MG TAB PO SCH (07:31)
[2023-04-22] MEDS: ASPIRIN 81 MG PO SCH (07:31)
[2023-04-22] MEDS: MULTIVITAMINS, THERA 1 EACH TAB PO SCH (07:31)
[2023-04-22] MEDS: ENOXAPARIN 40 MG/0.4 ML SYRINGE SQ SCH (07:31)
[2023-04-22] MEDS: CEFEPIME 2 GM in SODIUM CHLORIDE 0.9% 100 ML IVPB SCH ×2 (07:31→20:24)
[2023-04-22 07:39] LABS: Glucose,Whole Blood 135 mg/dL (70-110)
[2023-04-22] MEDS: INSULIN ASPART (NovoLOG) 100 UNIT/ML VIAL SQ SCH ×4 (07:39→20:32)
[2023-04-22 08:49] LABS: Basophils # (A) 0.02 X 10*3/uL (0.00-0.10); Basophils % (A) 0.2 %; Eosinophils # (A) 0 X 10*3/uL (0.04-0.35); Eosinophils % (A) 0 %; HCT 32.9 % (39.6-50.0); HGB 10.8 g/dL (13.0-17.0); Lymphocytes # (A) 0.73 X 10*3/uL (0.90-5.00); Lymphocytes % (A) 8.4 %; MCH 30.5 pg (27.0-32.0); MCHC 32.8 g/dL (32.0-37.0); MCV 92.9 FL (80.0-97.0); Mean Platelet Volume 9.3 FL (9.5-12.2); Monocytes # (A) 0.85 X 10*3/uL (0.20-1.00); Monocytes % (A) 9.8 %; NRBC Per 100 WBC 0.05 X 10*3/uL (0.00-0.01); Neutrophils # (A) 6.67 X 10*3/uL (1.80-7.70); Neutrophils % (A) 77.1 %; Platelet Count 189 X 10*3/uL (140-440); RBC 3.54 X 10*6/uL (4.40-5.60); RDW 13.6 % (11.5-14.5); WBC 8.66 X 10*3/uL (4.50-10.00)
[2023-04-22 09:08] LABS: Blood Urea Nitrogen 31.1 mg/dL (9.0-27.0); Chloride 108 mmol/L (96-109); Glucose 141 mg/dL (70-110); Potassium 4.5 mmol/L (3.5-5.5); Sodium 140 mmol/L (135-145)
[2023-04-22 09:09] LABS: ALT 106 U/L (10-49); AST 39 U/L (14-35); Albumin 3.3 g/dL (3.8-4.9); Albumin/Globulin Ratio 2.06 Ratio (1.60-3.17); Alkaline Phosphatase 58 U/L (41-126); Carbon Dioxide 23.6 mmol/L (21.6-31.8); Globulin 1.6 g/dL (1.6-3.3); Total Bilirubin 0.2 mg/dL (0.3-1.2); Total Protein 4.9 g/dL (6.2-8.2)
[2023-04-22] MEDS: BUDESONIDE 0.5 MG/2 ML NEBU INHALATION SCH ×2 (09:37→20:27)
[2023-04-22] MEDS: FORMOTEROL FUMARATE 20 MCG/2 ML NEBU INHALATION SCH ×2 (09:38→20:27)
[2023-04-22 12:11] LABS: Glucose,Whole Blood 152 mg/dL (70-110)
--- NOTE | 2023-04-22 13:07 | P.PN ---
Subjective Progress Note Date: 04/22/23 A pleasant 82-year-old male patient diagnosed having a limited stage small cell lung cancer back in August 2022. At that time, the patient presented to me with a left lung mass and mediastinal lymphadenopathy. Biopsy of the lung mass in the mediastinal lymph nodes confirmed the diagnosis of small cell lung cancer. He was referred to radiation oncology and medical oncology. He completed systemic chemotherapy with carbo [place] and DRILL DOCTOR-16 and he was started on immunotherapy. He also completed a 10 day course of radiation therapy. The patient states that he was doing well during his chemotherapy treatment. During his radiation therapy, he started having shortness of breath, cough, chest congestion and shortness of breath and wheezing. He was started on an inhaler he was given a course of Levaquin by the radiation oncologist. He developed an ALLERGIC reaction. This was discontinued. The patient was given hydrocortisone cream to his skin rash. He was given a course of Z-Jacob. He was getting progressively more weak, diminished appetite, some weight loss, and it was noted that he was having episodes of confusion and altered mentation and for that reason he was brought into the hospital for further investigation. The workup for now included a Doppler of the lower extremity that showed no evidence of any DVT. CT angiogram of the chest showed no evidence of any consolidation with air space disease. No evidence of any pulmonary embolism. Left lung was seen in the mediastinal lymph nodes were also seen and there were essentially shrinking and responding to the treatment. The patient is bronchospastic and wheezy. His hypoxic and currently is on 2 L of oxygen by nasal cannula. Hemodynamically stable.The white cell count at 6.5 with a hemoglobin of 12.8 and a platelet coun t of 170. D-dimer is at 1.1 with a normal coagulation profile. Electrolytes are all within normal limits. The viral screen was also negative including influenza A, influenza B, RSV and Covid 19. On today's evaluation of 04/18/2023, the patient is feeling slightly improved compared to yesterday. He is 1 cm IV fluids. The patient is also being treated with empiric antibiotics with IV cefepime. The patient is on DuoNeb about treatments [id number] and the patient is on IV Solu-Medrol. CAT scan of the brain was done and it showed no evidence of any PUBLIC ADDRESS SYSTEM OPERATOR metastases. There is some chronic ischemic white matter changes.No acute abnormalities. The patient also had a pro-calcitonin level that came back mildly elevated at 0.14. Meanwhile, the sodium level is at 138, potassium levels at 4.7, BUN is at 28 with a creatinine of 1.1. The patient will be significant of 10.3 with a hemogl obin of 11.2. Currently is on 2 L of oxygen by nasal cannula with pulse ox of 95%. Tolerating his diet. No altered mentation. On 04/09/2023 the patient is doing limited improvement in his overall respiratory status. Continues to have a congestive cough. Continues to bronchospastic and wheezy. His shortness of breath is oxygen dependent. Attempts were made to wean down the oxygen was not successful the patient became hypoxic. Currently is on 3 L of oxygen by nasal cannula. He is on DuoNeb about treatments [id number]. He is also on accommodation Perforomist and Pulmicort updraft twice a day and IV Solu-Medrol 60 mg every 6 hours. He remains on IV fluids at 75 mL an hour. He is on IV cefepime. The blood work shows a sodium level of 42, BUN is at 30 with a creatinine of 1.3. The white cell count is at 10.3 with a hemoglobin of 11.2. The pro-calcitonin level is at 0.14. Mental status is improved although the patient is still having some drowsiness and is thinking the patient is slow in answering questions. According to the family, he seems to much more appropriate compared to his admission. No focal neurological deficit at this point in time. On 04/20/2023, the patient is improving slowly. No new complaints. No chest pain. No pleurisy or hemoptysis. His bronchospasm wheezing. Been gradually subsiding. He remains on bronchodilators. He remains on steroids. He remains on IV cefepime. History requiring oxygen at 2 L per minute nasal cannula. The labs were reviewed. BUN is at 31 with a creatinine 1.1. Sodium level is at 142. WBC count of 8.6 with a hemoglobin of 10.4. On 04/21/2023, the patient is having some episodes of confusion delirium o vernight. Overall, is improved and is less short of breath and less bronchospastic and wheezy. He is ambulating without a walker. No significant chest pain. Labs from yesterday were noted. No new labs are available from today. The daughter is the bedside. She is quite happy with his progress. The patient is seen today 04/22/2023 in follow-up on the regular medical floor. He is currently resting comfortably in bed. Awake and alert in no acute distress. Maintaining O2 saturations in the 90s on room air. He's afebrile. Hemodynamically stable. Blood cultures revealed no growth. White count 8.6. Hemoglobin 10.8. Platelets 189. Sodium 140. Potassium 4.5. Bicarb 24. BUN 31. Creatinine 1.0. Glucose 141. AST 39. ALT 106. Albumin 3.3. He is continued on DuoNeb inhalations, Pulmicort and Perforomist inhalations, prednisone taper. Normal saline at KVO. Lovenox for DVT prophylaxis. Antibiotics in the form of cefepime. Objective - Vital Signs Vital signs: Vital Signs Temp 97.9 F 04/22/23 07:33 Pulse 72 04/22/23 12:48 Resp 18 04/22/23 07:33 BP 159/71 04/22/23 07:33 Pulse Ox 97 04/22/23 07:33 FiO2 Intake & Output 04/21/23 04/22/23 04/22/23 18:59 06:59 18:59 Other: Voiding Method Urinal Urinal # Voids 1 1 # Bowel Movements 1 - Exam GENERAL EXAM: Alert, pleasant 82-year-old male, on room air, comfortable in no apparent distress. HEAD: Normocephalic. EYES: Normal reaction of pupils, equal size. NOSE: Clear with pink turbinates. THROAT: No erythema or exudates. NECK: No masses, no JVD. CHEST: No chest wall deformity. LUNGS: Equal air entry with bilateral wheeze, diminished. CVS: S1 and S2 normal with no audible murmur, regular rhythm. ABDOMEN: No hepatosplenomegaly, normal bowel sounds, no guarding or rigidity. SPINE: No scoliosis or deformity SKIN: No rashes CENTRAL NERVOUS SYSTEM: No focal deficits, tone is normal in all 4 extremities. EXTREMITIES: There is no peripheral edema. No clubbing, no cyanosis. Peripheral pulses are intact. - Labs CBC & Chem 7: 04/22/23 05:40 04/22/23 05:40 Labs: Abnormal Lab Results - Last 24 Hours (Table) 04/21/23 04/21/23 04/22/23 Range/Units 17:04 20:39 05:40 RBC 3.54 L (4.40-5.60) X 10*6/uL Hgb 10.8 L (13.0-17.0) g/dL Hct 32.9 L (39.6-50.0) % MPV 9.3 L (9.5-12.2) FL Lymphocytes # 0.73 L (0.90-5.00) X 10*3/uL Eosinophils # 0 L (0.04-0.35) X 10*3/uL NRBC/100 WBC Diff 0.05 H (0.00-0.01) X 10*3/uL BUN (9.0-27.0) mg/dL BUN/Creatinine Ratio (12.00-20.00) Ratio Glucose (70-110) mg/dL POC Glucose (mg/dL) 205 H 241 H (70-110) mg/dL Total Bilirubin (0.3-1.2) mg/dL AST (14-35) U/L ALT (10-49) U/L Total Protein (6.2-8.2) g/dL Albumin (3.8-4.9) g/dL 04/22/23 04/22/23 04/22/23 Range/Units 05:40 07:34 12:09 RBC (4.40-5.60) X 10*6/uL Hgb (13.0-17.0) g/dL Hct (39.6-50.0) % MPV (9.5-12.2) FL Lymphocytes # (0.90-5.00) X 10*3/uL Eosinophils # (0.04-0.35) X 10*3/uL NRBC/100 WBC Diff (0.00-0.01) X 10*3/uL BUN 31.1 H (9.0-27.0) mg/dL BUN/Creatinine Ratio 31.10 H (12.00-20.00) Ratio Glucose 141 H (70-110) mg/dL POC Glucose (mg/dL) 135 H 152 H (70-110) mg/dL Total Bilirubin 0.2 L (0.3-1.2) mg/dL AST 39 H (14-35) U/L ALT 106 H (10-49) U/L Total Protein 4.9 L (6.2-8.2) g/dL Albumin 3.3 L (3.8-4.9) g/dL Assessment and Plan Assessment: Limited stage small cell lung cancer, treated with combined chemoradiation therapy. The patient was treated with a combination of carboplatinum and DRILL DOCTOR-16 and he was started on immunotherapy. He also completed a ten-day course of radiation therapy to his chest Acute exacerbation of COPD. Consider possibility of a radiation induced pneumonitis. Reviewed CAT scan of the chest. There is interval shrinking of the tumor and the mediastinal lymphadenopathy. No clear indication for consolidation or airspace disease. Patient was treated for symptoms of bronchitis on outpatient basis with Levaquin to which he had an ALLERGIC reaction. Subsequently was given Zithromax. Altered mentation, currently under investigation. MRI of the brain at the time of diagnosis was negative. Computed tomography scan of the brain showed no acute abnormalities. This was done during the current admission. Improved today. Awake and alert Generalized weakness secondary to above Diminished appetite secondary to above Hypertension Hyperlipidemia History of abdominal aortic aneurysm History of carotid artery disease History of kidney stones Previous history of CVA Plan: The patient was seen and evaluated Currently sitting up having breakfast Family at the bedside Stable and on room air Continued on bronchodilators Continued on a prednisone taper Continued on antibiotics Lovenox for DVT prophylaxis We will continue to follow I have personally seen and examined the patient, performed the documentation and the assessment and plan as written. Number of minutes spent on the visit: 10.
--- NOTE | 2023-04-22 14:42 | P.PN ---
Subjective Progress Note Date: 04/22/23 Principal diagnosis: Confusion, SOB, lung canc In f/u today it is reported by family that pt is doing much better, improvements with steroid reduction. Pt is bathroom, communicates feeling good, wants to go home. Objective - Vital Signs Vital signs: Vital Signs Temp 97.9 F 04/22/23 07:33 Pulse 72 04/22/23 12:48 Resp 18 04/22/23 07:33 BP 159/71 04/22/23 07:33 Pulse Ox 97 04/22/23 07:33 FiO2 Intake & Output 04/21/23 04/22/23 04/22/23 18:59 06:59 18:59 Other: Voiding Method Urinal Urinal # Voids 1 1 # Bowel Movements 1 - Constitutional General appearance: Present: average body habitus, cooperative, no acute distress - Psychiatric Psychiatric: Present: A&O x's 3, appropriate affect, intact judgment & insight - Labs CBC & Chem 7: 04/22/23 05:40 04/22/23 05:40 Labs: Abnormal Lab Results - Last 24 Hours (Table) 04/21/23 04/21/23 04/22/23 Range/Units 17:04 20:39 05:40 RBC 3.54 L (4.40-5.60) X 10*6/uL Hgb 10.8 L (13.0-17.0) g/dL Hct 32.9 L (39.6-50.0) % MPV 9.3 L (9.5-12.2) FL Lymphocytes # 0.73 L (0.90-5.00) X 10*3/uL Eosinophils # 0 L (0.04-0.35) X 10*3/uL NRBC/100 WBC Diff 0.05 H (0.00-0.01) X 10*3/uL BUN (9.0-27.0) mg/dL BUN/Creatinine Ratio (12.00-20.00) Ratio Glucose (70-110) mg/dL POC Glucose (mg/dL) 205 H 241 H (70-110) mg/dL Total Bilirubin (0.3-1.2) mg/dL AST (14-35) U/L ALT (10-49) U/L Total Protein (6.2-8.2) g/dL Albumin (3.8-4.9) g/dL 04/22/23 04/22/23 04/22/23 Range/Units 05:40 07:34 12:09 RBC (4.40-5.60) X 10*6/uL Hgb (13.0-17.0) g/dL Hct (39.6-50.0) % MPV (9.5-12.2) FL Lymphocytes # (0.90-5.00) X 10*3/uL Eosinophils # (0.04-0.35) X 10*3/uL NRBC/100 WBC Diff (0.00-0.01) X 10*3/uL BUN 31.1 H (9.0-27.0) mg/dL BUN/Creatinine Ratio 31.10 H (12.00-20.00) Ratio Glucose 141 H (70-110) mg/dL POC Glucose (mg/dL) 135 H 152 H (70-110) mg/dL Total Bilirubin 0.2 L (0.3-1.2) mg/dL AST 39 H (14-35) U/L ALT 106 H (10-49) U/L Total Protein 4.9 L (6.2-8.2) g/dL Albumin 3.3 L (3.8-4.9) g/dL Assessment and Plan (1) Weakness Current Visit: Yes Status: Acute Priority: High Code(s): R53.1 - WEAKNESS SNOMED Code(s): 04999996 (2) Small cell lung cancer Current Visit: Yes Status: Acute Priority: High Code(s): C34.90 - MALIGNANT NEOPLASM OF UNSP PART OF UNSP BRONCHUS OR LUNG SNOMED Code(s): 985290973 Plan: Small cell lung cancer -Patient is done very well on treatment so far. CTA of the chest reporting positive treatment results, no evidence of PE. Narrowing of the left upper lobe pulmonary artery from previous mass has improved. Significant decrease in the size, residual 25 x 22 mm densities seen. Decreased soft tissue thickening extending into the left mediastinum, mild residual. Previous mediastinal lymphadenopathy has decreased. -Pt improving with COPD treatment and mental status improving with reduction of steroids, not suspecting that patient's current condition is a direct result of immunotherapy based on how he is improving. Pulmonary managing abx, nebulizers and steroids and pt is doing well. Weakness -Pt cont to improve, more alert today, ambulating in the room without assistance -CT of the brain without contrast impression nonspecific white matter findings most typical of remote microvascular ischemia. No MRI of the brain right now as pt is improved. Daughter said she will contact ofc for f/u prior to next treatment which is sched for 05/08.
[2023-04-22 17:10] LABS: Glucose,Whole Blood 189 mg/dL (70-110)
--- NOTE | 2023-04-22 17:26 | P.PN ---
Subjective Progress Note Date: 04/22/23 Bassem Sotelo, is an 82-year-old male patient who presented to the ER with concerns of increased shortness of breath and increased weakness with altered mental status changes. 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 Per patient's daughter bedside patient completed radiation therapy but did develop severe weakness following treatment that has been increasing over the past week. Additional medical history includes CVA, diabetes mellitus, hyperlipidemia and hypertension. Venous Doppler completed showing no evidence for DVT. CTA completed showing no evidence for acute pulmonary embolism. Significant decrease in size of the previous large left upper lobe lung mass with small residual significantly decreased soft tissue extension into the left ilium his thiamine decreased mediastinal lymph nodes compared to prior. At This time patient has been admitted. Pulmonary, oncology and neurology services consulted. Head CT has been ordered. Patient has been started on IV Solu- Medrol and IV antibiotic Maxipime. White blood cell 6.5, hemoglobin 12.8, platelet count 170, creatinine 1.06 and bun 29. Patient was negative for influenza are seen COVID-19. Vital signs temp 98.3, heart rate 80, respiratory rate 18, blood pressure 118/80 with a pulse ox of 94% on 2 L. On 04/18/2023 patient was seen and examined on the medical floor he is alert and oriented 3 in no apparent distress his mental status is back to normal he is still complaining of cough and shortness of breath otherwise he denies any complaints there is no fever or chills no headache or dizziness no chest pain no nausea or vomiting no abdominal pain no diarrhea and no urinary symptoms. Patient remains on IV antibiotics and IV steroids pulmonary following. On 04/19/2023 patient is alert and oriented 3. Mental status has significantly improved patient remains with wheezing though patient maintained on IV antibiotics and IV steroids. Pulmonary, oncology and neurology services are following. Per neurology EEG to be ordered. Patient denies chest pain or shortness of breath. Patient denies nausea vomiting or diarrhea. Patient denies any urinary burning or frequency. On 04/20/2023 patient was seen and examined on the medical floor he is alert and oriented 3 in no apparent distress he is still complaining of cough and shortness of breath with activity otherwise he denies any complaints there is no fever or chills no headache or dizziness no chest pain no palpitation no nausea or vomiting no abdominal pain no diarrhea and no urinary symptoms On 04/21/2023 patient's alert and oriented 3. Per family patient having increased confusion at night. Patient remains on IV steroids awaiting further recommendations from pulmonary services. Patient reports improvement with cough and shortness of breath. On 04/22/2023 patient was seen and examined on the medical floor he is alert and oriented 3 in no apparent distress he is able to ambulate with help, there is no fever or chills no headache or dizziness no chest pain no shortness of breath no cough no nausea or vomiting no abdominal pain no diarrhea and no urinary symptoms. There was mild elevation today in liver enzymes will monitor closely in a.m.. Possible discharge to home in the next 1-2 days Objective - Vital Signs Vital signs: Vital Signs Temp 97.8 F 04/22/23 15:08 Pulse 72 04/22/23 16:32 Resp 16 04/22/23 15:08 BP 151/66 04/22/23 15:08 Pulse Ox 95 04/22/23 15:08 FiO2 Intake & Output 04/21/23 04/22/23 04/22/23 18:59 06:59 18:59 Other: Voiding Method Urinal Urinal # Voids 1 1 # Bowel Movements 1 - Exam Head normocephalic Neck supple Lungs diminished lung sounds bilaterally with expiratory wheezing Heart regular rate and rhythm S1-S2, no rub or gallop Abdomen is soft nontender nondistended positive bowel sounds no hepatosplenomegaly Extremities no edema Neuro alert and orientated to 3 - Labs CBC & Chem 7: 04/22/23 05:40 04/22/23 05:40 Labs: Abnormal Lab Results - Last 24 Hours (Table) 04/21/23 04/22/23 04/22/23 Range/Units 20:39 05:40 05:40 RBC 3.54 L (4.40-5.60) X 10*6/uL Hgb 10.8 L (13.0-17.0) g/dL Hct 32.9 L (39.6-50.0) % MPV 9.3 L (9.5-12.2) FL Lymphocytes # 0.73 L (0.90-5.00) X 10*3/uL Eosinophils # 0 L (0.04-0.35) X 10*3/uL NRBC/100 WBC Diff 0.05 H (0.00-0.01) X 10*3/uL BUN 31.1 H (9.0-27.0) mg/dL BUN/Creatinine Ratio 31.10 H (12.00-20.00) Ratio Glucose 141 H (70-110) mg/dL POC Glucose (mg/dL) 241 H (70-110) mg/dL Total Bilirubin 0.2 L (0.3-1.2) mg/dL AST 39 H (14-35) U/L ALT 106 H (10-49) U/L Total Protein 4.9 L (6.2-8.2) g/dL Albumin 3.3 L (3.8-4.9) g/dL 04/22/23 04/22/23 04/22/23 Range/Units 07:34 12:09 17:09 RBC (4.40-5.60) X 10*6/uL Hgb (13.0-17.0) g/dL Hct (39.6-50.0) % MPV (9.5-12.2) FL Lymphocytes # (0.90-5.00) X 10*3/uL Eosinophils # (0.04-0.35) X 10*3/uL NRBC/100 WBC Diff (0.00-0.01) X 10*3/uL BUN (9.0-27.0) mg/dL BUN/Creatinine Ratio (12.00-20.00) Ratio Glucose (70-110) mg/dL POC Glucose (mg/dL) 135 H 152 H 189 H (70-110) mg/dL Total Bilirubin (0.3-1.2) mg/dL AST (14-35) U/L ALT (10-49) U/L Total Protein (6.2-8.2) g/dL Albumin (3.8-4.9) g/dL Microbiology - Last 24 Hours (Table) 04/17/23 08:58 Blood Culture - Final Blood 04/17/23 08:45 Blood Culture - Final Blood Assessment and Plan Assessment: Increased shortness of breath secondary to acute exacerbation of COPD and small cell lung cancer Limited stage small cell lung cancer. Diagnosed August 2022 patient was treated with chemo and radiation therapy Acute exacerbation of COPD Altered mental status changes. Elevated d-dimer. CTA and venous Doppler negative for PE and DVT Generalized weakness History of CVA History of kidney stones History of coronary artery disease History of abdominal aortic aneurysm History of hyperlipidemia DVT prophylaxis Lovenox. GI prophylaxis Protonix Pulmonary, oncology and neurology services consulted Repeat labs ordered PT OT and social work services consulted
[2023-04-22 20:13] LABS: Glucose,Whole Blood 240 mg/dL (70-110)
[2023-04-22] MEDS: EZETIMIBE 10 MG TAB PO SCH (20:17)
[2023-04-23] MEDS: IPRATROPIUM-ALBUTEROL 3 ML NEB INHALATION SCH ×5 (00:34→15:01)
[2023-04-23 03:09] VITALS: TEMP 97.5
[2023-04-23 05:39] VITALS: PULSE 72
[2023-04-23] MEDS: LEVOTHYROXINE 25 MCG TAB PO SCH (05:58)
[2023-04-23] MEDS: SODIUM CHLORIDE 0.9% 1,000 ML IV SCH (06:02)
[2023-04-23 07:12] LABS: Glucose,Whole Blood 88 mg/dL (70-110)
[2023-04-23] MEDS: INSULIN ASPART (NovoLOG) 100 UNIT/ML VIAL SQ SCH ×2 (07:22→12:26)
[2023-04-23] MEDS: FORMOTEROL FUMARATE 20 MCG/2 ML NEBU INHALATION SCH (07:44)
[2023-04-23] MEDS: BUDESONIDE 0.5 MG/2 ML NEBU INHALATION SCH (07:44)
[2023-04-23 07:57] VITALS: BP 134/59; RESP 16
[2023-04-23] MEDS: CEFEPIME 2 GM in SODIUM CHLORIDE 0.9% 100 ML IVPB SCH (08:06)
[2023-04-23] MEDS: ASPIRIN 81 MG PO SCH (08:06)
[2023-04-23] MEDS: ENOXAPARIN 40 MG/0.4 ML SYRINGE SQ SCH (08:06)
[2023-04-23] MEDS: MULTIVITAMINS, THERA 1 EACH TAB PO SCH (08:08)
[2023-04-23] MEDS: atenoloL 25 MG TAB PO SCH (08:08)
[2023-04-23] MEDS: PANTOPRAZOLE 40 MG TABLET PO SCH (08:08)
[2023-04-23] MEDS: metFORMIN 500 MG TAB PO SCH (08:08)
[2023-04-23] MEDS: predniSONE 20 MG TAB PO SCH (08:08)
--- NOTE | 2023-04-23 10:13 | P.DS ---
Providers Date of admission: 04/18/23 13:28 Expected date of discharge: 04/23/23 Attending physician: Hugh Morris Consults: 04/16/23 22:56 Consult Physician Urgent Consulting Provider: Aruna Whatley Consult Reason/Comments: dyspnea hx lung ca Do you want consulting provider notified?: Yes Consult Physician Urgent Consulting Provider: Jose C Cortés Consult Reason/Comments: dyspnea Do you want consulting provider notified?: Yes 04/17/23 09:47 Consult Physician Routine Consulting Provider: Greg Warner Consult Reason/Comments: [facility] Do you want consulting provider notified?: Yes Primary care physician: Hugh Morris [facility] Course: Discharge diagnosis Increased shortness of breath secondary to acute exacerbation of COPD and small cell lung cancer Limited stage small cell lung cancer. Diagnosed August 2022 patient was treated with chemo and radiation therapy Acute exacerbation of COPD Altered mental status changes. Elevated d-dimer. CTA and venous Doppler negative for PE and DVT Generalized weakness History of CVA History of kidney stones History of coronary artery disease History of abdominal aortic aneurysm History of hyperlipidemia Hospital course Bassem Sotelo, is an 82-year-old male patient who presented to the ER with concerns of increased shortness of breath and increased weakness with altered mental status changes. 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 Per patient's daughter bedside patient completed radiation therapy but did develop severe weakness following treatment that has been increasing over the past week. Additional medical history includes CVA, diabetes mellitus, hyperlipidemia and hyperte nsion. Venous Doppler completed showing no evidence for DVT. CTA completed showing no evidence for acute pulmonary embolism. Significant decrease in size of the previous large left upper lobe lung mass with small residual significantly decreased soft tissue extension into the left ilium his thiamine decreased mediastinal lymph nodes compared to prior. At This time patient has been admitted. Pulmonary, oncology and neurology services consulted. Head CT has been ordered. Patient has been started on IV Solu-Medrol and IV antibiotic Maxipime. White blood cell 6.5, hemoglobin 12.8, platelet count 170, creatinine 1.06 and bun 29. Patient was negative for influenza are seen COVID-19. Vital signs temp 98.3, heart rate 80, respiratory rate 18, blood pressure 118/80 with a pulse ox of 94% on 2 L. On 04/18/2023 patient was seen and examined on the medical floor he is alert and oriented 3 in no apparent distress his mental status is back to normal he is still complaining of cough and shortness of breath otherwise he denies any complaints there is no fever or chills no headache or dizziness no chest pain no nausea or vomiting no abdominal pain no diarrhea and no urinary symptoms. Fabien arias remains on IV antibiotics and IV steroids pulmonary following. On 04/19/2023 patient is alert and oriented 3. Mental status has significantly improved patient remains with wheezing though patient maintained on IV antibiotics and IV steroids. Pulmonary, oncology and neurology services are following. Per neurology EEG to be ordered. Patient denies chest pain or shortness of breath. Patient denies nausea vomiting or diarrhea. Patient denies any urinary burning or frequency. On 04/20/2023 patient was seen and examined on the medical floor he is alert and oriented 3 in no apparent distress he is still complaining of cough and shortness of breath with activity otherwise he denies any complaints there is no fever or chills no headache or dizziness no chest pain no palpitation no nausea or vomiting no abdominal pain no diarrhea and no urinary symptoms On 04/21/2023 patient's alert and oriented 3. Per family patient having increased confusion at night. Patient remains on IV steroids awaiting further recommendations from pulmonary services. Patient reports improvement with cough and shortness of breath. On 04/22/2023 patient was seen and examined on the medical floor he is alert and oriented 3 in no apparent distress he is able to ambulate with help, there is no fever or chills no headache or dizziness no chest pain no shortness of breath no cough no nausea or vomiting no abdominal pain no diarrhea and no urinary symptoms. There was mild elevation today in liver enzymes will monitor closely in a.m.. Possible discharge to home in the next 1-2 days On 04/23/2023 patient's alert and oriented 3. Daughter bedside patient cleared for discharge from pulmonary standpoint no need for further antibiotics per pulmonary services. Patient will be DC'd on prednisone taper. Patient also to follow-up PCP to trend liver enzymes. Slightly elevated during hospitalization. At this time patient denies chest pain or shortness breath. Patient denies nausea vomiting or diarrhea. Patient denies any urinary burning or frequency Patient Condition at Discharge: Stable Plan - Discharge Summary Discharge Rx Participant: No New Discharge Prescriptions: New Ipratropium-Albuterol Nebulize [Duoneb 0.5 mg-3 mg/3 ml Soln] 3 ml INHALATION Q4H PRN 30 Days #120 ml PRN Reason: Wheezing predniSONE 10 mg PO DIRECTED 12 Days #30 tab Continue metFORMIN HCL [Glucophage] 500 mg PO DAILY Multivitamins, Thera [Multivitamin (formulary)] 1 tab PO HS atenoloL 25 mg PO DAILY Levothyroxine Sodium [Synthroid] 25 mcg PO DAILY Losartan Potassium [Cozaar] 50 mg PO HS Magnesium Oxide [Mag-Ox] 400 mg PO DAILY PRN PRN Reason: RELAXATION/CONSTIPATION Loratadine [Claritin] 10 mg PO DAILY lidocaine HCL [lidocaine HCL Viscous] 10 - 15 ml MM ACHS PRN PRN Reason: Pain Ezetimibe [Zetia] 10 mg PO HS Aspirin [Adult Low Dose Aspirin EC] 81 mg PO DAILY Albuterol Sulfate [Albuterol Sulfate Hfa] 2 puff PO RT-Q6H PRN PRN Reason: Shortness Of Breath Ascorbic Acid/Multivit-Min [Emergen-C 1,000 mg Packet] 1,000 mg PO DAILY Discontinued Rosuvastatin [Crestor] 20 mg PO HS Discharge Medication List Multivitamins, Thera [Multivitamin (formulary)] 1 tab PO HS 11/03/15 [History] atenoloL 25 mg PO DAILY 11/03/15 [History] metFORMIN HCL [Glucophage] 500 mg PO DAILY 11/03/15 [History] Levothyroxine Sodium [Synthroid] 25 mcg PO DAILY 10/12/18 [History] Ezetimibe [Zetia] 10 mg PO HS 08/27/22 [History] Losartan Potassium [Cozaar] 50 mg PO HS 08/27/22 [History] Aspirin [Adult Low Dose Aspirin EC] 81 mg PO DAILY 08/30/22 [History] Albuterol Sulfate [Albuterol Sulfate Hfa] 2 puff PO RT-Q6H PRN 04/16/23 [History] Ascorbic Acid/Multivit-Min [Emergen-C 1,000 mg Packet] 1,000 mg PO DAILY 04/16/23 [History] Loratadine [Claritin] 10 mg PO DAILY 04/16/23 [History] Magnesium Oxide [Mag-Ox] 400 mg PO DAILY PRN 04/16/23 [History] lidocaine HCL [lidocaine HCL Viscous] 10 - 15 ml MM ACHS PRN 04/16/23 [History] Ipratropium-Albuterol Nebulize [Duoneb 0.5 mg-3 mg/3 ml Soln] 3 ml INHALATION Q4H PRN 30 Days #120 ml 04/23/23 [Rx] predniSONE 10 mg PO DIRECTED 12 Days #30 tab 04/23/23 [Rx] Follow up Appointment(s)/Referral(s): [facility], [NON-STAFF] - 1 Week Hugh Morris MD [Primary Care Provider] - 1-2 days All Whatley MD [STAFF PHYSICIAN] - 1 Week (Call ofc for appt. Ok to see PHOTO SPECIALIST if no MD appts available ) Activity/Diet/Wound Care/Special Instructions: [facility] - [address] [place] [address], [id number] - Jamie Valadez - go to [employer]
[2023-04-23 11:04] LABS: Basophils % (A) 0 %; Eosinophils # (A) 0.2 k/uL (0-0.7); Eosinophils % (A) 2 %; HCT 34.6 % (39.0-53.0); HGB 11.7 gm/dL (13.0-17.5); Lymphocytes # (A) 0.7 k/uL (1.0-4.8); Lymphocytes % (A) 7 %; MCH 31.7 pg (25.0-35.0); MCHC 33.8 g/dL (31.0-37.0); MCV 93.7 fL (80.0-100.0); Mean Platelet Volume 7.2; Monocytes # (A) 0.7 k/uL (0-1.0); Monocytes % (A) 7 %; Neutrophils % (A) 83 %; Platelet Count 195 k/uL (150-450); RDW 14.3 % (11.5-15.5); WBC 9.6 k/uL (3.8-10.6)
[2023-04-23 12:09] LABS: Glucose,Whole Blood 126 mg/dL (70-110)
[2023-04-23 13:46] VITALS: BMI 27.4
--- NOTE | 2023-04-23 14:13 | P.PN ---
Subjective Progress Note Date: 04/23/23 A pleasant 82-year-old male patient diagnosed having a limited stage small cell lung cancer back in August 2022. At that time, the patient presented to me with a left lung mass and mediastinal lymphadenopathy. Biopsy of the lung mass in the mediastinal lymph nodes confirmed the diagnosis of small cell lung cancer. He was referred to radiation oncology and medical oncology. He completed systemic chemotherapy with carbo [place] and MOBILE HOME SERVICER-16 and he was started on immunotherapy. He also completed a 10 day course of radiation therapy. The patient states that he was doing well during his chemotherapy treatment. During his radiation therapy, he started having shortness of breath, cough, chest congestion and shortness of breath and wheezing. He was started on an inhaler he was given a course of Levaquin by the radiation oncologist. He developed an ALLERGIC reaction. This was discontinued. The patient was given hydrocortisone cream to his skin rash. He was given a course of Z-Jacob. He was getting progressively more weak, diminished appetite, some weight loss, and it was noted that he was having episodes of confusion and altered mentation and for that reason he was brought into the hospital for further investigation. The workup for now included a Doppler of the lower extremity that showed no evidence of any DVT. CT angiogram of the chest showed no evidence of any consolidation with air space disease. No evidence of any pulmonary embolism. Left lung was seen in the mediastinal lymph nodes were also seen and there were essentially shrinking and responding to the treatment. The patient is bronchospastic and wheezy. His hypoxic and currently is on 2 L of oxygen by nasal cannula. Hemodynamically stable.The white cell count at 6.5 with a hemoglobin of 12.8 and a platelet coun t of 170. D-dimer is at 1.1 with a normal coagulation profile. Electrolytes are all within normal limits. The viral screen was also negative including influenza A, influenza B, RSV and Covid 19. On today's evaluation of 04/18/2023, the patient is feeling slightly improved compared to yesterday. He is 1 cm IV fluids. The patient is also being treated with empiric antibiotics with IV cefepime. The patient is on DuoNeb about treatments [id number] and the patient is on IV Solu-Medrol. CAT scan of the brain was done and it showed no evidence of any WOOD[employer]ENCH [employer]PENTER metastases. There is some chronic ischemic white matter changes.No acute abnormalities. The patient also had a pro-calcitonin level that came back mildly elevated at 0.14. Meanwhile, the sodium level is at 138, potassium levels at 4.7, BUN is at 28 with a creatinine of 1.1. The patient will be significant of 10.3 with a hemogl obin of 11.2. Currently is on 2 L of oxygen by nasal cannula with pulse ox of 95%. Tolerating his diet. No altered mentation. On 04/09/2023 the patient is doing limited improvement in his overall respiratory status. Continues to have a congestive cough. Continues to bronchospastic and wheezy. His shortness of breath is oxygen dependent. Attempts were made to wean down the oxygen was not successful the patient became hypoxic. Currently is on 3 L of oxygen by nasal cannula. He is on DuoNeb about treatments [id number]. He is also on accommodation Perforomist and Pulmicort updraft twice a day and IV Solu-Medrol 60 mg every 6 hours. He remains on IV fluids at 75 mL an hour. He is on IV cefepime. The blood work shows a sodium level of 42, BUN is at 30 with a creatinine of 1.3. The white cell count is at 10.3 with a hemoglobin of 11.2. The pro-calcitonin level is at 0.14. Mental status is improved although the patient is still having some drowsiness and is thinking the patient is slow in answering questions. According to the family, he seems to much more appropriate compared to his admission. No focal neurological deficit at this point in time. On 04/20/2023, the patient is improving slowly. No new complaints. No chest pain. No pleurisy or hemoptysis. His bronchospasm wheezing. Been gradually subsiding. He remains on bronchodilators. He remains on steroids. He remains on IV cefepime. History requiring oxygen at 2 L per minute nasal cannula. The labs were reviewed. BUN is at 31 with a creatinine 1.1. Sodium level is at 142. WBC count of 8.6 with a hemoglobin of 10.4. On 04/21/2023, the patient is having some episodes of confusion delirium o vernight. Overall, is improved and is less short of breath and less bronchospastic and wheezy. He is ambulating without a walker. No significant chest pain. Labs from yesterday were noted. No new labs are available from today. The daughter is the bedside. She is quite happy with his progress. The patient is seen today 04/22/2023 in follow-up on the regular medical floor. He is currently resting comfortably in bed. Awake and alert in no acute distress. Maintaining O2 saturations in the 90s on room air. He's afebrile. Hemodynamically stable. Blood cultures revealed no growth. White count 8.6. Hemoglobin 10.8. Platelets 189. Sodium 140. Potassium 4.5. Bicarb 24. BUN 31. Creatinine 1.0. Glucose 141. AST 39. ALT 106. Albumin 3.3. He is continued on DuoNeb inhalations, Pulmicort and Perforomist inhalations, prednisone taper. Normal saline at KVO. Lovenox for DVT prophylaxis. Antibiotics in the form of cefepime. The patient is seen today 04/23/2023 in follow-up on the regular medical floor. He is currently resting comfortably in bed. Awake and alert in no acute distress. He continues to maintain good O2 saturations in the 90s on room air. He is currently on cefepime. Lovenox for DVT prophylaxis. Continued on bronchodilators. Normal saline at KVO. Remains on a prednisone taper. Cultures reveal no growth. White count 9.6. Hemoglobin 11.7. Platelets 195. Glucose 126. Family remains at the bedside. Objective - Vital Signs Vital signs: Vital Signs Temp 97.5 F L 04/23/23 07:34 Pulse 72 04/23/23 11:42 Resp 16 04/23/23 07:34 BP 134/59 04/23/23 07:34 Pulse Ox 97 04/23/23 07:34 FiO2 Intake & Output 04/22/23 04/23/23 04/23/23 18:59 06:59 18:59 Intake Total 240 180 Balance 240 180 Weight 72.575 kg Intake: Oral 240 180 Other: Voiding Method Urinal Urinal Urinal # Voids 2 - Exam GENERAL EXAM: Alert, oriented 82-year-old male, on room air, in no apparent distress. HEAD: Normocephalic. EYES: Normal reaction of pupils, equal size. NOSE: Clear with pink turbinates. THROAT: No erythema or exudates. NECK: No masses, no JVD. CHEST: No chest wall deformity. LUNGS: Equal air entry with bilateral wheeze, diminished. CVS: S1 and S2 normal with no audible murmur, regular rhythm. ABDOMEN: No hepatosplenomegaly, normal bowel sounds, no guarding or rigidity. SPINE: No scoliosis or deformity SKIN: No rashes CENTRAL NERVOUS SYSTEM: No focal deficits, tone is normal in all 4 extremities. EXTREMITIES: There is no peripheral edema. No clubbing, no cyanosis. Peripheral pulses are intact. - Labs CBC & Chem 7: 04/23/23 10:21 04/22/23 05:40 Labs: Abnormal Lab Results - Last 24 Hours (Table) 04/22/23 04/22/23 04/23/23 Range/Units 17:09 20:11 10:21 RBC 3.70 L (4.30-5.90) m/uL Hgb 11.7 L (13.0-17.5) gm/dL Hct 34.6 L (39.0-53.0) % Neutrophils # 8.0 H (1.3-7.7) k/uL Lymphocytes # 0.7 L (1.0-4.8) k/uL POC Glucose (mg/dL) 189 H 240 H (70-110) mg/dL 04/23/23 Range/Units 12:08 RBC (4.30-5.90) m/uL Hgb (13.0-17.5) gm/dL Hct (39.0-53.0) % Neutrophils # (1.3-7.7) k/uL Lymphocytes # (1.0-4.8) k/uL POC Glucose (mg/dL) 126 H (70-110) mg/dL Microbiology - Last 24 Hours (Table) 04/17/23 08:58 Blood Culture - Final Blood 04/17/23 08:45 Blood Culture - Final Blood Assessment and Plan Assessment: Limited stage small cell lung cancer, treated with combined chemoradiation therapy. The patient was treated with a combination of carboplatinum and MOBILE HOME SERVICER-16 and he was started on immunotherapy. He also completed a ten-day course of radiation therapy to his chest Acute exacerbation of COPD. Consider possibility of a radiation induced pneu monitis. Reviewed CAT scan of the chest. There is interval shrinking of the tumor and the mediastinal lymphadenopathy. No clear indication for consolidation or airspace disease. Patient was treated for symptoms of bronchitis on outpatient basis with Levaquin to which he had an ALLERGIC reaction. Subsequently was given Zithromax. Altered mentation, currently under investigation. MRI of the brain at the time of diagnosis was negative. Computed tomography scan of the brain showed no acute abnormalities. This was done during the current admission. Improved today. Awake and alert Generalized weakness secondary to above Diminished appetite secondary to above Hypertension Hyperlipidemia History of abdominal aortic aneurysm History of carotid artery disease History of kidney stones Previous history of CVA Plan: The patient was seen and evaluated Labs and medications reviewed Stable and on room air Continued on a prednisone taper Completed antibiotics Plan is for home with home care I have personally seen and examined the patient, performed the documentation and the assessment and plan as written. Number of minutes spent on the visit: 10.
--- NOTE | 2023-04-23 23:31 | P.PN ---
Subjective Progress Note Date: 04/23/23 Principal diagnosis: Confusion, SOB, lung canc In f/u today is ambulating in hallway with wheeled walker, reported by family that pt cont to do well and is going home to see his great-grandson. Objective - Vital Signs Vital signs: Vital Signs Temp 97.5 F L 04/23/23 07:34 Pulse 72 04/23/23 08:11 Resp 16 04/23/23 07:34 BP 134/59 04/23/23 07:34 Pulse Ox 97 04/23/23 07:34 FiO2 Intake & Output 04/22/23 04/23/23 04/23/23 18:59 06:59 18:59 Intake Total 240 180 Balance 240 180 Intake: Oral 240 180 Other: Voiding Method Urinal Urinal Urinal # Voids 2 - Constitutional General appearance: Present: average body habitus, cooperative, no acute distress - EENT Eyes: Present: anicteric sclerae, EOMI ENT: Present: hearing grossly normal - Respiratory Details: Pt visualized ambulating with wheeled walker, no dyspnea - Cardiovascular Details: skin warm and dry to touch - Peripheral edema leg Peripheral Edema: bilateral: None - Integumentary Integumentary: Present: normal - Neurologic Neurologic: Present: CNII-XII intact - Musculoskeletal Musculoskeletal: Present: generalized weakness, strength equal bilaterally - Psychiatric Psychiatric: Present: A&O x's 3, appropriate affect, intact judgment & insight - Labs CBC & Chem 7: 04/23/23 10:21 04/22/23 05:40 Labs: Abnormal Lab Results - Last 24 Hours (Table) 04/22/23 04/22/23 04/22/23 Range/Units 12:09 17:09 20:11 POC Glucose (mg/dL) 152 H 189 H 240 H (70-110) mg/dL Microbiology - Last 24 Hours (Table) 04/17/23 08:58 Blood Culture - Final Blood 04/17/23 08:45 Blood Culture - Final Blood Assessment and Plan (1) Weakness Status: Acute Priority: High Code(s): R53.1 - WEAKNESS SNOMED Code(s): 92972185 (2) Small cell lung cancer Status: Acute Priority: High Code(s): C34.90 - MALIGNANT NEOPLASM OF UNSP PART OF UNSP BRONCHUS OR LUNG SNOMED Code(s): 980152607 Plan: Small cell lung cancer -Patient is done very well on treatment so far. CTA of the chest reporting positive treatment results, no evidence of PE. Narrowing of the left upper lobe pulmonary artery from previous mass has improved. Significant decrease in the size, residual 25 x 22 mm densities seen. Decreased soft tissue thickening extending into the left mediastinum, mild residual. Previous mediastinal lymphadenopathy has decreased. -Pt improved with COPD treatment, mental status at baseline. Not suspecting that patient's current condition is a direct result of immunotherapy based on how he improved. -Pulmonary managing abx, nebulizers and steroids and pt is doing well. Weakness -Pt cont to improve, more alert today, ambulating in the halls with wheeled walker -CT of the brain without contrast impression nonspecific white matter findings most typical of remote microvascular ischemia. No MRI of the brain right now as pt is improved.
== END 2023-04-23 15:16 | disposition home health service (06) | DRG 190 ==
LOC: EC 16:14 → 5NMEDONC 23:06 → OBSVTOIN 04-18 13:28
PROVIDERS: ADMIT Internal Medicine; ATTEND Internal Medicine
PROC: 05HF33Z Insertion of Infusion Device into Left Cephalic Vein, Percutaneous Approach (ICD-10-PCS; principal; 2023-04-18 12:55)
DX: J44.1 Chronic obstructive pulmonary disease with (acute) exacerbation (principal); G93.41 Metabolic encephalopathy; C34.12 Malignant neoplasm of upper lobe, left bronchus or lung; J70.0 Acute pulmonary manifestations due to radiation; Z87.891 Personal history of nicotine dependence; E03.9 Hypothyroidism, unspecified; E78.5 Hyperlipidemia, unspecified; F41.9 Anxiety disorder, unspecified; I10 Essential (primary) hypertension; L27.0 Generalized skin eruption due to drugs and medicaments taken internally; T36.95XA Adverse effect of unspecified systemic antibiotic, initial encounter; I25.10 Atherosclerotic heart disease of native coronary artery without angina pectoris; I65.21 Occlusion and stenosis of right carotid artery; R09.02 Hypoxemia; Z20.822 Contact with and (suspected) exposure to COVID-19; Z99.81 Dependence on supplemental oxygen; Z79.84 Long term (current) use of oral hypoglycemic drugs; Z79.82 Long term (current) use of aspirin; Z79.890 Hormone replacement therapy; Z79.899 Other long term (current) drug therapy; Z80.1 Family history of malignant neoplasm of trachea, bronchus and lung; Z82.49 Family history of ischemic heart disease and other diseases of the circulatory system; Z86.73 Personal history of transient ischemic attack (TIA), and cerebral infarction without residual deficits; Z87.442 Personal history of urinary calculi; Z87.01 Personal history of pneumonia (recurrent); Z86.79 Personal history of other diseases of the circulatory system; Z92.21 Personal history of antineoplastic chemotherapy; Z92.3 Personal history of irradiation; Z88.1 Allergy status to other antibiotic agents; Z88.0 Allergy status to penicillin; Z28.21 Immunization not carried out because of patient refusal
CPT/HCPCS: 36410; 36415; 70450; 71275; 76937; 80053; 81001; 82140; 82607; 82746; 83036; 83605; 83735; 83880; 84145; 84484; 85025; 85379; 85610; 85730; 87040; 87636; 93005; 93970; 94640; 94760; 95816; 96361; 96372; 96374; 99285

== ENCOUNTER → 2023-04-30 | Outpatient (CLI) | payer MEDICARE ==
--- NOTE | 2023-04-30 22:01 | MR ---
EXAMINATION TYPE: MR brain wo/w con DATE OF EXAM: 04/30/2023 9:50 PM COMPARISON: 09/10/2022 HISTORY: Lung cancer. CONTRAST: Patient received 6.5 mL intravenous Gadavist gadolinium contrast. Multiplanar and multispin-echo imaging of the brain was performed . Pre and post contrast enhanced i mages are obtained. The ventricles, basal cisterns and sulci overlying the cerebral convexities are mildly enlarged. There is evidence of mild periventricular white matter ischemic demyelination. Remote deep white matter insults are also noted. No acute edema is seen on diffusion weighted imaging. There is no evidence for midline shift or mass effect. Acute intracranial hemorrhage or extra-axial collection is not evident. No enhancing lesions are seen. The paranasal sinuses and mastoid air cells are well-aerated. IMPRESSION: Age-related atrophic and chronic small vessel ischemic change. No acute intracranial process at this time. No enhancing lesions are seen.
== END | disposition home or self-care (01) ==
LOC: RADMRIMAIN 21:00
PROVIDERS: ATTEND Internal Medicine Hematology & Oncology
DX: I67.82 Cerebral ischemia (principal); G31.1 Senile degeneration of brain, not elsewhere classified; C34.92 Malignant neoplasm of unspecified part of left bronchus or lung
CPT/HCPCS: 70553; A9585

== ENCOUNTER 2023-05-21 09:16 | Emergency (ER) | payer MEDICARE ==
[2023-05-21 09:35] VITALS: RESP 18
[2023-05-21] MEDS ORDERED: IBUPROFEN 600 MG TAB PO STA (09:44)
[2023-05-21] MEDS ORDERED: ACETAMINOPHEN TAB 500 MG TAB PO STA (09:44)
--- NOTE | 2023-05-21 09:48 | ED ---
General Adult HPI - General Chief complaint: Weakness Stated complaint: Fever Time Seen by Provider: 05/21/23 09:20 Source: patient, family, RN notes reviewed, old records reviewed Mode of arrival: EMS Limitations: no limitations - History of Present Illness Initial comments: This is an 82-year-old male who presents emergency Department with a high fever. According to family he is normally alert and oriented 4 and he is alert and oriented 2 today. Patient also spiked a high fever of 104. According to the daughter he started having fevers yesterday and EKG throughout the night and into today. Patient himself does not give you any complaints but he is only alert and oriented 2 currently. Patient according to the family has not been vomiting but no diarrhea does not appear to have any shortness of breath. Patient denies any headache patient denies any chest pain patient denies any abdominal pain. - Related Data Home Medications Medication Instructions Recorded Confirmed Multivitamins, Thera [Multivitamin 1 tab PO HS 11/03/15 05/21/23 (formulary)] atenoloL 25 mg PO DAILY 11/03/15 05/21/23 metFORMIN HCL [Glucophage] 500 mg PO DAILY 11/03/15 05/21/23 Levothyroxine Sodium [Synthroid] 25 mcg PO DAILY 10/12/18 05/21/23 Ezetimibe [Zetia] 10 mg PO HS 08/27/22 05/21/23 Losartan Potassium [Cozaar] 50 mg PO HS 08/27/22 05/21/23 Aspirin [Adult Low Dose Aspirin EC] 81 mg PO DAILY 08/30/22 05/21/23 Albuterol Sulfate [Albuterol 2 puff PO RT-Q6H PRN 04/16/23 05/21/23 Sulfate Hfa] Ascorbic Acid/Multivit-Min 1,000 mg PO DAILY 04/16/23 05/21/23 [Emergen-C 1,000 mg Packet] Loratadine [Claritin] 10 mg PO DAILY 04/16/23 05/21/23 Magnesium Oxide [Mag-Ox] 400 mg PO DAILY PRN 04/16/23 05/21/23 lidocaine HCL [lidocaine HCL 10 - 15 ml MM ACHS PRN 04/16/23 05/21/23 Viscous] Ipratropium-Albuterol Nebulize 3 ml INHALATION RT-Q4H PRN 05/21/23 05/21/23 [Duoneb 0.5 mg-3 mg/3 ml Soln] Allergies Allergy/AdvReac Type Severity Reaction Status Date / Time amoxicillin Allergy Rash/Hives Verified 05/21/23 13:31 levofloxacin [From Levaquin] Allergy Rash/Hives Verified 05/21/23 13:31 Penicillins Allergy Rash/Hives Verified 05/21/23 13:31 Review of Systems ROS Statement: Those systems with pertinent positive or pertinent negative responses have been documented in the HPI. ROS Other: All systems not noted in ROS Statement are negative. Past Medical History Past Medical History: Cancer, CVA/TIA, Diabetes Mellitus, Hyperlipidemia, Hypertension, Thyroid Disorder Additional Past Medical History / Comment(s): AAA monitored by Dr. Jaimes, CVA , carotid artery disease, history of kidney stones, small cell left lung cancer- had chemo that ended in January 2023 and radiation that ended 2022 and is still doing immunotherapy, pancreatitis, hypothyroidism, diverticulitis History of Any Multi-Drug Resistant Organisms: None Reported Past Surgical History: Cholecystectomy Additional Past Surgical History / Comment(s): carotid artery stent-now occluded 100%, cataract removal Past Anesthesia/Blood Transfusion Reactions: No Reported Reaction Past Psychological History: No Psychological Hx Reported Smoking Status: Former smoker Past Alcohol Use History: None Reported Past Drug Use History: None Reported - Past Family History Father Family Medical History: Cancer Additional Family Medical History / Comment(s): lung cancer Mother Family Medical History: Myocardial Infarction ([place]) Additional Family Medical History / Comment(s): in her 80s General Exam - General Exam Comments Initial Comments: GENERAL: Patient is well-developed and well-nourished. Patient is nontoxic and well- hydrated and is in mild distress. ENT: Neck is soft and supple. No significant lymphadenopathy is noted. Oropharynx is clear. Moist mucous membranes. Neck has full range of motion without eliciting any pain. EYES: The sclera were anicteric and conjunctiva were pink and moist. Extraocular movements were intact and pupils were equal round and reactive to light. Eyelids were unremarkable. PULMONARY: Unlabored respirations. Good breath sounds bilaterally. No audible rales rhonchi or wheezing was noted. CARDIOVASCULAR: There is a regular rate and rhythm without any murmurs gallops or rubs. ABDOMEN: Soft and nontender with normal bowel sounds. SKIN: Skin is clear with no lesions or rashes and otherwise unremarkable. NEUROLOGIC: Patient is alert and oriented 2. Cranial nerves II through XII are grossly intact. Motor and sensory are also intact. Normal speech, volume and content. Symmetrical smile. MUSCULOSKELETAL: Normal extremities with adequate strength and full range of motion. LYMPHATICS: No significant lymphadenopathy is noted PSYCHIATRIC: Normal psychiatric evaluation. Limitations: no limitations Course Vital Signs 05/21/23 05/21/23 09:19 11:38 Temperature 103 F H 98.1 F Pulse Rate 112 H 92 Respiratory 18 18 Rate Blood Pressure 140/71 97/54 O2 Sat by Pulse 96 98 Oximetry Medical Decision Making - Medical Decision Making EKG is interpreted by myself. EKG shows a sinus rhythm at 95 bpm NJ interval 193 QRS is 86 QT interval is 354 QTC is 47. EKG shows no ST segment elevation or depression. Was pt. sent in by a medical professional or institution (, PA, CLINICAL NURSE OCCUPATIONAL MEDICINE, urgent care, hospital, or custodial...) When possible be specific @ -No Did you speak to anyone other than the patient for history (EMS, parent, family, police, friend...)? What history was obtained from this source @ -Daughter's gave most of the history Did you review nursing and triage notes (agree or disagree)? Why? @ -I reviewed and agree with nursing and triage notes Were old charts reviewed (outside hosp., previous admission, EMS record, old EKG, old radiological studies, urgent care reports/EKG's, custodial records)? Report findings @ -I reviewed prior torsion prior labwork on this patient Differential Diagnosis (chest pain, altered mental status, abdominal pain women, abdominal pain men, vaginal bleeding, weakness, fever, dyspnea, syncope, headach e, dizziness, GI bleed, back pain, seizure, CVA, palpatations, mental health, musculoskeletal)? @ -Differential Fever: Pneumonia, viral URI, endocarditis, myocarditis, pericarditis, otitis, sinusitis, peritonsillar Abscess, retropharyngeal Abscess, epiglottitis, peritonitis, appendicitis, [place] cystitis, diverticulitis, hepatitis, colitis, UTI, PID, TOA, pyelonephritis, prostatitis, epididymitis, meningitis, encephalitis, pulmonary embolism, CVA, thyroid storm, pancreatitis, adrenal crisis, cavernous sinus thrombosis, this is not meant to be an all-inclusive list. EKG interpreted by me (3pts min.). @ -As above X-rays interpreted by me (1pt min.). @ -X-ray of the chest showed no acute abnormality CT interpreted by me (1pt min.). @ -CT of the brain shows subarachnoid on the left temporal parietal region. CT of the cervical spine showed no acute abnormality U/S interpreted by me (1pt. min.). @ -None done What testing was considered but not performed or refused? (CT, X-rays, U/S, labs)? Why? @ -None What meds were considered but not given or refused? Why? @ -None Did you discuss the management of the patient with other professionals (professionals i.e. , PA, CLINICAL NURSE OCCUPATIONAL MEDICINE, lab, RT, psych nurse, social services director, flare worker, teacher, business services officer, watch caser)? Give summary @ -I spoke with Dr. Hobson and radiology about the CAT scans. I spoke with [facility] Dr. saldivar and he agreed to accept the transfer of this patient. Was smoking cessation discussed for >3mins.? @ -No Was critical care preformed (if so, how long)? @ -35 minutes Were there social determinants of health that impacted care today? How? (Homelessness, low income, unemployed, alcoholism, drug addiction, transporta tion, low edu. Level, literacy, decrease access to med. care, assisted, rehab)? @ -No Was there de-escalation of care discussed even if they declined (Discuss DNR or withdrawal of care, Hospice)? DNR status @ -No What co-morbidities impacted this encounter? (DM, HTN, Smoking, COPD, CAD, Cancer, CVA, ARF, Chemo, Hep., AIDS, mental health diagnosis, sleep apnea, morbid obesity)? @ -None Was patient admitted / discharged? Hospital course, mention meds given and route, prescriptions, significant lab abnormalities, going to OR and other pertinent info. @ -Patient had 103 fever. Patient's source was unable to be found here at the emergency department I did give the patient 2 g or Rocephin prophylactically. Patient's CAT scan showed a subarachnoid hemorrhage and he will be transferred to [facility]. Undiagnosed new problem with uncertain prognosis? @ -No Drug Therapy requiring intensive monitoring for toxicity (Heparin, Nitro, Insulin, Cardizem)? @ -No Were any procedures done? @ -No Diagnosis/symptom? @ -Subarachnoid Acute, or Chronic, or Acute on Chronic? @ -Acute Uncomplicated (without systemic symptoms) or Complicated (systemic symptoms)? @ -Complicated Side effects of treatment? @ -No Exacerbation, Progression, or Severe Exacerbation? @ -No Poses a threat to life or bodily function? How? (Chest pain, [place], [place], pneumonia, PE, COPD, DKA, ARF, appy, cholecystitis, CVA, Diverticulitis, Homicidal, Suicidal, threat to staff... and all critical care pts) @ -Yes this could lead to a larger bleed and Diagnosis/symptom? @ -Fever of unknown origin Acute, or Chronic, or Acute on Chronic? @ -Acute Uncomplicated (without systemic symptoms) or Complicated (systemic symptoms)? @ -Complicated Side effects of treatment? @ -none Exacerbation, Progression, or Severe Exacerbation] @ -no Poses a threat to life or bodily function? @ -no - Lab Data Result diagrams: 05/21/23 09:50 05/21/23 09:50 Lab Results 05/21/23 05/21/23 05/21/23 Range/Units 09:50 09:50 09:50 WBC 5.2 (3.8-10.6) k/uL RBC 4.19 L (4.30-5.90) m/uL Hgb 13.4 (13.0-17.5) gm/dL Hct 38.6 L (39.0-53.0) % MCV 92.2 (80.0-100.0) fL MCH 32.0 (25.0-35.0) pg MCHC 34.8 (31.0-37.0) g/dL RDW 14.3 (11.5-15.5) % Plt Count 171 (150-450) k/uL MPV 7.4 Neutrophils % 70 % Lymphocytes % 10 % Monocytes % 12 % Eosinophils % 5 % Basophils % 0 % Neutrophils # 3.6 (1.3-7.7) k/uL Lymphocytes # 0.5 L (1.0-4.8) k/uL Monocytes # 0.6 (0-1.0) k/uL Eosinophils # 0.2 (0-0.7) k/uL Basophils # 0.0 (0-0.2) k/uL PT 10.7 (10.0-12.5) sec INR 1.0 (<1.2) APTT 21.5 L (22.0-30.0) sec Sodium 132 L (137-145) mmol/L Potassium 3.9 (3.5-5.1) mmol/L Chloride 101 (98-107) mmol/L Carbon Dioxide 21 L (22-30) mmol/L Anion Gap 10 mmol/L BUN 23 H (9-20) mg/dL Creatinine 1.24 (0.66-1.25) mg/dL Est GFR (CKD-EPI)AfAm 63 (>60 ml/min/1.73 sqM) Est GFR (CKD-EPI)NonAf 55 (>60 ml/min/1.73 sqM) Glucose 135 H (74-99) mg/dL Plasma Lactic Acid Randy (0.7-2.0) mmol/L Calcium 9.0 (8.4-10.2) mg/dL Total Bilirubin 0.8 (0.2-1.3) mg/dL AST 25 (17-59) U/L ALT 18 (4-49) U/L Alkaline Phosphatase 83 (38-126) U/L Total Protein 5.6 L (6.3-8.2) g/dL Albumin 3.2 L (3.5-5.0) g/dL Urine Color Urine Appearance (Clear) Urine pH (5.0-8.0) Ur Specific [place] (1.001-1.035) Urine Protein (Negative) Urine Glucose (UA) (Negative) Urine Ketones (Negative) Urine Blood (Negative) Urine Nitrite (Negative) Urine Bilirubin (Negative) Urine Urobilinogen (<2.0) mg/dL Ur Leukocyte Esterase (Negative) Urine RBC (0-5) /hpf Urine WBC (0-5) /hpf Ur Squamous Epith Cells (0-4) /hpf Influenza Type A (PCR) (Not Detectd) Influenza Type B (PCR) (Not Detectd) RSV (PCR) (Not Detectd) SARS-CoV-2 (PCR) (Not Detectd) 05/21/23 05/21/23 05/21/23 Range/Units 09:50 09:50 09:50 WBC (3.8-10.6) k/uL RBC (4.30-5.90) m/uL Hgb (13.0-17.5) gm/dL Hct (39.0-53.0) % MCV (80.0-100.0) fL MCH (25.0-35.0) pg MCHC (31.0-37.0) g/dL RDW (11.5-15.5) % Plt Count (150-450) k/uL MPV Neutrophils % % Lymphocytes % % Monocytes % % Eosinophils % % Basophils % % Neutrophils # (1.3-7.7) k/uL Lymphocytes # (1.0-4.8) k/uL Monocytes # (0-1.0) k/uL Eosinophils # (0-0.7) k/uL Basophils # (0-0.2) k/uL PT (10.0-12.5) sec INR (<1.2) APTT (22.0-30.0) sec Sodium (137-145) mmol/L Potassium (3.5-5.1) mmol/L Chloride (98-107) mmol/L Carbon Dioxide (22-30) mmol/L Anion Gap mmol/L BUN (9-20) mg/dL Creatinine (0.66-1.25) mg/dL Est GFR (CKD-EPI)AfAm (>60 ml/min/1.73 sqM) Est GFR (CKD-EPI)NonAf (>60 ml/min/1.73 sqM) Glucose (74-99) mg/dL Plasma Lactic Acid Randy 1.3 (0.7-2.0) mmol/L Calcium (8.4-10.2) mg/dL Total Bilirubin (0.2-1.3) mg/dL AST (17-59) U/L ALT (4-49) U/L Alkaline Phosphatase (38-126) U/L Total Protein (6.3-8.2) g/dL Albumin (3.5-5.0) g/dL Urine Color Light Yellow Urine Appearance Clear (Clear) Urine pH 6.0 (5.0-8.0) Ur Specific [place] 1.014 (1.001-1.035) Urine Protein 2+ H (Negative) Urine Glucose (UA) Negative (Negative) Urine Ketones Negative (Negative) Urine Blood Small H (Negative) Urine Nitrite Negative (Negative) Urine Bilirubin Negative (Negative) Urine Urobilinogen <2.0 (<2.0) mg/dL Ur Leukocyte Esterase Negative (Negative) Urine RBC 12 H (0-5) /hpf Urine WBC 3 (0-5) /hpf Ur Squamous Epith Cells <1 (0-4) /hpf Influenza Type A (PCR) Not Detected (Not Detectd) Influenza Type B (PCR) Not Detected (Not Detectd) RSV (PCR) Not Detected (Not Detectd) SARS-CoV-2 (PCR) Not Detected (Not Detectd) Critical Care Time Critical Care Time: Yes Total Critical Care Time: 35 Disposition Clinical Impression: Subarachnoid hemorrhage, Fever of unknown origin Disposition: OTHER INSTITUTION NOT DEFINED Referrals: Hugh Morris MD [Primary Care Provider] - 1-2 days Time of Disposition: 14:03 - Out of Hospital Transfer - Req. Specs Out of Hospital Transfer - Requested Specifics: Other Emergency Center ([facility])
[2023-05-21] MEDS: SODIUM CHLORIDE 0.9% 500 ML 500 ML IV SCH ×2 (09:55→10:36)
[2023-05-21 10:17] LABS: ALT 18 U/L (4-49); AST 25 U/L (17-59); African American GFR (CKD) 63 (>60 ml/min/1.73 sqM); Albumin 3.2 g/dL (3.5-5.0); Alkaline Phosphatase 83 U/L (38-126); Anion Gap 10 mmol/L; Blood Urea Nitrogen 23 mg/dL (9-20); Carbon Dioxide 21 mmol/L (22-30); Chloride 101 mmol/L (98-107); Glucose 135 mg/dL (74-99); Non-African American GFR(CKD) 55 (>60 ml/min/1.73 sqM); Potassium 3.9 mmol/L (3.5-5.1); Prothrombin Time 10.7 sec (10.0-12.5); Sodium 132 mmol/L (137-145); Total Bilirubin 0.8 mg/dL (0.2-1.3); Total Protein 5.6 g/dL (6.3-8.2)
[2023-05-21 10:18] LABS: Basophils % (A) 0 %; Eosinophils # (A) 0.2 k/uL (0-0.7); Eosinophils % (A) 5 %; HCT 38.6 % (39.0-53.0); HGB 13.4 gm/dL (13.0-17.5); Lymphocytes # (A) 0.5 k/uL (1.0-4.8); Lymphocytes % (A) 10 %; MCHC 34.8 g/dL (31.0-37.0); MCV 92.2 fL (80.0-100.0); Mean Platelet Volume 7.4; Monocytes # (A) 0.6 k/uL (0-1.0); Monocytes % (A) 12 %; Neutrophils # (A) 3.6 k/uL (1.3-7.7); Neutrophils % (A) 70 %; Platelet Count 171 k/uL (150-450); RBC 4.19 m/uL (4.30-5.90); RDW 14.3 % (11.5-15.5); WBC 5.2 k/uL (3.8-10.6)
[2023-05-21 10:52] LABS: Appearance,Urine Clear (Clear); Bilirubin,Urine Negative (Negative); Blood,Urine Small (Negative); Color,Urine Light Yellow; Glucose,Urine (UA) Negative (Negative); Ketones,Urine Negative (Negative); Leukocyte Esterase,Urine Negative (Negative); Nitrite,Urine Negative (Negative); Protein,Urine 2+ (Negative); RBC,Urine 12 /hpf (0-5); Specific Gravity,Urine 1.014 (1.001-1.035); Squamous Epithelial Cell,Urine <1 /hpf (0-4); Urobilinogen,Urine <2.0 mg/dL (<2.0); WBC,Urine 3 /hpf (0-5)
[2023-05-21 11:00] LABS: Partial Thromboplastin Time 21.5 sec (22.0-30.0)
--- NOTE | 2023-05-21 11:37 | XR ---
EXAMINATION TYPE: XR chest 2V DATE OF EXAM: 05/21/2023 COMPARISON: 08/27/2022 TECHNIQUE: PA and lateral views submitted. HISTORY: Fever FINDINGS: The lungs are clear and there is no pneumothorax, pleural effusion, or focal pneumonia. Heart size normal and no overt failure. Osseous structures demonstrate hypertrophic and degenerative changes of the spine. Bilateral shoulder arthropathy. Underlying COPD. IMPRESSION: 1. No acute process.
--- NOTE | 2023-05-21 13:02 | CT ---
EXAMINATION TYPE: CT brain cspine wo con DATE OF EXAM: 05/21/2023 COMPARISON: Brain 04/17/2023 HISTORY: 82-year-old male with pain after Trauma CT DLP: 1672.4 mGycm Automated exposure control for dose reduction was used. Technique: Examination of the head was done in axial plane without intravenous contrast. Coronal and sagittal reconstructions performed. CT of the cervical spine was obtained in axial plane without intravenous injection of contrast mater ial. Coronal and sagittal reformatted images were obtained from the axial views for evaluation of f ractures, spinal alignment and canal. FINDINGS: Head: There is trace hyperdense subacute blood noted along the left temporoparietal junction, axial image 2 4 and sagittal image 73. No extra-axial fluid collection. No midline shift, herniation, or hydrocephalus is seen. No evidence for acute ischemic change. Rightward nasal septal deviation. Trace mucosal thickening ethmoid air cells. Mastoid air cells are p neumatized. Orbits and globes are intact. Cervical spine: No craniocervical junction abnormality, predental space widening, or prevertebral soft tissue swellin g. Moderately advanced multilevel spondylotic change. Sedation the lower cervical spine. Alignment is ma intained. At least moderate spinal canal stenoses in the mid and lower cervical spine. An variable moderate bianka ateral neuroforaminal stenosis. No acute fracture of the cervical spine. Sagittal and coronal reformatted images confirm above findings. COMBINED IMPRESSION: 1. Trace acute subarachnoid hemorrhage left temporoparietal junction. No midline shift or mass effect . 2. Moderate to advanced spondylotic change in the cervical spine. No malalignment or acute fracture s een. Clinical findings called to Dr. Freire in the ER at 12:55 PM.
[2023-05-21] MEDS ORDERED: cefTRIAXone IN SWFI 1,000 MG/10 ML SYRINGE IVP STA (13:38)
[2023-05-21 16:10] VITALS: BP 96/60; PULSE 87; TEMP 97.8
== END 2023-05-21 16:10 | disposition other institution (70) ==
LOC: EC 09:16
DX: I60.9 Nontraumatic subarachnoid hemorrhage, unspecified (principal); I10 Essential (primary) hypertension; E11.9 Type 2 diabetes mellitus without complications; E78.5 Hyperlipidemia, unspecified; E03.9 Hypothyroidism, unspecified; Z86.73 Personal history of transient ischemic attack (TIA), and cerebral infarction without residual deficits; Z87.891 Personal history of nicotine dependence; Z88.0 Allergy status to penicillin; Z88.1 Allergy status to other antibiotic agents; Z79.84 Long term (current) use of oral hypoglycemic drugs; Z79.890 Hormone replacement therapy; Z79.82 Long term (current) use of aspirin; Z79.899 Other long term (current) drug therapy; Z90.49 Acquired absence of other specified parts of digestive tract; Z20.822 Contact with and (suspected) exposure to COVID-19
CPT/HCPCS: 99291 ×2; 96374 ×2; 96361 ×2; 36415; 93005; 80053; 83605; 85025; 85610; 85730; 81001; 87040; 87636; 71046; 72125; 70450; J0696